=== PATIENT | male | born 1940 | race Caucasian/White ===

== ENCOUNTER 2017-03-24 07:59 | Emergency (ER) | payer OTHER ==
[2017-03-24 08:04] VITALS: BP 139/50; PULSE 98; TEMP 97.8; BMI 24.0
--- NOTE | 2017-03-24 08:16 | PDOC ---
History of Present Illness - General History Source: Patient, Family Exam Limitations: No Limitations - History of Present Illness Initial Comments: 03/24/17 08:31 The patient is a 76 year old male, with a significant past medical history of HTN, HLD and diabetes, who presents to the emergency department with a nose bleed since last night, mostly localized in his left nostril. He notes that this happened to him one before a while back. The patient has been putting pieces of tissues inside the nostril to help with the bleeding and has changed it a total of 3 times. The patient currently takes aspirin and plavix. He notes that he does see and ENT and has a follow up appointment with the ENT in April. The patient denies chest pain, shortness of breath, headache and dizziness. Denies fever, chills, nausea, vomit, diarrhea and constipation. Denies dysuria, frequency, urgency and hematuria. Allergies: None Past surgical history: None reported Social history: No alcohol, tobacco or drug use reported PMD - Dr. Pravin Cox ENT - Dr. Mcclendon <Noe Saeed - Last Filed: 03/24/17 08:42> <Eliseo Ramirez - Last Filed: 03/24/17 11:32> - General Chief Complaint: Nasal Bleeding Stated Complaint: NOSEBLEED Time Seen by Provider: 03/24/17 08:16 Past History <Noe Saeed - Last Filed: 03/24/17 08:42> - Past Medical History Diabetes: Yes HTN: Yes Hypercholesterolemia: Yes - Psycho/Social/Smoking Cessation Hx Anxiety: No Suicidal Ideation: No Smoking Status: No Smoking History: Never smoked Have you smoked in the past 12 months: No Number of Cigarettes Smoked Daily: 0 Cigars Per Day: 0 Hx Alcohol Use: No Drug/Substance Use Hx: No Substance Use Type: None Hx Substance Use Treatment: No <Eliseo Ramirez - Last Filed: 03/24/17 11:32> - Past Medical History Allergies/Adverse Reactions: Allergies Allergy/AdvReac Type Severity Reaction Status Date / Time No Known Drug Allergies Allergy Verified 03/24/17 08:04 Home Medications: Ambulatory Orders Amlodipine Besylate 5 mg PO DAILY 03/24/17 Aspirin [ASA -] 81 mg PO DAILY 03/24/17 Atorvastatin Ca [Lipitor] 80 mg PO HS 03/24/17 Carvedilol 12.5 mg PO BID 03/24/17 Clopidogrel Bisulfate [Plavix -] 75 mg PO DAILY 03/24/17 Docusate Sodium [Colace -] 100 mg PO DAILY 03/24/17 Gabapentin 100 mg PO BID 03/24/17 Insulin Degludec [Tresiba Flextouch U-100] 40 unit SQ AM 03/24/17 Losartan/Hydrochlorothiazide [Losartan-Hctz 100-25 mg Tab] 1 each PO DAILY 03/24 Tamsulosin HCl 0.4 mg PO DAILY 03/24/17 Review of Systems - Review of Systems Able to Perform ROS?: Yes Comments:: 03/24/17 08:31 GENERAL/CONSTITUTIONAL: No fever or chills. No weakness. HEAD, EYES, EARS, NOSE AND THROAT: (+) Nasal bleeding. No change in vision. No ear pain or discharge. No sore throat. CARDIOVASCULAR: No chest pain or shortness of breath RESPIRATORY: No cough, wheezing, or hemoptysis. GASTROINTESTINAL: No nausea, vomiting, diarrhea or constipation. GENITOURINARY: No dysuria, frequency, or change in urination. MUSCULOSKELETAL: No joint or muscle swelling or pain. No neck or back pain. SKIN: No rash NEUROLOGIC: No headache, vertigo, loss of consciousness, or change in strength/ sensation. ENDOCRINE: No increased thirst. No abnormal weight change HEMATOLOGIC/LYMPHATIC: No anemia, easy bleeding, or history of blood clots. ALLERGIC/IMMUNOLOGIC: No hives or skin allergy. <Noe Saeed - Last Filed: 03/24/17 08:42> *Physical Exam - Vital Signs Last Vital Signs Temp Pulse Resp BP Pulse Ox 97.8 F 98 H 20 139/50 96 03/24/17 08:01 03/24/17 08:01 03/24/17 08:01 03/24/17 08:01 03/24/17 08:01 - Physical Exam Comments: 03/24/17 08:31 GENERAL: Awake, alert, and fully oriented, in no acute distress HEAD: No signs of trauma, normocephalic, atraumatic EYES: PERRLA, EOMI, sclera anicteric, conjunctiva clear ENT: (+) Dry blood in left nare with slow oozing from anterior vessel. Posterior oropharynx with no blood. Auricles normal inspection, hearing grossly normal. NECK: Normal ROM, supple, no lymphadenopathy, JVD, or masses LUNGS: No distress, speaks full sentences, clear to auscultation bilaterally HEART: Regular rate and rhythm, normal S1 and S2, no murmurs, rubs or gallops, peripheral pulses normal and equal bilaterally. ABDOMEN: Soft, nontender, normoactive bowel sounds. No guarding, no rebound. No masses EXTREMITIES: Normal inspection, Normal range of motion, no edema. No clubbing or cyanosis. NEUROLOGICAL: Cranial nerves II through XII grossly intact. Normal speech, normal gait, no focal sensorimotor deficits SKIN: Warm, Dry, normal turgor, no rashes or lesions noted. <Noe Saeed - Last Filed: 03/24/17 08:42> - Vital Signs Last Vital Signs Temp Pulse Resp BP Pulse Ox 97.8 F 98 H 20 139/50 96 03/24/17 08:01 03/24/17 08:01 03/24/17 08:01 03/24/17 08:01 03/24/17 08:01 <Eliseo Ramirez - Last Filed: 03/24/17 11:32> Medical Decision Making - Medical Decision Making 03/24/17 08:40 76 M with h/o HTN, HLD, DM, CAD s/p stents on aspirin and plavix, presenting to ER with epistaxis since last night. Pt with slow oozing bleed from left nare. Small anterior vessel visualized as source. No evidence of posterior bleed. - Apply pressure using nasal clip - Afrin spray - Reassess 03/24/17 11:28 Pt reassessed - epistaxis now resolved s/p pressure and afrin. <Eliseo Ramirez - Last Filed: 03/24/17 11:32> *DC/Admit/Observation/Transfer - Attestations Scribe Attestion: 03/24/17 08:31 Documentation prepared by Noe Saeed, acting as medical assistant internal medicine for Eliseo Ramirez MD <Noe Saeed - Last Filed: 03/24/17 08:42> - Discharge Dispostion Admit: No - Attestations Physician Attestion: 03/24/17 11:32 IDr. Eliseo MD, attest that this document has been prepared under my direction and personally reviewed by me in its entirety. I further attest, that it accurately reflects all work, treatment, procedures and medical decision -making performed by me. <Eliseo Ramirez - Last Filed: 03/24/17 11:32> Diagnosis at time of Disposition: Epistaxis - Discharge Dispostion Disposition: HOME Condition at time of disposition: Stable - Referrals Referrals: Pravin Cox MD [Primary Care Provider] - - Patient Instructions Printed Discharge Instructions: Nosebleed Additional Instructions: Avoid blowing or picking your nose. Use a humidifier in your house to avoid drying out your nostrils. If bleeding recurs, hold pressure to both nostrils and tilt your head forward. Use the Afrin spray once in each nostril if needed. If the bleeding persists or worsens, return to the ER. Call your ENT doctor to make an appointment within 1 week for further evaluation of your bleeding.
[2017-03-24] MEDS ORDERED: OXYMETAZOLINE 0.05% NASAL SOLUTION 15 ML BOTTLE NS ONE (08:31)
== END 2017-03-24 11:58 | disposition home or self-care (01) ==
LOC: JER 07:59
DX: R04.0 Epistaxis (principal); I10 Essential (primary) hypertension; I25.10 Atherosclerotic heart disease of native coronary artery without angina pectoris; E78.5 Hyperlipidemia, unspecified; E11.9 Type 2 diabetes mellitus without complications; Z79.82 Long term (current) use of aspirin; Z79.4 Long term (current) use of insulin; Z79.01 Long term (current) use of anticoagulants; Z95.5 Presence of coronary angioplasty implant and graft
CPT/HCPCS: 99281-25

== ENCOUNTER 2017-03-24 18:57 | Emergency (ER) | payer OTHER ==
[2017-03-24 19:01] VITALS: BP 146/5; PULSE 76; TEMP 97.7; BMI 24.0
--- NOTE | 2017-03-24 19:30 | PDOC ---
History of Present Illness - General History Source: Patient Exam Limitations: No Limitations - History of Present Illness Initial Comments: 03/24/17 20:18 The patient is a 76 year old male, with a significant past medical history of HTN, HLD and diabetes, who presents to the emergency department with a nasal bleed onset today. He notes that the nose bleed is mostly localized on the left nare. The patient was seen in the ED earlier today for the same complaint and was discharged after improvement of symptoms. The patient denies chest pain, shortness of breath, headache and dizziness. Denies fever, chills, nausea, vomit, diarrhea and constipation. Denies dysuria, frequency, urgency and hematuria. Allergies: None Past surgical history: None reported Social history: No alcohol, tobacco or drug use reported PMD - Dr. Pravin Cox ENT - Dr. Mcclendon <Noe Saeed - Last Filed: 03/24/17 20:17> <Angelito Littlejohn - Last Filed: 03/24/17 21:23> - General Chief Complaint: Nasal Bleeding Stated Complaint: NASAL BLEED Time Seen by Provider: 03/24/17 19:30 Past History <Noe Saeed - Last Filed: 03/24/17 20:17> - Past Medical History Diabetes: Yes HTN: Yes Hypercholesterolemia: Yes - Psycho/Social/Smoking Cessation Hx Anxiety: No Suicidal Ideation: No Smoking Status: No Smoking History: Never smoked Have you smoked in the past 12 months: No Number of Cigarettes Smoked Daily: 0 Cigars Per Day: 0 Hx Alcohol Use: No Drug/Substance Use Hx: No Substance Use Type: None Hx Substance Use Treatment: No <Angelito Littlejohn - Last Filed: 03/24/17 21:23> - Past Medical History Allergies/Adverse Reactions: Allergies Allergy/AdvReac Type Severity Reaction Status Date / Time No Known Drug Allergies Allergy Verified 03/24/17 19:01 Home Medications: Ambulatory Orders Amlodipine Besylate 5 mg PO DAILY 03/24/17 Aspirin [ASA -] 81 mg PO DAILY 03/24/17 Atorvastatin Ca [Lipitor] 80 mg PO HS 03/24/17 Carvedilol 12.5 mg PO BID 03/24/17 Cephalexin [Keflex] 500 mg PO BID #10 capsule 03/24/17 Clopidogrel Bisulfate [Plavix -] 75 mg PO DAILY 03/24/17 Docusate Sodium [Colace -] 100 mg PO DAILY 03/24/17 Gabapentin 100 mg PO BID 03/24/17 Insulin Degludec [Tresiba Flextouch U-100] 36 unit SQ AM 03/24/17 Insulin Sliding Scale [Novolog Vial Sliding Scale -] 0 units SQ ACHS 03/24/17 Losartan/Hydrochlorothiazide [Losartan-Hctz 100-25 mg Tab] 1 each PO DAILY 03/24 Tamsulosin HCl 0.4 mg PO DAILY 03/24/17 Review of Systems - Review of Systems Able to Perform ROS?: Yes Comments:: 03/24/17 20:18 CONSTITUTIONAL: No fever, no chills, no fatigue EYES: No visual changes ENT: (+) Nose bleed. No ear pain, no sore throat CARDIOVASCULAR: No chest pain, no palpitations RESPIRATORY: No cough, no SOB GI: No abdominal pain, no nausea, no vomiting, no constipation, no diarrhea GENITOURINARY: No dysuria, no frequency, no hematuria MUSKULOSKELETAL: No backpain, no joint pain, no myalgias SKIN: No rash NEURO: No headache <Noe Saeed - Last Filed: 03/24/17 20:17> *Physical Exam - Vital Signs Last Vital Signs Temp Pulse Resp BP Pulse Ox 97.7 F 76 20 146/5 96 03/24/17 18:58 03/24/17 18:58 03/24/17 18:58 03/24/17 18:58 03/24/17 18:58 - Physical Exam Comments: 03/24/17 20:18 CONSTITUTIONAL: Well-appearing; well-nourished; in no apparent distress HEAD: Normocephalic; atraumatic EYES: PERRL; EOM intact ENMT: (+) Minimal amount of active bleeding bilaterally. External appears normal ; normal oropharynx NECK: Supple; non-tender; no cervical lymphadenopathy CARD: Normal S1, S2; no murmurs, rubs, or gallops RESP: Normal chest excursion with respiration; breath sounds clear and equal bilaterally; no wheezes, rhonchi, or rales ABD: Soft, non-distended; non-tender; no palpable organomegaly, no palpable hernias EXT: Normal ROM in all four extremities; non-tender to palpation; distal pulses intact SKIN: Warm, dry, no rash NEURO: No focal neurological deficiencies. <Noe Saeed - Last Filed: 03/24/17 20:17> - Vital Signs Last Vital Signs Temp Pulse Resp BP Pulse Ox 97.7 F 76 20 146/5 96 03/24/17 18:58 03/24/17 18:58 03/24/17 18:58 03/24/17 18:58 03/24/17 18:58 <Angelito Littlejohn - Last Filed: 03/24/17 21:23> Medical Decision Making - Medical Decision Making 03/24/17 21:21 Patient is 76-year-old male on aspirin and Plavix who returns to the ER for a traumatic epistaxis after having been evaluated in this ER earlier in the day. On reevaluation, patient is awake and alert, hemodynamically stable. ENT evaluation reveals active bleeding from the left nostril without an obvious source of bleeding. Some residual blood is also noted in the right nostril. Nasal packing was initiated bilaterally. Patient tolerated procedure well. Case discussed with Dr. Mcclendon of ENT. Patient will be reevaluated in 48 hours. Will discharge with Keflex with ENT follow-up. <Angelito Littlejohn - Last Filed: 03/24/17 21:23> *DC/Admit/Observation/Transfer - Attestations Scribe Attestion: 03/24/17 20:18 Documentation prepared by Noe Saeed, acting as medical record specialist for Angelito Littlejohn MD <Noe Saeed - Last Filed: 03/24/17 20:17> - Attestations Physician Attestion: 03/24/17 21:21 The documentation was prepared by the scribe under my direct supervision. I have reviewed the documentation which correctly represents the findings, medical decision-making and critical action taken by me. <Angelito Littlejohn - Last Filed: 03/24/17 21:23> Diagnosis at time of Disposition: Epistaxis - Discharge Dispostion Disposition: HOME Condition at time of disposition: Stable - Referrals Referrals: Pravin Cox MD [Primary Care Provider] - Louis Mcclendon MD [Staff Physician] - - Patient Instructions Printed Discharge Instructions: DI for Nosebleed
== END 2017-03-24 21:39 | disposition home or self-care (01) ==
LOC: JER 18:57
PROC: 2Y41X5Z Packing of Nasal Region using Packing Material (ICD-10-PCS; principal; 2017-03-24)
DX: R04.0 Epistaxis (principal); I10 Essential (primary) hypertension; E78.5 Hyperlipidemia, unspecified; E11.9 Type 2 diabetes mellitus without complications; Z79.82 Long term (current) use of aspirin; Z79.4 Long term (current) use of insulin; Z79.01 Long term (current) use of anticoagulants
CPT/HCPCS: 30901-25; 99282-25

== ENCOUNTER 2018-10-05 06:33 | Day surgery (SDC) | payer OTHER ==
[2018-10-04 10:09] VITALS: BMI 25.7
[2018-10-05] MEDS ORDERED: MIDAZOLAM HCL 2 MG/2 ML SINGLE DOSE VIAL ONE (09:01)
[2018-10-05] MEDS ORDERED: PROPOFOL 20 ML ONE (09:01)
[2018-10-05] MEDS ORDERED: LIDOCAINE HCL/PF 2% SDV 5ML VIAL ONE (09:01)
[2018-10-05] MEDS ORDERED: ceFAZolin SODIUM 1 GM VIAL ONE (09:01)
[2018-10-05] MEDS ORDERED: oxyCODONE HCL 5 MG TABLET PO PRN (09:16)
[2018-10-05] MEDS ORDERED: ONDANSETRON 4 MG/2 ML VIAL IVPUSH PRN (09:16)
[2018-10-05] MEDS ORDERED: ACETAMINOPHEN 500 MG TABLET (FP) PO PRN (09:16)
[2018-10-05] MEDS ORDERED: ceFAZolin SODIUM 1 GM VIAL IVPB ONE (09:29)
[2018-10-05] MEDS ORDERED: LACTATED RINGERS SOLUTION 1,000 ML IV SCH (09:30)
[2018-10-05] MEDS ORDERED: GLYCOPYRROLATE 0.2 MG/1 ML VIAL ONE (09:53)
--- NOTE | 2018-10-05 10:05 | HP ---
DATE OF ADMISSION: 10/05/2018 HISTORY OF PRESENT ILLNESS: Patient is a 78-year-old male with history of prostatism including lower urinary tract symptoms with frequency, urgency, dysuria, stranguria, and feelings of incomplete bladder emptying. Postvoid residuals range between 200 and 300 mL. Patient has been treated with Flomax and Proscar without any relief. 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 He does have history of high blood pressure as well as diabetes and coronary artery disease. MEDICATIONS: The patient is on multiple medications including gabapentin, Norvasc, Plavix, a statin, losartan, carvedilol, insulin, Colace, aspirin, metformin, and Flomax. PHYSICAL EXAMINATION: Abdomen: Reveals a soft abdomen. Lungs: Clear. Heart: Regular rhythm. Genitalia: Revealed a left empty scrotum, right side was normal in size and consistency. Phallus is circumcised. There is a coronal hypospadias. The prostate is 2+, firm, and nontender. LABORATORY DATA: The patients PSA is 1.3. BUN 24, creatinine 0.6. IMPRESSION: At present is benign prostatic hypertrophy with lower urinary tract symptoms, large postvoid residual. Will go for cystourethroscopy and transurethral vaporization of the prostate. Johanna [id number]
[2018-10-05] MEDS ORDERED: HYDROmorphone HCl 2 MG/ML VIAL IVPUSH ONE (10:40)
--- NOTE | 2018-10-05 10:49 | OP ---
Operative Note - Note: Operative Date: 10/05/18 Pre-Operative Diagnosis: bph with luts Operation: tuvp/turp Findings: trilobar hypertrophy of prostate, gr. 3 bladder trabeculation Post-Operative Diagnosis: Same as Pre-op Composition Worker: Annabella Pereyra Anesthesia: General Specimens Removed: prostate tissue Estimated Blood Loss (mls): 40 Drains & Tubes with Location: [id number] mccoy Drains, Volume Out (mls): 0 Blood Volume Replaced (mls): 0 Fluid Volume Replaced (mls): 0 Operative Report Dictated: Yes
[2018-10-05] MEDS ORDERED: ACETAMINOPHEN INJECTION 100 ML IVPB ONE (11:36)
--- NOTE | 2018-10-05 11:51 | OP ---
DATE OF OPERATION: 10/05/2018 SURGEON: Annabella Pereyra MD PREOPERATIVE DIAGNOSIS: Benign prostatic hypertrophy. POSTOPERATIVE DIAGNOSIS: Benign prostatic hypertrophy with trabeculated bladder. OPERATIVE PROCEDURE: Cystourethroscopy and transurethral vaporization and transurethral resection of prostate. ANESTHESIA: General. DESCRIPTION OF PROCEDURE: Under above stated anesthesia, patient was prepped and draped in the usual sterile manner. He was placed in the dorsal lithotomy position. Cystoscopy revealed a coronal hypospadias. Anterior urethra was within normal limits. Prostatic urethra revealed trilobar hypertrophy of the prostate with lateral lobe kissing. The bladder was entered, and urine was collected for culture and sensitivity. Ureteral orifices were within normal limits with efflux of clear urine. Vaportrode was introduced, and bipolar vaporization was commenced at the 6 o'clock position of the right lateral lobe. This was carried on up to the 12 o'clock position. Also, it was commenced from the bladder neck to the level of the verumontanum. The same thing was done to the left lateral lobe. Lastly, the median lobe was vaporized. Excess tissue was then resected with a resectoscope. Hemostasis was secured with electrocoagulation. Prostate chips were removed with an Ellik evacuator. No active bleeding was noted. The bladder was emptied. The scope was removed. The 24-Sinhala 3-way 30-mL Antunez catheter was placed into the bladder. The patient was commenced on continuous bladder irrigation. He tolerated the procedure well. He returned to the recovery room in good condition. Johanna [id number]
[2018-10-05] MEDS ORDERED: oxyCODONE HCL 5 MG TABLET ONE (14:48)
[2018-10-05 15:24] VITALS: BP 149/60; PULSE 84; TEMP 98
--- NOTE | 2018-10-07 17:11 | PATH ---
Surgical Pathology Report Patient Name: RUPALI DOMINGUEZ Med. Rec. #: [id number] /Age/Gender: 1940 (Age: 78) / M Account: [id number] Location: [facility] SURGICAL Taken: 10/05/2018 Received: 10/05/2018 Reported: 10/07/2018 Physicians: Annabella Pereyra M.D. Specimen(s) Received PROSTATE CHIPS Clinical History Benign prostate hypertrophy Final Diagnosis PROSTATE CHIPS, TRANSURETHRAL RESECTION OF PROSTATE: BENIGN PROSTATIC TISSUE WITH FOCAL ACUTE AND CHRONIC INFLAMMATION, ACINAR ATROPHY, CYSTIC CHANGES, GLANDULAR AND STROMAL HYPERPLASIA. UROTHELIAL MUCOSA WITH CYSTITIS CYSTICA AND GLANDULARIS. Comment: Immunohistochemical stains performed and interpreted at [facility] for P63 highlights basal cells. Electronically Signed Dimple Pedersen M.D. Gross Description Received in formalin labeled "prostate chips," is a 5 g, 6.0 x 5.2 x 0.4 cm aggregate of orona, irregular, firm to rubbery portions of tissue, consistent with prostate chips. The specimen is entirely submitted in 6 cassettes. /10/05/201810/05/2018
== END 2018-10-05 15:20 | disposition home or self-care (01) ==
LOC: JASU-SURG 06:33
PROVIDERS: ATTEND Urology
PROC: 0VT08ZZ Resection of Prostate, Via Natural or Artificial Opening Endoscopic (ICD-10-PCS; principal; 2018-10-05 08:30)
DX: N40.1 Benign prostatic hyperplasia with lower urinary tract symptoms (principal); N32.89 Other specified disorders of bladder; R35.0 Frequency of micturition; R39.15 Urgency of urination; E11.9 Type 2 diabetes mellitus without complications; Z79.82 Long term (current) use of aspirin
CPT/HCPCS: 82962; 87086; 88305-TC; 88342-TC; 94760; J0131

== ENCOUNTER 2019-05-12 07:07 | Day surgery (SDC) | payer OTHER ==
[2019-05-11 13:42] VITALS: BMI 26.3
[2019-05-12 09:41] VITALS: PULSE 70
[2019-05-12 09:56] VITALS: BP 163/66; TEMP 98.2
--- NOTE | 2019-05-15 18:33 | PATH ---
Surgical Pathology Report Patient Name: RUPALI DOMINGUEZ [facility]. Rec. #: [id number] /Age/Gender: 1940 (Age: 78) / M Account: [id number] Location: [facility] Taken: 05/12/2019 Received: 05/12/2019 Reported: 05/15/2019 Physicians: Guera Slaughter M.D. Specimen(s) Received A: BX RECTAL POLYP B: SIGMOID COLON POLYP HOT SNARE C: POLYP FROM TRANSVERSE COLON HOT SNARE D: CECUM POLYP HOT SNARE E: RT. COLON POLYP HOT SNARE Clinical History Personal history of colon polyp Postoperative diagnosis: Colon polyps and diverticulosis Final Diagnosis A. RECTAL POLYPS, POLYPECTOMY: HYPERPLASTIC POLYP. SEPARATE COLONIC MUCOSA WITH FOCAL REACTIVE LYMPHOID AGGREGATE IN THE LAMINA PROPRIA.: B. SIGMOID COLON POLYP, POLYPECTOMY: TUBULAR ADENOMA. C. POLYPS FROM TRANSVERSE COLON, POLYPECTOMY: TUBULAR ADENOMA, MULTIPLE FRAGMENTS. D. POLYPS FROM CECUM, POLYPECTOMY: TUBULAR ADENOMA, MULTIPLE FRAGMENTS: E. RIGHT COLON POLYPS, POLYPECTOMY: TUBULAR ADENOMA, MULTIPLE FRAGMENTS. Electronically Signed Kell Stern M.D. Gross Description A. Received in formalin, labeled "rectal polyps" are 3 orona, irregular portions of soft tissue measuring 0.1 to 0.2 cm. in greatest dimension. The specimens are submitted in toto in one cassette. B. Received in formalin, labeled "polyp from sigmoid colon" is a orona, irregular portion of soft tissue measuring 0.7 cm. in greatest dimension. The specimens are submitted in toto in one cassette after bisected. C. Received in formalin, labeled "polyps from transverse colon" are multiple orona, irregular portions of soft tissue measuring 1.5 x1.5 x 0.2 cm in aggregate. The specimens are submitted in toto in one cassette. D. Received in formalin, labeled "polyps from cecum" are multiple orona, irregular portions of soft tissue measuring 2.0 x 2.0 x 0.2 cm in aggregate. The specimens are submitted in toto in one cassette. E. Received in formalin, labeled "right colon polyps" are multiple orona, irregular portion of soft tissue measuring 0.1 to 0.3 cm. in greatest dimension. The specimens are submitted in toto in one cassette. __ KWS/05/15/2019 roni/05/15/2019
== END 2019-05-12 09:57 | disposition home or self-care (01) ==
LOC: JASU-ENDO 07:07
PROVIDERS: ATTEND Internal Medicine Gastroenterology
PROC: 0DBL8ZX Excision of Transverse Colon, Via Natural or Artificial Opening Endoscopic, Diagnostic (ICD-10-PCS; 2019-05-12)
PROC: 0DBN8ZX Excision of Sigmoid Colon, Via Natural or Artificial Opening Endoscopic, Diagnostic (ICD-10-PCS; 2019-05-12)
PROC: 0DBH8ZX Excision of Cecum, Via Natural or Artificial Opening Endoscopic, Diagnostic (ICD-10-PCS; 2019-05-12)
PROC: 0DBP8ZX Excision of Rectum, Via Natural or Artificial Opening Endoscopic, Diagnostic (ICD-10-PCS; 2019-05-12)
PROC: 0DBK8ZX Excision of Ascending Colon, Via Natural or Artificial Opening Endoscopic, Diagnostic (ICD-10-PCS; principal; 2019-05-12 08:30)
DX: Z12.11 Encounter for screening for malignant neoplasm of colon (principal); Z86.010 Personal history of colon polyps; K62.1 Rectal polyp; K64.8 Other hemorrhoids; K57.30 Diverticulosis of large intestine without perforation or abscess without bleeding; D12.2 Benign neoplasm of ascending colon; D12.0 Benign neoplasm of cecum; D12.5 Benign neoplasm of sigmoid colon; D12.3 Benign neoplasm of transverse colon; I10 Essential (primary) hypertension; E11.9 Type 2 diabetes mellitus without complications; Z79.4 Long term (current) use of insulin
CPT/HCPCS: 88305-TC

== ENCOUNTER 2019-05-25 07:49 | Inpatient (IN) | payer OTHER ==
[2019-05-25 07:56] VITALS: BMI 25.7
--- NOTE | 2019-05-25 08:04 | PDOC ---
Attending Attestation - Resident Resident Name: Luis Angel Pruett - HPI HPI: 05/25/19 10:41 Pt presents to the ED complaining of rectal bleeding that started yesterday evening. also complaining of diaphoresis and chills. Denies nausea and vomiting, fever or abdominal pain. 05/25/19 10:42 05/25/19 10:43 - Physicial Exam PE: 05/25/19 10:45 Agree with resident exam. Patient is alert and in NAD, but appears pale. + 2/ 6 systolic murmur. Lungs are clear. Abdomen soft, non tender, non distended. - Medical Decision Making 05/25/19 10:46 Pt presents to the ED complaining of rectal bleeding. in no acute distress, but complains of lightheadness and appears pale. + BRBPR on rectal. Initial hgb 8/7 down from 12 on 05/22. Will admit to medicine, follow serial hgb.
[2019-05-25] MEDS ORDERED: SODIUM CHLORIDE 0.9% 500 ML INFUS.BAG IV ONE (08:13)
--- NOTE | 2019-05-25 08:28 | PDOC ---
History of Present Illness - General Chief Complaint: Bleeding from Anus Stated Complaint: BLOOD IN STOOL Time Seen by Provider: 05/25/19 08:04 History Source: Patient, Spouse Exam Limitations: Language Barrier (pashto) - History of Present Illness Initial Comments: 05/25/19 08:23 Seth Walker is a 78yM w PMHx DM, HTN, HLD, BPH, cardiac stent (2002) presenting with rectal bleeding. Noticed gross clark red blood w blood clots in stool and underwear starting last night. Associated chills, lightheadedness, and diaphoresis. Had colonoscopy done 2 weeks ago showing polyps. Started baby aspirin and plavix 1 week ago, stopped yesterday after blood seen. Never had gross rectal bleeding before. Also fell down on knees in bathroom yesterday d/t lightheadedness, no LOC/head trauma. Denies fever, headache, nausea/vomiting, SOB, chest/AB pain, urinary changes, diarrhea/constipation. Per hospital records , pt was being worked up for questionable neoplasm of testes/prostate in 2017/ 2018. Past History - Past Medical History Allergies/Adverse Reactions: Allergies Allergy/AdvReac Type Severity Reaction Status Date / Time No Known Drug Allergies Allergy Verified 10/05/18 07:12 Home Medications: Ambulatory Orders Aspirin [ASA -] 81 mg PO DAILY 03/24/17 Atorvastatin Ca [Lipitor] 80 mg PO HS 03/24/17 Carvedilol 12.5 mg PO BID 03/24/17 Clopidogrel Bisulfate [Plavix -] 75 mg PO DAILY 03/24/17 Docusate Sodium [Colace -] 100 mg PO DAILY 03/24/17 Gabapentin 100 mg PO BID 03/24/17 Insulin Degludec [Tresiba Flextouch U-100] 40 unit SQ AM 03/24/17 Insulin Sliding Scale [Novolog Vial Sliding Scale -] 5 units SQ DAILY 03/24/17 Tamsulosin HCl 0.4 mg PO HS 03/24/17 Ascorbic Acid [Vitamin C] 500 mg PO DAILY 10/04/18 Cholecalciferol (Vitamin D3) [Vitamin D -] 1,000 unit PO DAILY 10/04/18 Herbal Drugs [Super Energy] 1 each PO DAILY 10/04/18 Timolol 0.5% [Timoptic 0.5%] 1 drop OD DAILY 10/04/18 Amlodipine Bes/Olmesartan Med [Amlodipine-Olmesartan 5-40 mg] 1 each PO DAILY Cardiac Disorders: Yes (blockage- stent inserted) Diabetes: Yes HTN: Yes Hypercholesterolemia: Yes - Surgical History Abdominal Surgery: Yes (hernia sx) Cardiac Surgery: Yes (stent) - Psycho Social/Smoking Cessation Hx Smoking Status: No Smoking History: Never smoked Have you smoked in the past 12 months: No Number of Cigarettes Smoked Daily: 0 Cigars Per Day: 0 Information on smoking cessation initiated: No Hx Alcohol Use: No Drug/Substance Use Hx: No Substance Use Type: None Hx Substance Use Treatment: No Review of Systems - Review of Systems Constitutional: Yes: Chills, Diaphoresis, Weakness. No: Fever HEENTM: No: Eye Pain, Nose Pain, Throat Pain, Mouth Pain Respiratory: No: Cough, Shortness of Breath Cardiac (ROS): No: Chest Pain, Palpitations, Syncope ABD/GI: Yes: Rectal Bleeding. No: Abdominal Distended, Constipated, Diarrhea, Nausea, Vomiting : No: Burning, Dysuria, Discharge, Frequency, Flank Pain, Hematuria Musculoskeletal: No: Back Pain, Joint Pain, Joint Swelling, Muscle Pain Integumentary: No: Bruising, Dryness, Erythema Neurological: No: Headache, Numbness, Paresthesia, Seizure, Tingling, Tremors Psychiatric: No: Anxiety, Depression, Stressors Endocrine: No: Flushing, Intolerance to Cold, Intolerance to Heat Hematologic/Lymphatic: Yes: Blood Clots. No: Anemia *Physical Exam - Vital Signs Last Vital Signs Temp Pulse Resp BP Pulse Ox 97.8 F 77 20 135/56 L 98 05/25/19 07:52 05/25/19 07:52 05/25/19 07:52 05/25/19 07:52 05/25/19 07:52 - Physical Exam General Appearance: Yes: Nourished, Appropriately Dressed, Mild Distress HEENT: positive: EOMI, SILVIA, Normal Voice, Hearing Grossly Normal. negative: Scleral Icterus (R), Scleral Icterus (L), Nasal Congestion, Rhinorrhea Respiratory/Chest: positive: Lungs Clear, Normal Breath Sounds. negative: Chest Tender, Respiratory Distress, Crackles, Rales, Rhonchi, Stridor, Wheezing Cardiovascular: positive: Regular Rhythm, Regular Rate, S1, S2, Systolic Murmur. negative: Edema Gastrointestinal/Abdominal: positive: Normal Bowel Sounds, Flat, Soft. negative : Tender, Organomegaly, Distended, Guarding, Rebound Male Genitalia: positive: normal genitalia Rectal Exam: positive: normal rectal tone, hemorrhoids (not bleeding), other ( dried blood in underwear, around rectum) Musculoskeletal: negative: CVA Tenderness (R), CVA Tenderness (L) Extremity: positive: Delayed Capillary Refill (5s), Other (3cm superficial abrasions anterior knees bilaterally) Integumentary: positive: Pale. negative: Hives, Petechiae, Rash, Swelling Neurologic: positive: relish blender II-XII NML intact, Fully Oriented, Alert, Normal Mood/ Affect, Normal Response, Motor Strength 5/5, Responsive. negative: Numbness, Sensory Deficit, Confused, Disoriented ED Treatment Course - LABORATORY CBC & Chemistry Diagram: 05/25/19 08:20 05/25/19 08:20 - ADDITIONAL ORDERS Additional order review: Laboratory Results 05/25/19 08:05 POC Glucometer 443 05/25/19 08:05 POC Glucometer 443 - RADIOLOGY Radiology Studies Ordered: Category Date Time Status CHEST X-RAY PORTABLE* [RAD] Stat Radiology 05/25/19 08:13 Ordered Medical Decision Making - Medical Decision Making 05/25/19 08:28 CBC, CMP, trop, coags, T&S, B-hydroxybutyrate, acetone, EKG, CXR, stool occult blood 0.5L NS EKG shows NSR w 1st degree AV block, hyperacute T waves in V2-3 unchanged from 2002, HR 76, QTc 436 Rectal exam showed hemorrhoid, no bleeding blood glucose 443 - given 6 units insulin, K 5.4 Hgb 8.7, + stool occult, UA + blood/glucose, acetone neg CXR clear lung rodriguez Seth Walker is a 78yM w PMHx DM, HTN, HLD, BPH, cardiac stent (2002) presenting with 1d of rectal bleeding likely from polyps (seen on colonoscopy) vs diverticulosis (common lower GI bleed etiology) vs cancer (questionable prostate/testicular CA hx). Gross blood seen on rectal exam, + stool occult. Hemodynamically stable, Hgb 8.7 not at threshold <7 to transfuse. Normal coagulation factors. Does not have evidence of ACS w unchanged EKG, neg trop Has hyperglycemia BG 443, given 6 units regular insulin. No acetone on labs. Given 0.5L NS. Admitted to tele Dr Olson for gross hematochezia, anemia, hyperglycemia Consulted Dr Slaughter GI Discharge - Discharge Information Problems reviewed: Yes Clinical Impression/Diagnosis: Hematochezia, Hyperglycemia Anemia Qualifiers: Anemia type: unspecified type Qualified Code(s): D64.9 - Anemia, unspecified Condition: Stable - Follow up/Referral - Patient Discharge Instructions - Post Discharge Activity
[2019-05-25 08:50] LABS: BASO % 0.3 % (0-2.0); EOS % 0.1 % (0-4.5); HEMATOCRIT 25.4 % (35.4-49); HEMOGLOBIN 8.7 GM/dL (11.7-16.9); LYMPH % 17.3 % (8-40); MCH 31.2 pg (25.7-33.7); MCHC 34.2 g/dl (32.0-35.9); MEAN CELL VOLUME 91.3 fl (80-96); MEAN PLT VOLUME 9.6 fl (7.5-11.1); NEUT % 78.3 % (42.8-82.8); PLATELET COUNT 160 K/MM3 (134-434); RBC 2.78 M/mm3 (4.00-5.60); RDW 13.7 % (11.9-15.9); WHITE BLOOD COUNT 5.8 K/mm3 (4.0-10.0)
[2019-05-25 09:21] LABS: INR 1.14 (0.83-1.09); PROTHROMBIN TIME (PATIENT) 13.5 SEC (9.7-13.0)
[2019-05-25 09:27] LABS: ALBUMIN 2.8 g/dl (3.4-5.0); ALK PHOS 74 U/L (45-117); ANION GAP 5 MMOL/L (8-16); BILIRUBIN,TOTAL 0.6 mg/dL (0.2-1); BLOOD UREA NITROGEN 51.9 mg/dL (7-18); CALCIUM 8.3 mg/dL (8.5-10.1); CHLORIDE 106 mmol/L (98-107); CO2 29 mmol/L (21-32); POTASSIUM 5.4 mmol/L (3.5-5.1); SGOT/AST 10 U/L (15-37); SGPT/ALT 23 U/L (13-61); SODIUM 139 mmol/L (136-145); TOT PROT 5.2 g/dl (6.4-8.2)
[2019-05-25 09:35] LABS: GLUCOSE,RANDOM 441 mg/dL (74-106)
[2019-05-25] MEDS ORDERED: INSULIN REGULAR HUMAN 100 UNITS/ML *VIAL IVPUSH ONE (10:21)
[2019-05-25 10:22] LABS: EPI CELLS 0.9 /HPF (0-5/HPF); HYALINE CASTS 4 /lpf (0-8); URINE APPEARANCE CLEAR; URINE BACTERIA 48.7 /hpf (NEGATIVE); URINE BILIRUBIN NEGATIVE (NEGATIVE); URINE COLOR RED; URINE GLUCOSE (UA) 3+ (NEGATIVE); URINE KETONE NEGATIVE (NEGATIVE); URINE LEUK ESTERASE NEGATIVE (NEGATIVE); URINE NITRITE NEGATIVE (NEGATIVE); URINE PROTEIN 1+ (NEGATIVE); URINE RBC 85 /hpf (0-4); URINE WBC 2 /hpf (0-5)
[2019-05-25 10:29] LABS: ACETONE SERUM NEGATIVE (NEGATIVE)
[2019-05-25] MEDS ORDERED: INSULIN (NOVOLOG) ASPART 100 UNITS/ML 10ML VIAL ONE (11:20)
[2019-05-25] MEDS ORDERED: PANTOPRAZOLE SODIUM 40 MG VIAL ONE (11:24)
[2019-05-25] MEDS: OCTREOTIDE ACETATE 200 MCG, OCTREOTIDE ACETATE 1,000 MCG in DEXTROSE 5%-WATER - 496 ML IVPB SCH (12:36)
--- NOTE | 2019-05-25 13:06 | HP ---
Admitting History and Physical - Admission Chief Complaint: rectal bleeding History of Present Illness: 78yM w PMHx DM, HTN, HLD, BPH, cardiac stent (2002) presenting with rectal bleeding. Noticed gross clark red blood w blood clots in stool and underwear starting last night. Associated chills, lightheadedness, and diaphoresis. Had colonoscopy done 2 weeks ago showing polyps. Started baby aspirin and plavix 1 week ago, stopped yesterday after blood seen. Never had gross rectal bleeding before. Also fell down on knees in bathroom yesterday d/t lightheadedness, no LOC/head trauma. Denies fever, headache, nausea/vomiting, SOB, chest/AB pain, urinary changes, diarrhea/constipation. per has been having bleeding the whole night bright red blood per rectum, no abdominal pain no chest pain History Source: Family Member - Past Medical History Cardiovascular: Yes: HTN, Hyperlipdemia Endocrine: Yes: Diabetes Mellitus - Smoking History Smoking history: Never smoked Have you smoked in the past 12 months: No Aproximately how many cigarettes per day: 0 - Alcohol/Substance Use Hx Alcohol Use: No Home Medications - Allergies Allergies/Adverse Reactions: Allergies Allergy/AdvReac Type Severity Reaction Status Date / Time No Known Drug Allergies Allergy Verified 10/05/18 07:12 - Home Medications Home Medications: Ambulatory Orders Aspirin [ASA -] 81 mg PO DAILY 03/24/17 Atorvastatin Ca [Lipitor] 80 mg PO HS 03/24/17 Carvedilol 12.5 mg PO BID 03/24/17 Clopidogrel Bisulfate [Plavix -] 75 mg PO DAILY 03/24/17 Docusate Sodium [Colace -] 100 mg PO DAILY 03/24/17 Gabapentin 100 mg PO BID 03/24/17 Insulin Degludec [Tresiba Flextouch U-100] 40 unit SQ AM 03/24/17 Insulin Sliding Scale [Novolog Vial Sliding Scale -] 5 units SQ DAILY 03/24/17 Tamsulosin HCl 0.4 mg PO HS 03/24/17 Ascorbic Acid [Vitamin C] 500 mg PO DAILY 10/04/18 Cholecalciferol (Vitamin D3) [Vitamin D -] 1,000 unit PO DAILY 10/04/18 Herbal Drugs [Super Energy] 1 each PO DAILY 10/04/18 Timolol 0.5% [Timoptic 0.5%] 1 drop OD DAILY 10/04/18 Amlodipine Bes/Olmesartan Med [Amlodipine-Olmesartan 5-40 mg] 1 each PO DAILY Review of Systems - Review of Systems Constitutional: reports: Weakness Physical Examination Vital Signs: Vital Signs Temperature 98.6 F 05/25/19 08:00 Pulse Rate 73 05/25/19 09:44 Respiratory Rate 20 05/25/19 09:44 Blood Pressure 120/49 L 05/25/19 09:44 O2 Sat by Pulse Oximetry (%) 98 05/25/19 09:44 Constitutional: Yes: Calm Labs: CBC, BMP 05/25/19 08:20 05/25/19 08:20 Problem List - Problems (1) Hematochezia Assessment/Plan: NPO iv pPi bid octreotide Code(s): K92.1 - MELENA (2) Diabetes Assessment/Plan: npo for now sliding scale [id number] endocrine consult Code(s): E11.9 - TYPE 2 DIABETES MELLITUS WITHOUT COMPLICATIONS Qualifiers: Diabetes mellitus type: type 2 (3) CAD (coronary artery disease) Assessment/Plan: s/p stents hold aspirin and plavix cardiology consult Code(s): I25.10 - ATHSCL HEART DISEASE OF [place] CORONARY ARTERY W/O ANG PCTRS (4) Glaucoma Assessment/Plan: eye drops Code(s): H40.9 - UNSPECIFIED GLAUCOMA
--- NOTE | 2019-05-25 13:26 | CON.CARD ---
Consult Consult Specialty:: Cardiology Referred by:: Dr. Olson - History of Present Illness History of Present Illness: Chief Complaint: 1. Painless hematochezia. 2. Dizziness. 3. Weakness. History was obtained from patient's . 78-year-old [place] gentleman with long-standing history of coronary artery disease, status post PCI/stenting, hypertension, hypertensive cardiovascular disease, insulin-dependent diabetes mellitus, aortic valvular disease with mild- to-moderate aortic valvular stenosis, dyslipidemia type IIb. History of moderate mitral and moderate to severe tricuspid regurgitation and mild pulmonary hypertension. History of peripheral neuropathy, left ventricular diastolic dysfunction, glaucoma. Patient was brought to the hospital became of severe painless bright red rectal bleeding that started last evening and was occompanied by dizziness, weakness and apparently had two to three falls today prior to coming to the hospital. According to his he had undergone a colonoscopy May 12 and apparently had 15 polyps removed. Both Aspirin and Plavix had been stopped prior to the procedure and was told that he should resume these medications on May 22. No history of chest pain or discomfort either at rest or with exertion, no exertional dyspnea, paroxysmal nocturnal dyspnea or orthopnea. No history of palpitations, no presyncope or syncope. No cough or expectoration and no side effects to medicines were reported. There is no history of abdominal pain or discomfort, no history of nausea, vomiting or hematemesis. Past History: 1. As mentioned in the history of present illness. 2. History of herpes zoster. 3. Status post infection involving the left lower extremity. Surgical History: 1. Recent colonoscopy and polypectomy. 2. Status bilateral herniorrhaphy. 3. Status post bilateral cataract extraction and intraocular lens implantation. 4. History of TURP. 5. Status post appendectomy. 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 , has no children. Never smoked has an occasional glass of wine and drinks one cup of coffee. Family History: Father in his 60s apparently related to bleeding peptic ulcer. Mother at age 93 years she was hypertensive, diabetic apparently related to heart disease. Had 1 brother and 5 sisters 2 of the sisters are one at the age of 40 years of colon cancer the other sister at the age of 78 years of a myocardial infarction, was a diabetic and hypertensive. The third sister is 83 and apparently has coronary artery disease, diabetes mellitus, and hypertension. One brother is 67 and apparently is healthy. Active Medications Octreotide Acetate 200 mcg/Octreotide Acetate 1,000 mcg/Dextrose 500 mls @ 20.833 mls/hr IVPB [facility]; Protocol Last Admin: 05/25/19 12:36 Dose: 20.833 mls/hr Insulin Aspart (Novolog Vial Sliding Scale -) 1 vial SQ ACHS [facility]; Protocol Last Admin: 05/25/19 17:02 Dose: 6 units Pantoprazole Sodium (Protonix Iv) 40 mg IVPUSH BID [facility] Timolol Maleate (Timoptic 0.5%) 1 drop OU BID [facility] Outpatient Medications: 1. Carvedilol 12.5 mg by mouth twice a day. 2. Atorvastatin 80 mg by mouth daily. 3. Losartan/HCTZ 100/12.5 mg by mouth daily. 4. Amlodipine 5 mg by mouth daily. 5. Plavix 75 mg by mouth daily. 6. Aspirin 81 mg by mouth daily. 7. Gabapentin 100 mg by mouth twice a day. 8. NovoLog insulin according to sliding scale. 9. Tresiba insulin 40 units subcutaneously before meals breakfast. 10. Timolol ophthalmic solution 0.5% 1 drop in each eye at bedtime. Allergies: None reported. Review of Systems: Constitutional: No history of chills, fever or night sweats, no history of unintentional weight loss. Complains of feeling cold. HEENT: See history of present illness, no history of headaches, diplopia or blurred vision reported, no history of hoarseness or epistaxis, history of bilateral deafnes requiring hearing aids. No history of tinnitus. Respiratory: No history of cough, expectoration, hemoptysis or tuberculosis. Cardiovascular: See history of present illness. Gastrointestinal: See history of present illness. Endocrine: See history of present illness. Genitourinary: No history of hematuria, urgency, frequency, nocturia. Musculoskeletal: No history of myalgias or arthralgias. Neurological: History of dizziness and falls at home. No history of presyncope or syncope. No history of seizures or focal weakness. Hematological/lymphatic: See history of present illness. Physical Exam: O: 78 year old male was in no acute distress. No pallor, cyanosis, clubbing, or jaundice Last Vital Signs Temp Pulse Resp BP Pulse Ox 98.6 F 73 20 120/49 L 98 05/25/19 08:00 05/25/19 09:44 05/25/19 09:44 05/25/19 09:44 05/25/19 09:44 Neck: Supple, no jugular venous distention, hepatojugular reflux was negative, faint left carotid bruit versus radiation of murmur. No thyromegaly was present. Heart: PMI was in the fifth intercostal space, no heaves or thrills, S1 and S2 were normal. Nonejection systolic click was heard along the left sternal border. There was an ejection systolic murmur grade II/ at the second right intercostal space and along the left sternal border ending in early to mid systole. No diastolic murmur or gallops were heard. Lungs: Clear on auscultation, slightly decreased breath sounds at the left base. Abdomen: Soft, distended and nontender. A moderate sized ventral hernia that was reducible. No hepatosplenomegaly or palpable masses were felt. Bowel sounds were absent, no bruits were appreciated. Extremities: No calf tenderness, 1-2+ bilateral ankle extremity dependent edema , 1-2+ bilateral pedal edema, bilateral varicosities involving both lower extremities, stasis changes. Pulses were equal posterior tibial pulses were weak. ECG: Dated: 05/25/19 SINUS RHYTHM WITH 1ST DEGREE A-V BLOCK OTHERWISE NORMAL ECG WHEN COMPARED WITH ECG OF 26-JUL-2008 06:51, NO SIGNIFICANT CHANGE WAS FOUND Confirmed by PATRIZIA MICHELE MD LAB DATA: Laboratory Results - last 24 hr 05/25/19 05/25/19 05/25/19 08:05 08:20 08:20 WBC RBC Hgb Hct MCV MCH MCHC RDW Plt Count MPV Absolute Neuts (auto) Neutrophils % Lymphocytes % Monocytes % Eosinophils % Basophils % Nucleated RBC % PT with INR INR PTT (Actin FS) Cancelled Sodium Potassium Chloride Carbon Dioxide Anion Gap BUN Creatinine Est GFR (CKD-EPI)AfAm Est GFR (CKD-EPI)NonAf POC Glucometer 443 Random Glucose Calcium Total Bilirubin AST ALT Alkaline Phosphatase Creatine Kinase 61 Troponin I 0.02 Total Protein Albumin Urine Color Urine Appearance Urine pH Ur Specific [place] Urine Protein Urine Glucose (UA) Urine Ketones Urine Blood Urine Nitrite Urine Bilirubin Urine Urobilinogen Ur Leukocyte Esterase Urine WBC (Auto) Urine RBC (Auto) Urine Casts (Auto) U Epithel Cells (Auto) Urine Bacteria (Auto) Stool Occult Blood Acetone, Qual Blood Type Antibody Screen Crossmatch 05/25/19 05/25/19 05/25/19 08:20 08:20 08:20 WBC 5.8 RBC 2.78 L Hgb 8.7 L Hct 25.4 L D MCV 91.3 MCH 31.2 MCHC 34.2 RDW 13.7 Plt Count 160 D MPV 9.6 D Absolute Neuts (auto) 4.5 Neutrophils % 78.3 Lymphocytes % 17.3 D Monocytes % 4.0 Eosinophils % 0.1 D Basophils % 0.3 Nucleated RBC % 0 PT with INR 13.50 H INR 1.14 H PTT (Actin FS) 29.0 Sodium 139 Potassium 5.4 H Chloride 106 Carbon Dioxide 29 Anion Gap 5 L BUN 51.9 H Creatinine 1.0 Est GFR (CKD-EPI)AfAm 84.36 Est GFR (CKD-EPI)NonAf 72.78 POC Glucometer Random Glucose 441 H* Calcium 8.3 L Total Bilirubin 0.6 AST 10 L ALT 23 Alkaline Phosphatase 74 Creatine Kinase Troponin I Total Protein 5.2 L Albumin 2.8 L Urine Color Urine Appearance Urine pH Ur Specific [place] Urine Protein Urine Glucose (UA) Urine Ketones Urine Blood Urine Nitrite Urine Bilirubin Urine Urobilinogen Ur Leukocyte Esterase Urine WBC (Auto) Urine RBC (Auto) Urine Casts (Auto) U Epithel Cells (Auto) Urine Bacteria (Auto) Stool Occult Blood Acetone, Qual Negative Blood Type Antibody Screen Crossmatch 05/25/19 05/25/19 05/25/19 08:20 08:20 10:09 WBC RBC Hgb Hct MCV MCH MCHC RDW Plt Count MPV Absolute Neuts (auto) Neutrophils % Lymphocytes % Monocytes % Eosinophils % Basophils % Nucleated RBC % PT with INR INR PTT (Actin FS) Sodium Potassium Chloride Carbon Dioxide Anion Gap BUN Creatinine Est GFR (CKD-EPI)AfAm Est GFR (CKD-EPI)NonAf POC Glucometer Random Glucose Calcium Total Bilirubin AST ALT Alkaline Phosphatase Creatine Kinase Troponin I Total Protein Albumin Urine Color Red Urine Appearance Clear Urine pH 5.0 D Ur Specific [place] 1.023 Urine Protein 1+ H Urine Glucose (UA) 3+ H Urine Ketones Negative Urine Blood 3+ H Urine Nitrite Negative Urine Bilirubin Negative Urine Urobilinogen 1.0 Ur Leukocyte Esterase Negative Urine WBC (Auto) 2 Urine RBC (Auto) 85 Urine Casts (Auto) 4 U Epithel Cells (Auto) 0.9 Urine Bacteria (Auto) 48.7 Stool Occult Blood Positive Acetone, Qual Blood Type O POSITIVE Antibody Screen Negative Crossmatch See Detail 05/25/19 05/25/19 11:26 16:56 WBC RBC Hgb Hct MCV MCH MCHC RDW Plt Count MPV Absolute Neuts (auto) Neutrophils % Lymphocytes % Monocytes % Eosinophils % Basophils % Nucleated RBC % PT with INR INR PTT (Actin FS) Sodium Potassium Chloride Carbon Dioxide Anion Gap BUN Creatinine Est GFR (CKD-EPI)AfAm Est GFR (CKD-EPI)NonAf POC Glucometer 307 Random Glucose Calcium Total Bilirubin AST ALT Alkaline Phosphatase Creatine Kinase Troponin I Total Protein Albumin Urine Color Urine Appearance Urine pH Ur Specific [place] Urine Protein Urine Glucose (UA) Urine Ketones Urine Blood Urine Nitrite Urine Bilirubin Urine Urobilinogen Ur Leukocyte Esterase Urine WBC (Auto) Urine RBC (Auto) Urine Casts (Auto) U Epithel Cells (Auto) Urine Bacteria (Auto) Stool Occult Blood Acetone, Qual Blood Type O POSITIVE Antibody Screen Crossmatch Impression: 1. Painless hematochezia most likely related to recent polypectomy site. 2. Coronary artery disease, status post PCI/stenting, stable angina pectoris. 3. Poorly controlled diabetes mellitus. 4. Aortic valvular disease with [id number] aortic stenosis and mild aortic regurgitation. 5. Hypertension, hypertensive cardiovascular disease. 6. Diabetic peripheral neuropathy. 7. Mitral valvular disease with moderate mitral regurgitation. 8. Moderate to severe tricuspid regurgitation. 9. [id number] pulmonary hypertension. 10. Pleural calcification and left lower lobe bronchiectasis possibility of asbestosis needs to be excluded. 11. History of glaucoma. 12. History of left ventricular diastolic dysfunction. 13. Intermittent pedal edema related to venous insufficiency/Amlodipine. 14. History of dizziness, recurring falls most likely related to anemia. Recommendations: 1. Patient is awaiting GI evaluation. 2. Most likely will need blood transfusion. 3. Serial EKGs and cardiac enzymes. 4. Monitor in CCU. 5. Continue other cardiac medications despite Aspirin and Plavix. 6. Serial BMP and CBC. 7. Further suggestions as necessary. Prognosis: Critical. Thank you for your referral. Sincerely, Dawit Prater M.D., F.A.C.C. - Alcohol/Substance Use Hx Alcohol Use: No - Smoking History Smoking history: Never smoked Have you smoked in the past 12 months: No Aproximately how many cigarettes per day: 0 Home Medications - Allergies Allergies/Adverse Reactions: Allergies Allergy/AdvReac Type Severity Reaction Status Date / Time No Known Drug Allergies Allergy Verified 10/05/18 07:12 - Home Medications Home Medications: Ambulatory Orders Aspirin [ASA -] 81 mg PO DAILY 03/24/17 Atorvastatin Ca [Lipitor] 80 mg PO HS 03/24/17 Carvedilol 12.5 mg PO BID 03/24/17 Clopidogrel Bisulfate [Plavix -] 75 mg PO DAILY 03/24/17 Docusate Sodium [Colace -] 100 mg PO DAILY 03/24/17 Gabapentin 100 mg PO BID 03/24/17 Insulin Degludec [Tresiba Flextouch U-100] 40 unit SQ AM 03/24/17 Insulin Sliding Scale [Novolog Vial Sliding Scale -] 5 units SQ DAILY 03/24/17 Tamsulosin HCl 0.4 mg PO HS 03/24/17 Ascorbic Acid [Vitamin C] 500 mg PO DAILY 10/04/18 Cholecalciferol (Vitamin D3) [Vitamin D -] 1,000 unit PO DAILY 10/04/18 Herbal Drugs [Super Energy] 1 each PO DAILY 10/04/18 Timolol 0.5% [Timoptic 0.5%] 1 drop OD DAILY 10/04/18 Amlodipine Bes/Olmesartan Med [Amlodipine-Olmesartan 5-40 mg] 1 each PO DAILY Vital Signs: Vital Signs Temperature 98.6 F 05/25/19 08:00 Pulse Rate 73 05/25/19 09:44 Respiratory Rate 20 05/25/19 09:44 Blood Pressure 120/49 L 05/25/19 09:44 O2 Sat by Pulse Oximetry (%) 98 05/25/19 09:44 - Other Data Labs, Other Data: CBC, BMP 05/25/19 08:20 05/25/19 08:20 INR, PTT INR 1.14 (0.83-1.09) H 05/25/19 08:20 Troponin, BNP 05/25/19 08:20 Troponin I 0.02 Troponin, BNP 05/25/19 08:20 Troponin I 0.02
--- NOTE | 2019-05-25 14:35 | EKG ---
Test Reason : Blood Pressure : / mmHG Vent. Rate : 076 BPM Atrial Rate : 076 BPM P-R Int : 222 ms QRS Dur : 100 ms QT Int : 388 ms P-R-T Axes : 086 067 057 degrees QTc Int : 436 ms SINUS RHYTHM WITH 1ST DEGREE A-V BLOCK OTHERWISE NORMAL ECG WHEN COMPARED WITH ECG OF 26-JUL-2008 06:51, NO SIGNIFICANT CHANGE WAS FOUND Confirmed by PATRIZIA MICHELE MD ([id number]) on 05/25/2019 2:35:15 PM Referred By: Confirmed By:PATRIZIA MICHELE MD
[2019-05-25] MEDS: INSULIN SLIDING SCALE (NOVOLOG) 1 VIAL SQ SCH ×2 (17:02→22:13)
[2019-05-25] MEDS ORDERED: SODIUM CHLORIDE 500 ML IV STA (19:05)
--- NOTE | 2019-05-25 20:40 | CON.GI ---
Consult Consult Specialty:: Gastroenterology Referred by:: Marilynn Salinas MD Reason for Consultation:: GI Bleeding - History of Present Illness Chief Complaint: Bloody BMs since last night History of Present Illness: 78M developed hematochezia about 7Pm yesterday. He had numerous repeat episodes before coming to the ER today where his Hb was 8.7. He had a colonoscopy with me on 05/12/19 when 15 polyps were removed from virtually all portions of the colon. The largest polyp was a 2.5cm adenoma in the transverse colon. Almost all of the polyps were adenomas. Mild left colon diverticulosis was also found. He was instructed to abstain from resuming Plavix for 10 days with which he complied. He resumed Plavix on 05/22/19. He denies pain. - History Source History Provided By: Family Member () Limitations to Obtaining History: Other (somnolent but responds and tells me that he did not sleep at all last night) - Past Medical History Cardio/Vascular: Yes: CAD (has coronary stent), HTN, Hyperlipdemia Gastrointestinal: Yes: Diverticulosis, Gastritis (H pylori gastritis remotely), Other (multiple colon adenomas) Renal/: Yes: BPH Heme/Onc: Yes: Cancer (left orchiectomy for testicular cancer) Infectious Disease: Yes: Herpes Zoster (remotely) Endocrine: Yes: Diabetes Mellitus - Past Surgical History Past Surgical History: Yes: Colonoscopy, Hernia Repair (RIH and LIH), Stent ( coronary stent), Upper Endoscopy Additional Surgical History: left orchiectomy for testicular cancer - Alcohol/Substance Use Hx Alcohol Use: Yes (wine on occasion) History of Substance Use: reports: None - Smoking History Smoking history: Never smoked Have you smoked in the past 12 months: No Aproximately how many cigarettes per day: 0 - Social History Usual Living Arrangement: With Spouse ADL: Independent 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year[place] age 36 History of Recent Travel: No Home Medications - Allergies Allergies/Adverse Reactions: Allergies Allergy/AdvReac Type Severity Reaction Status Date / Time No Known Drug Allergies Allergy Verified 10/05/18 07:12 - Home Medications Home Medications: Ambulatory Orders Aspirin [ASA -] 81 mg PO DAILY 03/24/17 Atorvastatin Ca [Lipitor] 80 mg PO HS 03/24/17 Carvedilol 12.5 mg PO BID 03/24/17 Clopidogrel Bisulfate [Plavix -] 75 mg PO DAILY 03/24/17 Docusate Sodium [Colace -] 100 mg PO DAILY 03/24/17 Gabapentin 100 mg PO BID 03/24/17 Insulin Degludec [Tresiba Flextouch U-100] 40 unit SQ AM 03/24/17 Insulin Sliding Scale [Novolog Vial Sliding Scale -] 5 units SQ DAILY 03/24/17 Tamsulosin HCl 0.4 mg PO HS 03/24/17 Ascorbic Acid [Vitamin C] 500 mg PO DAILY 10/04/18 Cholecalciferol (Vitamin D3) [Vitamin D -] 1,000 unit PO DAILY 10/04/18 Herbal Drugs [Super Energy] 1 each PO DAILY 10/04/18 Timolol 0.5% [Timoptic 0.5%] 1 drop OD DAILY 10/04/18 Amlodipine Bes/Olmesartan Med [Amlodipine-Olmesartan 5-40 mg] 1 each PO DAILY Family Medical History Family Hx Cardiac Disorders: Sister (colon cancer) Family Hx Coronary Artery Disease: Mother ( of [place]) Family Hx Diabetes: Sister Family Hx Gastrointestinal Disorder: Father ( of bleeding ulcer) Review of Systems Unable to obtain ROS, reason: somnolent Physical Exam-GI Vital Signs: Vital Signs Temperature 97.8 F 05/25/19 18:30 Pulse Rate 76 05/25/19 18:30 Respiratory Rate 20 05/25/19 18:30 Blood Pressure 98/48 L 05/25/19 18:30 O2 Sat by Pulse Oximetry (%) 97 05/25/19 14:00 CBC,CMP WBC 5.8 K/mm3 (4.0-10.0) 05/25/19 08:20 RBC 2.78 M/mm3 (4.00-5.60) L 05/25/19 08:20 Hgb 8.7 GM/dL (11.7-16.9) L 05/25/19 08:20 Hct 25.4 % (35.4-49) L D 05/25/19 08:20 MCV 91.3 fl (80-96) 05/25/19 08:20 MCH 31.2 pg (25.7-33.7) 05/25/19 08:20 MCHC 34.2 g/dl (32.0-35.9) 05/25/19 08:20 RDW 13.7 % (11.9-15.9) 05/25/19 08:20 Plt Count 160 K/MM3 (134-434) D 05/25/19 08:20 MPV 9.6 fl (7.5-11.1) D 05/25/19 08:20 Absolute Neuts (auto) 4.5 K/mm3 (1.5-8.0) 05/25/19 08:20 Neutrophils % 78.3 % (42.8-82.8) 05/25/19 08:20 Lymphocytes % 17.3 % (8-40) D 05/25/19 08:20 Monocytes % 4.0 % (3.8-10.2) 05/25/19 08:20 Eosinophils % 0.1 % (0-4.5) D 05/25/19 08:20 Basophils % 0.3 % (0-2.0) 05/25/19 08:20 Nucleated RBC % 0 % (0-0) 05/25/19 08:20 Sodium 139 mmol/L (136-145) 05/25/19 08:20 Potassium 5.4 mmol/L (3.5-5.1) H 05/25/19 08:20 Chloride 106 mmol/L (98-107) 05/25/19 08:20 Carbon Dioxide 29 mmol/L (21-32) 05/25/19 08:20 Anion Gap 5 MMOL/L (8-16) L 05/25/19 08:20 BUN 51.9 mg/dL (7-18) H 05/25/19 08:20 Creatinine 1.0 mg/dL (0.55-1.3) 05/25/19 08:20 Est GFR (CKD-EPI)AfAm 84.36 05/25/19 08:20 Est GFR (CKD-EPI)NonAf 72.78 05/25/19 08:20 POC Glucometer 214 UNITS (80-120) 05/25/19 20:33 Random Glucose 441 mg/dL (74-106) H* 05/25/19 08:20 Calcium 8.3 mg/dL (8.5-10.1) L 05/25/19 08:20 Total Bilirubin 0.6 mg/dL (0.2-1) 05/25/19 08:20 AST 10 U/L (15-37) L 05/25/19 08:20 ALT 23 U/L (13-61) 05/25/19 08:20 Alkaline Phosphatase 74 U/L (45-117) 05/25/19 08:20 Creatine Kinase 61 U/L (26-308) 05/25/19 08:20 Troponin I 0.02 ng/ml (0.00-0.05) 05/25/19 08:20 Total Protein 5.2 g/dl (6.4-8.2) L 05/25/19 08:20 Albumin 2.8 g/dl (3.4-5.0) L 05/25/19 08:20 Current Medications Generic Name Dose Route Start Last Admin Trade Name Freq PRN Reason Stop Dose Admin Octreotide Acetate 200 mcg/ 500 mls @ 20.833 mls/hr 05/25/19 10:45 05/25/19 12:36 Octreotide Acetate 1,000 mcg/ IVPB 20.833 mls/hr Dextrose ASDIR ROWAN Administration Protocol Insulin Aspart 1 vial 05/25/19 16:30 05/25/19 17:02 Novolog Vial Sliding Scale - SQ 6 units ACHS ROWAN Administration Protocol Pantoprazole Sodium 40 mg 05/25/19 22:00 Protonix Iv IVPUSH BID ROWAN Timolol Maleate 1 drop 05/25/19 14:00 Timoptic 0.5% OU BID ROWAN Constitutional: Yes: Other (somnolent but responds verbally) Eyes: Yes: Conjunctiva Clear HENT: Yes: Atraumatic Neck: Yes: Supple Cardiovascular: Yes: Regular Rate and Rhythm, Tachycardia, Murmur (2/6SEM) Respiratory: Yes: CTA Bilaterally Gastrointestinal Inspection: Yes: Scars (RIH and LIH incisions) ...Auscultate: Yes: Hyperactive Bowel Sounds ...Palpate: Yes: Soft, Other (nontender) ...Rectal Exam: Yes: Guaiac Positive (maroon colored blood and stool) Labs: CBC, BMP 05/25/19 08:20 05/25/19 08:20 INR, PTT INR 1.14 (0.83-1.09) H 05/25/19 08:20 Problem List - Problems (1) Hematochezia Code(s): K92.1 - MELENA (2) Post-polypectomy bleeding Code(s): FHV2758 - (3) Diverticulosis Code(s): K57.90 - DVRTCLOS OF INTEST, PART UNSP, W/O PERF OR ABSCESS W/O BLEED (4) Family history of colon cancer Code(s): Z80.0 - FAMILY HISTORY OF MALIGNANT NEOPLASM OF DIGESTIVE ORGANS (5) Anemia Code(s): D64.9 - ANEMIA, UNSPECIFIED Qualifiers: Anemia type: unspecified type Qualified Code(s): D64.9 - Anemia, unspecified (6) CAD (coronary artery disease) Code(s): I25.10 - ATHSCL HEART DISEASE OF [place] CORONARY ARTERY W/O ANG PCTRS (7) Diabetes Code(s): E11.9 - TYPE 2 DIABETES MELLITUS WITHOUT COMPLICATIONS Qualifiers: Diabetes mellitus type: type 2 (8) Glaucoma Code(s): H40.9 - UNSPECIFIED GLAUCOMA Assessment/Plan Assessment: - Given the recent large number and size of adenomatous polyps removed on and the resumption of Plavix on 05/22/19 I suspect bleeding from one of his larger still healing polypectomy sites. - Diverticulosis - FH colon cancer - past h/o H pylor gastritis Plan: -- Transfuse PRBcs -- Will order monodonor platelet transfusion -- Ideally Seth should undergo a bowel prep to facilitate a colonoscopic attempt to endoclip his bleeding polypectomy site but he is too feel to drink Golyetly or any other prep. He will need resuscitation tonight and perhaps an unprepped colonoscopy tomorrow. I have discussed his situation with his and with him with his interpreting by his bedside telephone. His informed Gerardo of the potential risks of colonoscopy including perforation and hemorrhage. We kashif leave the decision until tomorrow and try monodonar platelet transfusions. Will transfer to ICU. I informed his of this transfer
[2019-05-25 21:07] LABS: BASO % 0.2 % (0-2.0); EOS % 0.1 % (0-4.5); HEMATOCRIT 22.7 % (35.4-49); HEMOGLOBIN 7.4 GM/dL (11.7-16.9); LYMPH % 22.3 % (8-40); MCH 29.2 pg (25.7-33.7); MCHC 32.6 g/dl (32.0-35.9); MEAN CELL VOLUME 89.7 fl (80-96); MEAN PLT VOLUME 10.3 fl (7.5-11.1); MONO % 7.2 % (3.8-10.2); NEUT % 70.2 % (42.8-82.8); PLATELET COUNT 183 K/MM3 (134-434); RBC 2.53 M/mm3 (4.00-5.60); RDW 14.9 % (11.9-15.9); WHITE BLOOD COUNT 13.8 K/mm3 (4.0-10.0)
[2019-05-25 21:33] LABS: ALBUMIN 2.2 g/dl (3.4-5.0); BILIRUBIN,TOTAL 0.4 mg/dL (0.2-1); BLOOD UREA NITROGEN 61.1 mg/dL (7-18); CALCIUM 7.3 mg/dL (8.5-10.1); CREATININE 1.8 mg/dL (0.55-1.3); TOT PROT 3.8 g/dl (6.4-8.2)
--- NOTE | 2019-05-25 21:54 | CONSULT ---
Consultation: REQUESTING PROVIDER: DR Hidalgo CONSULT REQUEST: We have been asked to medically evaluate this patient for ( lower GI bleed ). HISTORY OF PRESENT ILLNESS:history is taking from chart a sppt is not able to provide story 78yM w PMHx DM, HTN, HLD, BPH, cardiac stent (2002) presenting with rectal bleeding. Noticed gross clark red blood w blood clots in stool and underwear starting last night. Associated chills, lightheadedness, and diaphoresis. Had colonoscopy done 2 weeks ago showing polyps. Started baby aspirin and plavix 1 week ago, stopped yesterday after blood seen. Never had gross rectal bleeding before. Also fell down on knees in bathroom yesterday d/t lightheadedness, no LOC/head trauma. Denies fever, headache, nausea/vomiting, SOB, chest/AB pain, urinary changes, diarrhea/constipation. per has been having bleeding the whole night bright red blood per rectum, no abdominal pain no chest pain Past History: As mentioned in the history of present illness. History of herpes zoster. Status post infection involving the left lower extremity. Surgical History: Recent colonoscopy and polypectomy. Status bilateral herniorrhaphy. Status post bilateral cataract extraction and intraocular lens implantation. History of TURP. Status post appendectomy. 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 , has no children. Never smoked has an occasional glass of wine and drinks one cup of coffee. Family History: Father in his 60s apparently related to bleeding peptic ulcer. Mother at age 93 years she was hypertensive, diabetic apparently related to heart disease. Had 1 brother and 5 sisters 2 of the sisters are one at the age of 40 years of colon cancer the other sister at the age of 78 years of a myocardial infarction, was a diabetic and hypertensive. The third sister is 83 and apparently has coronary artery disease, diabetes mellitus, and hypertension. One brother is 67 and apparently is healthy. REVIEW OF SYSTEMS: unable to obtain PHYSICAL EXAMINATION Vital Signs - 24 hr 05/25/19 05/25/19 05/25/19 07:52 08:00 08:44 Temperature 97.8 F 98.6 F Pulse Rate 77 Pulse Rate [ 75 Left side Supine] Pulse Rate [ Right Radial] Respiratory 20 Rate Blood Pressure 135/56 L Blood Pressure 106/44 L [Left side Supine] Blood Pressure [Right Arm] O2 Sat by Pulse 98 Oximetry (%) 05/25/19 05/25/19 05/25/19 08:46 09:16 09:44 Temperature Pulse Rate Pulse Rate [ 76 Left side Supine] Pulse Rate [ 73 73 Right Radial] Respiratory 18 20 Rate Blood Pressure Blood Pressure 130/47 L [Left side Supine] Blood Pressure 114/45 L 120/49 L [Right Arm] O2 Sat by Pulse 98 98 Oximetry (%) 05/25/19 05/25/19 05/25/19 14:00 14:55 15:15 Temperature 98.2 F 98.3 F 98.6 F Pulse Rate 74 73 83 Pulse Rate [ Left side Supine] Pulse Rate [ Right Radial] Respiratory 22 H 20 18 Rate Blood Pressure 97/43 L 97/43 L 98/33 L Blood Pressure [Left side Supine] Blood Pressure [Right Arm] O2 Sat by Pulse 97 Oximetry (%) 05/25/19 05/25/19 05/25/19 17:00 18:30 20:30 Temperature 97.6 F 97.8 F 98.5 F Pulse Rate 76 76 90 Pulse Rate [ Left side Supine] Pulse Rate [ Right Radial] Respiratory 20 20 20 Rate Blood Pressure 121/50 L 98/48 L 95/48 L Blood Pressure [Left side Supine] Blood Pressure [Right Arm] O2 Sat by Pulse Oximetry (%) GENERAL: Awake, lethargic follow commands HEAD: Normal with no signs of trauma. EYES: Pupils equal, round and reactive to light, EARS, NOSE, THROAT:dry mucous membranes. NECK: supple LUNGS: Breath sounds equal, clear to auscultation bilaterally. HEART: sinus tachy ABDOMEN: Soft, nontender, not distended, normoactive bowel sounds, LOWER EXTREMITIES: 2+ pulses, warm, well-perfused. No calf tenderness. No peripheral edema. NEUROLOGICAL: not able to assess but no focal deficit was noted SKIN: Warm, dry, normal turgor, Active Medications Generic Name Dose Route Start Last Admin Trade Name Freq PRN Reason Stop Dose Admin Octreotide Acetate 200 mcg/ 500 mls @ 20.833 mls/hr 05/25/19 10:45 05/25/19 12:36 Octreotide Acetate 1,000 mcg/ IVPB 20.833 mls/hr Dextrose ASDIR ROWAN Administration Protocol Insulin Aspart 1 vial 10/03/19 16:30 05/25/19 17:02 Novolog Vial Sliding Scale - SQ 6 units ACHS ON LICENSE OF [facility] Administration Protocol Pantoprazole Sodium 40 mg 05/25/19 22:00 Protonix Iv IVPUSH BID ON LICENSE OF [facility] Timolol Maleate 1 drop 05/25/19 14:00 Timoptic 0.5% OU BID ROWAN CBC, BMP 05/25/19 20:35 05/25/19 20:35 ASSESSMENT/PLAN: 78yM w PMHx DMT2, HTN, HLD, BPH, cardiac stent (2002) presented with rectal bleeding had recent 13 polyp removed on 05/15. Noticed gross clark red blood w blood clots in stool and underwear starting last night.admitted to ICU for sever lower GI bleed neuro: alert but lethargic Heme # Lowr GI bleed likely 2/2 diverticular bleed s.p recent polypectomies on 05/15 just resume his plavix will hold for now # Acute blood loss anemia * 2 large iV bores * Monitor H/H Q 8hr * 2 units PRBCS . 2 monor donot Plates second unit need to be brought from [facility] as we only have one here * PPI BID IV , octeriotide drip * IV fluids with cautions for over loaded * maintain BP map > 65 * pulse oxy , maintain O2 sat > 90 * hold BP meds Endo # DM * NPO for now * cont ISS * levemir 20units Q AM per endo Nephro # SABRINA likely pre renal from low volume * BUN/Cr 61/1.8 * repeat lab after hydration * avoid nephrotoxic agents * [id number] urine out put * if no improvement will sed lab test and US kidney CArdiology # CAD s.p stent hold aspirin plavix consult cardiology # Leucocytosis 13.8 from 5 likley reactive to bleeding , trend WBC , order lactic acid # HLD cont statin #FEN * NS 500 bolus * Monitor lytes * NPO # DVTS proph : SCDS stop plavix or any blood thinner , no chemoprohylaxis # GI proph : PPI BID IV # Dispo: monitor in ICU # Full code. Dispo: We will continue to follow the patient. Thank you for this consultative opportunity. Visit type - Emergency Visit Emergency Visit: Yes ED Registration Date: 05/25/19 Care time: The patient presented to the Emergency Department on the above date and was hospitalized for further evaluation of their emergent condition. - New Patient This patient is new to me today: Yes Date on this admission: 05/26/19 - Critical Care Critical Care patient: Yes Total Critical Care Time (in minutes): 50 Critical Care Statement: The care of this patient involved high complexity decision making to prevent further life threatening deterioration of the patient 's condition and/or to evaluate & treat vital organ system(s) failure or risk of failure. ATTENDING PHYSICIAN STATEMENT I saw and evaluated the patient. I reviewed the resident's note and discussed the case with the resident. I agree with the resident's findings and plan as documented. SUBJECTIVE: OBJECTIVE: ASSESSMENT AND PLAN:
--- NOTE | 2019-05-25 22:04 | RAPID ---
Physical Examination Vital Signs: Vital Signs Temperature 98.5 F 05/25/19 20:30 Pulse Rate 78 05/25/19 21:00 Respiratory Rate 18 05/25/19 21:00 Blood Pressure 78/25 L 05/25/19 21:00 O2 Sat by Pulse Oximetry (%) 97 05/25/19 14:00 Labs: CBC, BMP 05/25/19 20:35 05/25/19 20:35 Rapid Response - Rapid Response Assessment: Rapid response paged overhead at 9:05pm. bargain table clerk team responded immediately. On arrival patient was lying in bed, verbally responsive but says he felt dizzy and tired. Pt is in hospital for hematochezia-- GI planned for resuscitation tonight and possible colonoscopy for bleeding polypectomy tomorrow. On arrival: VS: 60s/40s afebrile HR 86 92%SaO2 GEN: Lying in bed, pale HEENT: Conjunctival pallor CV: S2S2 heard; no murmurs RESP: CTABL ABD: Soft NTND, +BS #Hypotension -1L NS bolus started w/ improvement of BP: Repeat vitals s/p starting normal saline: BP 94/33 HR 83 RR 18 97%SaO2 -GI (Dr. Slaughter) present during rapid response-- Giving 1 U pRBCs, 1 U platelets, ordered another 1 unit from blood bank on hold -F/u CBC, lactate -GI following
[2019-05-25] MEDS: PANTOPRAZOLE SODIUM 40 MG VIAL IVPUSH SCH (22:16)
[2019-05-25] MEDS: TIMOLOL 0.5% OPHTHALMIC SOL 5 ML BOTTLE OU SCH (22:33)
--- NOTE | 2019-05-25 22:43 | CONSULT ---
Consult Consult Specialty:: endocrine Referred by:: alana navarro md Reason for Consultation:: dm t2 - History of Present Illness Chief Complaint: rectal bleeding History of Present Illness: 78yM w PMHx DMT2, HTN, HLD, BPH, cardiac stent (2002) presented with rectal bleeding. Noticed gross clark red blood w blood clots in stool and underwear starting last night. Associated chills, lightheadedness, and sweating,almost passed out. Had colonoscopy done 2 weeks ago showing polyps. Started baby aspirin and plavix 1 week ago, stopped yesterday after bleeding started. No prior history of rectal bleeding,denies Nsaid use,no fever chills nausea or vomiting.n. - Past Medical History Cardio/Vascular: Yes: CAD (has coronary stent), HTN, Hyperlipdemia Gastrointestinal: Yes: Diverticulosis, Gastritis (H pylori gastritis remotely), Other (multiple colon adenomas) Renal/: Yes: BPH Infectious Disease: Yes: Herpes Zoster (remotely) Endocrine: Yes: Diabetes Mellitus - Past Surgical History Past Surgical History: Yes: Colonoscopy, Hernia Repair (RIH and LIH), Stent ( coronary stent), Upper Endoscopy Additional Surgical History: left orchiectomy for testicular cancer - Alcohol/Substance Use Hx Alcohol Use: Yes (wine on occasion) History of Substance Use: reports: None - Smoking History Smoking history: Never smoked Have you smoked in the past 12 months: No Aproximately how many cigarettes per day: 0 - Social History Usual Living Arrangement: With Spouse ADL: Independent 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 History of Recent Travel: No Home Medications - Allergies Allergies/Adverse Reactions: Allergies Allergy/AdvReac Type Severity Reaction Status Date / Time No Known Drug Allergies Allergy Verified 10/05/18 07:12 - Home Medications Home Medications: Ambulatory Orders Aspirin [ASA -] 81 mg PO DAILY 03/24/17 Atorvastatin Ca [Lipitor] 80 mg PO HS 03/24/17 Carvedilol 12.5 mg PO BID 03/24/17 Clopidogrel Bisulfate [Plavix -] 75 mg PO DAILY 03/24/17 Docusate Sodium [Colace -] 100 mg PO DAILY 03/24/17 Gabapentin 100 mg PO BID 03/24/17 Insulin Degludec [Tresiba Flextouch U-100] 40 unit SQ AM 03/24/17 Insulin Sliding Scale [Novolog Vial Sliding Scale -] 5 units SQ DAILY 03/24/17 Tamsulosin HCl 0.4 mg PO HS 03/24/17 Ascorbic Acid [Vitamin C] 500 mg PO DAILY 10/04/18 Cholecalciferol (Vitamin D3) [Vitamin D -] 1,000 unit PO DAILY 10/04/18 Herbal Drugs [[employer]] 1 each PO DAILY 10/04/18 Timolol 0.5% [Timoptic 0.5%] 1 drop OD DAILY 10/04/18 Amlodipine Bes/Olmesartan Med [Amlodipine-Olmesartan 5-40 mg] 1 each PO DAILY Review of Systems - Review of Systems Constitutional: reports: Lethargy, Weakness HENT: reports: No Symptoms Neck: reports: No Symptoms Cardiovascular: reports: Palpitations, Shortness of Breath Respiratory: reports: Exercise Intolerance, SOB on Exertion Gastrointestinal: reports: Constipation Genitourinary: reports: No Symptoms, Frequency Breasts: reports: No Symptoms Reported Musculoskeletal: reports: Muscle Pain, Muscle Cramps, Muscle Weakness Integumentary: reports: No Symptoms Endocrine: reports: Unexplained Weight Gain Physical Exam Vital Signs: Vital Signs Temperature 98.5 F 05/25/19 20:30 Pulse Rate 78 05/25/19 21:00 Respiratory Rate 18 05/25/19 21:00 Blood Pressure 78/25 L 05/25/19 21:00 O2 Sat by Pulse Oximetry (%) 97 05/25/19 14:00 Constitutional: Yes: Anxious Eyes: Yes: EOM Intact HENT: Yes: Normocephalic Neck: Yes: Trachea Midline Cardiovascular: Yes: Regular Rate and Rhythm Respiratory: Yes: CTA Bilaterally Gastrointestinal: Yes: Normal Bowel Sounds ...Rectal Exam: Yes: Guaiac Positive Renal/: Yes: WNL Breast(s): Yes: WNL Musculoskeletal: Yes: Back Pain, Joint Stiffness, Muscle Weakness Extremities: Yes: WNL Labs: CBC, BMP 05/25/19 20:35 05/25/19 20:35 Problem List - Problems (1) Anemia Code(s): D64.9 - ANEMIA, UNSPECIFIED Qualifiers: Anemia type: iron deficiency Iron deficiency anemia type: other iron deficiency Qualified Code(s): D50.8 - Other iron deficiency anemias (2) CAD (coronary artery disease) Code(s): I25.10 - ATHSCL HEART DISEASE OF [place] CORONARY ARTERY W/O ANG PCTRS (3) Diabetes Code(s): E11.9 - TYPE 2 DIABETES MELLITUS WITHOUT COMPLICATIONS Qualifiers: Diabetes mellitus type: type 2 (4) Hematochezia Code(s): K92.1 - MELENA (5) Hyperglycemia Code(s): R73.9 - HYPERGLYCEMIA, UNSPECIFIED Assessment/Plan Current Active Problems Anemia (Acute) CAD (coronary artery disease) (Acute) Diabetes (Acute) Diverticulosis (Acute) Family history of colon cancer (Acute) Glaucoma (Acute) Hematochezia (Acute) Hyperglycemia (Acute) Post-polypectomy bleeding (Acute) RLS Abnormal Lab Results 05/25/19 05/25/19 05/25/19 08:20 08:20 08:20 WBC RBC 2.78 L Hgb 8.7 L Hct 25.4 L D Absolute Neuts (auto) PT with INR 13.50 H INR 1.14 H Potassium 5.4 H Chloride Anion Gap 5 L BUN 51.9 H Creatinine Random Glucose 441 H* Calcium 8.3 L AST 10 L Total Protein 5.2 L Albumin 2.8 L Urine Protein Urine Glucose (UA) Urine Blood Crossmatch 05/25/19 05/25/19 05/25/19 08:20 10:09 20:35 WBC RBC Hgb Hct Absolute Neuts (auto) PT with INR INR Potassium Chloride 114 H Anion Gap BUN 61.1 H Creatinine 1.8 H Random Glucose 207 H Calcium 7.3 L AST 11 L Total Protein 3.8 L Albumin 2.2 L Urine Protein 1+ H Urine Glucose (UA) 3+ H Urine Blood 3+ H Crossmatch See Detail 05/25/19 20:35 WBC 13.8 H RBC 2.53 L Hgb 7.4 L Hct 22.7 L Absolute Neuts (auto) 9.7 H PT with INR INR Potassium Chloride Anion Gap BUN Creatinine Random Glucose Calcium AST Total Protein Albumin Urine Protein Urine Glucose (UA) Urine Blood Crossmatch plan: blood transfusion hb ^ 10gm gi consulted bgm qachs levemir 20 units am
[2019-05-26] MEDS: INSULIN SLIDING SCALE (NOVOLOG) 1 VIAL SQ SCH ×4 (06:46→21:06)
[2019-05-26 06:50] LABS: BASO % 0.2 % (0-2.0); HEMATOCRIT 22.8 % (35.4-49); HEMOGLOBIN 7.7 GM/dL (11.7-16.9); LYMPH % 12.5 % (8-40); MCH 30.2 pg (25.7-33.7); MCHC 33.6 g/dl (32.0-35.9); MEAN CELL VOLUME 89.8 fl (80-96); MEAN PLT VOLUME 8.3 fl (7.5-11.1); MONO % 8.2 % (3.8-10.2); NEUT % 79.1 % (42.8-82.8); PLATELET COUNT 224 K/MM3 (134-434); RBC 2.54 M/mm3 (4.00-5.60); RDW 14.8 % (11.9-15.9); WHITE BLOOD COUNT 19.6 K/mm3 (4.0-10.0)
[2019-05-26] MEDS ORDERED: DEXTROSE 50%-WATER - 25 GM/50 ML VIAL IVPUSH ONE (06:50)
[2019-05-26] MEDS ORDERED: DEXTROSE 50%-WATER 25 GM/50 ML DISP.SYRIN ONE (06:50)
[2019-05-26 07:31] LABS: ALBUMIN 2.2 g/dl (3.4-5.0); BILIRUBIN,TOTAL 0.9 mg/dL (0.2-1); BLOOD UREA NITROGEN 61.8 mg/dL (7-18); CREATININE 1.8 mg/dL (0.55-1.3); MAGNESIUM 1.6 mg/dL (1.8-2.4); N-TERMINAL BNP 632.7 pg/ml (5-450); PHOSPHOROUS 4.7 mg/dL (2.5-4.9); POTASSIUM 5.4 mmol/L (3.5-5.1); TOT PROT 3.9 g/dl (6.4-8.2)
[2019-05-26 08:50] LABS: CALCIUM 6.8 mg/dL (8.5-10.1)
[2019-05-26] MEDS: TIMOLOL 0.5% OPHTHALMIC SOL 5 ML BOTTLE OU SCH ×3 (10:30→21:04)
[2019-05-26] MEDS: PANTOPRAZOLE SODIUM 40 MG VIAL IVPUSH SCH ×2 (10:30→21:04)
--- NOTE | 2019-05-26 11:27 | PN ---
Progress Note, Physician Chief Complaint: patient seen and examined in icu awake alert had kadi bloody BM in AM currently getting prbc rapid response lastnight for hypotension got 4 units of prbc so far in icu and prior to that one unit of prbc on floor with ivf - Current Medication List Current Medications: Active Medications Octreotide Acetate 200 mcg/Octreotide Acetate 1,000 mcg/Dextrose 500 mls @ 20.833 mls/hr IVPB ASDIR [facility]; Protocol Last Admin: 05/25/19 12:36 Dose: 20.833 mls/hr Insulin Aspart (Novolog Vial Sliding Scale -) 1 vial SQ ACHS [facility]; Protocol Last Admin: 05/26/19 06:46 Dose: Not Given Pantoprazole Sodium (Protonix Iv) 40 mg IVPUSH BID [facility] Last Admin: 05/25/19 22:16 Dose: 40 mg Timolol Maleate (Timoptic 0.5%) 1 drop OU BID ROWAN Last Admin: 05/25/19 22:33 Dose: 1 drop - Objective Vital Signs: Vital Signs Temperature 98.8 F 05/26/19 10:14 Pulse Rate 85 05/26/19 10:14 Respiratory Rate 18 05/26/19 10:14 Blood Pressure 120/52 L 05/26/19 10:14 O2 Sat by Pulse Oximetry (%) 97 05/25/19 14:00 Constitutional: Yes: Calm Cardiovascular: Yes: Regular Rate and Rhythm, S1, S2 Respiratory: Yes: CTA Bilaterally Gastrointestinal: Yes: Normal Bowel Sounds, Soft Edema: No Neurological: Yes: Alert Labs: CBC, BMP 05/26/19 06:00 05/26/19 06:00 INR, PTT INR 1.14 (0.83-1.09) H 05/25/19 08:20 Problem List - Problems (1) Hematochezia Assessment/Plan: NPO iv pPi bid octreotide prbc platelets GI on board- possible colonoscopy icu monitoring- maintaining BP recheck cbc after prbc and platelet Code(s): K92.1 - MELENA (2) Diabetes Assessment/Plan: npo for now sliding scale [id number] 6.5 endocrine consult noted levemir 20 units Code(s): E11.9 - TYPE 2 DIABETES MELLITUS WITHOUT COMPLICATIONS Qualifiers: Diabetes mellitus type: type 2 (3) CAD (coronary artery disease) Assessment/Plan: s/p stents hold aspirin and plavix cardiology consult Code(s): I25.10 - ATHSCL HEART DISEASE OF [place] CORONARY ARTERY W/O ANG PCTRS (4) Glaucoma Assessment/Plan: eye drops Code(s): H40.9 - UNSPECIFIED GLAUCOMA (5) Hypomagnesemia Assessment/Plan: magnesium repleted recheck in AM low calcium = corrected serum calcium 8.2 Code(s): E83.42 - HYPOMAGNESEMIA
--- NOTE | 2019-05-26 12:07 | PN ---
Progress Note (short form) - Note Progress Note: 78-year-old [place]ian gentleman with long-standing history of coronary artery disease, status post PCI/stenting, hypertension, hypertensive cardiovascular disease, insulin-dependent diabetes mellitus, aortic valvular disease with mild- to-moderate aortic valvular stenosis, dyslipidemia type IIb. History of moderate mitral and moderate to severe tricuspid regurgitation and mild pulmonary hypertension. History of peripheral neuropathy, left ventricular diastolic dysfunction, glaucoma. Patient was brought to the hospital became of severe painless bright red rectal bleeding that started last evening and was occompanied by dizziness, weakness and apparently had two to three falls today prior to coming to the hospital. According to his he had undergone a colonoscopy May 12 and apparently had 15 polyps removed. Both Aspirin and Plavix had been stopped prior to the procedure and was told that he should resume these medications on May 22. No history of chest pain or discomfort either at rest or with exertion, no dyspnea, paroxysmal nocturnal dyspnea or orthopnea. Rectal bleeding is less but continues. Active Medications Octreotide Acetate 200 mcg/Octreotide Acetate 1,000 mcg/Dextrose 500 mls @ 20.833 mls/hr IVPB ASDIR [facility]; Protocol Last Admin: 05/25/19 12:36 Dose: 20.833 mls/hr Insulin Aspart (Novolog Vial Sliding Scale -) 1 vial SQ ACHS [facility]; Protocol Last Admin: 05/26/19 06:46 Dose: Not Given Magnesium Sulfate (Magnesium Sulfate) 2 gm IVPB ONCE ONE Stop: 05/26/19 11:22 Pantoprazole Sodium (Protonix Iv) 40 mg IVPUSH BID [facility] Last Admin: 05/26/19 10:30 Dose: 40 mg Timolol Maleate (Timoptic 0.5%) 1 drop OU BID [facility] Last Admin: 05/26/19 10:30 Dose: 1 drop Physical Exam: O: 78 year old male was in no acute distress. No pallor, cyanosis, clubbing, or jaundice Last Vital Signs Temp Pulse Resp BP Pulse Ox 98.4 F 80 18 156/66 99 05/26/19 07:00 05/26/19 08:00 05/26/19 08:57 05/26/19 08:00 05/26/19 08:57 Neck: Supple, no jugular venous distention, hepatojugular reflux was negative, faint left carotid bruit versus radiation of murmur. No thyromegaly was present. Heart: PMI was in the fifth intercostal space, no heaves or thrills, S1 and S2 were normal. Nonejection systolic click was heard along the left sternal border. There was an ejection systolic murmur grade II/ at the second right intercostal space and along the left sternal border ending in early to mid systole. No diastolic murmur or gallops were heard. Lungs: Clear on auscultation, slightly decreased breath sounds at the left base. Abdomen: Soft, distended and nontender. A moderate sized ventral hernia that was reducible. No hepatosplenomegaly or palpable masses were felt. Bowel sounds are present., no bruits were appreciated. Extremities: No calf tenderness, 1-2+ bilateral ankle extremity dependent edema , 1-2+ bilateral pedal edema, bilateral varicosities involving both lower extremities, stasis changes. Pulses were equal posterior tibial pulses were weak. Impression: 1. Painless hematochezia most likely related to recent polypectomy site. 2. Coronary artery disease, status post PCI/stenting,elevated Trops consistent with demand injury 3. Poorly controlled diabetes mellitus. 4. Aortic valvular disease with [id number] aortic stenosis and mild aortic regurgitation. 5. Hypertension, hypertensive cardiovascular disease. 6. Diabetic peripheral neuropathy. 7. Mitral valvular disease with moderate mitral regurgitation. 8. Moderate to severe tricuspid regurgitation. 9. Xdop-dz-daneooll pulmonary hypertension. 10. Pleural calcification and left lower lobe bronchiectasis possibility of asbestosis needs to be excluded. 11. History of glaucoma. 12. History of left ventricular diastolic dysfunction. Recommendations: 1. Increase dose of Betablockers. 2. If bleeding persists will need fresh frozen plasma. 3. Serial EKGs and cardiac enzymes. 4. Continue other cardiac medications. 5. Serial BMP and trops. 6. F/u ECG. 7. Close monitoring of BP. Prognosis: Critical. Dawit Prater M.D., F.A.C.C. Time spent with patient and family 30mins.
--- NOTE | 2019-05-26 12:44 | PN ---
Teaching Attending Note Name of Resident: Gilson Pereyra ATTENDING PHYSICIAN STATEMENT I saw and evaluated the patient. I reviewed the resident's note and discussed the case with the resident. I agree with the resident's findings and plan as documented. SUBJECTIVE: Patient seen and examined in the ICU. Awake but confused. In wrist restraints. Able to answer basic questions and move all 4 extremities. (?) right sided facial droop. Melanotic stools noted in diaper. Intake & Output 05/23/19 05/24/19 05/25/19 05/26/19 23:59 23:59 23:59 23:59 Intake Total 595 Balance 595 Weight 155 lb Last Vital Signs Temp Pulse Resp BP Pulse Ox 98.8 F 97 H 18 159/57 L 97 05/26/19 10:14 05/26/19 12:00 05/26/19 12:00 05/26/19 12:00 05/25/19 14:00 Active Medications Octreotide Acetate 200 mcg/Octreotide Acetate 1,000 mcg/Dextrose 500 mls @ 20.833 mls/hr IVPB ASDIR [facility]; Protocol Last Admin: 05/25/19 12:36 Dose: 20.833 mls/hr Insulin Aspart (Novolog Vial Sliding Scale -) 1 vial SQ ACHS [facility]; Protocol Last Admin: 05/26/19 06:46 Dose: Not Given Magnesium Sulfate (Magnesium Sulfate) 2 gm IVPB ONCE ONE Stop: 05/26/19 11:22 Pantoprazole Sodium (Protonix Iv) 40 mg IVPUSH BID [facility] Last Admin: 05/26/19 10:30 Dose: 40 mg Timolol Maleate (Timoptic 0.5%) 1 drop OU BID [facility] Last Admin: 05/26/19 10:30 Dose: 1 drop GENERAL: Awake, confused, NAD HEAD: Normal with no signs of trauma. EYES: Pupils equal, round and reactive to light, EARS, NOSE, THROAT:dry mucous membranes. NECK: supple LUNGS: Breath sounds equal, clear to auscultation bilaterally. HEART: sinus tachy ABDOMEN: Soft, nontender, not distended, normoactive bowel sounds, LOWER EXTREMITIES: 2+ pulses, warm, well-perfused. No calf tenderness. No peripheral edema. NEUROLOGICAL: Confused, right facial droop SKIN: Warm, dry, normal turgor, Laboratory Results - last 24 hr 10/11/0805/25/19 05/25/19 08:20 16:56 20:33 WBC RBC Hgb Hct MCV MCH MCHC RDW Plt Count MPV Absolute Neuts (auto) Neutrophils % Lymphocytes % Monocytes % Eosinophils % Basophils % Nucleated RBC % Sodium Potassium Chloride Carbon Dioxide Anion Gap BUN Creatinine Est GFR (CKD-EPI)AfAm Est GFR (CKD-EPI)NonAf POC Glucometer 307 214 Random Glucose Hemoglobin A1c % Calcium Phosphorus Magnesium Iron TIBC Iron Saturation Unsaturated IBC Total Bilirubin AST ALT Alkaline Phosphatase Creatine Kinase Creatine Kinase Index CK-MB (CK-2) Troponin I B-Natriuretic Peptide Total Protein Albumin Triglycerides Cholesterol Total LDL Cholesterol HDL Cholesterol Blood Type O POSITIVE Antibody Screen Negative Crossmatch See Detail 05/25/19 05/25/19 05/25/19 20:35 20:35 22:12 WBC 13.8 H RBC 2.53 L Hgb 7.4 L Hct 22.7 L MCV 89.7 MCH 29.2 MCHC 32.6 RDW 14.9 Plt Count 183 MPV 10.3 Absolute Neuts (auto) 9.7 H Neutrophils % 70.2 Lymphocytes % 22.3 D Monocytes % 7.2 Eosinophils % 0.1 Basophils % 0.2 Nucleated RBC % 0 Sodium 144 Potassium 5.0 Chloride 114 H Carbon Dioxide 22 Anion Gap 9 BUN 61.1 H Creatinine 1.8 H Est GFR (CKD-EPI)AfAm 41.45 Est GFR (CKD-EPI)NonAf 35.76 POC Glucometer 155 Random Glucose 207 H Hemoglobin A1c % Calcium 7.3 L Phosphorus Magnesium Iron TIBC Iron Saturation Unsaturated IBC Total Bilirubin 0.4 AST 11 L ALT 17 Alkaline Phosphatase 47 Creatine Kinase Creatine Kinase Index CK-MB (CK-2) Troponin I B-Natriuretic Peptide Total Protein 3.8 L Albumin 2.2 L Triglycerides Cholesterol Total LDL Cholesterol HDL Cholesterol Blood Type Antibody Screen Crossmatch 05/26/19 05/26/19 05/26/19 06:00 06:00 06:00 WBC 19.6 H RBC 2.54 L Hgb 7.7 L Hct 22.8 L MCV 89.8 MCH 30.2 MCHC 33.6 RDW 14.8 Plt Count 224 D MPV 8.3 D Absolute Neuts (auto) 15.5 H Neutrophils % 79.1 Lymphocytes % 12.5 D Monocytes % 8.2 Eosinophils % 0.0 D Basophils % 0.2 Nucleated RBC % 0 Sodium 146 H Potassium 5.4 H Chloride 117 H Carbon Dioxide 23 Anion Gap 6 L BUN 61.8 H Creatinine 1.8 H Est GFR (CKD-EPI)AfAm 41.45 Est GFR (CKD-EPI)NonAf 35.76 POC Glucometer Random Glucose 84 Hemoglobin A1c % 6.5 H Calcium 6.8 L* Phosphorus 4.7 Magnesium 1.6 L Iron 194 H TIBC 191 L Iron Saturation 101 H Unsaturated IBC -3 L Total Bilirubin 0.9 AST 17 ALT 20 Alkaline Phosphatase 46 Creatine Kinase 166 Creatine Kinase Index 2.8 CK-MB (CK-2) 4.8 H Troponin I 1.11 H* B-Natriuretic Peptide 632.7 H Total Protein 3.9 L Albumin 2.2 L Triglycerides 91 Cholesterol 71 Total LDL Cholesterol 33 HDL Cholesterol 27 L Blood Type Antibody Screen Crossmatch 05/26/19 05/26/19 06:45 12:24 WBC RBC Hgb Hct MCV MCH MCHC RDW Plt Count MPV Absolute Neuts (auto) Neutrophils % Lymphocytes % Monocytes % Eosinophils % Basophils % Nucleated RBC % Sodium Potassium Chloride Carbon Dioxide Anion Gap BUN Creatinine Est GFR (CKD-EPI)AfAm Est GFR (CKD-EPI)NonAf POC Glucometer 73 138 Random Glucose Hemoglobin A1c % Calcium Phosphorus Magnesium Iron TIBC Iron Saturation Unsaturated IBC Total Bilirubin AST ALT Alkaline Phosphatase Creatine Kinase Creatine Kinase Index CK-MB (CK-2) Troponin I B-Natriuretic Peptide Total Protein Albumin Triglycerides Cholesterol Total LDL Cholesterol HDL Cholesterol Blood Type Antibody Screen Crossmatch ASSESSMENT/PLAN: Acute GI Bleed R/O new CVA DM HTN HPL BPH Cardiac stent (2002) S/P Polypectomy 05/15 ARF Normal transfusion threshold in CAD: 8 gm O2 as needed Monitor H & H IVF NPO Strict I & O Renal evaluation Follow renal function Mechanical VTE prophylaxis Maintain large bore IV access Octreotide and PPI per GI Hold BP meds as hemodynamics marginal CT Head Neuro evaluation Requires ICU monitoring Dr Burns Critical care time spent in reviewing chart, evaluating patient and formulating plan - 36 minutes.
[2019-05-26] MEDS ORDERED: MAGNESIUM SULF 50% (8.12 MEQ/2 ML-1 GM VIAL) IVPB ONE ×2 (12:45→17:15)
--- NOTE | 2019-05-26 12:51 | CONSULT ---
Consult - text type - Consultation Consultation Note: Neurology - Admission Chief Complaint: rectal bleeding History of Present Illness: 78yM w PMHx DM, HTN, HLD, BPH, cardiac stent (2002) presenting with rectal bleeding. Noticed gross clark red blood w blood clots in stool and underwear starting last night. Associated chills, lightheadedness, and diaphoresis. Had colonoscopy done 2 weeks ago showing polyps. Started baby aspirin and plavix 1 week ago, stopped yesterday after blood seen. Never had gross rectal bleeding before. Also fell down on knees in bathroom yesterday d/t lightheadedness, no LOC/head trauma. Denies fever, headache, nausea/vomiting, SOB, chest/AB pain, urinary changes, diarrhea/constipation. Per has been having bleeding the whole night bright red blood per rectum, no abdominal pain no chest pain. Patient aadmitted for further evaluation and currentlyin the ICU under critical care monitoring. Has been receivingb blood transfusion as needed. Consulted due to L facial droop that was noticed. Spoke with family at bedside and they reported noticing it overnight. No other motor deficits on exam and does not have significant aphasia. Appropriate blink in place and responds to threat. Discussed with ICU resident recommended having MRI of the brain to rule out CVA. - Past Medical History Cardiovascular: Yes: HTN, Hyperlipdemia Endocrine: Yes: Diabetes Mellitus - Smoking History Smoking history: Never smoked Have you smoked in the past 12 months: No Aproximately how many cigarettes per day: 0 - Alcohol/Substance Use Hx Alcohol Use: No Family: HTN Home Medications - Allergies Allergies/Adverse Reactions: Allergies Allergy/AdvReac Type Severity Reaction Status Date / Time No Known Drug Allergies Allergy Verified 10/05/18 07:12 - Home Medications Home Medications: Ambulatory Orders Aspirin [ASA -] 81 mg PO DAILY 03/24/17 Atorvastatin Ca [Lipitor] 80 mg PO HS 03/24/17 Carvedilol 12.5 mg PO BID 03/24/17 Clopidogrel Bisulfate [Plavix -] 75 mg PO DAILY 03/24/17 Docusate Sodium [Colace -] 100 mg PO DAILY 03/24/17 Gabapentin 100 mg PO BID 03/24/17 Insulin Degludec [Tresiba Flextouch U-100] 40 unit SQ AM 03/24/17 Insulin Sliding Scale [Novolog Vial Sliding Scale -] 5 units SQ DAILY 03/24/17 Tamsulosin HCl 0.4 mg PO HS 03/24/17 Ascorbic Acid [Vitamin C] 500 mg PO DAILY 10/04/18 Cholecalciferol (Vitamin D3) [Vitamin D -] 1,000 unit PO DAILY 10/04/18 Herbal Drugs [Super Energy] 1 each PO DAILY 10/04/18 Timolol 0.5% [Timoptic 0.5%] 1 drop OD DAILY 10/04/18 Amlodipine Bes/Olmesartan Med [Amlodipine-Olmesartan 5-40 mg] 1 each PO DAILY Active Medications Octreotide Acetate 200 mcg/Octreotide Acetate 1,000 mcg/Dextrose 500 mls @ 20.833 mls/hr IVPB ASDIR [facility]; Protocol Last Admin: 05/25/19 12:36 Dose: 20.833 mls/hr Insulin Aspart (Novolog Vial Sliding Scale -) 1 vial SQ ACHS [facility]; Protocol Last Admin: 05/26/19 11:00 Dose: Not Given Pantoprazole Sodium (Protonix Iv) 40 mg IVPUSH BID [facility] Last Admin: 05/26/19 10:30 Dose: 40 mg Timolol Maleate (Timoptic 0.5%) 1 drop OU BID [facility] Last Admin: 05/26/19 12:42 Dose: Not Given Review of Systems REVIEW OF SYSTEMS CONSTITUTIONAL: Absent: fever, chills, diaphoresis, + generalized weakness, malaise HEENT: Absent: rhinorrhea, nasal congestion, throat pain, throat swelling, difficulty swallowing, mouth swelling, ear pain, eye pain, visual changes CARDIOVASCULAR: Absent: chest pain, syncope, palpitations, irregular heart rate, lightheadedness , peripheral edema RESPIRATORY: Absent: cough, shortness of breath, dyspnea with exertion, orthopnea, wheezing, stridor, hemoptysis GASTROINTESTINAL: Absent: abdominal pain, abdominal distension, nausea GENITOURINARY: Absent: dysuria, frequency, urgency, MUSCULOSKELETAL: Absent: myalgia, SKIN: Absent: rash, itching, pallor HEMATOLOGIC/IMMUNOLOGIC: Absent: easy bleeding, easy bruising, lymphadenopathy, frequent infections ENDOCRINE: Absent: unexplained weight gain, unexplained weight loss, heat intolerance, cold intolerance NEUROLOGIC: Absent: headache, focal weakness or paresthesias, dizziness, seizure, PSYCHIATRIC: Absent: anxiety, depression, suicidal or homicidal ideation, hallucinations. Physical Examination Vital Signs Period Temp Pulse Resp BP Sys/Leavitt Pulse Ox Last 24 Hr 97.6 F-98.8 F 53-97 16-22 78-159/25-57 97 Gen: Awake, alert, responds to questions appropriately Card: RRR, nml S1,S2 Resp: Normal symmetric effort, lungs clear to auscultation Abdomen: Soft, nontender, bowel sounds active Musculoskeletal: Adequate range of motion without significant deformity Head atraumatic and normocephalic CN: PERRL, EOMI intact, L facial droop noted, no abnormalities in facial sensation, palate elevates, uvula and tongue midline Motor: Strength intact in upper and lower ext, tone normal Sensory: Intact to Temperature, light touch, and pinprick in all extremities Gait: Deferred CBCD WBC 19.6 K/mm3 (4.0-10.0) H 05/26/19 06:00 RBC 2.54 M/mm3 (4.00-5.60) L 05/26/19 06:00 Hgb 7.7 GM/dL (11.7-16.9) L 05/26/19 06:00 Hct 22.8 % (35.4-49) L 05/26/19 06:00 MCV 89.8 fl (80-96) 05/26/19 06:00 MCHC 33.6 g/dl (32.0-35.9) 05/26/19 06:00 RDW 14.8 % (11.9-15.9) 05/26/19 06:00 Plt Count 224 K/MM3 (134-434) D 05/26/19 06:00 MPV 8.3 fl (7.5-11.1) D 05/26/19 06:00 CMP Sodium 146 mmol/L (136-145) H 05/26/19 06:00 Potassium 5.4 mmol/L (3.5-5.1) H 05/26/19 06:00 Chloride 117 mmol/L (98-107) H 05/26/19 06:00 Carbon Dioxide 23 mmol/L (21-32) 05/26/19 06:00 Anion Gap 6 MMOL/L (8-16) L 05/26/19 06:00 BUN 61.8 mg/dL (7-18) H 05/26/19 06:00 Creatinine 1.8 mg/dL (0.55-1.3) H 05/26/19 06:00 Random Glucose 84 mg/dL (74-106) 05/26/19 06:00 Calcium 6.8 mg/dL (8.5-10.1) L* 05/26/19 06:00 Total Bilirubin 0.9 mg/dL (0.2-1) 05/26/19 06:00 AST 17 U/L (15-37) 05/26/19 06:00 ALT 20 U/L (13-61) 05/26/19 06:00 Alkaline Phosphatase 46 U/L (45-117) 05/26/19 06:00 Total Protein 3.9 g/dl (6.4-8.2) L 05/26/19 06:00 Albumin 2.2 g/dl (3.4-5.0) L 05/26/19 06:00 CARDIAC ENZYMES Creatine Kinase 166 U/L (26-308) 05/26/19 06:00 Troponin I 1.11 ng/ml (0.00-0.05) H* 05/26/19 06:00 Problem List 78yM w PMHx DM, HTN, HLD, BPH, cardiac stent (2002) presenting with rectal bleeding. Noticed gross clark red blood w blood clots in stool and underwear starting last night. Associated chills, lightheadedness, and diaphoresis. Had colonoscopy done 2 weeks ago showing polyps. Started baby aspirin and plavix 1 week ago, stopped yesterday after blood seen. Never had gross rectal bleeding before. Also fell down on knees in bathroom yesterday d/t lightheadedness, no LOC/head trauma. Denies fever, headache, nausea/vomiting, SOB, chest/AB pain, urinary changes, diarrhea/constipation. Per has been having bleeding the whole night bright red blood per rectum, no abdominal pain no chest pain. Patient aadmitted for further evaluation and currentlyin the ICU under critical care monitoring. Has been receivingb blood transfusion as needed. Consulted due to L facial droop that was noticed. Spoke with family at bedside and they reported noticing it overnight. No other motor deficits on exam and does not have significant aphasia. Appropriate blink in place and responds to threat. Discussed with ICU resident recommended having MRI of the brain to rule out CVA. Continue GI mgmt and optimization. Monitor bp, allow up to 160/90 for now, < 140/90 starting in AM. Not currently on ASA 81mg or plavix 75 as listed on home regiment, restart when able and okay from GI standpoint. Continue statin. DVT ppx. Monitor DM, maintain euglycemic range.
[2019-05-26] MEDS: OCTREOTIDE ACETATE 200 MCG, OCTREOTIDE ACETATE 1,000 MCG in DEXTROSE 5%-WATER - 496 ML IVPB SCH (13:00)
[2019-05-26] MEDS ORDERED: CALCIUM GLUCONATE 10% - 1,000 MG/10 ML VIAL IVPUSH ONE (14:43)
[2019-05-26] MEDS: ALBUTEROL SO4 0.083% IH SOL 2.5 MG/3 ML VIAL.NEB. NEB SCH ×2 (15:20→15:40)
--- NOTE | 2019-05-26 15:53 | PN ---
Progress Note (short form) - Note Progress Note: Head CT result initially done as pt w/ L sided facial droop. 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 However without hydrocephalus, midline shift, acute ischemic changes herniation or edema. D/w neuro, Dr. Kent at this point will not need decadron. Recommended neurosx consult, will consult Dr. Hakan Osorio. Gerri Herndon MD PGY-3 ICU
--- NOTE | 2019-05-26 15:56 | CONSULT ---
Consult Consult Specialty:: Nephrology Reason for Consultation:: SABRINA - History of Present Illness Chief Complaint: blood in stool History of Present Illness: Pt is a 78 year old male with pmhx of htn,d m, hld, bph, cad who presents with rectal bleeding. He has bright red blood per rectum. He did have a colonoscopy with multiple polyps removed. He was on asa and plavix. I was called to evaluate him for SABRINA. he was found to have a curatorial assistant of 1.8. He denies shortness of breath. He denies lower ext edema. His is at bedside and assisted with history. He does not take nsaids. - History Source History Provided By: Patient - Past Medical History Cardio/Vascular: Yes: CAD (has coronary stent), HTN, Hyperlipdemia Gastrointestinal: Yes: Diverticulosis, Gastritis (H pylori gastritis remotely), Other (multiple colon adenomas) Renal/: Yes: BPH Infectious Disease: Yes: Herpes Zoster (remotely) Endocrine: Yes: Diabetes Mellitus - Past Surgical History Past Surgical History: Yes: Colonoscopy, Hernia Repair ([facility] and [facility]), Stent ( coronary stent), Upper Endoscopy Additional Surgical History: left orchiectomy for testicular cancer - Alcohol/Substance Use Hx Alcohol Use: Yes (wine on occasion) History of Substance Use: reports: None - Smoking History Smoking history: Never smoked Have you smoked in the past 12 months: No Aproximately how many cigarettes per day: 0 - Social History Usual Living Arrangement: With Spouse ADL: Independent 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 History of Recent Travel: No Home Medications - Allergies Allergies/Adverse Reactions: Allergies Allergy/AdvReac Type Severity Reaction Status Date / Time No Known Drug Allergies Allergy Verified 10/05/18 07:12 - Home Medications Home Medications: Ambulatory Orders Aspirin [ASA -] 81 mg PO DAILY 03/24/17 Atorvastatin Ca [Lipitor] 80 mg PO HS 03/24/17 Carvedilol 12.5 mg PO BID 03/24/17 Clopidogrel Bisulfate [Plavix -] 75 mg PO DAILY 03/24/17 Docusate Sodium [Colace -] 100 mg PO DAILY 03/24/17 Gabapentin 100 mg PO BID 03/24/17 Insulin Degludec [Tresiba Flextouch U-100] 40 unit SQ AM 03/24/17 Insulin Sliding Scale [Novolog Vial Sliding Scale -] 5 units SQ DAILY 03/24/17 Tamsulosin HCl 0.4 mg PO HS 03/24/17 Ascorbic Acid [Vitamin C] 500 mg PO DAILY 10/04/18 Cholecalciferol (Vitamin D3) [Vitamin D -] 1,000 unit PO DAILY 10/04/18 Herbal Drugs [[employer]] 1 each PO DAILY 10/04/18 Timolol 0.5% [Timoptic 0.5%] 1 drop OD DAILY 10/04/18 Amlodipine Bes/Olmesartan Med [Amlodipine-Olmesartan 5-40 mg] 1 each PO DAILY Family Medical History Family History: Denies Review of Systems - Review of Systems Constitutional: reports: Malaise Eyes: reports: No Symptoms HENT: reports: No Symptoms Cardiovascular: reports: No Symptoms. denies: Edema Gastrointestinal: reports: Rectal Bleeding Genitourinary: reports: No Symptoms Musculoskeletal: reports: No Symptoms Integumentary: reports: No Symptoms Neurological: reports: No Symptoms Endocrine: reports: No Symptoms Hematology/Lymphatic: reports: No Symptoms Physical Exam Vital Signs: Vital Signs Temperature 98.8 F 05/26/19 10:14 Pulse Rate 97 H 05/26/19 12:00 Respiratory Rate 18 05/26/19 12:00 Blood Pressure 159/57 L 05/26/19 12:00 O2 Sat by Pulse Oximetry (%) 99 05/26/19 09:00 Constitutional: Yes: Calm Eyes: Yes: Conjunctiva Clear HENT: Yes: Atraumatic Neck: Yes: Supple Cardiovascular: Yes: S1, S2 Respiratory: Yes: CTA Bilaterally Gastrointestinal: Yes: Soft Renal/: Yes: WNL Musculoskeletal: Yes: WNL Edema: No Neurological: Yes: Oriented Labs: CBC, BMP 05/26/19 06:00 05/26/19 06:00 Laboratory Tests 05/25/19 05/25/19 05/25/19 08:20 08:20 20:35 Hgb 8.7 L Sodium Potassium Chloride BUN Creatinine 1.0 1.8 H Troponin I 05/25/19 05/26/19 05/26/19 20:35 06:00 06:00 Hgb 7.4 L 7.7 L Sodium 146 H Potassium 5.4 H Chloride 117 H BUN 61.8 H Creatinine 1.8 H Troponin I 1.11 H* 05/26/19 12:10 Hgb Sodium Potassium Chloride BUN Creatinine Troponin I 0.51 H Imaging - Results Chest X-ray: Report Reviewed Assessment/Plan Current Medications Generic Name Dose Route Start Last Admin Trade Name Luz PRN Reason Stop Dose Admin Octreotide Acetate 200 mcg/ 500 mls @ 20.833 mls/hr 05/25/19 10:45 05/26/19 13:00 Octreotide Acetate 1,000 mcg/ IVPB 20.833 mls/hr Dextrose ASDIR [facility] Administration Protocol Insulin Aspart 1 vial 05/25/19 16:30 05/26/19 11:00 Novolog Vial Sliding Scale - SQ Not Given ACHS [facility] Protocol Metoprolol Tartrate 25 mg 05/26/19 22:00 Lopressor - PO BID [facility] Pantoprazole Sodium 40 mg 05/25/19 22:00 05/26/19 10:30 Protonix Iv IVPUSH 40 mg BID [facility] Administration Timolol Maleate 1 drop 05/25/19 14:00 05/26/19 12:42 Timoptic 0.5% OU Not Given BID [facility] Impression 1. SABRINA 2. DM 3. HTN 4. GI bleed 5. r/o cva 6. bph Plan - monitor hg - check renal ultrasound - r/o obstruction - treat potassium medically, discussed with ICU - hypotonic fluid as sodium is rising - check urine lytes and curatorial assistant to calc fena - discussed with family
--- NOTE | 2019-05-26 16:00 | PN ---
Physical Exam: SUBJECTIVE: Patient seen and examined in ICU. Left sided facial droop on exam as well as anemia due to Lower GI bleed. OBJECTIVE: Vital Signs Period Temp Pulse Resp BP Sys/Leavitt Pulse Ox Last 24 Hr 97.6 F-98.8 F 76-97 16-20 78-159/25-57 99 GENERAL: The patient is awake, alert, and fully oriented, in no acute distress. NECK: supple. LUNGS: Breath sounds equal, clear to auscultation bilaterally, no wheezes, no crackles, no accessory muscle use. HEART: Regular rate and rhythm, S1, S2 without murmur, rub or gallop. ABDOMEN: Soft, nontender, nondistended, normoactive bowel sounds, no guarding EXTREMITIES: 2+ pulses, warm, well-perfused, no edema. NEUROLOGICAL: Cranial nerves II through XII grossly intact. Normal speech, left sided facial droop, left eye increased conjunctival injection, finger to nose test fine, H test for ocular mobility negative, sensation equal b/l, ROM upper and lower extremities mobility 5/5 b/l. positive babinski sign and decreased dorsiflexion on left side PSYCH: Normal mood, normal affect. SKIN: Warm, dry, no rashes or lesions noted Laboratory Results - last 24 hr 05/25/19 05/25/19 05/25/19 08:20 16:56 20:33 WBC RBC Hgb Hct MCV MCH MCHC RDW Plt Count MPV Absolute Neuts (auto) Neutrophils % Lymphocytes % Monocytes % Eosinophils % Basophils % Nucleated RBC % Sodium Potassium Chloride Carbon Dioxide Anion Gap BUN Creatinine Est GFR (CKD-EPI)AfAm Est GFR (CKD-EPI)NonAf POC Glucometer 307 214 Random Glucose Hemoglobin A1c % Calcium Phosphorus Magnesium Iron TIBC Iron Saturation Unsaturated IBC Total Bilirubin AST ALT Alkaline Phosphatase Creatine Kinase Creatine Kinase Index CK-MB (CK-2) Troponin I B-Natriuretic Peptide Total Protein Albumin Triglycerides Cholesterol Total LDL Cholesterol HDL Cholesterol Blood Type O POSITIVE Antibody Screen Negative Crossmatch See Detail 05/25/19 05/25/19 05/25/19 20:35 20:35 22:12 WBC 13.8 H RBC 2.53 L Hgb 7.4 L Hct 22.7 L MCV 89.7 MCH 29.2 MCHC 32.6 RDW 14.9 Plt Count 183 MPV 10.3 Absolute Neuts (auto) 9.7 H Neutrophils % 70.2 Lymphocytes % 22.3 D Monocytes % 7.2 Eosinophils % 0.1 Basophils % 0.2 Nucleated RBC % 0 Sodium 144 Potassium 5.0 Chloride 114 H Carbon Dioxide 22 Anion Gap 9 BUN 61.1 H Creatinine 1.8 H Est GFR (CKD-EPI)AfAm 41.45 Est GFR (CKD-EPI)NonAf 35.76 POC Glucometer 155 Random Glucose 207 H Hemoglobin A1c % Calcium 7.3 L Phosphorus Magnesium Iron TIBC Iron Saturation Unsaturated IBC Total Bilirubin 0.4 AST 11 L ALT 17 Alkaline Phosphatase 47 Creatine Kinase Creatine Kinase Index CK-MB (CK-2) Troponin I B-Natriuretic Peptide Total Protein 3.8 L Albumin 2.2 L Triglycerides Cholesterol Total LDL Cholesterol HDL Cholesterol Blood Type Antibody Screen Crossmatch 05/26/19 05/26/19 05/26/19 06:00 06:00 06:00 WBC 19.6 H RBC 2.54 L Hgb 7.7 L Hct 22.8 L MCV 89.8 MCH 30.2 MCHC 33.6 RDW 14.8 Plt Count 224 D MPV 8.3 D Absolute Neuts (auto) 15.5 H Neutrophils % 79.1 Lymphocytes % 12.5 D Monocytes % 8.2 Eosinophils % 0.0 D Basophils % 0.2 Nucleated RBC % 0 Sodium 146 H Potassium 5.4 H Chloride 117 H Carbon Dioxide 23 Anion Gap 6 L BUN 61.8 H Creatinine 1.8 H Est GFR (CKD-EPI)AfAm 41.45 Est GFR (CKD-EPI)NonAf 35.76 POC Glucometer Random Glucose 84 Hemoglobin A1c % 6.5 H Calcium 6.8 L* Phosphorus 4.7 Magnesium 1.6 L Iron 194 H TIBC 191 L Iron Saturation 101 H Unsaturated IBC -3 L Total Bilirubin 0.9 AST 17 ALT 20 Alkaline Phosphatase 46 Creatine Kinase 166 Creatine Kinase Index 2.8 CK-MB (CK-2) 4.8 H Troponin I 1.11 H* B-Natriuretic Peptide 632.7 H Total Protein 3.9 L Albumin 2.2 L Triglycerides 91 Cholesterol 71 Total LDL Cholesterol 33 HDL Cholesterol 27 L Blood Type Antibody Screen Crossmatch 05/26/19 05/26/19 05/26/19 06:45 12:10 12:24 WBC RBC Hgb Hct MCV MCH MCHC RDW Plt Count MPV Absolute Neuts (auto) Neutrophils % Lymphocytes % Monocytes % Eosinophils % Basophils % Nucleated RBC % Sodium Potassium Chloride Carbon Dioxide Anion Gap BUN Creatinine Est GFR (CKD-EPI)AfAm Est GFR (CKD-EPI)NonAf POC Glucometer 73 138 Random Glucose Hemoglobin A1c % Calcium Phosphorus Magnesium Iron TIBC Iron Saturation Unsaturated IBC Total Bilirubin AST ALT Alkaline Phosphatase Creatine Kinase Creatine Kinase Index CK-MB (CK-2) Troponin I 0.51 H B-Natriuretic Peptide Total Protein Albumin Triglycerides Cholesterol Total LDL Cholesterol HDL Cholesterol Blood Type Antibody Screen Crossmatch Active Medications Generic Name Dose Route Start Last Admin Trade Name Luz PRN Reason Stop Dose Admin Octreotide Acetate 200 mcg/ 500 mls @ 20.833 mls/hr 05/25/19 10:45 05/26/19 13:00 Octreotide Acetate 1,000 mcg/ IVPB 20.833 mls/hr Dextrose ASDIR ROWAN Administration Protocol Insulin Aspart 1 vial 05/25/19 16:30 05/26/19 11:00 Novolog Vial Sliding Scale - SQ Not Given ACHS [facility] Protocol Metoprolol Tartrate 25 mg 05/26/19 22:00 Lopressor - PO BID ROWAN Pantoprazole Sodium 40 mg 05/25/19 22:00 05/26/19 10:30 Protonix Iv IVPUSH 40 mg BID ROWAN Administration Timolol Maleate 1 drop 05/25/19 14:00 05/26/19 12:42 Timoptic 0.5% OU Not Given BID [facility] ASSESSMENT/PLAN: 78yM w PMHx DMT2, HTN, HLD, BPH, cardiac stent (2002) presented with rectal bleeding had recent 13 polyp removed on 05/15. Noticed gross clark red blood w blood clots in stool and underwear starting last night.admitted to ICU for sever lower GI bleed Neuro -> r/o CVA - alert but lethargic with facial droop - Head CT result initially done as pt w/ L sided facial droop. 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 However without hydrocephalus, midline shift, acute ischemic changes herniation or edema. - Recs continue GI mgmt and optimization. Monitor bp, allow up to 160/90 for now , < 140/90 starting in AM. pt does not need decadron at this time. - Neuro would like MRI to fully r/o CVA and further assess meningioma which looks like its chronic. Neurosx consulted, Dr. aHkan Osorio- recs MRI with contrast when renal ftn improves with fluid reuscitation, doubts patient can undergo surgery to remove this given its size and it not causing much symptoms due to its chronic slow growth. Shefali clival positioning is after the pontomedullary jtn and thus the tract has already decussated so pt presents with ipsilateral deficits. Heme # Acute blood loss anemia * 2 large iV bores * Monitor H/H Q 8hr * 4 units PRBCS, 1 Platelet bag given * PPI BID IV , octreotide drip * maintain BP map > 65 * pulse oxy, maintain O2 sat > 90 * hold BP meds, continue statin GI-> Lower GI bleed likely 2/2 diverticular bleed s.p recent polypectomies on - holding ASA and plavix - Dr. Slaughter- colonoscopic attempt to endoclip his bleeding polypectomy site was supposed to be today but pt not prepped, will continue transfusing as needed. Recs appreciated. Endo -> DM * NPO for now * cont ISS * levemir 20units Q AM per endo Nephro-> SABRINA likely pre renal from low volume * BUN/Cr 61/1.8 * repeat lab after hydration * avoid nephrotoxic agents * monitor urine output * hypotonic fluid as sodium is rising - check urine lytes and creatinine to calc fena Cardiology # CAD s.p stent hold aspirin plavix consult cardiology # trend WBC 19.6 uptrending, lactic acid # HLD cont statin #FEN * off fluids, starting 1/2 NS due to rising Sodium * Monitor lytes * NPO # DVT proph: SCDS # GI proph : PPI BID IV, octreotide Dispo: monitor in ICU. Full code. Dispo: We will continue to follow the patient. Thank you for this consultative opportunity. Visit type - Emergency Visit Emergency Visit: Yes ED Registration Date: 05/25/19 Care time: The patient presented to the Emergency Department on the above date and was hospitalized for further evaluation of their emergent condition. - New Patient This patient is new to me today: No - Critical Care Critical Care patient: Yes Total Critical Care Time (in minutes): 40 Critical Care Statement: The care of this patient involved high complexity decision making to prevent further life threatening deterioration of the patient 's condition and/or to evaluate & treat vital organ system(s) failure or risk of failure. - Discharge Referral Referred to [facility] No ATTENDING PHYSICIAN STATEMENT I saw and evaluated the patient. I reviewed the resident's note and discussed the case with the resident. I agree with the resident's findings and plan as documented. SUBJECTIVE: OBJECTIVE: ASSESSMENT AND PLAN:
--- NOTE | 2019-05-26 16:20 | PN ---
Progress Note (short form) - Note Progress Note: NEUROSURGERY CONSULT DICTATED Chart reviewed Pt examined CT reviewed at bedside H/o HTN, HLD, BPH, cardiac stent presenting with rectal bleeding. Colonoscopy done 2 weeks ago showed polyps. Started baby aspirin and plavix 1 week ago, Lightheadedness, no LOC/head trauma. Denies fever, headache. L facial droop that was noticed overnight. No other motor deficits on exam and does not have aphasia. 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
[2019-05-26] MEDS ORDERED: SODIUM CHLORIDE 0.45% 1,000 ML IV SCH (16:30)
--- NOTE | 2019-05-26 17:14 | PN.GI ---
GI Progress Note Subjective: GI NOte: At this point I have decided to cancel a colonoscopy. I discussed the situation with Gerardo and his at the bedside. He has positive troponins and had a facial drop last night. The droop has resolved and the CT reveals no acute events. There is a meningioma which I informed them of. At this point it appears that the monodonor platelets have slowed or stopped the bleeding and colonoscopy would not only be done at a significantly elevated risk of CVA or SD but may actually restart or aggravate the bleeding. Furthermore it's yield would be low given his unprepped state. - Objective Vital Signs: Vital Signs Temperature 97.9 F 05/26/19 15:53 Pulse Rate 79 05/26/19 15:53 Respiratory Rate 18 05/26/19 15:53 Blood Pressure 145/53 L 05/26/19 15:53 O2 Sat by Pulse Oximetry (%) 99 05/26/19 09:00 Laboratory Tests 05/25/19 05/25/19 05/26/19 08:20 20:35 06:00 Hgb 8.7 L 7.4 L 7.7 L BUN Creatinine 05/26/19 06:00 Hgb BUN 61.8 H Creatinine 1.8 H Constitutional: Anxious (but more alert and interactive) ...Auscultate: Yes: Hyperactive Bowel Sounds ...Palpate: Yes: Soft, Other (nontender) ...Percussion: Yes: Tympanitic Labs: CBC, BMP 05/26/19 06:00 05/26/19 06:00 INR, PTT INR 1.14 (0.83-1.09) H 05/25/19 08:20 Assessment/Plan Assessment: - Resolving late ( 13 days) postpolypectomy bleed. - Diverticulosis - FH colon cancer - past h/o H pylor gastritis Plan: -- Transfuse PRBCs to keep Hb close to 8 -- Monodonor platelet transfusion prn -- Keep NPO for now Dr Solano will be covering this weekend Problem List - Problems (1) Hematochezia Code(s): K92.1 - MELENA (2) Post-polypectomy bleeding Code(s): VGJ2043 - (3) Diverticulosis Code(s): K57.90 - DVRTCLOS OF INTEST, PART UNSP, W/O PERF OR ABSCESS W/O BLEED (4) Family history of colon cancer Code(s): Z80.0 - FAMILY HISTORY OF MALIGNANT NEOPLASM OF DIGESTIVE ORGANS (5) Anemia Code(s): D64.9 - ANEMIA, UNSPECIFIED Qualifiers: Anemia type: iron deficiency Iron deficiency anemia type: other iron deficiency Qualified Code(s): D50.8 - Other iron deficiency anemias (6) CAD (coronary artery disease) Code(s): I25.10 - ATHSCL HEART DISEASE OF [place] CORONARY ARTERY W/O ANG PCTRS (7) Diabetes Code(s): E11.9 - TYPE 2 DIABETES MELLITUS WITHOUT COMPLICATIONS Qualifiers: Diabetes mellitus type: type 2 (8) Glaucoma Code(s): H40.9 - UNSPECIFIED GLAUCOMA
[2019-05-26 17:27] LABS: BASO % 0.4 % (0-2.0); EOS % 0.1 % (0-4.5); HEMATOCRIT 23.9 % (35.4-49); HEMOGLOBIN 7.9 GM/dL (11.7-16.9); LYMPH % 17.8 % (8-40); MCH 29.5 pg (25.7-33.7); MCHC 33.2 g/dl (32.0-35.9); MEAN PLT VOLUME 8.1 fl (7.5-11.1); MONO % 9.8 % (3.8-10.2); NEUT % 71.9 % (42.8-82.8); PLATELET COUNT 187 K/MM3 (134-434); RBC 2.68 M/mm3 (4.00-5.60); RDW 14.5 % (11.9-15.9)
--- NOTE | 2019-05-26 17:41 | CONSULT ---
Consult - text type - Consultation Consultation Note: Hematology and oncology consultation Subjective: The patient is a 78 yo M w PMHx DM, HTN, HLD, BPH, cardiac stent (2002) presenting with rectal bleeding. The patient underwent colonoscopy 2 weeks ago with polypectomy. He was previously on asa and plavix for his stent, which was held 10 days prior to his procedure. The patient resumed asa and plavix on . Wednesday evening, the patient noticed bright red blood in his underwear and presented for evaluation. He was admitted for further workup. He is s/p 3 u PRBC and 2 u platelets. Hematology was consulted to advise on potential reversal of Plavix. On rounds, the ICU team noticed left-sided facial droop. Per patient's , this was not normal for him. Patient remains at baseline mental status. A CT head was ordered to rule out stroke. CT showed left anterior tentorial meningioma with mass effect on left ventral surface of vianey as well as the fourth ventricle. No hydrocephalus or midline shift was detected. No acute stroke was detected. On evaluation, patient was found lying in bed in no apparent distress. Patient denies any complaints. Per ICU staff, patient continues to pass bright red blood per rectum. Objective: Vital Signs Temperature 97.9 F 05/26/19 15:53 Pulse Rate 79 05/26/19 15:53 Respiratory Rate 18 05/26/19 15:53 Blood Pressure 145/53 L 05/26/19 15:53 O2 Sat by Pulse Oximetry (%) 99 05/26/19 09:00 Physical exam: Gen.: patient found lying in bed awake, alert and in no apparent distress. Lungs: clear to auscultation bilaterally down to the bases heart: regular rate and rhythm, S1, S2 heard. No murmurs gallops or rubs. Abdomen: soft, nontender, nondistended. Bowel sounds heard. Extremities: no peripheral edema noted CBC, BMP 05/26/19 16:00 05/26/19 17:00 Assessment and plan: The patient is a 78 yo M w PMHx DM, HTN, HLD, BPH, cardiac stent (2002) presenting with rectal bleeding. Patient admitted for LGIB in setting of plavix use. #bright red blood per rectum likely secondary to bleeding polypectomy site -Last plavix use 05/24/19 -patient status post two units of platelets three units PRBC - patient continues to lose small amounts of blood per rectum -hemoglobin stable -hemodynamics stable -no indication for further platelet transfusions at this time -intervention and possible cauterization of bleeding as per G.I. #CT of the head with new left meningioma - neurology consulted -neurosurgery consulted -no steroids indicated per neuro -MRI brain per neurology
[2019-05-26 17:58] LABS: BLOOD UREA NITROGEN 56.1 mg/dL (7-18); CALCIUM 7.3 mg/dL (8.5-10.1); CREATININE 1.1 mg/dL (0.55-1.3); POTASSIUM 4.3 mmol/L (3.5-5.1)
[2019-05-26] MEDS ORDERED: PT OWN MED DRAWER 7, Y5N ONE (21:01)
[2019-05-26] MEDS: METOPROLOL TARTRATE 25 MG TABLET (FP) PO SCH (21:04)
[2019-05-26] MEDS ORDERED: [UNRECOGNIZED DRUG - OTHER] IV SCH (21:30)
[2019-05-26] MEDS ORDERED: SODIUM CHLORIDE IV SCH (21:30)
[2019-05-26] MEDS ORDERED: DEXTROSE IV SCH (21:30)
[2019-05-26] MEDS: DEXTROSE 5%-0.45% SALINE 1,000 ML IV SCH (21:38)
[2019-05-27 00:10] LABS: BASO % 0.3 % (0-2.0); EOS % 0.4 % (0-4.5); HEMATOCRIT 24.9 % (35.4-49); HEMOGLOBIN 8.5 GM/dL (11.7-16.9); LYMPH % 14.9 % (8-40); MCH 29.7 pg (25.7-33.7); MCHC 34.2 g/dl (32.0-35.9); MEAN CELL VOLUME 86.8 fl (80-96); MONO % 9.8 % (3.8-10.2); NEUT % 74.6 % (42.8-82.8); PLATELET COUNT 165 K/MM3 (134-434); RBC 2.87 M/mm3 (4.00-5.60); RDW 14.7 % (11.9-15.9); WHITE BLOOD COUNT 9.5 K/mm3 (4.0-10.0)
[2019-05-27 00:20] LABS: EPI CELLS 2.1 /HPF (0-5/HPF); HYALINE CASTS 23 /lpf (0-8); URINE APPEARANCE CLEAR; URINE BACTERIA 3.6 /hpf (NEGATIVE); URINE BILIRUBIN NEGATIVE (NEGATIVE); URINE COLOR YELLOW; URINE GLUCOSE (UA) NEGATIVE (NEGATIVE); URINE KETONE NEGATIVE (NEGATIVE); URINE LEUK ESTERASE 1+ (NEGATIVE); URINE NITRITE NEGATIVE (NEGATIVE); URINE PROTEIN NEGATIVE (NEGATIVE); URINE RBC 2 /hpf (0-4); URINE UROBILINOGEN 0.2 mg/dL (0.2-1.0); URINE WBC 8 /hpf (0-5)
[2019-05-27 06:25] LABS: BASO % 0.5 % (0-2.0); EOS % 0.5 % (0-4.5); HEMATOCRIT 23.3 % (35.4-49); HEMOGLOBIN 8.3 GM/dL (11.7-16.9); LYMPH % 17.6 % (8-40); MCH 30.6 pg (25.7-33.7); MCHC 35.7 g/dl (32.0-35.9); MEAN CELL VOLUME 85.6 fl (80-96); MEAN PLT VOLUME 7.9 fl (7.5-11.1); MONO % 11.5 % (3.8-10.2); NEUT % 69.9 % (42.8-82.8); PLATELET COUNT 161 K/MM3 (134-434); RBC 2.73 M/mm3 (4.00-5.60); WHITE BLOOD COUNT 7.7 K/mm3 (4.0-10.0)
[2019-05-27 06:38] LABS: INR 1.07 (0.83-1.09); PROTHROMBIN TIME (PATIENT) 12.6 SEC (9.7-13.0)
[2019-05-27 06:41] LABS: ACTIVATED PTT 27.4 SECONDS (25.2-36.5)
[2019-05-27] MEDS: INSULIN SLIDING SCALE (NOVOLOG) 1 VIAL SQ SCH ×4 (06:55→22:58)
[2019-05-27 07:01] LABS: ALBUMIN 2.6 g/dl (3.4-5.0); BILIRUBIN,TOTAL 0.8 mg/dL (0.2-1); BLOOD UREA NITROGEN 33.6 mg/dL (7-18); CALCIUM 7.6 mg/dL (8.5-10.1); CREATININE 0.7 mg/dL (0.55-1.3); POTASSIUM 4.4 mmol/L (3.5-5.1); TOT PROT 4.7 g/dl (6.4-8.2)
--- NOTE | 2019-05-27 07:47 | CONS ---
DATE OF CONSULTATION: DATE OF DICTATION: REQUESTING PHYSICIAN: Archie Kent MD, Neurology CHIEF COMPLAINT: Left-sided petroclival tumor, probable meningioma. HISTORY OF PRESENT ILLNESS: Patient is a 78-year-old right-handed male with a history of multiple medical issues including hypertension, BPH, coronary artery disease status post stent placement, aspirin, and Plavix who presented with new onset rectal bleeding. He had a colonoscopy done 2 weeks ago and was just restarted on Plavix about a week ago with aspirin. He was found to have red blood to his rectum as well as lightheadedness. He denies any headache, nausea, vomiting, seizure activity, loss of consciousness, weakness, ataxia, or loss of bowel and bladder control previously. The is at the bedside in intensive care during re-examination. The patient has no other recent infection and has no other history of same malignancy by report. PAST MEDICAL HISTORY: Significant for hypertension, coronary artery disease, cardiac stent, hypercholesterolemia, BPH, colonic polyps, acute anemia. CURRENT MEDICATIONS: Include Lopressor, Timoptic, insulin, Protonix. ALLERGIES: There is no known drug allergy. FAMILY HISTORY: Noncontributory. SOCIAL HISTORY: Does not smoke and only drinks alcohol socially. He is retired. He lives at home with his . REVIEW OF SYSTEMS: Otherwise negative for other constitutional, head, neck, cardiovascular, pulmonary, gastrointestinal, genitourinary, endocrinological, neurological, or psychological problems except for the above. PHYSICAL EXAMINATION: Vital Signs: Temperature is 97.9, blood pressure is 145/53 with a pulse rate of 79, O2 saturation 99% on room air. HEENT: Shows him to be normocephalic, atraumatic, anicteric. Neck: Supple with no carotid bruits. Coronary: Demonstrates regular rhythm. He is occasionally tachycardic. Abdomen: Benign to palpation. He has hypoactive bowel sounds. Extremities: Show no signs of DVT. Neurologic: He is slightly drowsy but easily arousable. He follow commands. His speech is slow but comprehensible. Cranial nerve examination is intact. Motor examination shows 4+/5-5/5 strength of the upper and lower extremities without a drift. Left dorsiflexion is 4/5. Sensory examination shows decreased vibratory sensation at distal bilateral lower extremities. Deep tendon reflexes are hyporeflexive throughout. Left toe is upgoing. Gait is not tested for safety reasons. LABORATORY EXAMINATION: Shows white blood cell count of 5.1 initially, it is now 19.6. Most recent hemoglobin 7.7 and hematocrit 22.8, platelet count 224,000, INR is 1.14, and PTT is 29. Serum sodium is 146, potassium 5.4, BUN 62, creatinine 1.8. Estimated GFR is 35.8. Calcium is 6.5. Troponin is 0.51. Albumin 2.2. CT scan of the head demonstrated a left petroclival convex-shaped hyperdense lesion with internal calcifications. There is no expanse to the dorsum sellae, clivus, and down to the pontomedullary junction. It is approximately 2.7 x 2.5 x 1.2 cm. There is no obvious brain stem edema. There is no obvious hydrocephalus. There is some crowding near the lower brain stem near the pontomedullary junction and the craniocervical junction. There is no hydrocephalus. There is no acute bleed. IMPRESSION: 1. Left petroclival hypodense partially calcified lesion with mass affect on the left cerebral peduncle and vianey with vianey/pontomedullary junction, minimally symptomatic. 2. Acute anemia with lower gastrointestinal bleed. 3. Hypertension, coronary artery disease. RECOMMENDATIONS: Patient presents with acute anemia. He has underlying cardiac disease and as such significant drop of his hemoglobin and hematocrit. Transfusion had been given, and his hemoglobin and hematocrit are being monitored. It is uncertain if there is further acute bleeding at this time. Further GI follow up is recommended. The patient likely has an asymptomatic left petroclival meningioma with mass affect on the vianey, left cerebral peduncle in the pontomedullary junction. There is also a smaller possibility that this is a clival chordoma, but there is no significant expansion of clivus or erosion. MRI of the brain with and without gadolinium is recommended to include diffusion imaging to rule out acute ischemia. This should probably wait until the patient's BUN and creatinine normalizes somewhat after his blood count and hydration status is improved. Given the location of the tumor as well as aggressive skull base approach needed to resect this lesion, as well as potential for significant perioperative risks, surgical intervention is generally not recommended especially with gentleman's age and medical comorbidities. The above was discussed with the patient and his at the bedside. They concurred. Johanna MATHEW/[id number] MTDDary
--- NOTE | 2019-05-27 08:03 | PN ---
Teaching Attending Note Name of Resident: Andrew Kaufman ATTENDING PHYSICIAN STATEMENT I saw and evaluated the patient. I reviewed the resident's note and discussed the case with the resident. I agree with the resident's findings and plan as documented. ASSESSMENT AND PLAN: 78 yo M w PMHx DM, HTN, HLD, BPH, cardiac stent (2002) presenting with rectal bleeding. Patient admitted for LGIB in setting of plavix use. hAD stopped asa/plavix for colonoscopy/polypectomies and resued them 05/22 -05/24 received 3 monodonor platelets Hgb stable. Monitoring Lt. facial droop -- for head CT neurology follow up GI follow up will follow
--- NOTE | 2019-05-27 08:28 | PN ---
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 - Current Medication List Current Medications: Active Medications Octreotide Acetate 200 mcg/Octreotide Acetate 1,000 mcg/Dextrose 500 mls @ 20.833 mls/hr IVPB ASDIR [facility]; Protocol Last Admin: 05/26/19 13:00 Dose: 20.833 mls/hr Dextrose/Sodium Chloride (D5-1/2ns -) 1,000 mls @ 83 mls/hr IV ASDIR [facility] Last Admin: 05/26/19 21:38 Dose: 83 mls/hr Insulin Aspart (Novolog Vial Sliding Scale -) 1 vial SQ [facility]; Protocol Last Admin: 05/27/19 06:55 Dose: Not Given Metoprolol Tartrate (Lopressor -) 25 mg PO BID [facility] Last Admin: 05/26/19 21:04 Dose: 25 mg Pantoprazole Sodium (Protonix Iv) 40 mg IVPUSH BID [facility] Last Admin: 05/26/19 21:04 Dose: 40 mg Timolol Maleate (Timoptic 0.5%) 1 drop OU BID [facility] Last Admin: 05/26/19 21:04 Dose: 1 drop - Objective Vital Signs: Vital Signs Temperature 98.4 F 05/27/19 07:00 Pulse Rate 80 05/27/19 07:00 Respiratory Rate 21 H 05/27/19 07:00 Blood Pressure 151/65 05/27/19 07:00 O2 Sat by Pulse Oximetry (%) 99 05/26/19 20:12 Constitutional: Yes: Well Nourished, No Distress, Calm Cardiovascular: Yes: Regular Rate and Rhythm, Murmur (Grade IV/) Respiratory: Yes: Regular Gastrointestinal: Yes: Normal Bowel Sounds, Soft Musculoskeletal: Yes: Muscle Weakness Extremities: Yes: WNL Edema: No Peripheral Pulses WNL: Yes Neurological: Yes: Alert, Oriented Psychiatric: Yes: Alert, Oriented Labs: CBC, BMP 05/27/19 05:55 05/27/19 05:55 INR, PTT INR 1.07 (0.83-1.09) 05/27/19 05:55 Problem List - Problems (1) Anemia Assessment/Plan: -2/2 to GI bleed -Hold all AC -On Octreotide+ Pantoprazole 40 mg IVP BID -Monitor H/H -Transfuse if below 7.0 to avoid fluid overload Problems reviewed: Yes Code(s): D64.9 - ANEMIA, UNSPECIFIED Qualifiers: Anemia type: iron deficiency Iron deficiency anemia type: other iron deficiency Qualified Code(s): D50.8 - Other iron deficiency anemias (2) Diabetes Assessment/Plan: -A1c at 6.5 -BGM AC HS -ISS -NPO for now due to acute GI bleed Problems reviewed: Yes Code(s): E11.9 - TYPE 2 DIABETES MELLITUS WITHOUT COMPLICATIONS Qualifiers: Diabetes mellitus type: type 2 (3) Family history of colon cancer Problems reviewed: Yes Code(s): Z80.0 - FAMILY HISTORY OF MALIGNANT NEOPLASM OF DIGESTIVE ORGANS (4) Hypomagnesemia Assessment/Plan: -Repeat Mg pending -received magnesium supplement yesterday Problems reviewed: Yes Code(s): E83.42 - HYPOMAGNESEMIA (5) GI bleed Assessment/Plan: -Seen by GI -to avoid any invasive intervention if possible -On IV PPI bid -On IV octreotide -Has been NPO, would try clear liquids Problems reviewed: Yes Code(s): K92.2 - GASTROINTESTINAL HEMORRHAGE, UNSPECIFIED (6) Facial droop Assessment/Plan: -left facial droop that was noticed overnight on 05/25, which was resolved -Seen by Neurology -CT head negative for any acute infarcts -Awaiting MRI brain to r/o CVA Problems reviewed: Yes Code(s): R29.810 - FACIAL WEAKNESS Assessment/Plan see problem list
--- NOTE | 2019-05-27 08:58 | PN ---
Progress Note (short form) - Note Progress Note: RENAL pt is awake and alert appears comfortable Last Vital Signs Temp Pulse Resp BP Pulse Ox 98.4 F 80 21 H 151/65 99 05/27/19 07:00 05/27/19 07:00 05/27/19 07:00 05/27/19 07:00 05/26/19 20:12 lungs clear cvs s1s2 rr. +jacob abd soft ext no edema neuro awake CBC, BMP 05/27/19 05:55 05/27/19 05:55 Current Medications Generic Name Dose Route Start Last Admin Trade Name Luz PRN Reason Stop Dose Admin Octreotide Acetate 200 mcg/ 500 mls @ 20.833 mls/hr 05/25/19 10:45 05/26/19 13:00 Octreotide Acetate 1,000 mcg/ IVPB 20.833 mls/hr Dextrose ASDIR ROWAN Administration Protocol Dextrose/Sodium Chloride 1,000 mls @ 83 mls/hr 05/26/19 21:30 05/26/19 21:38 D5-1/2ns - IV 83 mls/hr ASDIR ROWAN Administration Insulin Aspart 1 vial 05/25/19 16:30 05/27/19 06:55 Novolog Vial Sliding Scale - SQ Not Given ACHS ROWAN Protocol Metoprolol Tartrate 25 mg 05/26/19 22:00 05/26/19 21:04 Lopressor - PO 25 mg BID ROWAN Administration Pantoprazole Sodium 40 mg 05/25/19 22:00 05/26/19 21:04 Protonix Iv IVPUSH 40 mg BID ROWAN Administration Timolol Maleate 1 drop 05/25/19 14:00 05/26/19 21:04 Timoptic 0.5% OU 1 drop BID ROWAN Administration Impression 1. SABRINA resolving 2. DM 3. HTN 4. GI bleed 5. r/o cva 6. bph Plan will make no changes encourage po fluid as tolerated will monitor MV
--- NOTE | 2019-05-27 09:21 | PN ---
Progress Note (short form) - Note Progress Note: NEUROSURGERY H/o HTN, HLD, BPH, cardiac stent presenting with rectal bleeding. Colonoscopy done 2 weeks ago showed polyps. Started baby aspirin and plavix 1 week ago, Lightheadedness, no LOC. Denies fever, headache, N/V, diplopia this am. Somewhat "weak" still. 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
[2019-05-27 09:47] LABS: MAGNESIUM 2.1 mg/dL (1.8-2.4); PHOSPHOROUS 2.6 mg/dL (2.5-4.9)
[2019-05-27] MEDS: PANTOPRAZOLE SODIUM 40 MG VIAL IVPUSH SCH ×2 (10:18→22:57)
[2019-05-27] MEDS: METOPROLOL TARTRATE 25 MG TABLET (FP) PO SCH ×2 (10:18→22:57)
[2019-05-27] MEDS: DEXTROSE 5%-0.45% SALINE 1,000 ML IV SCH ×2 (10:19→21:30)
--- NOTE | 2019-05-27 10:49 | PN ---
Progress Note (short form) - Note Progress Note: Seen and examined in the ICU Hgb stable Neuro consulted 2/ CT findings *Head CT- L petroclival hyperdense lesion with some calcifications; no clear clival erosion or expansion; L cereberal pedicuncle and pontine mild impingement ; No bleed or HCP. 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 Mental status appears at baseline Current Medications Octreotide Acetate 200 mcg/Octreotide Acetate 1,000 mcg/Dextrose 500 mls @ 20.833 mls/hr IVPB ASDIR ROWAN; Protocol Last Admin: 05/26/19 13:00 Dose: 20.833 mls/hr Dextrose/Sodium Chloride (D5-1/2ns -) 1,000 mls @ 83 mls/hr IV ASDIR ROWAN Last Admin: 05/27/19 10:19 Dose: 83 mls/hr Insulin Aspart (Novolog Vial Sliding Scale -) 1 vial SQ ACHS ROWAN; Protocol Last Admin: 05/27/19 06:55 Dose: Not Given Metoprolol Tartrate (Lopressor -) 25 mg PO BID ROWAN Last Admin: 05/27/19 10:18 Dose: 25 mg Pantoprazole Sodium (Protonix Iv) 40 mg IVPUSH BID ROWAN Last Admin: 05/27/19 10:18 Dose: 40 mg Timolol Maleate (Timoptic 0.5%) 1 drop OU BID ROWAN Last Admin: 05/26/19 21:04 Dose: 1 drop Vital Signs Period Temp Pulse Resp BP Sys/Leavitt Pulse Ox Last 24 Hr 97.9 F-98.4 F 79-97 16-21 134-166/51-68 99-99 Intake & Output 05/24/19 05/25/19 05/26/19 05/27/19 23:59 23:59 23:59 23:59 Intake Total 595 1155 1256 Output Total 1500 1700 Balance 016 -947 -263 Weight 70.307 kg Exam: Awake and alert HEENT: PERRL CV: SM Pulm: CTA Abd: SNRND +BS Ext: WWP Neuro: CN grossly intact CBC, BMP 05/27/19 05:55 05/27/19 05:55 ASSESSMENT/PLAN: Acute GI Bleed R/O new CVA DM HTN HPL BPH Cardiac stent (2002) S/P Polypectomy 05/15 ARF LGIB s/p PRBC x5, PLT x3 -Normal transfusion threshold in CAD: 8 gm -trend Hgb q12h then daily if remains stable -Maintain large bore IV access -Octreotide and PPI per GI for 72hrs -Advance diet today per GI Resolved SABRINA -Renal consulted -Follow renal function improved -strick I&O's Mechanical VTE prophylaxis CAD -restated BB given stable BP 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
--- NOTE | 2019-05-27 10:50 | PN ---
Progress Note (short form) - Note Progress Note: No further gross bleeding. Hgb/Hct stable: CBC WBC 7.7 K/mm3 (4.0-10.0) 05/27/19 05:55 RBC 2.73 M/mm3 (4.00-5.60) L 05/27/19 05:55 Hgb 8.3 GM/dL (11.7-16.9) L 05/27/19 05:55 Hct 23.3 % (35.4-49) L 05/27/19 05:55 MCV 85.6 fl (80-96) 05/27/19 05:55 MCH 30.6 pg (25.7-33.7) 05/27/19 05:55 MCHC 35.7 g/dl (32.0-35.9) 05/27/19 05:55 RDW 15.0 % (11.9-15.9) 05/27/19 05:55 Plt Count 161 K/MM3 (134-434) 05/27/19 05:55 MPV 7.9 fl (7.5-11.1) 05/27/19 05:55 Absolute Neuts (auto) 5.4 K/mm3 (1.5-8.0) 05/27/19 05:55 Neutrophils % 69.9 % (42.8-82.8) 05/27/19 05:55 Lymphocytes % 17.6 % (8-40) 05/27/19 05:55 Monocytes % 11.5 % (3.8-10.2) H 05/27/19 05:55 Eosinophils % 0.5 % (0-4.5) 05/27/19 05:55 Basophils % 0.5 % (0-2.0) 05/27/19 05:55 Nucleated RBC % 0 % (0-0) 05/27/19 05:55 Case discussed with Ms Leggett. To begin clear liquid diet; continue to monitor Hgb /Hct.
[2019-05-27] MEDS: TIMOLOL 0.5% OPHTHALMIC SOL 5 ML BOTTLE OU SCH ×2 (11:00→22:57)
[2019-05-27 17:31] LABS: HEMATOCRIT 25.4 % (35.4-49); HEMOGLOBIN 8.5 GM/dL (11.7-16.9); MCH 29.4 pg (25.7-33.7); MCHC 33.6 g/dl (32.0-35.9); MEAN CELL VOLUME 87.4 fl (80-96); MEAN PLT VOLUME 8.1 fl (7.5-11.1); PLATELET COUNT 154 K/MM3 (134-434); RBC 2.91 M/mm3 (4.00-5.60); RDW 15.3 % (11.9-15.9); WHITE BLOOD COUNT 6.5 K/mm3 (4.0-10.0)
[2019-05-27] MEDS ORDERED: METOPROLOL TARTRATE 50 MG TABLET (FP) ONE (18:54)
--- NOTE | 2019-05-27 19:00 | PN ---
Progress Note (short form) - Note Progress Note: I have seen and examined Seth Walker Subjective: Mild abdominal discomfort. Denies gross hematochezia or other bleeding Objective: General: NAD HEENT: MMM CVS: S1, S2 Lungs: CTAB Abd: Soft, NT, ND Skin: No rash Psych: Conversant ASSESSMENT AND PLAN: 78 y/o gentleman w PMHx DM, HTN, HLD, BPH, cardiac stent (2002) presenting with rectal bleeding. Patient admitted for LGIB in setting of plavix use. hAD stopped asa/plavix for colonoscopy/polypectomies and resumed them 05/22 -05/24 received 3 monodonor platelets Hgb stable. Monitoring. No acute bleeding. No other therapy indicated at this time Lt. facial droop -- for head CT which showed L petroclival hyperdense lesion with some calcifications; no clear clival erosion or expansion; L cereberal pedicuncle and pontine mild impingement; No bleed or HCP. 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
--- NOTE | 2019-05-27 19:12 | PN ---
Progress Note (short form) - Note Progress Note: 78-year-old Amharic gentleman with long-standing history of coronary artery disease, status post PCI/stenting, hypertension, hypertensive cardiovascular disease, insulin-dependent diabetes mellitus, aortic valvular disease with mild- to-moderate aortic valvular stenosis, dyslipidemia type IIb. History of moderate mitral and moderate to severe tricuspid regurgitation and mild pulmonary hypertension. History of peripheral neuropathy, left ventricular diastolic dysfunction, glaucoma. Patient was brought to the hospital became of severe painless bright red rectal bleeding that started last evening and was occompanied by dizziness, weakness and apparently had two to three falls today prior to coming to the hospital. According to his he had undergone a colonoscopy May 12 and apparently had 15 polyps removed. Both Aspirin and Plavix had been stopped prior to the procedure and was told that he should resume these medications on May 22. No history of chest pain or discomfort either at rest or with exertion, no dyspnea, paroxysmal nocturnal dyspnea or orthopnea. No further bleeding, received platelet transfusions. Systolic BP is elevated. Active Medications Octreotide Acetate 200 mcg/Octreotide Acetate 1,000 mcg/Dextrose 500 mls @ 20.833 mls/hr IVPB [facility]; Protocol Last Admin: 05/25/19 12:36 Dose: 20.833 mls/hr Insulin Aspart (Novolog Vial Sliding Scale -) 1 vial SQ ACHS [facility]; Protocol Last Admin: 05/26/19 06:46 Dose: Not Given Magnesium Sulfate (Magnesium Sulfate) 2 gm IVPB ONCE ONE Stop: 05/26/19 11:22 Pantoprazole Sodium (Protonix Iv) 40 mg IVPUSH BID [facility] Last Admin: 05/26/19 10:30 Dose: 40 mg Timolol Maleate (Timoptic 0.5%) 1 drop OU BID [facility] Last Admin: 05/26/19 10:30 Dose: 1 drop Physical Exam: O: 78 year old male was in no acute distress. Pallor, no cyanosis, clubbing, or jaundice Last Vital Signs Temp Pulse Resp BP Pulse Ox 98.4 F 80 18 200/66 99 05/27/19 07:00 05/27/19 08:00 05/27/19 08:57 05/27/19 08:00 05/27/19 08:57 Neck: Supple, no jugular venous distention, hepatojugular reflux was negative, faint left carotid bruit versus radiation of murmur. No thyromegaly was present. Heart: PMI was in the fifth intercostal space, no heaves or thrills, S1 and S2 were normal. Nonejection systolic click was heard along the left sternal border. There was an ejection systolic murmur grade II/ at the second right intercostal space and along the left sternal border ending in early to mid systole. No diastolic murmur or gallops were heard. Lungs: Clear on auscultation, slightly decreased breath sounds at the left base. Abdomen: Soft, distended and nontender. A moderate sized ventral hernia that was reducible. No hepatosplenomegaly or palpable masses were felt. Bowel sounds are present., no bruits were appreciated. Extremities: No calf tenderness, 1-2+ bilateral ankle extremity dependent edema , 1-2+ bilateral pedal edema, bilateral varicosities involving both lower extremities, stasis changes. Pulses were equal posterior tibial pulses were weak. CBC, BMP 05/27/19 17:08 05/27/19 05:55 Impression: 1. Painless hematochezia most likely related to recent polypectomy site. 2. Coronary artery disease, status post PCI/stenting,elevated Trops consistent with demand injury 3. Poorly controlled diabetes mellitus. 4. Aortic valvular disease with xefa-sq-omfsccoa aortic stenosis and mild aortic regurgitation. 5. Hypertension, hypertensive cardiovascular disease, poorly controlled. 6. Diabetic peripheral neuropathy. 7. Mitral valvular disease with moderate mitral regurgitation. 8. Moderate to severe tricuspid regurgitation. 9. Pmjd-to-osngthmj pulmonary hypertension. 10. Pleural calcification and left lower lobe bronchiectasis possibility of asbestosis needs to be excluded. 11. History of glaucoma. 12. History of left ventricular diastolic dysfunction. Recommendations: 1. Increase dose of Betablockers 2. Serial EKGs and cardiac enzymes. 3. Continue other cardiac medications. 4. Serial BMP and trops. 5. F/u ECG. Prognosis: Critical. Time spent 35mins. Dawit Prater M.D., F.A.C.C.
[2019-05-27] MEDS: OCTREOTIDE ACETATE 200 MCG, OCTREOTIDE ACETATE 1,000 MCG in DEXTROSE 5%-WATER - 496 ML IVPB SCH (20:54)
[2019-05-28] MEDS: INSULIN SLIDING SCALE (NOVOLOG) 1 VIAL SQ SCH ×3 (06:05→21:02)
[2019-05-28 06:36] LABS: BASO % 0.3 % (0-2.0); EOS % 2.5 % (0-4.5); HEMATOCRIT 23.1 % (35.4-49); HEMOGLOBIN 8.2 GM/dL (11.7-16.9); LYMPH % 24.6 % (8-40); MCH 30.4 pg (25.7-33.7); MCHC 35.4 g/dl (32.0-35.9); MEAN CELL VOLUME 85.9 fl (80-96); MEAN PLT VOLUME 8.1 fl (7.5-11.1); MONO % 11.6 % (3.8-10.2); PLATELET COUNT 151 K/MM3 (134-434); WHITE BLOOD COUNT 6.4 K/mm3 (4.0-10.0)
[2019-05-28 06:53] LABS: BLOOD UREA NITROGEN 17.2 mg/dL (7-18); CALCIUM 7.7 mg/dL (8.5-10.1); CREATININE 0.5 mg/dL (0.55-1.3); POTASSIUM 3.8 mmol/L (3.5-5.1)
--- NOTE | 2019-05-28 08:10 | PN ---
Progress Note (short form) - Note Progress Note: RENAL pt is awake and alert appears comfortable sitting up Last Vital Signs Temp Pulse Resp BP Pulse Ox 98.4 F 68 16 170/98 99 05/28/19 06:00 05/28/19 06:00 05/28/19 06:00 05/28/19 06:00 05/27/19 21:00 lungs crackles at bases cvs s1s2 rr. +jacob abd soft ext no edema neuro awake gu clear urine in mccoy bag CBC, BMP 05/27/19 05:55 05/27/19 05:55 CBC, BMP 05/28/19 05:50 05/28/19 05:00 Current Medications Generic Name Dose Route Start Last Admin Trade Name Freq PRN Reason Stop Dose Admin Dextrose/Sodium Chloride 1,000 mls @ 83 mls/hr 05/26/19 21:30 05/27/19 21:30 D5-1/2ns - IV 83 mls/hr ASDIR ROWAN Administration Insulin Aspart 1 vial 05/25/19 16:30 05/28/19 06:05 Novolog Vial Sliding Scale - SQ Not Given ACHS ROWAN Protocol Metoprolol Tartrate 25 mg 05/26/19 22:00 05/27/19 22:57 Lopressor - PO 25 mg BID ROWAN Administration Pantoprazole Sodium 40 mg 05/25/19 22:00 05/27/19 22:57 Protonix Iv IVPUSH 40 mg BID ROWAN Administration Timolol Maleate 1 drop 05/25/19 14:00 05/27/19 22:57 Timoptic 0.5% OU 1 drop BID ROWAN Administration Impression 1. SABRINA resolving 2. DM 3. HTN 4. GI bleed 5. 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 bph 7 concer for chf given basilar crackles though pt comfortable Plan would dc fluids and encourage po fluids- high bun may be from reabsorption of blood from gi tract MV
[2019-05-28] MEDS ORDERED: ACETAMINOPHEN 325 MG TABLET (FP) PO PRN ×2 (08:15→19:12)
[2019-05-28] MEDS ORDERED: METOPROLOL TARTRATE 25 MG TABLET (FP) PO SCH (08:17)
--- NOTE | 2019-05-28 08:25 | PN ---
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 Awaiting MRI brain without contrast - Current Medication List Current Medications: Active Medications Acetaminophen (Tylenol -) 650 mg PO Q4H PRN PRN Reason: PAIN OR FEVER Atorvastatin Calcium (Lipitor -) 80 mg PO HS ROWAN Docusate Sodium (Colace -) 100 mg PO DAILY ROWAN Metoprolol Tartrate (Lopressor -) 50 mg PO BID ROWAN Pantoprazole Sodium (Protonix -) 40 mg PO BID ROWAN Tamsulosin HCl (Flomax -) 0.4 mg PO DAILY@0830 ROWAN Timolol Maleate (Timoptic 0.5%) 1 drop OU BID ROWAN Last Admin: 05/27/19 22:57 Dose: 1 drop - Objective Vital Signs: Vital Signs Temperature 98.4 F 05/28/19 06:00 Pulse Rate 68 05/28/19 06:00 Respiratory Rate 16 05/28/19 06:00 Blood Pressure 170/98 05/28/19 06:00 O2 Sat by Pulse Oximetry (%) 99 05/27/19 21:00 Constitutional: Yes: Well Nourished, No Distress, Calm Cardiovascular: Yes: Regular Rate and Rhythm, Murmur (grade III/) Respiratory: Yes: Regular Gastrointestinal: Yes: Normal Bowel Sounds, Soft Genitourinary: Yes: Antunez Present Musculoskeletal: Yes: Muscle Weakness Edema: No Peripheral Pulses WNL: Yes Neurological: Yes: Alert, Oriented Psychiatric: Yes: Alert, Oriented Labs: CBC, BMP 05/28/19 05:50 05/28/19 05:00 INR, PTT INR 1.07 (0.83-1.09) 05/27/19 05:55 Problem List - Problems (1) Anemia Assessment/Plan: -2/2 to GI bleed -Hold all AC -D/C Octreotide -Pantoprazole 40 mg IVP BID--->change to PO -Monitor H/H -Transfuse if below 7.0 to avoid fluid overload Problems reviewed: Yes Code(s): D64.9 - ANEMIA, UNSPECIFIED Qualifiers: Anemia type: iron deficiency Iron deficiency anemia type: other iron deficiency Qualified Code(s): D50.8 - Other iron deficiency anemias (2) Diabetes Assessment/Plan: -A1c at 6.5 -D/C BGM AC HS -D/C ISS -Tolerated clear liquids---> advance diet to soft low sodium/diabetic diet Problems reviewed: Yes Code(s): E11.9 - TYPE 2 DIABETES MELLITUS WITHOUT COMPLICATIONS Qualifiers: Diabetes mellitus type: type 2 (3) Family history of colon cancer Problems reviewed: Yes Code(s): Z80.0 - FAMILY HISTORY OF MALIGNANT NEOPLASM OF DIGESTIVE ORGANS (4) Hypomagnesemia Assessment/Plan: -Repeat Mg pending -received magnesium supplement yesterday Code(s): E83.42 - HYPOMAGNESEMIA (5) GI bleed Assessment/Plan: -Seen by GI -to avoid any invasive intervention if possible -On IV PPI bid--->change to PO -Advance diet as tolerated Problems reviewed: Yes Code(s): K92.2 - GASTROINTESTINAL HEMORRHAGE, UNSPECIFIED (6) Facial droop Assessment/Plan: -left facial droop that was noticed overnight on 05/25, which was resolved -Seen by Neurology -CT head negative for any acute infarcts -Awaiting MRI brain to r/o CVA Problems reviewed: Yes Code(s): R29.810 - FACIAL WEAKNESS (7) HTN (hypertension) Assessment/Plan: -D/C IVF -Encourage PO fluids -Increase metoprolol tart to 50 mg PO BID-monitor for bradycardia -May add Amlodipine 5 mg po daily, if still needed -Low sodium/diabetic diet Problems reviewed: Yes Code(s): I10 - ESSENTIAL (PRIMARY) HYPERTENSION (8) CAD (coronary artery disease) Assessment/Plan: -resume Plavix in AM -Resume asa if tolerates plavix Problems reviewed: Yes Code(s): I25.10 - ATHSCL HEART DISEASE OF [place] CORONARY ARTERY W/O ANG PCTRS Assessment/Plan see problem list D/C nadine May transfer to Med Surg
[2019-05-28] MEDS ORDERED: TAMSULOSIN HCL 0.4 MG CAP PO SCH (08:30)
--- NOTE | 2019-05-28 08:40 | PN ---
Progress Note (short form) - Note Progress Note: Seen and examined in ICU Hgb stable octerotide complete Diet advanced placed in for floor bed this AM Current Medications Acetaminophen (Tylenol -) 650 mg PO Q4H PRN PRN Reason: PAIN OR FEVER Atorvastatin Calcium (Lipitor -) 80 mg PO HS ROWAN Clopidogrel Bisulfate (Plavix -) 75 mg PO DAILY ROWAN Docusate Sodium (Colace -) 100 mg PO DAILY ROWAN Metoprolol Tartrate (Lopressor -) 50 mg PO BID ROWAN Pantoprazole Sodium (Protonix -) 40 mg PO BID ROWAN Tamsulosin HCl (Flomax -) 0.4 mg PO DAILY@0830 [facility] Last Admin: 05/28/19 08:26 Dose: 0.4 mg Timolol Maleate (Timoptic 0.5%) 1 drop OU BID [facility] Last Admin: 05/27/19 22:57 Dose: 1 drop Vital Signs Period Temp Pulse Resp BP Sys/Leavitt Pulse Ox Last 24 Hr 98.0 F-98.4 F 62-83 9-20 140-184/48-98 99-99 Intake & Output 05/25/19 05/26/19 05/27/19 05/28/19 23:59 23:59 23:59 23:59 Intake Total 595 1155 3274.1 1096 Output Total 1500 4650 1500 Balance 595 -345 -1375.9 -404 Weight 70.307 kg 70.307 kg Exam: Awake and alert HEENT: PERRL CV: SM Pulm: CTA Abd: SNRND +BS Ext: WWP Neuro: CN grossly intact CBC, BMP 05/28/19 05:50 05/28/19 05:00 ASSESSMENT/PLAN: Acute GI Bleed R/O new CVA DM HTN HPL BPH Cardiac stent (2002) S/P Polypectomy 05/15 ARF LGIB s/p PRBC x5, PLT x3 -Normal transfusion threshold in CAD: 8 gm -trend Hgb q12h then daily if remains stable -Maintain large bore IV access -Octreotide and PPI per GI for 72hrs -Advance diet today Resolved SABRINA -Renal consulted -Follow renal function improved -strick I&O's Mechanical VTE prophylaxis CAD -cont BB -cont plavix 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
[2019-05-28] MEDS ORDERED: DOCUSATE SODIUM 100 MG CAPSULE (FP) PO SCH (10:00)
[2019-05-28] MEDS ORDERED: PANTOPRAZOLE 40 MG TABLET (FP) PO SCH (10:00)
[2019-05-28] MEDS: TIMOLOL 0.5% OPHTHALMIC SOL 5 ML BOTTLE OU SCH ×2 (10:44→21:03)
[2019-05-28] MEDS: RANITIDINE HCL 150 MG TABLET (FP) PO SCH ×2 (10:48→21:02)
--- NOTE | 2019-05-28 10:59 | PN ---
Progress Note (short form) - Note Progress Note: No gross bleeding noted. Diet advanced by Ms Leggett. Hemoglobin stable over past several days: CBC WBC 6.4 K/mm3 (4.0-10.0) 05/28/19 05:50 RBC 2.70 M/mm3 (4.00-5.60) L 05/28/19 05:50 Hgb 8.2 GM/dL (11.7-16.9) L 05/28/19 05:50 Hct 23.1 % (35.4-49) L 05/28/19 05:50 MCV 85.9 fl (80-96) 05/28/19 05:50 MCH 30.4 pg (25.7-33.7) 05/28/19 05:50 MCHC 35.4 g/dl (32.0-35.9) 05/28/19 05:50 RDW 15.0 % (11.9-15.9) 05/28/19 05:50 Plt Count 151 K/MM3 (134-434) 05/28/19 05:50 MPV 8.1 fl (7.5-11.1) 05/28/19 05:50 Absolute Neuts (auto) 3.9 K/mm3 (1.5-8.0) 05/28/19 05:50 Neutrophils % 61.0 % (42.8-82.8) 05/28/19 05:50 Lymphocytes % 24.6 % (8-40) D 05/28/19 05:50 Monocytes % 11.6 % (3.8-10.2) H 05/28/19 05:50 Eosinophils % 2.5 % (0-4.5) D 05/28/19 05:50 Basophils % 0.3 % (0-2.0) 05/28/19 05:50 Nucleated RBC % 0 % (0-0) 05/28/19 05:50 Would keep off clopidogrel until his Hgb has come up to at least 10 gm. If he rebleeds at this level of Hgb he would be at high risk for ischemic complications.
--- NOTE | 2019-05-28 16:57 | PN ---
Progress Note, Physician Chief Complaint: comfortable no complaint - Current Medication List Current Medications: Active Medications Acetaminophen (Tylenol -) 650 mg PO Q4H PRN PRN Reason: PAIN OR FEVER Atorvastatin Calcium (Lipitor -) 80 mg PO HS [facility] Docusate Sodium (Colace -) 100 mg PO DAILY [facility] Last Admin: 05/28/19 10:36 Dose: 100 mg Metoprolol Tartrate (Lopressor -) 50 mg PO BID [facility] Last Admin: 05/28/19 10:36 Dose: 50 mg Ranitidine HCl (Zantac -) 150 mg PO BID [facility] Last Admin: 05/28/19 10:48 Dose: 150 mg Tamsulosin HCl (Flomax -) 0.4 mg PO DAILY@0830 [facility] Last Admin: 05/28/19 08:26 Dose: 0.4 mg Timolol Maleate (Timoptic 0.5%) 1 drop OU BID [facility] Last Admin: 05/28/19 10:44 Dose: 1 drop - Objective Vital Signs: Vital Signs Temperature 98.2 F 05/28/19 10:00 Pulse Rate 69 05/28/19 12:00 Respiratory Rate 18 05/28/19 12:00 Blood Pressure 122/50 L 05/28/19 12:00 O2 Sat by Pulse Oximetry (%) 99 05/28/19 09:00 Constitutional: Yes: Calm Eyes: Yes: EOM Intact HENT: Yes: Normocephalic Neck: Yes: Trachea Midline Cardiovascular: Yes: Regular Rate and Rhythm Respiratory: Yes: Regular Gastrointestinal: Yes: WNL ...Rectal Exam: Yes: Deferred Genitourinary: Yes: WNL Breast(s): Yes: WNL Musculoskeletal: Yes: Muscle Weakness Extremities: Yes: WNL Edema: No Neurological: Yes: Alert, Oriented Labs: CBC, BMP 05/28/19 05:50 05/28/19 05:00 INR, PTT INR 1.07 (0.83-1.09) 05/27/19 05:55 Problem List - Problems (1) Anemia Code(s): D64.9 - ANEMIA, UNSPECIFIED Qualifiers: Anemia type: iron deficiency Iron deficiency anemia type: other iron deficiency Qualified Code(s): D50.8 - Other iron deficiency anemias (2) CAD (coronary artery disease) Code(s): I25.10 - ATHSCL HEART DISEASE OF [place] CORONARY ARTERY W/O ANG PCTRS (3) Diabetes Code(s): E11.9 - TYPE 2 DIABETES MELLITUS WITHOUT COMPLICATIONS Qualifiers: Diabetes mellitus type: type 2 (4) Hematochezia Code(s): K92.1 - [place]LE[place] (5) Hyperglycemia Code(s): R73.9 - HYPERGLYCEMIA, UNSPECIFIED Assessment/Plan Current Active Problems Anemia (Acute) CAD (coronary artery disease) (Acute) Diabetes (Acute) Diverticulosis (Acute) Facial droop (Acute) Family history of colon cancer (Acute) GI bleed (Acute) Glaucoma (Acute) HTN (hypertension) (Acute) Hematochezia (Acute) Hyperglycemia (Acute) Hypomagnesemia (Acute) Post-polypectomy bleeding (Acute) Abnormal Lab Results 05/25/19 05/27/19 05/28/19 08:20 17:08 05:00 RBC 2.91 L Hgb 8.5 L Hct 25.4 L Monocytes % Anion Gap 4 L Creatinine 0.5 L Random Glucose 174 H Calcium 7.7 L Crossmatch See Detail 05/28/19 05:50 RBC 2.70 L Hgb 8.2 L Hct 23.1 L Monocytes % 11.6 H Anion Gap Creatinine Random Glucose Calcium Crossmatch Laboratory Results - last 24 hr 05/25/19 05/25/19 05/27/19 08:20 08:22 17:08 WBC 6.5 RBC 2.91 L Hgb 8.5 L Hct 25.4 L MCV 87.4 MCH 29.4 MCHC 33.6 RDW 15.3 Plt Count 154 MPV 8.1 Absolute Neuts (auto) Neutrophils % Lymphocytes % Monocytes % Eosinophils % Basophils % Nucleated RBC % Sodium Potassium Chloride Carbon Dioxide Anion Gap BUN Creatinine Est GFR (CKD-EPI)AfAm Est GFR (CKD-EPI)NonAf POC Glucometer Random Glucose Calcium B-Hydroxybutyrate 2.40 Blood Type O POSITIVE Antibody Screen Negative Crossmatch See Detail 05/27/19 05/27/19 05/28/19 18:09 22:42 05:00 WBC RBC Hgb Hct MCV MCH MCHC RDW Plt Count MPV Absolute Neuts (auto) Neutrophils % Lymphocytes % Monocytes % Eosinophils % Basophils % Nucleated RBC % Sodium 142 Potassium 3.8 Chloride 106 Carbon Dioxide 32 Anion Gap 4 L BUN 17.2 Creatinine 0.5 L Est GFR (CKD-EPI)AfAm 122.00 Est GFR (CKD-EPI)NonAf 105.26 POC Glucometer 182 177 Random Glucose 174 H Calcium 7.7 L B-Hydroxybutyrate Blood Type Antibody Screen Crossmatch 05/28/19 05/28/19 05:50 12:18 WBC 6.4 RBC 2.70 L Hgb 8.2 L Hct 23.1 L MCV 85.9 MCH 30.4 MCHC 35.4 RDW 15.0 Plt Count 151 MPV 8.1 Absolute Neuts (auto) 3.9 Neutrophils % 61.0 Lymphocytes % 24.6 D Monocytes % 11.6 H Eosinophils % 2.5 D Basophils % 0.3 Nucleated RBC % 0 Sodium Potassium Chloride Carbon Dioxide Anion Gap BUN Creatinine Est GFR (CKD-EPI)AfAm Est GFR (CKD-EPI)NonAf POC Glucometer 257 Random Glucose Calcium B-Hydroxybutyrate Blood Type Antibody Screen Crossmatch plan bgm qid novolog Laboratory Tests 05/27/19 05/27/19 05/27/19 13:26 18:09 22:42 POC Glucometer 159 182 177 05/28/19 12:18 POC Glucometer 257 levemir 20 iu am
--- NOTE | 2019-05-28 17:58 | PN ---
Progress Note (short form) - Note Progress Note: I have seen and examined Seth Walker Subjective: No new complaints. Denies gross hematochezia or other bleeding Objective: Last Vital Signs Temp Pulse Resp BP Pulse Ox 98.2 F 69 18 122/50 L 99 05/28/19 10:00 05/28/19 12:00 05/28/19 12:00 05/28/19 12:00 05/28/19 09:00 General: NAD HEENT: MMM CVS: S1, S2 Lungs: CTAB Abd: Soft, NT, ND Skin: No rash Psych: Conversant ASSESSMENT AND PLAN: 78 y/o gentleman w PMHx DM, HTN, HLD, BPH, cardiac stent (2002) presenting with rectal bleeding. Patient admitted for LGIB in setting of plavix use. had stopped asa/plavix for colonoscopy/polypectomies and resumed them 05/22 -05/24 received 3 monodonor platelets Hgb stable. Monitoring. No acute bleeding. No other therapy indicated at this time Lt. facial droop -- for head CT which showed L petroclival hyperdense lesion with some calcifications; no clear clival erosion or expansion; L cereberal pedicuncle and pontine mild impingement; No bleed or HCP. 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
[2019-05-28] MEDS: ATORVASTATIN CA 80 MG TABLET (FP) PO SCH (21:02)
[2019-05-28] MEDS: METOPROLOL TARTRATE 25 MG TABLET (FP) PO SCH (21:02)
[2019-05-28] MEDS ORDERED: ATORVASTATIN CA 80 MG TABLET (FP) PO SCH (22:00)
[2019-05-29] MEDS: INSULIN SLIDING SCALE (NOVOLOG) 1 VIAL SQ SCH ×4 (06:08→22:30)
[2019-05-29] MEDS ORDERED: INSULIN (LEVEMIR) 100 UNITS/ML UNITS SQ SCH (07:00)
[2019-05-29 07:42] LABS: BASO % 0.6 % (0-2.0); HEMATOCRIT 23.9 % (35.4-49); HEMOGLOBIN 8.4 GM/dL (11.7-16.9); LYMPH % 32.7 % (8-40); MCH 30.6 pg (25.7-33.7); MCHC 35.1 g/dl (32.0-35.9); MEAN PLT VOLUME 8.6 fl (7.5-11.1); MONO % 11.6 % (3.8-10.2); NEUT % 50.1 % (42.8-82.8); PLATELET COUNT 157 K/MM3 (134-434); RBC 2.75 M/mm3 (4.00-5.60); RDW 14.8 % (11.9-15.9); WHITE BLOOD COUNT 5.5 K/mm3 (4.0-10.0)
[2019-05-29 07:51] LABS: CALCIUM 8.1 mg/dL (8.5-10.1); CREATININE 0.6 mg/dL (0.55-1.3); POTASSIUM 3.7 mmol/L (3.5-5.1)
--- NOTE | 2019-05-29 08:55 | PN ---
Progress Note (short form) - Note Progress Note: Neurology - Admission Chief Complaint: rectal bleeding History of Present Illness: 78yM w PMHx DM, HTN, HLD, BPH, cardiac stent (2002) presenting with rectal bleeding. Noticed gross clark red blood w blood clots in stool and underwear starting last night. Associated chills, lightheadedness, and diaphoresis. Had colonoscopy done 2 weeks ago showing polyps. Started baby aspirin and plavix 1 week ago, stopped yesterday after blood seen. Never had gross rectal bleeding before. Also fell down on knees in bathroom yesterday d/t lightheadedness, no LOC/head trauma. Denies fever, headache, nausea/vomiting, SOB, chest/AB pain, urinary changes, diarrhea/constipation. Per has been having bleeding the whole night bright red blood per rectum, no abdominal pain no chest pain. Patient aadmitted for further evaluation and previously in ICU under critical care monitoring for GI bleed. Downgraded to floor. Consulted due to L facial droop that was noticed. CT head completed and suspicious for space occupying mass. Discussed with resident and advised NSGY eval, appreciate valuation from Dr. Hakan Osorio notes from weekend reviewed. Agree with having MRI brain to further characterize NSGY did not advise operative management. Awaiting completion of MRI brain. - Allergies Allergies/Adverse Reactions: Allergies Allergy/AdvReac Type Severity Reaction Status Date / Time No Known Drug Allergies Allergy Verified 10/05/18 07:12 Active Medications Acetaminophen (Tylenol -) 650 mg PO Q4H PRN PRN Reason: PAIN OR FEVER Atorvastatin Calcium (Lipitor -) 80 mg PO HS [facility] Last Admin: 05/28/19 21:02 Dose: 80 mg Docusate Sodium (Colace -) 100 mg PO DAILY [facility] Insulin Aspart (Novolog Vial Sliding Scale -) 1 vial SQ ACHS [facility]; Protocol Last Admin: 05/29/19 06:08 Dose: Not Given Insulin Detemir (Levemir Vial) 20 units SQ AM [facility] Last Admin: 05/29/19 06:08 Dose: 20 units Metoprolol Tartrate (Lopressor -) 50 mg PO BID [facility] Last Admin: 05/28/19 21:02 Dose: 50 mg Ranitidine HCl (Zantac -) 150 mg PO BID [facility] Last Admin: 05/28/19 21:02 Dose: 150 mg Tamsulosin HCl (Flomax -) 0.4 mg PO DAILY@0830 [facility] Timolol Maleate (Timoptic 0.5%) 1 drop OU BID [facility] Last Admin: 05/28/19 21:03 Dose: 1 drp Physical Examination Vital Signs Period Temp Pulse Resp BP Sys/Leavitt Pulse Ox Last 24 Hr 97.4 F-99.1 F 66-78 16-22 115-163/50-78 99-99 Gen: Awake, alert, responds to questions appropriately Card: RRR, nml S1,S2 Resp: Normal symmetric effort, lungs clear to auscultation Abdomen: Soft, nontender, bowel sounds active Musculoskeletal: Adequate range of motion without significant deformity Head atraumatic and normocephalic CN: PERRL, EOMI intact, L facial droop noted, no abnormalities in facial sensation, palate elevates, uvula and tongue midline Motor: Strength intact in upper and lower ext, tone normal Sensory: Intact to Temperature, light touch, and pinprick in all extremities Gait: Deferred CBCD WBC 5.5 K/mm3 (4.0-10.0) 05/29/19 06:35 RBC 2.75 M/mm3 (4.00-5.60) L 05/29/19 06:35 Hgb 8.4 GM/dL (11.7-16.9) L 05/29/19 06:35 Hct 23.9 % (35.4-49) L 05/29/19 06:35 MCV 87.0 fl (80-96) 05/29/19 06:35 MCHC 35.1 g/dl (32.0-35.9) 05/29/19 06:35 RDW 14.8 % (11.9-15.9) 05/29/19 06:35 Plt Count 157 K/MM3 (134-434) 05/29/19 06:35 MPV 8.6 fl (7.5-11.1) 05/29/19 06:35 CMP Sodium 141 mmol/L (136-145) 05/29/19 06:35 Potassium 3.7 mmol/L (3.5-5.1) 05/29/19 06:35 Chloride 106 mmol/L (98-107) 05/29/19 06:35 Carbon Dioxide 29 mmol/L (21-32) 05/29/19 06:35 Anion Gap 6 MMOL/L (8-16) L 05/29/19 06:35 BUN 21.0 mg/dL (7-18) H 05/29/19 06:35 Creatinine 0.6 mg/dL (0.55-1.3) 05/29/19 06:35 Random Glucose 147 mg/dL (74-106) H 05/29/19 06:35 Calcium 8.1 mg/dL (8.5-10.1) L 05/29/19 06:35 Total Bilirubin 0.8 mg/dL (0.2-1) 05/27/19 05:55 AST 18 U/L (15-37) 05/27/19 05:55 ALT 22 U/L (13-61) 05/27/19 05:55 Alkaline Phosphatase 53 U/L (45-117) 05/27/19 05:55 Total Protein 4.7 g/dl (6.4-8.2) L 05/27/19 05:55 Albumin 2.6 g/dl (3.4-5.0) L 05/27/19 05:55 CARDIAC ENZYMES Creatine Kinase 166 U/L (26-308) 05/26/19 06:00 Troponin I 0.51 ng/ml (0.00-0.05) H 05/26/19 12:10 Problem List 78yM w PMHx DM, HTN, HLD, BPH, cardiac stent (2002) presenting with rectal bleeding. Noticed gross clark red blood w blood clots in stool and underwear starting last night. Associated chills, lightheadedness, and diaphoresis. Had colonoscopy done 2 weeks ago showing polyps. Started baby aspirin and plavix 1 week ago, stopped yesterday after blood seen. Never had gross rectal bleeding before. Also fell down on knees in bathroom yesterday d/t lightheadedness, no LOC/head trauma. Denies fever, headache, nausea/vomiting, SOB, chest/AB pain, urinary changes, diarrhea/constipation. Per has been having bleeding the whole night bright red blood per rectum, no abdominal pain no chest pain. Patient aadmitted for further evaluation and currentlyin the ICU under critical care monitoring. Has been receivingb blood transfusion as needed. Consulted due to L facial droop that was noticed. CT head completed and suspicious for space occupying mass. Discussed with resident and advised NSGY eval, appreciate valuation from Dr. Hakan Osorio notes from weekend reviewed. Agree with having MRI brain to further characterize NSGY did not advise operative management. Awaiting completion of MRI brain. Continue GI mgmt and optimization. Monitor bp, goal < 140/90. Not currently on ASA 81mg or plavix 75 as listed on home regiment, restart when able and okay from GI standpoint. No infarct of CT and thus less likely CVA. Continue statin. DVT ppx. Monitor DM, maintain euglycemic range. NSGY follow up once MRI completed, ordered with contrast as prior order w/o contrast to rule out CVA.
[2019-05-29] MEDS ORDERED: CLOPIDOGREL BISULFATE 75 MG TABLET (FP) PO SCH (09:00)
[2019-05-29] MEDS: DOCUSATE SODIUM 100 MG CAPSULE (FP) PO SCH (10:19)
[2019-05-29] MEDS: TAMSULOSIN HCL 0.4 MG CAP PO SCH (10:20)
[2019-05-29] MEDS: METOPROLOL TARTRATE 25 MG TABLET (FP) PO SCH ×2 (10:20→22:21)
[2019-05-29] MEDS: TIMOLOL 0.5% OPHTHALMIC SOL 5 ML BOTTLE OU SCH ×2 (10:25→22:29)
[2019-05-29 10:34] LABS: BASO % 0.4 % (0-2.0); EOS % 3.2 % (0-4.5); HEMATOCRIT 25.8 % (35.4-49); HEMOGLOBIN 8.8 GM/dL (11.7-16.9); LYMPH % 19.4 % (8-40); MCH 30.1 pg (25.7-33.7); MCHC 34.1 g/dl (32.0-35.9); MEAN CELL VOLUME 88.4 fl (80-96); MEAN PLT VOLUME 8.6 fl (7.5-11.1); MONO % 11.5 % (3.8-10.2); NEUT % 65.5 % (42.8-82.8); PLATELET COUNT 155 K/MM3 (134-434); RBC 2.92 M/mm3 (4.00-5.60); RDW 14.4 % (11.9-15.9); WHITE BLOOD COUNT 6.2 K/mm3 (4.0-10.0)
[2019-05-29] MEDS: PANTOPRAZOLE SODIUM 40 MG VIAL IVPUSH SCH ×2 (10:45→22:23)
--- NOTE | 2019-05-29 12:21 | PN ---
Progress Note, Physician Chief Complaint: GI Bleed Hematochezia History of Present Illness: Previous notes and events reviewed awake and alert NAD 2 episodes of rectal bleeding noted this morning by RN Hg stable at 8.8 MRI of Brain done, results pending - Current Medication List Current Medications: Active Medications Acetaminophen (Tylenol -) 650 mg PO Q4H PRN PRN Reason: PAIN OR FEVER Atorvastatin Calcium (Lipitor -) 80 mg PO HS [facility] Last Admin: 05/28/19 21:02 Dose: 80 mg Docusate Sodium (Colace -) 100 mg PO DAILY [facility] Last Admin: 05/29/19 10:19 Dose: Not Given Insulin Aspart (Novolog Vial Sliding Scale -) 1 vial SQ ACHS [facility]; Protocol Last Admin: 05/29/19 06:08 Dose: Not Given Insulin Detemir (Levemir Vial) 20 units SQ AM [facility] Last Admin: 05/29/19 06:08 Dose: 20 units Metoprolol Tartrate (Lopressor -) 50 mg PO BID [facility] Last Admin: 05/29/19 10:20 Dose: 50 mg Pantoprazole Sodium (Protonix Iv) 40 mg IVPUSH BID [facility] Last Admin: 05/29/19 10:45 Dose: 40 mg Tamsulosin HCl (Flomax -) 0.4 mg PO DAILY@0830 [facility] Last Admin: 05/29/19 10:20 Dose: 0.4 mg Timolol Maleate (Timoptic 0.5%) 1 drop OU BID [facility] Last Admin: 05/29/19 10:25 Dose: 1 drp - Objective Vital Signs: Vital Signs Temperature 97.8 F 05/29/19 09:52 Pulse Rate 71 05/29/19 09:52 Respiratory Rate 18 05/29/19 09:52 Blood Pressure 122/47 L 05/29/19 09:52 O2 Sat by Pulse Oximetry (%) 96 05/29/19 09:00 Constitutional: Yes: No Distress, Calm Eyes: Yes: Conjunctiva Clear HENT: Yes: Atraumatic Cardiovascular: Yes: Regular Rate and Rhythm Respiratory: Yes: Regular, CTA Bilaterally Gastrointestinal: Yes: Normal Bowel Sounds, Soft Musculoskeletal: Yes: Muscle Weakness Extremities: Yes: WNL Edema: No Neurological: Yes: Alert, Oriented, Other (no facial droop, no slurred speech, no asymmetrical smile) Psychiatric: Yes: Alert Labs: CBC, BMP 05/29/19 09:50 05/29/19 06:35 INR, PTT INR 1.07 (0.83-1.09) 05/27/19 05:55 Problem List - Problems (1) Anemia Assessment/Plan: -Hg 8.8 -monitor Hg daily -transfuse for Hg <7.0 to avoid fluid overload -due to GI bleed Code(s): D64.9 - ANEMIA, UNSPECIFIED Qualifiers: Anemia type: iron deficiency Iron deficiency anemia type: other iron deficiency Qualified Code(s): D50.8 - Other iron deficiency anemias (2) CAD (coronary artery disease) Assessment/Plan: -Aspirin and Plavix on hold due to GI bleed Code(s): I25.10 - ATHSCL HEART DISEASE OF [place] CORONARY ARTERY W/O ANG PCTRS (3) Diabetes Assessment/Plan: -BGM ACHS -Levemir -ISS Code(s): E11.9 - TYPE 2 DIABETES MELLITUS WITHOUT COMPLICATIONS Qualifiers: Diabetes mellitus type: type 2 (4) Facial droop Assessment/Plan: -Neurology consult -resolved -neuro checks -Head CT scan shows no CT evidence of acute territorial, acute transcortical infarct -Brain MRI done and results reviewed Code(s): R29.810 - FACIAL WEAKNESS (5) GI bleed Assessment/Plan: -GI on board -patient is high risk for repeat procedure -continue to hold Aspirin and Plavix -Hg 8.8 -monitor Hg daily -transfuse for Hg <7.0 to avoid fluid overload -clear liquid diet -Pantoprazole Code(s): K92.2 - GASTROINTESTINAL HEMORRHAGE, UNSPECIFIED (6) HTN (hypertension) Assessment/Plan: -Metoprolol Code(s): I10 - ESSENTIAL (PRIMARY) HYPERTENSION (7) Hematochezia Assessment/Plan: -GI on board -patient is high risk for repeat procedure -continue to hold Aspirin and Plavix -Hg 8.8 -monitor Hg daily -transfuse for Hg <7.0 to avoid fluid overload -clear liquid diet -Pantoprazole Code(s): K92.1 - MELENA Assessment/Plan see problem list
--- NOTE | 2019-05-29 14:16 | PN ---
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
--- NOTE | 2019-05-29 15:18 | PN ---
Progress Note (short form) - Note Progress Note: 78-year-old English gentleman with long-standing history of coronary artery disease, status post PCI/stenting, hypertension, hypertensive cardiovascular disease, insulin-dependent diabetes mellitus, aortic valvular disease with mild- to-moderate aortic valvular stenosis, dyslipidemia type IIb. History of moderate mitral and moderate to severe tricuspid regurgitation and mild pulmonary hypertension. History of peripheral neuropathy, left ventricular diastolic dysfunction, glaucoma, admitted with painless hematochezia. Patient and nurse reports recurrence of rectal bleeding. No chest pain or discomfort. No SOB. Active Medications Acetaminophen (Tylenol -) 650 mg PO Q4H PRN PRN Reason: PAIN OR FEVER Atorvastatin Calcium (Lipitor -) 80 mg PO HS [facility] Last Admin: 05/28/19 21:02 Dose: 80 mg Docusate Sodium (Colace -) 100 mg PO DAILY [facility] Last Admin: 05/29/19 10:19 Dose: Not Given Insulin Aspart (Novolog Vial Sliding Scale -) 1 vial SQ [facility]; Protocol Last Admin: 05/29/19 12:49 Dose: 4 units Insulin Detemir (Levemir Vial) 20 units SQ AM [facility] Last Admin: 05/29/19 06:08 Dose: 20 units Metoprolol Tartrate (Lopressor -) 50 mg PO BID [facility] Last Admin: 05/29/19 10:20 Dose: 50 mg Pantoprazole Sodium (Protonix Iv) 40 mg IVPUSH BID [facility] Last Admin: 05/29/19 10:45 Dose: 40 mg Tamsulosin HCl (Flomax -) 0.4 mg PO DAILY@0830 [facility] Last Admin: 05/29/19 10:20 Dose: 0.4 mg Timolol Maleate (Timoptic 0.5%) 1 drop OU BID [facility] Last Admin: 05/29/19 10:25 Dose: 1 drp Physical Exam: O: 78 year old male was in no acute distress. Pallor, no cyanosis, clubbing, or jaundice Last Vital Signs Temp Pulse Resp BP Pulse Ox 98.2 F 80 18 131/54 L 96 05/29/19 14:39 05/29/19 14:39 05/29/19 14:39 05/29/19 14:39 05/29/19 09:00 Neck: Supple, no jugular venous distention, hepatojugular reflux was negative, faint left carotid bruit versus radiation of murmur. No thyromegaly was present. Heart: PMI was in the fifth intercostal space, no heaves or thrills, S1 and S2 were normal. Nonejection systolic click was heard along the left sternal border. There was an ejection systolic murmur grade II/ at the second right intercostal space and along the left sternal border ending in early to mid systole. No diastolic murmur or gallops were heard. Lungs: Clear on auscultation, slightly decreased breath sounds at the left base. Abdomen: Soft, distended and nontender. A moderate sized reducible ventral hernia. No hepatosplenomegaly or palpable masses were felt. Bowel sounds are present., no bruits were appreciated. Extremities: No calf tenderness, 1-2+ bilateral ankle extremity dependent edema , 1-2+ bilateral pedal edema, bilateral varicosities involving both lower extremities, stasis changes. Pulses were equal posterior tibial pulses were weak. CBC, BMP 05/29/19 09:50 05/29/19 06:35 Impression: 1. Recurrence of rectal bleeding. 2. Coronary artery disease, status post PCI/stenting,elevated Trops consistent with demand injury. 3. Poorly controlled diabetes mellitus. 4. Aortic valvular disease with [id number] aortic stenosis and mild aortic regurgitation. 5. Hypertension, hypertensive cardiovascular disease, poorly controlled. 6. Diabetic peripheral neuropathy. 7. Mitral valvular disease with moderate mitral regurgitation. 8. Moderate to severe tricuspid regurgitation. 9. Mcyx-mw-qwhxkfgn pulmonary hypertension. 10. 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 11. History of glaucoma. 12. History of left ventricular diastolic dysfunction. Recommendations: 1. Continue beta blockers. 2. awaiting further GI workup Dawit Prater M.D., F.A.C.C.
--- NOTE | 2019-05-29 15:30 | PN ---
Progress Note, Physician History of Present Illness: Pt seen and examined at bedside. He is awake and alert. He denies shortness of breath. He denies lower ext edema. He had some blood with stool. - Current Medication List Current Medications: Active Medications Acetaminophen (Tylenol -) 650 mg PO Q4H PRN PRN Reason: PAIN OR FEVER Atorvastatin Calcium (Lipitor -) 80 mg PO HS [facility] Last Admin: 05/28/19 21:02 Dose: 80 mg Docusate Sodium (Colace -) 100 mg PO DAILY [facility] Last Admin: 05/29/19 10:19 Dose: Not Given Insulin Aspart (Novolog Vial Sliding Scale -) 1 vial SQ ACHS [facility]; Protocol Last Admin: 05/29/19 12:49 Dose: 4 units Insulin Detemir (Levemir Vial) 20 units SQ AM [facility] Last Admin: 05/29/19 06:08 Dose: 20 units Metoprolol Tartrate (Lopressor -) 50 mg PO BID [facility] Last Admin: 05/29/19 10:20 Dose: 50 mg Pantoprazole Sodium (Protonix Iv) 40 mg IVPUSH BID [facility] Last Admin: 05/29/19 10:45 Dose: 40 mg Tamsulosin HCl (Flomax -) 0.4 mg PO DAILY@0830 [facility] Last Admin: 05/29/19 10:20 Dose: 0.4 mg Timolol Maleate (Timoptic 0.5%) 1 drop OU BID [facility] Last Admin: 05/29/19 10:25 Dose: 1 drp - Objective Vital Signs: Vital Signs Temperature 98.2 F 05/29/19 14:39 Pulse Rate 80 05/29/19 14:39 Respiratory Rate 18 05/29/19 14:39 Blood Pressure 131/54 L 05/29/19 14:39 O2 Sat by Pulse Oximetry (%) 96 05/29/19 09:00 Constitutional: Yes: Calm Eyes: Yes: Conjunctiva Clear HENT: Yes: Atraumatic Neck: Yes: Supple Cardiovascular: Yes: S1, S2 Respiratory: Yes: CTA Bilaterally Gastrointestinal: Yes: Normal Bowel Sounds, Soft Genitourinary: Yes: WNL Musculoskeletal: Yes: WNL Edema: No Integumentary: Yes: WNL Neurological: Yes: Oriented Psychiatric: Yes: Oriented Labs: CBC, BMP 05/29/19 09:50 05/29/19 06:35 INR, PTT INR 1.07 (0.83-1.09) 05/27/19 05:55 Assessment/Plan Current Medications Generic Name Dose Route Start Last Admin Trade Name Luz PRN Reason Stop Dose Admin Acetaminophen 650 mg 05/28/19 19:12 Tylenol - PO Q4H PRN PAIN OR FEVER Atorvastatin Calcium 80 mg 05/28/19 22:00 05/28/19 21:02 Lipitor - PO 80 mg HS [facility] Administration Docusate Sodium 100 mg 05/29/19 10:00 05/29/19 10:19 Colace - PO Not Given DAILY [facility] Insulin Aspart 1 vial 05/28/19 22:00 05/29/19 12:49 Novolog Vial Sliding Scale - SQ 4 units ACHS [facility] Administration Protocol Insulin Detemir 20 units 05/29/19 07:00 05/29/19 06:08 Levemir Vial SQ 20 units AM [facility] Administration Metoprolol Tartrate 50 mg 05/28/19 22:00 05/29/19 10:20 Lopressor - PO 50 mg BID [facility] Administration Pantoprazole Sodium 40 mg 05/29/19 10:00 05/29/19 10:45 Protonix Iv IVPUSH 40 mg BID [facility] Administration Tamsulosin HCl 0.4 mg 05/29/19 08:30 05/29/19 10:20 Flomax - PO 0.4 mg DAILY@0830 [facility] Administration Timolol Maleate 1 drop 05/28/19 22:00 05/29/19 10:25 Timoptic 0.5% OU 1 drp BID [facility] Administration Impression 1. SABRINA 2. DM 3. HTN 4. GI bleed 5. r/o cva 6. bph Plan - renal function is improved - pt is stable off of fluids - repeat labs in am - GI aware of bleeding, though to be remnant - stable off of fluids - discussed with family - renal ultrasound report reviewed
[2019-05-29] MEDS: ATORVASTATIN CA 80 MG TABLET (FP) PO SCH (22:21)
--- NOTE | 2019-05-29 22:36 | PN ---
Progress Note, Physician Chief Complaint: has recurrent bleeding noted - Current Medication List Current Medications: Active Medications Acetaminophen (Tylenol -) 650 mg PO Q4H PRN PRN Reason: PAIN OR FEVER Atorvastatin Calcium (Lipitor -) 80 mg PO HS [facility] Last Admin: 05/29/19 22:21 Dose: 80 mg Docusate Sodium (Colace -) 100 mg PO DAILY [facility] Last Admin: 05/29/19 10:19 Dose: Not Given Insulin Aspart (Novolog Vial Sliding Scale -) 1 vial SQ ACHS [facility]; Protocol Last Admin: 05/29/19 22:30 Dose: Not Given Insulin Detemir (Levemir Vial) 20 units SQ AM [facility] Last Admin: 05/29/19 06:08 Dose: 20 units Metoprolol Tartrate (Lopressor -) 50 mg PO BID [facility] Last Admin: 05/29/19 22:21 Dose: 50 mg Pantoprazole Sodium (Protonix Iv) 40 mg IVPUSH BID [facility] Last Admin: 05/29/19 22:23 Dose: 40 mg Tamsulosin HCl (Flomax -) 0.4 mg PO DAILY@0830 [facility] Last Admin: 05/29/19 10:20 Dose: 0.4 mg Timolol Maleate (Timoptic 0.5%) 1 drop OU BID [facility] Last Admin: 05/29/19 22:29 Dose: 1 drp - Objective Vital Signs: Vital Signs Temperature 98.1 F 05/29/19 17:16 Pulse Rate 67 05/29/19 17:16 Respiratory Rate 20 05/29/19 17:16 Blood Pressure 149/61 05/29/19 17:16 O2 Sat by Pulse Oximetry (%) 96 05/29/19 09:00 Constitutional: Yes: Calm Eyes: Yes: EOM Intact HENT: Yes: Normocephalic Neck: Yes: Trachea Midline Cardiovascular: Yes: Regular Rate and Rhythm Respiratory: Yes: CTA Bilaterally Gastrointestinal: Yes: Normal Bowel Sounds ...Rectal Exam: Yes: Deferred Genitourinary: Yes: WNL Breast(s): Yes: WNL Musculoskeletal: Yes: WNL Extremities: Yes: WNL Edema: No Neurological: Yes: Alert, Oriented Labs: CBC, BMP 05/29/19 09:50 05/29/19 06:35 INR, PTT INR 1.07 (0.83-1.09) 05/27/19 05:55 Problem List - Problems (1) Anemia Code(s): D64.9 - ANEMIA, UNSPECIFIED Qualifiers: Anemia type: iron deficiency Iron deficiency anemia type: other iron deficiency Qualified Code(s): D50.8 - Other iron deficiency anemias (2) CAD (coronary artery disease) Code(s): I25.10 - ATHSCL HEART DISEASE OF [place] CORONARY ARTERY W/O ANG PCTRS (3) Diabetes Code(s): E11.9 - TYPE 2 DIABETES MELLITUS WITHOUT COMPLICATIONS Qualifiers: Diabetes mellitus type: type 2 (4) Hematochezia Code(s): K92.1 - MELENA (5) Hyperglycemia Code(s): R73.9 - HYPERGLYCEMIA, UNSPECIFIED Assessment/Plan Current Active Problems Anemia (Acute) CAD (coronary artery disease) (Acute) Diabetes (Acute) Diverticulosis (Acute) Facial droop (Acute) Family history of colon cancer (Acute) GI bleed (Acute) Glaucoma (Acute) HTN (hypertension) (Acute) Hematochezia (Acute) Hyperglycemia (Acute) Hypomagnesemia (Acute) Post-polypectomy bleeding (Acute) Abnormal Lab Results 05/25/19 05/29/19 05/29/19 08:20 06:35 06:35 RBC 2.75 L Hgb 8.4 L Hct 23.9 L Monocytes % 11.6 H Eosinophils % 5.0 H D Anion Gap 6 L BUN 21.0 H Random Glucose 147 H Calcium 8.1 L Crossmatch See Detail 05/29/19 09:50 RBC 2.92 L Hgb 8.8 L Hct 25.8 L Monocytes % 11.5 H Eosinophils % Anion Gap BUN Random Glucose Calcium Crossmatch Laboratory Tests 05/29/19 05/29/19 05/29/19 06:35 12:14 16:41 Sodium 141 Potassium 3.7 Chloride 106 Carbon Dioxide 29 Anion Gap 6 L BUN 21.0 H Creatinine 0.6 Est GFR (CKD-EPI)AfAm 113.19 POC Glucometer 294 221 05/29/19 22:25 Sodium Potassium Chloride Carbon Dioxide Anion Gap BUN Creatinine Est GFR (CKD-EPI)AfAm POC Glucometer 142 plan: bgm qid novolog scale levemir 25 units am titrate dose as needed ck cbc follow up gi evaluation
[2019-05-30] MEDS: INSULIN (LEVEMIR) 100 UNITS/ML UNITS SQ SCH (06:21)
[2019-05-30] MEDS: INSULIN SLIDING SCALE (NOVOLOG) 1 VIAL SQ SCH ×4 (06:22→22:06)
[2019-05-30 07:58] LABS: HEMATOCRIT 22.8 % (35.4-49); HEMOGLOBIN 7.8 GM/dL (11.7-16.9); MCHC 34.3 g/dl (32.0-35.9); MEAN CELL VOLUME 87.5 fl (80-96); MEAN PLT VOLUME 8.7 fl (7.5-11.1); PLATELET COUNT 144 K/MM3 (134-434); RDW 14.8 % (11.9-15.9)
[2019-05-30 07:59] LABS: ALBUMIN 2.5 g/dl (3.4-5.0); BLOOD UREA NITROGEN 18.6 mg/dL (7-18); CALCIUM 8.1 mg/dL (8.5-10.1); CREATININE 0.5 mg/dL (0.55-1.3); POTASSIUM 3.4 mmol/L (3.5-5.1); TOT PROT 4.7 g/dl (6.4-8.2)
--- NOTE | 2019-05-30 09:00 | PN ---
Progress Note (short form) - Note Progress Note: Neurology - Admission Chief Complaint: rectal bleeding History of Present Illness: 78yM w PMHx DM, HTN, HLD, BPH, cardiac stent (2002) presenting with rectal bleeding. Noticed gross clark red blood w blood clots in stool and underwear starting last night. Associated chills, lightheadedness, and diaphoresis. Had colonoscopy done 2 weeks ago showing polyps. Started baby aspirin and plavix 1 week ago, stopped yesterday after blood seen. Never had gross rectal bleeding before. Also fell down on knees in bathroom yesterday d/t lightheadedness, no LOC/head trauma. Denies fever, headache, nausea/vomiting, SOB, chest/AB pain, urinary changes, diarrhea/constipation. Per has been having bleeding the whole night bright red blood per rectum, no abdominal pain no chest pain. Patient aadmitted for further evaluation and previously in ICU under critical care monitoring for GI bleed. Downgraded to floor. Consulted due to L facial droop that was noticed. CT head completed and suspicious for space occupying mass. 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 NSGY note reviewed and does not recommend surgical intervention ue to location with encasement of multiple sensitive structures including cranial nerves and vascular structures. RT may be considered though may also be suboptimal as per neurosurgery Active Medications Acetaminophen (Tylenol -) 650 mg PO Q4H PRN PRN Reason: PAIN OR FEVER Atorvastatin Calcium (Lipitor -) 80 mg PO HS [facility] Last Admin: 05/29/19 22:21 Dose: 80 mg Docusate Sodium (Colace -) 100 mg PO DAILY [facility] Last Admin: 05/29/19 10:19 Dose: Not Given Insulin Aspart (Novolog Vial Sliding Scale -) 1 vial SQ ACHS [facility]; Protocol Last Admin: 05/30/19 06:22 Dose: Not Given Insulin Detemir (Levemir Vial) 25 units SQ AM [facility] Last Admin: 05/30/19 06:21 Dose: 25 units Metoprolol Tartrate (Lopressor -) 50 mg PO BID [facility] Last Admin: 05/29/19 22:21 Dose: 50 mg Pantoprazole Sodium (Protonix Iv) 40 mg IVPUSH BID [facility] Last Admin: 05/29/19 22:23 Dose: 40 mg Tamsulosin HCl (Flomax -) 0.4 mg PO DAILY@0830 [facility] Last Admin: 05/29/19 10:20 Dose: 0.4 mg Timolol Maleate (Timoptic 0.5%) 1 drop OU BID [facility] Last Admin: 05/29/19 22:29 Dose: 1 drp Physical Examination Vital Signs Period Temp Pulse Resp BP Sys/Leavitt Pulse Ox Last 24 Hr 97.8 F-98.8 F 67-80 18-20 122-166/47-69 96 Gen: Awake, alert, responds to questions appropriately Card: RRR, nml S1,S2 Resp: Normal symmetric effort, lungs clear to auscultation Abdomen: Soft, nontender, bowel sounds active Musculoskeletal: Adequate range of motion without significant deformity Head atraumatic and normocephalic CN: PERRL, EOMI intact, L facial droop noted, no abnormalities in facial sensation, palate elevates, uvula and tongue midline Motor: Strength intact in upper and lower ext, tone normal Sensory: Intact to Temperature, light touch, and pinprick in all extremities Gait: Deferred CBCD WBC 5.0 K/mm3 (4.0-10.0) 05/30/19 06:35 RBC 2.60 M/mm3 (4.00-5.60) L 05/30/19 06:35 Hgb 7.8 GM/dL (11.7-16.9) L 05/30/19 06:35 Hct 22.8 % (35.4-49) L 05/30/19 06:35 MCV 87.5 fl (80-96) 05/30/19 06:35 MCHC 34.3 g/dl (32.0-35.9) 05/30/19 06:35 RDW 14.8 % (11.9-15.9) 05/30/19 06:35 Plt Count 144 K/MM3 (134-434) 05/30/19 06:35 MPV 8.7 fl (7.5-11.1) 05/30/19 06:35 CMP Sodium 140 mmol/L (136-145) 05/30/19 06:35 Potassium 3.4 mmol/L (3.5-5.1) L 05/30/19 06:35 Chloride 107 mmol/L (98-107) 05/30/19 06:35 Carbon Dioxide 30 mmol/L (21-32) 05/30/19 06:35 Anion Gap 4 MMOL/L (8-16) L 05/30/19 06:35 BUN 18.6 mg/dL (7-18) H 05/30/19 06:35 Creatinine 0.5 mg/dL (0.55-1.3) L 05/30/19 06:35 Random Glucose 136 mg/dL (74-106) H 05/30/19 06:35 Calcium 8.1 mg/dL (8.5-10.1) L 05/30/19 06:35 Total Bilirubin 1.0 mg/dL (0.2-1) 05/30/19 06:35 AST 9 U/L (15-37) L 05/30/19 06:35 ALT 15 U/L (13-61) 05/30/19 06:35 Alkaline Phosphatase 65 U/L (45-117) 05/30/19 06:35 Total Protein 4.7 g/dl (6.4-8.2) L 05/30/19 06:35 Albumin 2.5 g/dl (3.4-5.0) L 05/30/19 06:35 CARDIAC ENZYMES Creatine Kinase 166 U/L (26-308) 05/26/19 06:00 Troponin I 0.51 ng/ml (0.00-0.05) H 05/26/19 12:10 Problem List 78yM w PMHx DM, HTN, HLD, BPH, cardiac stent (2002) presenting with rectal bleeding. Noticed gross clark red blood w blood clots in stool and underwear starting last night. Associated chills, lightheadedness, and diaphoresis. Had colonoscopy done 2 weeks ago showing polyps. Started baby aspirin and plavix 1 week ago, stopped yesterday after blood seen. Never had gross rectal bleeding before. Also fell down on knees in bathroom yesterday d/t lightheadedness, no LOC/head trauma. Denies fever, headache, nausea/vomiting, SOB, chest/AB pain, urinary changes, diarrhea/constipation. Per has been having bleeding the whole night bright red blood per rectum, no abdominal pain no chest pain. Patient aadmitted for further evaluation and currentlyin the ICU under critical care monitoring. Has been receivingb blood transfusion as needed. Consulted due to L facial droop that was noticed. 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 NSGY note reviewed and does not recommend surgical intervention ue to location with encasement of multiple sensitive structures including cranial nerves and vascular structures. RT may be considered though may also be suboptimal as per neurosurgery. Consider consult to eval for radiation. Patient relatively asymptomatic and thereforerisks of procedures may outweigh benefits since he is nonfocal. Discussed with hospitalist in detail as well today. Defer to neurosurgery and radiation oncologist. Continue GI mgmt and optimization. Monitor bp, goal < 140/90. Not currently on ASA 81mg or plavix 75 as listed on home regiment, restart when able and okay from GI standpoint. No infarct of CT or MRI and thus no new CVA. Continue statin. DVT ppx. Monitor DM, maintain euglycemic range.
[2019-05-30] MEDS: METOPROLOL TARTRATE 25 MG TABLET (FP) PO SCH ×2 (09:28→21:54)
[2019-05-30] MEDS: DOCUSATE SODIUM 100 MG CAPSULE (FP) PO SCH (09:28)
[2019-05-30] MEDS: TAMSULOSIN HCL 0.4 MG CAP PO SCH (09:28)
[2019-05-30] MEDS: TIMOLOL 0.5% OPHTHALMIC SOL 5 ML BOTTLE OU SCH ×2 (09:29→22:10)
[2019-05-30] MEDS: PANTOPRAZOLE SODIUM 40 MG VIAL IVPUSH SCH ×2 (10:49→21:53)
--- NOTE | 2019-05-30 13:38 | PN ---
Progress Note, Physician Chief Complaint: GI Bleed Hematochezia History of Present Illness: Previous notes and events reviewed awake and alert NAD Hg 7.8 continue with rectal bleeding, blood noted with BM today by RN Brain MRI reviewed - Current Medication List Current Medications: Active Medications Acetaminophen (Tylenol -) 650 mg PO Q4H PRN PRN Reason: PAIN OR FEVER Atorvastatin Calcium (Lipitor -) 80 mg PO HS [facility] Last Admin: 05/29/19 22:21 Dose: 80 mg Docusate Sodium (Colace -) 100 mg PO DAILY [facility] Last Admin: 05/30/19 09:28 Dose: 100 mg Insulin Aspart (Novolog Vial Sliding Scale -) 1 vial SQ ACHS [facility]; Protocol Last Admin: 05/30/19 11:52 Dose: 2 units Insulin Detemir (Levemir Vial) 25 units SQ AM [facility] Last Admin: 05/30/19 06:21 Dose: 25 units Metoprolol Tartrate (Lopressor -) 50 mg PO BID [facility] Last Admin: 05/30/19 09:28 Dose: 50 mg Pantoprazole Sodium (Protonix Iv) 40 mg IVPUSH BID [facility] Last Admin: 05/30/19 10:49 Dose: 40 mg Tamsulosin HCl (Flomax -) 0.4 mg PO DAILY@0830 [facility] Last Admin: 05/30/19 09:28 Dose: 0.4 mg Timolol Maleate (Timoptic 0.5%) 1 drop OU BID [facility] Last Admin: 05/30/19 09:29 Dose: 1 drp - Objective Vital Signs: Vital Signs Temperature 98.2 F 05/30/19 10:00 Pulse Rate 83 05/30/19 10:00 Respiratory Rate 18 05/30/19 10:00 Blood Pressure 130/57 L 05/30/19 10:00 O2 Sat by Pulse Oximetry (%) 96 05/30/19 10:45 Constitutional: Yes: No Distress, Calm Eyes: Yes: Conjunctiva Clear HENT: Yes: Atraumatic Cardiovascular: Yes: Regular Rate and Rhythm Respiratory: Yes: Regular, CTA Bilaterally Gastrointestinal: Yes: Normal Bowel Sounds, Soft Musculoskeletal: Yes: Muscle Weakness Extremities: Yes: WNL Edema: No Neurological: Yes: Alert Psychiatric: Yes: Alert Labs: CBC, BMP 05/30/19 06:35 05/30/19 06:35 INR, PTT INR 1.07 (0.83-1.09) 05/27/19 05:55 Problem List - Problems (1) Anemia Assessment/Plan: -Hg 7.8 -monitor Hg daily -patient to receive 1U PRBC and 1U platelet transfusion -transfuse for Hg <7.0 to avoid fluid overload -due to GI bleed Code(s): D64.9 - ANEMIA, UNSPECIFIED Qualifiers: Anemia type: iron deficiency Iron deficiency anemia type: other iron deficiency Qualified Code(s): D50.8 - Other iron deficiency anemias (2) CAD (coronary artery disease) Assessment/Plan: -Aspirin and Plavix on hold due to GI bleed Code(s): I25.10 - ATHSCL HEART DISEASE OF [place] CORONARY ARTERY W/O ANG PCTRS (3) Diabetes Assessment/Plan: -BGM ACHS -Levemir -ISS Code(s): E11.9 - TYPE 2 DIABETES MELLITUS WITHOUT COMPLICATIONS Qualifiers: Diabetes mellitus type: type 2 (4) Facial droop Assessment/Plan: -Neurology consult -Neurosurgery on board -resolved -neuro checks -Head CT scan shows no CT evidence of acute territorial, acute transcortical infarct -Brain MRI done and shows left anterior tentorial homogeneously enhancing meningioma with dural tail sign, cephalad extension in relation to the tentorium cerebelli compressing the left cerebral peduncle, extending to the left parasellar cistern, compressing the left occulomotor nerve, left optic tract with extension into the left cavernous sinus, meningioma extendsalong the dorsum sella with suprasellar component contacting the pituitary infundibulum, the left posterior communicating artery, left P1 P2 segments of the posterior cerebral artery are encased in the meningioma, mass effect on the medial aspect of the left temporal lobe, caudal extension of the meningioma along the left tentorium cerebelli dorsal service of the clivus enroaching on the left CP angle cistern , prepontine cistern, mass effect on left vianey , left basilar artery compressed , mass effect on left trigeminal nerve -Oncology consult -Radiation Oncology consult Code(s): R29.810 - FACIAL WEAKNESS (5) GI bleed Assessment/Plan: -GI on board -patient is high risk for repeat procedure -continue to hold Aspirin and Plavix -Hg 7.8 -patient to recive 1U PRBC and 1U platelet transfusion -monitor Hg daily -transfuse for Hg <7.0 to avoid fluid overload -clear liquid diet -Pantoprazole Code(s): K92.2 - GASTROINTESTINAL HEMORRHAGE, UNSPECIFIED (6) HTN (hypertension) Assessment/Plan: -Metoprolol Code(s): I10 - ESSENTIAL (PRIMARY) HYPERTENSION (7) Hematochezia Assessment/Plan: -GI on board -patient is high risk for repeat procedure -continue to hold Aspirin and Plavix -Hg 7.8 -to receive 1U PRBC and 1U platelet transfusion -monitor Hg daily -transfuse for Hg <7.0 to avoid fluid overload -clear liquid diet -Pantoprazole Code(s): K92.1 - MELENA Assessment/Plan see problem list
--- NOTE | 2019-05-30 15:23 | PN ---
Progress Note (short form) - Note Progress Note: 78-year-old Indonesian gentleman with long-standing history of coronary artery disease, status post PCI/stenting, hypertension, hypertensive cardiovascular disease, insulin-dependent diabetes mellitus, aortic valvular disease with mild- to-moderate aortic valvular stenosis, dyslipidemia type IIb. History of moderate mitral and moderate to severe tricuspid regurgitation and mild pulmonary hypertension. History of peripheral neuropathy, left ventricular diastolic dysfunction, glaucoma, admitted with painless hematochezia. No recurrence of rectal bleeding. No chest pain or discomfort. No SOB. Active Medications Acetaminophen (Tylenol -) 650 mg PO Q4H PRN PRN Reason: PAIN OR FEVER Atorvastatin Calcium (Lipitor -) 80 mg PO HS [facility] Last Admin: 05/29/19 22:21 Dose: 80 mg Docusate Sodium (Colace -) 100 mg PO DAILY [facility] Last Admin: 05/30/19 09:28 Dose: 100 mg Insulin Aspart (Novolog Vial Sliding Scale -) 1 vial SQ [facility]; Protocol Last Admin: 05/30/19 11:52 Dose: 2 units Insulin Detemir (Levemir Vial) 25 units SQ AM [facility] Last Admin: 05/30/19 06:21 Dose: 25 units Metoprolol Tartrate (Lopressor -) 50 mg PO BID [facility] Last Admin: 05/30/19 09:28 Dose: 50 mg Pantoprazole Sodium (Protonix Iv) 40 mg IVPUSH BID [facility] Last Admin: 05/30/19 10:49 Dose: 40 mg Tamsulosin HCl (Flomax -) 0.4 mg PO DAILY@0830 [facility] Last Admin: 05/30/19 09:28 Dose: 0.4 mg Timolol Maleate (Timoptic 0.5%) 1 drop OU BID [facility] Last Admin: 05/30/19 09:29 Dose: 1 drp Physical Exam: O: 78 year old male was in no acute distress. Pallor+ Last Vital Signs Temp Pulse Resp BP Pulse Ox 97.6 F 67 18 145/56 L 96 05/30/19 15:08 05/30/19 15:08 05/30/19 15:08 05/30/19 15:08 05/30/19 10:45 Neck: Supple, no jugular venous distention, hepatojugular reflux was negative, faint left carotid bruit versus radiation of murmur. No thyromegaly was present. Heart: PMI was in the fifth intercostal space, no heaves or thrills, S1 and S2 were normal. Nonejection systolic click was heard along the left sternal border. There was an ejection systolic murmur grade II/ at the second right intercostal space and along the left sternal border ending in early to mid systole. No diastolic murmur or gallops were heard. Lungs: Clear on auscultation, slightly decreased breath sounds at the left base. Abdomen: Soft, distended and nontender. A moderate sized reducible ventral hernia. No hepatosplenomegaly or palpable masses were felt. Bowel sounds are present., no bruits were appreciated. Extremities: No calf tenderness, 1-2+ bilateral ankle extremity dependent edema , 1-2+ bilateral pedal edema, bilateral varicosities involving both lower extremities, stasis changes. Pulses were equal posterior tibial pulses were weak. CBC, BMP 05/30/19 06:35 05/30/19 06:35 Impression: 1. Coronary artery disease, status post PCI/stenting, recent demand injury. 2. Recurring rectal bleed. 3. Poorly controlled diabetes mellitus. 4. Aortic valvular disease with [id number] aortic stenosis and mild aortic regurgitation. 5. Hypertension, hypertensive cardiovascular disease, poorly controlled. 6. Diabetic peripheral neuropathy. 7. Mitral valvular disease with moderate mitral regurgitation. 8. Moderate to severe tricuspid regurgitation. 9. Dvqu-fd-zsporciy pulmonary hypertension. 10. 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 11. History of glaucoma. 12. History of left ventricular diastolic dysfunction. 13. Persistent Anemia Recommendations: 1. Awaiting further GI workup. 2. Continue current therapy. 3. Correction of K+. 4. Consider blood tranfusion. Dawit Prater M.D., F.A.C.C.
[2019-05-30] MEDS ORDERED: POTASSIUM CHLORIDE TABS 20 MEQ TABLET.ER (FP) PO ONE (15:41)
--- NOTE | 2019-05-30 15:41 | PN ---
Progress Note, Physician History of Present Illness: Pt seen and examined at bedside. He is awake and alert. He denies shortness of breath. - Current Medication List Current Medications: Active Medications Acetaminophen (Tylenol -) 650 mg PO Q4H PRN PRN Reason: PAIN OR FEVER Atorvastatin Calcium (Lipitor -) 80 mg PO HS [facility] Last Admin: 05/29/19 22:21 Dose: 80 mg Docusate Sodium (Colace -) 100 mg PO DAILY [facility] Last Admin: 05/30/19 09:28 Dose: 100 mg Insulin Aspart (Novolog Vial Sliding Scale -) 1 vial SQ ACHS [facility]; Protocol Last Admin: 05/30/19 11:52 Dose: 2 units Insulin Detemir (Levemir Vial) 25 units SQ AM [facility] Last Admin: 05/30/19 06:21 Dose: 25 units Metoprolol Tartrate (Lopressor -) 50 mg PO BID [facility] Last Admin: 05/30/19 09:28 Dose: 50 mg Pantoprazole Sodium (Protonix Iv) 40 mg IVPUSH BID [facility] Last Admin: 05/30/19 10:49 Dose: 40 mg Tamsulosin HCl (Flomax -) 0.4 mg PO DAILY@0830 [facility] Last Admin: 05/30/19 09:28 Dose: 0.4 mg Timolol Maleate (Timoptic 0.5%) 1 drop OU BID [facility] Last Admin: 05/30/19 09:29 Dose: 1 drp - Objective Vital Signs: Vital Signs Temperature 97.6 F 05/30/19 15:08 Pulse Rate 67 05/30/19 15:08 Respiratory Rate 18 05/30/19 15:08 Blood Pressure 145/56 L 05/30/19 15:08 O2 Sat by Pulse Oximetry (%) 96 05/30/19 10:45 Constitutional: Yes: Calm Eyes: Yes: Conjunctiva Clear HENT: Yes: Atraumatic Neck: Yes: Supple Cardiovascular: Yes: S1, S2 Respiratory: Yes: CTA Bilaterally Gastrointestinal: Yes: Soft Genitourinary: Yes: WNL Musculoskeletal: Yes: WNL Edema: No Integumentary: Yes: WNL Neurological: Yes: Oriented Psychiatric: Yes: Oriented Labs: CBC, BMP 05/30/19 06:35 05/30/19 06:35 INR, PTT INR 1.07 (0.83-1.09) 05/27/19 05:55 Assessment/Plan Current Medications Generic Name Dose Route Start Last Admin Trade Name Luz PRN Reason Stop Dose Admin Acetaminophen 650 mg 05/28/19 19:12 Tylenol - PO Q4H PRN PAIN OR FEVER Atorvastatin Calcium 80 mg 05/28/19 22:00 05/29/19 22:21 Lipitor - PO 80 mg HS [facility] Administration Docusate Sodium 100 mg 05/29/19 10:00 05/30/19 09:28 Colace - PO 100 mg DAILY [facility] Administration Insulin Aspart 1 vial 05/28/19 22:00 05/30/19 11:52 Novolog Vial Sliding Scale - SQ 2 units ACHS [facility] Administration Protocol Insulin Detemir 25 units 05/30/19 07:00 05/30/19 06:21 Levemir Vial SQ 25 units AM [facility] Administration Metoprolol Tartrate 50 mg 05/28/19 22:00 05/30/19 09:28 Lopressor - PO 50 mg BID [facility] Administration Pantoprazole Sodium 40 mg 05/29/19 10:00 05/30/19 10:49 Protonix Iv IVPUSH 40 mg BID [facility] Administration Tamsulosin HCl 0.4 mg 05/29/19 08:30 05/30/19 09:28 Flomax - PO 0.4 mg DAILY@0830 [facility] Administration Timolol Maleate 1 drop 05/28/19 22:00 05/30/19 09:29 Timoptic 0.5% OU 1 drp BID [facility] Administration Impression 1. SABRINA 2. DM 3. HTN 4. GI bleed 5. r/o cva 6. bph Plan - renal function stable - replace potassium - check mag - monitor hg - discussed with family - renal ultrasound report reviewed
--- NOTE | 2019-05-30 16:35 | PN.GI ---
GI Progress Note Subjective: GI Note: Seth had a bloody BM yesterday and another today with Hb down to 7.8. I have therefore ordered another unit of PRBCs and 2 more units of monodonor platelets. I discussed the situation with Manual with his at the bedside. The Plavix effect will finally wear out this - Objective Vital Signs: Vital Signs Temperature 97.6 F 05/30/19 15:08 Pulse Rate 67 05/30/19 15:08 Respiratory Rate 18 05/30/19 15:08 Blood Pressure 145/56 L 05/30/19 15:08 O2 Sat by Pulse Oximetry (%) 96 05/30/19 10:45 Laboratory Tests 05/26/19 05/27/19 05/27/19 06:00 05:55 17:08 Hgb 8.3 L 8.5 L BUN 61.8 H Creatinine 05/28/19 05/29/19 05/29/19 05:50 06:35 09:50 Hgb 8.2 L 8.4 L 8.8 L BUN Creatinine 05/30/19 05/30/19 06:35 06:35 Hgb 7.8 L BUN 18.6 H Creatinine 0.5 L Constitutional: Calm ...Auscultate: Yes: Normoactive Bowel Sounds ...Palpate: Yes: Soft, Other (nontender) Labs: CBC, BMP 05/30/19 06:35 05/30/19 06:35 INR, PTT INR 1.07 (0.83-1.09) 05/27/19 05:55 Assessment/Plan Assessment: - Resolving late ( 13 days) postpolypectomy bleed. - Diverticulosis - FH colon cancer - past h/o H pylor gastritis Plan: -- Transfuse 1 more unit PRBC -- Monodonor platelet transfusion x 2 -- Keep on liquids for now. Would avoid Plavix and aspirin and all anticoagulants and antiplatelet agents for 30 days Problem List - Problems (1) Hematochezia Code(s): K92.1 - MELENA (2) Post-polypectomy bleeding Code(s): [id number] - (3) Diverticulosis Code(s): K57.90 - DVRTCLOS OF INTEST, PART UNSP, W/O PERF OR ABSCESS W/O BLEED (4) Family history of colon cancer Code(s): Z80.0 - FAMILY HISTORY OF MALIGNANT NEOPLASM OF DIGESTIVE ORGANS (5) Anemia Code(s): D64.9 - ANEMIA, UNSPECIFIED Qualifiers: Anemia type: iron deficiency Iron deficiency anemia type: other iron deficiency Qualified Code(s): D50.8 - Other iron deficiency anemias (6) CAD (coronary artery disease) Code(s): I25.10 - ATHSCL HEART DISEASE OF [place] CORONARY ARTERY W/O ANG PCTRS (7) Diabetes Code(s): E11.9 - TYPE 2 DIABETES MELLITUS WITHOUT COMPLICATIONS Qualifiers: Diabetes mellitus type: type 2 (8) Glaucoma Code(s): H40.9 - UNSPECIFIED GLAUCOMA
[2019-05-30] MEDS ORDERED: INSULIN (NOVOLOG) ASPART 100 UNITS/ML 10ML VIAL ONE (21:33)
[2019-05-30] MEDS: ATORVASTATIN CA 80 MG TABLET (FP) PO SCH (21:54)
[2019-05-31] MEDS: INSULIN SLIDING SCALE (NOVOLOG) 1 VIAL SQ SCH ×4 (06:27→21:52)
[2019-05-31] MEDS: INSULIN (LEVEMIR) 100 UNITS/ML UNITS SQ SCH (06:28)
[2019-05-31 08:11] LABS: HEMATOCRIT 26.2 % (35.4-49); HEMOGLOBIN 9.1 GM/dL (11.7-16.9); MCH 30.3 pg (25.7-33.7); MCHC 34.6 g/dl (32.0-35.9); MEAN CELL VOLUME 87.6 fl (80-96); MEAN PLT VOLUME 8.4 fl (7.5-11.1); PLATELET COUNT 200 K/MM3 (134-434); RBC 2.99 M/mm3 (4.00-5.60); RDW 14.6 % (11.9-15.9); RETICULOCYTES 5.81 % (0.5-1.5); WHITE BLOOD COUNT 5.8 K/mm3 (4.0-10.0)
[2019-05-31 08:31] LABS: ALBUMIN 2.9 g/dl (3.4-5.0); BILIRUBIN,TOTAL 1.6 mg/dL (0.2-1); BLOOD UREA NITROGEN 13.1 mg/dL (7-18); CALCIUM 8.6 mg/dL (8.5-10.1); CREATININE 0.6 mg/dL (0.55-1.3); TOT PROT 5.4 g/dl (6.4-8.2)
--- NOTE | 2019-05-31 09:11 | PN ---
Progress Note (short form) - Note Progress Note: Neurology - Admission Chief Complaint: rectal bleeding History of Present Illness: 78yM w PMHx DM, HTN, HLD, BPH, cardiac stent (2002) presenting with rectal bleeding. Noticed gross clark red blood w blood clots in stool and underwear starting last night. Associated chills, lightheadedness, and diaphoresis. Had colonoscopy done 2 weeks ago showing polyps. Started baby aspirin and plavix 1 week ago, stopped yesterday after blood seen. Never had gross rectal bleeding before. Also fell down on knees in bathroom yesterday d/t lightheadedness, no LOC/head trauma. Denies fever, headache, nausea/vomiting, SOB, chest/AB pain, urinary changes, diarrhea/constipation. Per has been having bleeding the whole night bright red blood per rectum, no abdominal pain no chest pain. Patient aadmitted for further evaluation and previously in ICU under critical care monitoring for GI bleed. Downgraded to floor. Consulted due to L facial droop that was noticed. CT head completed and suspicious for space occupying mass. 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 NSGY note reviewed and does not recommend surgical intervention ue to location with encasement of multiple sensitive structures including cranial nerves and vascular structures. RT may be considered though may also be suboptimal as per neurosurgery. GI note reviewed and patient withcontinued lower GI bleeding, hemoglobin reduce , requiring blood transfusions, nnot yet medically stable for discharge at this point. Active Medications Acetaminophen (Tylenol -) 650 mg PO Q4H PRN PRN Reason: PAIN OR FEVER Atorvastatin Calcium (Lipitor -) 80 mg PO HS [facility] Last Admin: 05/30/19 21:54 Dose: 80 mg Docusate Sodium (Colace -) 100 mg PO DAILY [facility] Last Admin: 05/30/19 09:28 Dose: 100 mg Insulin Aspart (Novolog Vial Sliding Scale -) 1 vial SQ ACHS [facility]; Protocol Last Admin: 05/31/19 06:27 Dose: Not Given Insulin Detemir (Levemir Vial) 25 units SQ AM [facility] Last Admin: 05/31/19 06:28 Dose: Not Given Metoprolol Tartrate (Lopressor -) 50 mg PO BID [facility] Last Admin: 05/30/19 21:54 Dose: 50 mg Pantoprazole Sodium (Protonix Iv) 40 mg IVPUSH BID [facility] Last Admin: 05/30/19 21:53 Dose: 40 mg Tamsulosin HCl (Flomax -) 0.4 mg PO DAILY@0830 [facility] Last Admin: 05/30/19 09:28 Dose: 0.4 mg Timolol Maleate (Timoptic 0.5%) 1 drop OU BID [facility] Last Admin: 05/30/19 22:10 Dose: 1 drp Physical Examination Vital Signs Period Temp Pulse Resp BP Sys/Leavitt Pulse Ox Last 24 Hr 97.6 F-98.5 F 67-86 17-18 130-187/56-81 96-97 Gen: Awake, alert, responds to questions appropriately Card: RRR, nml S1,S2 Resp: Normal symmetric effort, lungs clear to auscultation Abdomen: Soft, nontender, bowel sounds active Musculoskeletal: Adequate range of motion without significant deformity Head atraumatic and normocephalic CN: PERRL, EOMI intact, L facial droop noted, no abnormalities in facial sensation, palate elevates, uvula and tongue midline Motor: Strength intact in upper and lower ext, tone normal Sensory: Intact to Temperature, light touch, and pinprick in all extremities Gait: Deferred CBCD WBC 5.8 K/mm3 (4.0-10.0) 05/31/19 06:55 RBC 2.99 M/mm3 (4.00-5.60) L 05/31/19 06:55 Hgb 9.1 GM/dL (11.7-16.9) L 05/31/19 06:55 Hct 26.2 % (35.4-49) L 05/31/19 06:55 MCV 87.6 fl (80-96) 05/31/19 06:55 MCHC 34.6 g/dl (32.0-35.9) 05/31/19 06:55 RDW 14.6 % (11.9-15.9) 05/31/19 06:55 Plt Count 200 K/MM3 (134-434) D 05/31/19 06:55 MPV 8.4 fl (7.5-11.1) 05/31/19 06:55 CMP Sodium 142 mmol/L (136-145) 05/31/19 06:55 Potassium 4.0 mmol/L (3.5-5.1) 05/31/19 06:55 Chloride 106 mmol/L (98-107) 05/31/19 06:55 Carbon Dioxide 30 mmol/L (21-32) 05/31/19 06:55 Anion Gap 5 MMOL/L (8-16) L 05/31/19 06:55 BUN 13.1 mg/dL (7-18) 05/31/19 06:55 Creatinine 0.6 mg/dL (0.55-1.3) 05/31/19 06:55 Random Glucose 89 mg/dL (74-106) 05/31/19 06:55 Calcium 8.6 mg/dL (8.5-10.1) 05/31/19 06:55 Total Bilirubin 1.6 mg/dL (0.2-1) H 05/31/19 06:55 AST 14 U/L (15-37) L 05/31/19 06:55 ALT 18 U/L (13-61) 05/31/19 06:55 Alkaline Phosphatase 75 U/L (45-117) 05/31/19 06:55 Total Protein 5.4 g/dl (6.4-8.2) L 05/31/19 06:55 Albumin 2.9 g/dl (3.4-5.0) L 05/31/19 06:55 CARDIAC ENZYMES Creatine Kinase 166 U/L (26-308) 05/26/19 06:00 Troponin I 0.51 ng/ml (0.00-0.05) H 05/26/19 12:10 Problem List 78yM w PMHx DM, HTN, HLD, BPH, cardiac stent (2002) presenting with rectal bleeding. Noticed gross clark red blood w blood clots in stool and underwear starting last night. Associated chills, lightheadedness, and diaphoresis. Had colonoscopy done 2 weeks ago showing polyps. Started baby aspirin and plavix 1 week ago, stopped yesterday after blood seen. Never had gross rectal bleeding before. Also fell down on knees in bathroom yesterday d/t lightheadedness, no LOC/head trauma. Denies fever, headache, nausea/vomiting, SOB, chest/AB pain, urinary changes, diarrhea/constipation. Per has been having bleeding the whole night bright red blood per rectum, no abdominal pain no chest pain. Patient aadmitted for further evaluation and currentlyin the ICU under critical care monitoring. Has been receivingb blood transfusion as needed. Consulted due to L facial droop that was noticed. 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 NSGY note reviewed and does not recommend surgical intervention ue to location with encasement of multiple sensitive structures including cranial nerves and vascular structures. RT may be considered though may also be suboptimal as per neurosurgery. Consider consult to eval for radiation. Patient relatively asymptomatic and thereforerisks of procedures may outweigh benefits since he is nonfocal. Discussed with hospitalist in detail as well today. Defer to neurosurgery and radiation oncologist. GI note reviewed and patient withcontinued lower GI bleeding, hemoglobin reduce, requiring blood transfusions, nnot yet medically stable for discharge at this point. Continue GI mgmt and optimization. Monitor bp, goal < 140/90. Not currently on ASA 81mg or plavix 75 as listed on home regiment, restart when able and okay from GI standpoint agree that cannot be started while patient having GI bleeding. No infarct of CT or MRI and thus no new CVA. Continue statin. DVT ppx. Monitor DM, maintain euglycemic range.
[2019-05-31] MEDS ORDERED: PT OWN MED DRAWER 7, Y5N ONE (09:15)
[2019-05-31] MEDS: TAMSULOSIN HCL 0.4 MG CAP PO SCH (09:30)
[2019-05-31] MEDS: PANTOPRAZOLE SODIUM 40 MG VIAL IVPUSH SCH ×2 (09:33→21:46)
[2019-05-31] MEDS: METOPROLOL TARTRATE 25 MG TABLET (FP) PO SCH ×2 (09:33→21:46)
[2019-05-31] MEDS: DOCUSATE SODIUM 100 MG CAPSULE (FP) PO SCH (09:33)
[2019-05-31] MEDS: TIMOLOL 0.5% OPHTHALMIC SOL 5 ML BOTTLE OU SCH ×2 (09:39→23:00)
--- NOTE | 2019-05-31 10:20 | PN ---
Progress Note, Physician Chief Complaint: AWAKE ALERT NAD - Current Medication List Current Medications: Active Medications Acetaminophen (Tylenol -) 650 mg PO Q4H PRN PRN Reason: PAIN OR FEVER Atorvastatin Calcium (Lipitor -) 80 mg PO HS [facility] Last Admin: 05/30/19 21:54 Dose: 80 mg Docusate Sodium (Colace -) 100 mg PO DAILY [facility] Last Admin: 05/31/19 09:33 Dose: 100 mg Insulin Aspart (Novolog Vial Sliding Scale -) 1 vial SQ ACHS [facility]; Protocol Last Admin: 05/31/19 06:27 Dose: Not Given Insulin Detemir (Levemir Vial) 25 units SQ AM [facility] Last Admin: 05/31/19 06:28 Dose: Not Given Metoprolol Tartrate (Lopressor -) 50 mg PO BID [facility] Last Admin: 05/31/19 09:33 Dose: 50 mg Pantoprazole Sodium (Protonix Iv) 40 mg IVPUSH BID [facility] Last Admin: 05/31/19 09:33 Dose: 40 mg Tamsulosin HCl (Flomax -) 0.4 mg PO DAILY@0830 [facility] Last Admin: 05/31/19 09:30 Dose: 0.4 mg Timolol Maleate (Timoptic 0.5%) 1 drop OU BID [facility] Last Admin: 05/31/19 09:39 Dose: 1 drp - Objective Vital Signs: Vital Signs Temperature 98.4 F 05/31/19 09:43 Pulse Rate 66 05/31/19 09:43 Respiratory Rate 18 05/31/19 09:43 Blood Pressure 174/71 H 05/31/19 09:43 O2 Sat by Pulse Oximetry (%) 97 05/30/19 21:00 Constitutional: Yes: No Distress Cardiovascular: Yes: Regular Rate and Rhythm Respiratory: Yes: WNL Gastrointestinal: Yes: WNL Genitourinary: Yes: WNL Edema: No Integumentary: Yes: WNL Wound/Incision: Yes: Clean/Dry Neurological: Yes: Other Labs: CBC, BMP 05/31/19 06:55 05/31/19 06:55 INR, PTT INR 1.07 (0.83-1.09) 05/27/19 05:55 Problem List - Problems (1) Anemia Code(s): D64.9 - ANEMIA, UNSPECIFIED Qualifiers: Anemia type: iron deficiency Iron deficiency anemia type: other iron deficiency Qualified Code(s): D50.8 - Other iron deficiency anemias (2) CAD (coronary artery disease) Code(s): I25.10 - ATHSCL HEART DISEASE OF [place] CORONARY ARTERY W/O ANG PCTRS (3) Diabetes Code(s): E11.9 - TYPE 2 DIABETES MELLITUS WITHOUT COMPLICATIONS Qualifiers: Diabetes mellitus type: type 2 (4) GI bleed Code(s): K92.2 - GASTROINTESTINAL HEMORRHAGE, UNSPECIFIED (5) Meningioma Code(s): D32.9 - BENIGN NEOPLASM OF MENINGES, UNSPECIFIED Assessment/Plan ANEMIA AND RENAL FUNCTION IMPROVING PT EVAL OOB TO CHAIR CAN CONTINUE WITH NEUROLOGY/NEPHROLOGY/ONCOLOGY OUTPATIENT REPEAT CBC IN AM IF H/H STABLE DC HOME WITH BINDER STRIPPER MACHINE
--- NOTE | 2019-05-31 12:28 | PN ---
Progress Note (short form) - Note Progress Note: 78-year-old [place] gentleman with long-standing history of coronary artery disease, status post PCI/stenting, hypertension, hypertensive cardiovascular disease, insulin-dependent diabetes mellitus, aortic valvular disease with mild- to-moderate aortic valvular stenosis, dyslipidemia type IIb. History of moderate mitral and moderate to severe tricuspid regurgitation and mild pulmonary hypertension. History of peripheral neuropathy, left ventricular diastolic dysfunction, glaucoma, admitted with painless hematochezia. No recurrence of rectal bleeding. No chest pain or discomfort. No SOB. Active Medications Acetaminophen (Tylenol -) 650 mg PO Q4H PRN PRN Reason: PAIN OR FEVER Atorvastatin Calcium (Lipitor -) 80 mg PO HS [facility] Last Admin: 05/30/19 21:54 Dose: 80 mg Docusate Sodium (Colace -) 100 mg PO DAILY [facility] Last Admin: 05/31/19 09:33 Dose: 100 mg Insulin Aspart (Novolog Vial Sliding Scale -) 1 vial SQ [facility]; Protocol Last Admin: 05/31/19 11:40 Dose: 3 units Insulin Detemir (Levemir Vial) 25 units SQ AM [facility] Last Admin: 05/31/19 06:28 Dose: Not Given Metoprolol Tartrate (Lopressor -) 50 mg PO BID [facility] Last Admin: 05/31/19 09:33 Dose: 50 mg Pantoprazole Sodium (Protonix Iv) 40 mg IVPUSH BID [facility] Last Admin: 05/31/19 09:33 Dose: 40 mg Tamsulosin HCl (Flomax -) 0.4 mg PO DAILY@0830 [facility] Last Admin: 05/31/19 09:30 Dose: 0.4 mg Timolol Maleate (Timoptic 0.5%) 1 drop OU BID [facility] Last Admin: 05/31/19 09:39 Dose: 1 drp Physical Exam: O: 78 year old male was in no acute distress. Pallor+ Last Vital Signs Temp Pulse Resp BP Pulse Ox 98.4 F 66 18 174/71 H 97 05/31/19 09:43 05/31/19 09:43 05/31/19 09:43 05/31/19 09:43 05/30/19 21:00 Neck: Supple, no jugular venous distention, hepatojugular reflux was negative, faint left carotid bruit versus radiation of murmur. No thyromegaly was present. Heart: PMI was in the fifth intercostal space, no heaves or thrills, S1 and S2 were normal. Nonejection systolic click was heard along the left sternal border. There was an ejection systolic murmur grade II/ at the second right intercostal space and along the left sternal border ending in early to mid systole. No diastolic murmur or gallops were heard. Lungs: Clear on auscultation, slightly decreased breath sounds at the left base. Abdomen: Soft, distended and nontender. A moderate sized reducible ventral hernia. No hepatosplenomegaly or palpable masses were felt. Bowel sounds are present., no bruits were appreciated. Extremities: No calf tenderness, 1-2+ bilateral ankle extremity dependent edema , 1-2+ bilateral pedal edema, bilateral varicosities involving both lower extremities, stasis changes. Pulses were equal posterior tibial pulses were weak. CBC, BMP 05/31/19 06:55 05/31/19 06:55 Impression: 1. Coronary artery disease, status post PCI/stenting, recent demand injury. 2. Recurring rectal bleed. 3. Poorly controlled diabetes mellitus. 4. Aortic valvular disease with [id number] aortic stenosis and mild aortic regurgitation. 5. Hypertension, hypertensive cardiovascular disease, poorly controlled. 6. Diabetic peripheral neuropathy. 7. Mitral valvular disease with moderate mitral regurgitation. 8. Moderate to severe tricuspid regurgitation. 9. Nqbk-[id number]-[id number] pulmonary hypertension. 10. 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 11. History of glaucoma. 12. History of left ventricular diastolic dysfunction. 13. Persistent Anemia Recommendations: 1. Awaiting further GI workup. 2. Continue current therapy. 3. Correction of K+. 4. Consider blood tranfusion. Dawit Prater M.D., F.A.C.C.
--- NOTE | 2019-05-31 18:30 | PN ---
Progress Note, Physician History of Present Illness: Pt seen and examined at bedside. He is awake and alert. He denies dysuria or hematuria. - Current Medication List Current Medications: Active Medications Acetaminophen (Tylenol -) 650 mg PO Q4H PRN PRN Reason: PAIN OR FEVER Atorvastatin Calcium (Lipitor -) 80 mg PO HS [facility] Last Admin: 05/30/19 21:54 Dose: 80 mg Docusate Sodium (Colace -) 100 mg PO DAILY [facility] Last Admin: 05/31/19 09:33 Dose: 100 mg Insulin Aspart (Novolog Vial Sliding Scale -) 1 vial SQ ACHS [facility]; Protocol Last Admin: 05/31/19 17:33 Dose: 2 units Insulin Detemir (Levemir Vial) 25 units SQ AM [facility] Last Admin: 05/31/19 06:28 Dose: Not Given Metoprolol Tartrate (Lopressor -) 50 mg PO BID [facility] Last Admin: 05/31/19 09:33 Dose: 50 mg Pantoprazole Sodium (Protonix Iv) 40 mg IVPUSH BID [facility] Last Admin: 05/31/19 09:33 Dose: 40 mg Tamsulosin HCl (Flomax -) 0.4 mg PO DAILY@0830 [facility] Last Admin: 05/31/19 09:30 Dose: 0.4 mg Timolol Maleate (Timoptic 0.5%) 1 drop OU BID [facility] Last Admin: 05/31/19 09:39 Dose: 1 drp - Objective Vital Signs: Vital Signs Temperature 98.2 F 05/31/19 15:14 Pulse Rate 60 05/31/19 15:14 Respiratory Rate 20 05/31/19 15:14 Blood Pressure 132/51 L 05/31/19 15:14 O2 Sat by Pulse Oximetry (%) 97 05/31/19 09:00 Constitutional: Yes: Calm Eyes: Yes: Conjunctiva Clear HENT: Yes: Atraumatic Neck: Yes: Supple Cardiovascular: Yes: S1, S2 Gastrointestinal: Yes: WNL Genitourinary: Yes: WNL Musculoskeletal: Yes: WNL Edema: No Neurological: Yes: Oriented Psychiatric: Yes: Oriented Labs: CBC, BMP 05/31/19 06:55 05/31/19 06:55 INR, PTT INR 1.07 (0.83-1.09) 05/27/19 05:55 Assessment/Plan Current Medications Generic Name Dose Route Start Last Admin Trade Name Freq PRN Reason Stop Dose Admin Acetaminophen 650 mg 05/28/19 19:12 Tylenol - PO Q4H PRN PAIN OR FEVER Atorvastatin Calcium 80 mg 05/28/19 22:00 05/30/19 21:54 Lipitor - PO 80 mg HS [facility] Administration Docusate Sodium 100 mg 05/29/19 10:00 05/31/19 09:33 Colace - PO 100 mg DAILY [facility] Administration Insulin Aspart 1 vial 05/28/19 22:00 05/31/19 17:33 Novolog Vial Sliding Scale - SQ 2 units ACHS [facility] Administration Protocol Insulin Detemir 25 units 05/30/19 07:00 05/31/19 06:28 Levemir Vial SQ Not Given AM [facility] Metoprolol Tartrate 50 mg 05/28/19 22:00 05/31/19 09:33 Lopressor - PO 50 mg BID [facility] Administration Pantoprazole Sodium 40 mg 05/29/19 10:00 05/31/19 09:33 Protonix Iv IVPUSH 40 mg BID [facility] Administration Tamsulosin HCl 0.4 mg 05/29/19 08:30 05/31/19 09:30 Flomax - PO 0.4 mg DAILY@0830 [facility] Administration Timolol Maleate 1 drop 05/28/19 22:00 05/31/19 09:39 Timoptic 0.5% OU 1 drp BID [facility] Administration Impression 1. SABRINA 2. DM 3. HTN 4. GI bleed 5. r/o cva 6. bph Plan - potassium improved - renal function is stable - monitor lytes - monitor hg - will follow PRN - discussed with family
[2019-05-31] MEDS ORDERED: INSULIN (NOVOLOG) ASPART 100 UNITS/ML 10ML VIAL ONE (21:42)
[2019-05-31] MEDS: ATORVASTATIN CA 80 MG TABLET (FP) PO SCH (21:46)
[2019-06-01] MEDS: INSULIN SLIDING SCALE (NOVOLOG) 1 VIAL SQ SCH ×2 (06:06→12:32)
[2019-06-01] MEDS: INSULIN (LEVEMIR) 100 UNITS/ML UNITS SQ SCH (06:07)
--- NOTE | 2019-06-01 06:18 | DS ---
Physical Examination Vital Signs: Vital Signs Temperature 97.9 F 05/31/19 22:00 Pulse Rate 88 05/31/19 22:00 Respiratory Rate 18 05/31/19 22:00 Blood Pressure 150/75 05/31/19 22:00 O2 Sat by Pulse Oximetry (%) 96 05/31/19 21:00 Labs: CBC, BMP 05/31/19 06:55 05/31/19 06:55 Discharge Summary Problems reviewed: Yes Reason For Visit: ANEMIA,HEMATOCHEZIA Current Active Problems Anemia (Acute) CAD (coronary artery disease) (Acute) Diabetes (Acute) Diverticulosis (Acute) Facial droop (Acute) Family history of colon cancer (Acute) GI bleed (Acute) Glaucoma (Acute) HTN (hypertension) (Acute) Hematochezia (Acute) Hyperglycemia (Acute) Hypomagnesemia (Acute) Meningioma (Acute) Post-polypectomy bleeding (Acute) Procedures: Principal: MRI BRAIN Other Procedures: LABS.[facility] Course: TRANSFUSED PRBC FOR GI BLEED Health Concerns: MENINGIOMA/BRAIN MASS Plan of Treatment: ADMITTED FOR GI BLEED, TREATED WITH GI EVALUATION S/P PRBC TRANSFUSIONS, NEUROLOGY WORKUP WITH BRAIN MRI FOUND WITH NEW BRAIN MASS MENINGIOMA. WILL NEED FOLLOW UP OUTPATIENT FOR NEUROLOGY AND GI. WEEKLY CBC FOR 2 WEEKS. Goals: NEUROLOGY AND GI FOLLOW UP FOR MENINGIOMA AND GI BLEED. HOLD PLAVIX AND ASPIRIN FOR 30 DAYS Condition: Stable - Instructions Diet, Activity, Other Instructions: STOP PLAVIX AND ASPIRIN FOR 30 DAYS SEE YOUR PRIMARY DOCTOR DR SAVAGE IN 2-3 DAYS FOR LAB CHECK NEUROLOGY AND GI FOLLOW UP WITH DR MORALES AND DR VAUGHN OUTPATIENT. IF THERE IS BLOOD IN YOUR URINE OR STOOL RETURN BACK TO HOSPITAL. PLEASE DO NOT HESITATE TO CALL Referrals: Pravin Cox MD [Primary Care Provider] - Disposition: VNS/HOME HEALTH CARE - Home Medications Comprehensive Discharge Medication List: Ambulatory Orders Atorvastatin Ca [Lipitor] 80 mg PO HS 03/24/17 Docusate Sodium [Colace -] 100 mg PO DAILY 03/24/17 Gabapentin 100 mg PO BID 03/24/17 Insulin Degludec [Tresiba Flextouch U-100] 40 unit SQ AM 03/24/17 Insulin Sliding Scale [Novolog Vial Sliding Scale -] 5 units SQ DAILY 03/24/17 Tamsulosin HCl 0.4 mg PO HS 03/24/17 Ascorbic Acid [Vitamin C] 500 mg PO DAILY 10/04/18 Cholecalciferol (Vitamin D3) [Vitamin D -] 1,000 unit PO DAILY 10/04/18 Herbal Drugs [Super Energy] 1 each PO DAILY 10/04/18 Timolol 0.5% [Timoptic 0.5%] 1 drop OD DAILY 10/04/18 Acetaminophen [Tylenol .Regular Strength -] 650 mg PO Q4H PRN tablet 06/01/19 Atorvastatin Ca [Lipitor] 80 mg PO HS tablet 06/01/19 Docusate Sodium [Colace -] 100 mg PO DAILY capsule 06/01/19 Metoprolol Tartrate [Lopressor -] 50 mg PO BID #60 tablet 06/01/19 Pantoprazole Sodium [Protonix] 40 mg PO DAILY #30 tablet.dr 06/01/19 Silver Sulfadiazine 1% Top Cr [Silvadene -] 1 applic TP BID #1 jar 06/01/19 Tamsulosin HCl [Flomax -] 0.4 mg PO DAILY@0830 cap.er.24h 06/01/19 Prescription Drug Monitoring Program (I-STOP) results: I-STOP not reviewed
[2019-06-01 07:03] LABS: BASO % 0.5 % (0-2.0); EOS % 3.3 % (0-4.5); HEMATOCRIT 31.2 % (35.4-49); HEMOGLOBIN 10.5 GM/dL (11.7-16.9); LYMPH % 20.4 % (8-40); MCH 29.8 pg (25.7-33.7); MCHC 33.6 g/dl (32.0-35.9); MEAN CELL VOLUME 88.7 fl (80-96); MEAN PLT VOLUME 8.5 fl (7.5-11.1); MONO % 9.8 % (3.8-10.2); PLATELET COUNT 226 K/MM3 (134-434); RBC 3.52 M/mm3 (4.00-5.60); RDW 14.6 % (11.9-15.9); WHITE BLOOD COUNT 7.8 K/mm3 (4.0-10.0)
[2019-06-01 09:04] VITALS: BP 161/73; PULSE 74; TEMP 98.4
--- NOTE | 2019-06-01 09:25 | PN ---
Progress Note (short form) - Note Progress Note: Neurology - Admission Chief Complaint: rectal bleeding History of Present Illness: 78yM w PMHx DM, HTN, HLD, BPH, cardiac stent (2002) presenting with rectal bleeding. Noticed gross clark red blood w blood clots in stool and underwear starting last night. Associated chills, lightheadedness, and diaphoresis. Had colonoscopy done 2 weeks ago showing polyps. Started baby aspirin and plavix 1 week ago, stopped yesterday after blood seen. Never had gross rectal bleeding before. Also fell down on knees in bathroom yesterday d/t lightheadedness, no LOC/head trauma. Denies fever, headache, nausea/vomiting, SOB, chest/AB pain, urinary changes, diarrhea/constipation. Per has been having bleeding the whole night bright red blood per rectum, no abdominal pain no chest pain. Patient aadmitted for further evaluation and previously in ICU under critical care monitoring for GI bleed. Downgraded to floor. Consulted due to L facial droop that was noticed. CT head completed and suspicious for space occupying mass. 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 NSGY note reviewed and does not recommend surgical intervention ue to location with encasement of multiple sensitive structures including cranial nerves and vascular structures. RT may be considered though may also be suboptimal as per neurosurgery. No new neurologic events and patient remains neurologically stable at this time, possibly for discharge. Active Medications Acetaminophen (Tylenol -) 650 mg PO Q4H PRN PRN Reason: PAIN OR FEVER Atorvastatin Calcium (Lipitor -) 80 mg PO HS [facility] Last Admin: 05/31/19 21:46 Dose: 80 mg Docusate Sodium (Colace -) 100 mg PO DAILY [facility] Last Admin: 05/31/19 09:33 Dose: 100 mg Insulin Aspart (Novolog Vial Sliding Scale -) 1 vial SQ ACHS [facility]; Protocol Last Admin: 06/01/19 06:06 Dose: 2 units Insulin Detemir (Levemir Vial) 25 units SQ AM [facility] Last Admin: 06/01/19 06:07 Dose: 25 units Metoprolol Tartrate (Lopressor -) 50 mg PO BID [facility] Last Admin: 10/09/19 21:46 Dose: 50 mg Pantoprazole Sodium (Protonix Iv) 40 mg IVPUSH BID [facility] Last Admin: 05/31/19 21:46 Dose: 40 mg Silver Sulfadiazine (Silvadene -) 1 applic TP BID [facility] Tamsulosin HCl (Flomax -) 0.4 mg PO DAILY@0830 [facility] Last Admin: 05/31/19 09:30 Dose: 0.4 mg Timolol Maleate (Timoptic 0.5%) 1 drop OU BID [facility] Last Admin: 05/31/19 23:00 Dose: 1 drp Physical Examination Vital Signs Period Temp Pulse Resp BP Sys/Leavitt Pulse Ox Last 24 Hr 97.9 F-98.6 F 60-88 18-20 132-174/51-75 96-96 Gen: Awake, alert, responds to questions appropriately Card: RRR, nml S1,S2 Resp: Normal symmetric effort, lungs clear to auscultation Abdomen: Soft, nontender, bowel sounds active Musculoskeletal: Adequate range of motion without significant deformity Head atraumatic and normocephalic CN: PERRL, EOMI intact, L facial droop noted, no abnormalities in facial sensation, palate elevates, uvula and tongue midline Motor: Strength intact in upper and lower ext, tone normal Sensory: Intact to Temperature, light touch, and pinprick in all extremities Gait: Deferred CBCD WBC 7.8 K/mm3 (4.0-10.0) 06/01/19 06:25 RBC 3.52 M/mm3 (4.00-5.60) L 06/01/19 06:25 Hgb 10.5 GM/dL (11.7-16.9) L 06/01/19 06:25 Hct 31.2 % (35.4-49) L D 06/01/19 06:25 MCV 88.7 fl (80-96) 06/01/19 06:25 MCHC 33.6 g/dl (32.0-35.9) 06/01/19 06:25 RDW 14.6 % (11.9-15.9) 06/01/19 06:25 Plt Count 226 K/MM3 (134-434) 06/01/19 06:25 MPV 8.5 fl (7.5-11.1) 06/01/19 06:25 CMP Sodium 142 mmol/L (136-145) 05/31/19 06:55 Potassium 4.0 mmol/L (3.5-5.1) 05/31/19 06:55 Chloride 106 mmol/L (98-107) 05/31/19 06:55 Carbon Dioxide 30 mmol/L (21-32) 05/31/19 06:55 Anion Gap 5 MMOL/L (8-16) L 05/31/19 06:55 BUN 13.1 mg/dL (7-18) 05/31/19 06:55 Creatinine 0.6 mg/dL (0.55-1.3) 05/31/19 06:55 Random Glucose 89 mg/dL (74-106) 05/31/19 06:55 Calcium 8.6 mg/dL (8.5-10.1) 05/31/19 06:55 Total Bilirubin 1.6 mg/dL (0.2-1) H 05/31/19 06:55 AST 14 U/L (15-37) L 05/31/19 06:55 ALT 18 U/L (13-61) 05/31/19 06:55 Alkaline Phosphatase 75 U/L (45-117) 05/31/19 06:55 Total Protein 5.4 g/dl (6.4-8.2) L 05/31/19 06:55 Albumin 2.9 g/dl (3.4-5.0) L 05/31/19 06:55 CARDIAC ENZYMES Creatine Kinase 166 U/L (26-308) 05/26/19 06:00 Troponin I 0.51 ng/ml (0.00-0.05) H 05/26/19 12:10 Problem List 78yM w PMHx DM, HTN, HLD, BPH, cardiac stent (2002) presenting with rectal bleeding. Noticed gross clark red blood w blood clots in stool and underwear starting last night. Associated chills, lightheadedness, and diaphoresis. Had colonoscopy done 2 weeks ago showing polyps. Started baby aspirin and plavix 1 week ago, stopped yesterday after blood seen. Never had gross rectal bleeding before. Also fell down on knees in bathroom yesterday d/t lightheadedness, no LOC/head trauma. Denies fever, headache, nausea/vomiting, SOB, chest/AB pain, urinary changes, diarrhea/constipation. Per has been having bleeding the whole night bright red blood per rectum, no abdominal pain no chest pain. Patient aadmitted for further evaluation and currentlyin the ICU under critical care monitoring. Has been receivingb blood transfusion as needed. Consulted due to L facial droop that was noticed. 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 NSGY note reviewed and does not recommend surgical intervention ue to location with encasement of multiple sensitive structures including cranial nerves and vascular structures. RT may be considered though may also be suboptimal as per neurosurgery. Consider consult to eval for radiation. Patient relatively asymptomatic and thereforerisks of procedures may outweigh benefits since he is nonfocal. Discussed with hospitalist in detail as well today. Defer to neurosurgery and radiation oncologist. GI following regarding mgmt of bleed. Continue GI mgmt and optimization. Monitor bp, goal < 140/90. Not currently on ASA 81mg or plavix 75 as listed on home regiment, restart when able and okay from GI standpoint. Primary care physician monitoring closely. No infarct of CT or MRI and thus no new CVA. Continue statin. DVT ppx. Monitor DM, maintain euglycemic range.
[2019-06-01] MEDS ORDERED: PT OWN MED DRAWER 7, Y5N ONE (09:50)
[2019-06-01] MEDS: METOPROLOL TARTRATE 25 MG TABLET (FP) PO SCH (09:52)
[2019-06-01] MEDS: TAMSULOSIN HCL 0.4 MG CAP PO SCH (09:53)
[2019-06-01] MEDS: DOCUSATE SODIUM 100 MG CAPSULE (FP) PO SCH (09:53)
[2019-06-01] MEDS: PANTOPRAZOLE SODIUM 40 MG VIAL IVPUSH SCH (09:53)
[2019-06-01] MEDS ORDERED: SILVER SULFADIAZINE 1% TOP CREAM 50 GM JAR TP SCH (10:00)
[2019-06-01] MEDS: TIMOLOL 0.5% OPHTHALMIC SOL 5 ML BOTTLE OU SCH (10:02)
--- NOTE | 2019-06-01 10:19 | CONS ---
DATE OF CONSULTATION: 05/31/2019 REFERRING PHYSICIAN: rBian Osorio MD REASON FOR CONSULTATION: Probable meningioma. HISTORY OF PRESENT ILLNESS: Patient is a 78-year-old gentleman who was admitted for post-colonoscopy rectal bleeding with bright red blood per rectum, status post polypectomy and on anticoagulation. He was admitted with anemia and received a blood transfusion. 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 The brain MRI showed the enhancing meningioma with dural tail sign in the left tentorium extending to the left parasellar cistern, compressing the left ocular motor nerve, left optic tract with extension into the left cavernous sinus and involvement of the [place] with mass effect on the left temporal lobe. There is mass effect on the left trigeminal nerve. He was seen by Dr. Osorio of Neurosurgery who does not feel he is an good surgical candidate. We were asked to evaluate for possible role of radiation therapy for presumed meningioma. Currently, he is asymptomatic, denying headache, nausea, diplopia, or dizziness. Anticoagulation is on hold, and his GI bleeding is being followed closely. He has no abdominal pain or diarrhea. Denies history of radiation therapy. PAST MEDICAL HISTORY: Hypertension, hyperlipidemia, diabetes mellitus. ALLERGIES: No known drug allergies. CURRENT MEDICATIONS: Flomax, metoprolol, Timolol, Colace, Lipitor, insulin, Silvadene, Protonix. SOCIAL HISTORY: He lives with his , does not smoke or consume excessive alcohol. REVIEW OF SYSTEMS: As noted. PHYSICAL EXAMINATION: General: Well appearing, in no acute distress. is at the bedside. Vital Signs: Temperature 98.2, blood pressure 132/51, pulse 60, respiratory rate 20. HEENT: Normocephalic, atraumatic. Moist mucous membranes. Anicteric sclera. Clear oral cavity. Neck: Supple without mass. Chest: Clear. Abdomen: Soft, nontender, nondistended. Extremities: Full range of motion, without edema. Neurologic: Alert and oriented x3. Cranial nerves 2-12 are intact. Sensation to light touch is intact. No pronator drift. Motor 4+/5 x4. Gait normal. RADIOLOGIC DATA: Head CT and brain MRI as noted in the HPI. LABORATORY DATA: WBC 5.8, hemoglobin 9.1, platelet count 200,000. Electrolytes within normal limits. BUN 13.1, creatinine 0.6. Liver function tests within normal limits. Albumin 2.9. Total 1.6. 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 He is not a candidate for surgical resection. Biopsy for pathologic diagnosis would certainly not be without risk given the involvement of the vascular and neurologic structures involved by the mass. Fortunately, he is relatively asymptomatic, but given the size and especially the location of the meningioma, we could consider radiation therapy to slow progression and minimize neurologic and vascular compromise in the future. Because of the location and size, we will consider more likely a conventional fractionation approach over 6 weeks with daily radiation therapy versus a stereotactic radiosurgery. The alternative option would be close clinical and radiologic followup with expectant management to treat the meningioma with radiation therapy at the time of progression. The patient and his will further consider how they wish to proceed and may follow up with me outpatient. They will also continue to follow with their neurologic team. PLAN: Continue management as per GI and they may arrange a follow up with me after discharge. Thank you for the courtesy of this consultation. TONY ROBLES M.D. SUKUMAR/[id number] MTDD
--- NOTE | 2019-06-01 13:17 | PN ---
Progress Note (short form) - Note Progress Note: 78-year-old [place] gentleman with long-standing history of coronary artery disease, status post PCI/stenting, hypertension, hypertensive cardiovascular disease, insulin-dependent diabetes mellitus, aortic valvular disease with mild- to-moderate aortic valvular stenosis, dyslipidemia type IIb. History of moderate mitral and moderate to severe tricuspid regurgitation and mild pulmonary hypertension. History of peripheral neuropathy, left ventricular diastolic dysfunction, glaucoma, admitted with painless hematochezia. No recurrence of rectal bleeding. No chest pain or discomfort. No SOB. Active Medications Acetaminophen (Tylenol -) 650 mg PO Q4H PRN PRN Reason: PAIN OR FEVER Atorvastatin Calcium (Lipitor -) 80 mg PO HS [facility] Last Admin: 05/31/19 21:46 Dose: 80 mg Docusate Sodium (Colace -) 100 mg PO DAILY [facility] Last Admin: 05/31/19 09:33 Dose: 100 mg Insulin Aspart (Novolog Vial Sliding Scale -) 1 vial SQ [facility]; Protocol Last Admin: 06/01/19 06:06 Dose: 2 units Insulin Detemir (Levemir Vial) 25 units SQ AM [facility] Last Admin: 06/01/19 06:07 Dose: 25 units Metoprolol Tartrate (Lopressor -) 50 mg PO BID [facility] Last Admin: 05/31/19 21:46 Dose: 50 mg Pantoprazole Sodium (Protonix Iv) 40 mg IVPUSH BID [facility] Last Admin: 05/31/19 21:46 Dose: 40 mg Silver Sulfadiazine (Silvadene -) 1 applic TP BID [facility] Tamsulosin HCl (Flomax -) 0.4 mg PO DAILY@0830 [facility] Last Admin: 05/31/19 09:30 Dose: 0.4 mg Timolol Maleate (Timoptic 0.5%) 1 drop OU BID [facility] Last Admin: 05/31/19 23:00 Dose: 1 drp Physical Exam: O: 78 year old male was in no acute distress. Pallor+ Last Vital Signs Temp Pulse Resp BP Pulse Ox 98.4 F 74 18 161/73 96 06/01/19 09:03 06/01/19 09:03 06/01/19 09:03 06/01/19 09:03 06/01/19 09:00 Neck: Supple, no jugular venous distention, hepatojugular reflux was negative, faint left carotid bruit versus radiation of murmur. No thyromegaly was present. Heart: PMI was in the fifth intercostal space, no heaves or thrills, S1 and S2 were normal. Nonejection systolic click was heard along the left sternal border. There was an ejection systolic murmur grade II/ at the second right intercostal space and along the left sternal border ending in early to mid systole. No diastolic murmur or gallops were heard. Lungs: Clear on auscultation, slightly decreased breath sounds at the left base. Abdomen: Soft, distended and nontender. A moderate sized reducible ventral hernia. No hepatosplenomegaly or palpable masses were felt. Bowel sounds are present., no bruits were appreciated. Extremities: No calf tenderness, 1-2+ bilateral ankle extremity dependent edema , 1-2+ bilateral pedal edema, bilateral varicosities involving both lower extremities, stasis changes. Pulses were equal posterior tibial pulses were weak. CBC, BMP 06/01/19 06:25 05/31/19 06:55 Impression: 1. Coronary artery disease, status post PCI/stenting, recent demand injury. 2. Recurring rectal bleed. 3. Poorly controlled diabetes mellitus. 4. Aortic valvular disease with [id number] aortic stenosis and mild aortic regurgitation. 5. Hypertension, hypertensive cardiovascular disease, poorly controlled. 6. Diabetic peripheral neuropathy. 7. Mitral valvular disease with moderate mitral regurgitation. 8. Moderate to severe tricuspid regurgitation. 9. [id number] pulmonary hypertension. 10. 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 11. History of glaucoma. 12. History of left ventricular diastolic dysfunction. 13. Persistent Anemia Recommendations: 1. Awaiting further GI workup. 2. Continue current therapy. 3. Correction of K+. 4. Consider blood tranfusion. Dawit Prater M.D., F.A.C.C.
== END 2019-06-01 12:58 | disposition home health service (06) | DRG 920 ==
LOC: JER 07:49 → JERBED 09:59 → J4W 12:08 → JICU 21:22 → J7W 05-28 19:17
PROVIDERS: ADMIT Family Medicine; ATTEND Family Medicine
PROC: 30233R1 Transfusion of Nonautologous Platelets into Peripheral Vein, Percutaneous Approach (ICD-10-PCS; principal; 2019-05-26)
PROC: 30233N1 Transfusion of Nonautologous Red Blood Cells into Peripheral Vein, Percutaneous Approach (ICD-10-PCS; 2019-05-26)
DX: K91.840 Postprocedural hemorrhage of a digestive system organ or structure following a digestive system procedure (principal); N17.9 Acute kidney failure, unspecified; D62 Acute posthemorrhagic anemia; K92.2 Gastrointestinal hemorrhage, unspecified; I10 Essential (primary) hypertension; E78.5 Hyperlipidemia, unspecified; N40.0 Benign prostatic hyperplasia without lower urinary tract symptoms; I25.10 Atherosclerotic heart disease of native coronary artery without angina pectoris; H40.9 Unspecified glaucoma; E83.42 Hypomagnesemia; R29.810 Facial weakness; D32.0 Benign neoplasm of cerebral meninges; I35.1 Nonrheumatic aortic (valve) insufficiency; I27.20 Pulmonary hypertension, unspecified; I08.2 Rheumatic disorders of both aortic and tricuspid valves; E11.51 Type 2 diabetes mellitus with diabetic peripheral angiopathy without gangrene; K57.90 Diverticulosis of intestine, part unspecified, without perforation or abscess without bleeding; K29.70 Gastritis, unspecified, without bleeding; I95.9 Hypotension, unspecified; D32.9 Benign neoplasm of meninges, unspecified; N28.9 Disorder of kidney and ureter, unspecified; Z80.0 Family history of malignant neoplasm of digestive organs; Y83.8 Other surgical procedures as the cause of abnormal reaction of the patient, or of later complication, without mention of misadventure at the time of the procedure; Z95.5 Presence of coronary angioplasty implant and graft
CPT/HCPCS: 36415; 36430; 36511; 70450-TC; 70553-TC; 71045-TC-FY; 76775-TC; 76856-TC; 80048; 80053; 80061; 81003; 82009; 82010; 82272; 82436; 82550; 82553; 82565; 82962; 83036; 83540; 83550; 83605; 83721; 83735; 83880; 84100; 84133; 84300; 84484; 85025; 85027; 85044; 85610; 85730; 86850; 86900; 86901; 86922; 93005; 93010; 94640; 97116-GP; 97161-GP; 99284-25; A9579; P9034; P9038; P9058

== ENCOUNTER 2020-10-17 13:07 | Inpatient (IN) | payer OTHER ==
[2020-10-17 13:26] VITALS: BMI 29.1
[2020-10-17 15:15] LABS: HEMATOCRIT 40.4 % (35.4-49); HEMOGLOBIN 13.4 GM/dL (11.7-16.9); MCH 30.2 pg (25.7-33.7); MCHC 33.1 g/dl (32.0-35.9); MEAN CELL VOLUME 91.2 fl (80-96); MEAN PLT VOLUME 9.1 fl (7.5-11.1); PLATELET COUNT 98 K/MM3 (134-434); RBC 4.43 M/mm3 (4.00-5.60); RDW 14.2 % (11.9-15.9); WHITE BLOOD COUNT 5.1 K/mm3 (4.0-10.0)
[2020-10-17 15:33] LABS: INR 0.99 (0.83-1.09)
[2020-10-17 15:44] LABS: POTASSIUM 4.3 mmol/L (3.5-5.1)
[2020-10-17 15:46] LABS: CALCIUM 8.7 mg/dL (8.5-10.1)
[2020-10-17 15:47] LABS: ALBUMIN 3.7 g/dl (3.4-5.0); BLOOD UREA NITROGEN 14.1 mg/dL (7-18)
[2020-10-17 15:50] LABS: CREATININE 0.7 mg/dL (0.55-1.3)
[2020-10-17 15:51] LABS: BILIRUBIN,TOTAL 0.9 mg/dL (0.2-1); TOT PROT 6.9 g/dl (6.4-8.2)
[2020-10-17] MEDS ORDERED: DEXAMETHASONE SOD PHOSPHATE 4 MG/1 ML VIAL IVPUSH ONE (16:49)
[2020-10-17] MEDS ORDERED: NITROGLYCERIN SUBLINGUAL 1/150 0.4 MG TAB SL ONE (16:51)
[2020-10-17] MEDS ORDERED: ASPIRIN 81 MG CHEWABLE TABLETS PO ONE (16:52)
[2020-10-17] MEDS ORDERED: DEXAMETHASONE SOD PHOSPHATE 4 MG/1 ML VIAL ONE (17:08)
[2020-10-17] MEDS ORDERED: ASPIRIN 81 MG CHEWABLE TABLETS ONE (17:08)
[2020-10-17] MEDS ORDERED: ACETAMINOPHEN 325 MG TABLET (FP) PO PRN (21:03)
[2020-10-17] MEDS ORDERED: ATORVASTATIN CA 80 MG TABLET (FP) ONE (22:00)
[2020-10-17] MEDS ORDERED: METOPROLOL TARTRATE 50 MG TABLET (FP) ONE (22:00)
[2020-10-17] MEDS ORDERED: TAMSULOSIN HCL 0.4 MG CAP ONE (22:01)
[2020-10-17] MEDS ORDERED: GABAPENTIN 100 MG CAPSULE ONE (22:01)
[2020-10-17] MEDS: TAMSULOSIN HCL 0.4 MG CAP PO SCH (22:09)
[2020-10-17] MEDS: ATORVASTATIN CA 80 MG TABLET (FP) PO SCH (22:10)
[2020-10-17] MEDS: GABAPENTIN 100 MG CAPSULE PO SCH (22:10)
[2020-10-17] MEDS: METOPROLOL TARTRATE 50 MG TABLET (FP) PO SCH (22:10)
[2020-10-17] MEDS: INSULIN SLIDING SCALE (NOVOLOG) 1 VIAL SQ SCH (22:11)
[2020-10-18 06:46] LABS: HEMATOCRIT 37.5 % (35.4-49); HEMOGLOBIN 12.9 GM/dL (11.7-16.9); MCH 30.8 pg (25.7-33.7); MCHC 34.4 g/dl (32.0-35.9); MEAN CELL VOLUME 89.6 fl (80-96); MEAN PLT VOLUME 9.4 fl (7.5-11.1); PLATELET COUNT 107 K/MM3 (134-434); RBC 4.18 M/mm3 (4.00-5.60); RDW 13.9 % (11.9-15.9); WHITE BLOOD COUNT 4.8 K/mm3 (4.0-10.0)
[2020-10-18 06:57] LABS: POTASSIUM 4.5 mmol/L (3.5-5.1)
[2020-10-18 07:00] LABS: CALCIUM 8.9 mg/dL (8.5-10.1)
[2020-10-18 07:01] LABS: ALBUMIN 3.2 g/dl (3.4-5.0); BLOOD UREA NITROGEN 19.5 mg/dL (7-18); MAGNESIUM 1.9 mg/dL (1.8-2.4)
[2020-10-18 07:04] LABS: CREATININE 0.7 mg/dL (0.55-1.3)
[2020-10-18 07:06] LABS: BILIRUBIN,TOTAL 0.8 mg/dL (0.2-1); TOT PROT 6.2 g/dl (6.4-8.2)
[2020-10-18] MEDS: INSULIN SLIDING SCALE (NOVOLOG) 1 VIAL SQ SCH ×4 (07:58→21:44)
[2020-10-18] MEDS: INSULIN (LEVEMIR) 100 UNITS/ML UNITS SQ SCH (07:59)
[2020-10-18] MEDS ORDERED: MAG HYDROX/AL HYDROX/SIMETH 30 ML UNIT-DOSE CUP PO ONE (09:03)
[2020-10-18] MEDS ORDERED: ASCORBIC ACID 500 MG TABLET (FP) ONE (09:15)
[2020-10-18] MEDS ORDERED: DOCUSATE SODIUM 100 MG CAPSULE (FP) PO ONE (09:16)
[2020-10-18] MEDS ORDERED: METOPROLOL TARTRATE 50 MG TABLET (FP) ONE (09:16)
[2020-10-18] MEDS ORDERED: ZINC SULFATE 220 MG CAPSULE (FP) ONE (09:16)
[2020-10-18] MEDS ORDERED: MAG HYDROX/AL HYDROX/SIMETH 30 ML UNIT-DOSE CUP ONE (09:16)
[2020-10-18] MEDS ORDERED: DEXAMETHASONE SOD PHOSPHATE 4 MG/1 ML VIAL ONE (09:16)
[2020-10-18] MEDS ORDERED: GABAPENTIN 100 MG CAPSULE ONE (09:16)
[2020-10-18] MEDS ORDERED: PANTOPRAZOLE 40 MG TABLET ONE (09:16)
[2020-10-18] MEDS ORDERED: ENOXAPARIN NA (PORCINE) 40 MG/0.4 ML DISP.SYRIN SQ ONE (09:17)
[2020-10-18] MEDS: DOCUSATE SODIUM 100 MG CAPSULE (FP) PO SCH (09:27)
[2020-10-18] MEDS: ENOXAPARIN NA (PORCINE) 40 MG/0.4 ML DISP.SYRIN SQ SCH (09:27)
[2020-10-18] MEDS: DEXAMETHASONE SOD PHOSPHATE 4 MG/1 ML VIAL IVPUSH SCH (09:27)
[2020-10-18] MEDS: METOPROLOL TARTRATE 50 MG TABLET (FP) PO SCH ×2 (09:27→21:38)
[2020-10-18] MEDS: ZINC SULFATE 220 MG CAPSULE (FP) PO SCH (09:28)
[2020-10-18] MEDS: PANTOPRAZOLE 40 MG TABLET PO SCH (09:28)
[2020-10-18] MEDS: ASCORBIC ACID 500 MG TABLET (FP) PO SCH ×2 (09:28→21:38)
[2020-10-18] MEDS: GABAPENTIN 100 MG CAPSULE PO SCH ×2 (09:28→21:38)
[2020-10-18] MEDS ORDERED: MAGNESIUM SULF 50% (8.12 MEQ/2 ML-1 GM VIAL) IVPB ONE (12:43)
[2020-10-18] MEDS ORDERED: MAGNESIUM 1GM/D5W - 1 GM/100 ML IVPB IVPB ONE (14:59)
[2020-10-18] MEDS: ATORVASTATIN CA 80 MG TABLET (FP) PO SCH (21:38)
[2020-10-18] MEDS: TAMSULOSIN HCL 0.4 MG CAP PO SCH (21:38)
[2020-10-18] MEDS: TIMOLOL 0.5% OPHTHALMIC SOL 5 ML BOTTLE OD SCH (22:32)
[2020-10-19] MEDS: INSULIN (LEVEMIR) 100 UNITS/ML UNITS SQ SCH (06:26)
[2020-10-19] MEDS: INSULIN SLIDING SCALE (NOVOLOG) 1 VIAL SQ SCH ×4 (06:26→21:28)
[2020-10-19 08:53] LABS: HEMOGLOBIN 13.6 GM/dL (11.7-16.9); MCH 30.4 pg (25.7-33.7); MCHC 33.9 g/dl (32.0-35.9); MEAN CELL VOLUME 89.8 fl (80-96); MEAN PLT VOLUME 9.5 fl (7.5-11.1); PLATELET COUNT 114 K/MM3 (134-434); RBC 4.46 M/mm3 (4.00-5.60); RDW 14.1 % (11.9-15.9); WHITE BLOOD COUNT 8.4 K/mm3 (4.0-10.0)
[2020-10-19] MEDS ORDERED: INSULIN (LEVEMIR) 100 UNITS/ML UNITS SQ SCH (09:11)
[2020-10-19 09:27] LABS: POTASSIUM 3.9 mmol/L (3.5-5.1)
[2020-10-19 09:35] LABS: ALBUMIN 3.3 g/dl (3.4-5.0)
[2020-10-19 09:36] LABS: BLOOD UREA NITROGEN 24.8 mg/dL (7-18)
[2020-10-19 09:37] LABS: BILIRUBIN,TOTAL 0.7 mg/dL (0.2-1); TOT PROT 6.1 g/dl (6.4-8.2)
[2020-10-19 09:39] LABS: CREATININE 0.6 mg/dL (0.55-1.3)
[2020-10-19 09:40] LABS: CALCIUM 8.6 mg/dL (8.5-10.1); MAGNESIUM 2.4 mg/dL (1.8-2.4)
[2020-10-19] MEDS: ENOXAPARIN NA (PORCINE) 40 MG/0.4 ML DISP.SYRIN SQ SCH (10:09)
[2020-10-19] MEDS: PANTOPRAZOLE 40 MG TABLET PO SCH (10:09)
[2020-10-19] MEDS: ASCORBIC ACID 500 MG TABLET (FP) PO SCH ×2 (10:09→21:27)
[2020-10-19] MEDS: METOPROLOL TARTRATE 50 MG TABLET (FP) PO SCH ×2 (10:09→21:27)
[2020-10-19] MEDS: GABAPENTIN 100 MG CAPSULE PO SCH ×2 (10:09→21:27)
[2020-10-19] MEDS: DEXAMETHASONE SOD PHOSPHATE 4 MG/1 ML VIAL IVPUSH SCH (10:09)
[2020-10-19] MEDS: ZINC SULFATE 220 MG CAPSULE (FP) PO SCH (10:09)
[2020-10-19] MEDS: DOCUSATE SODIUM 100 MG CAPSULE (FP) PO SCH (10:09)
[2020-10-19] MEDS: TIMOLOL 0.5% OPHTHALMIC SOL 5 ML BOTTLE OD SCH (10:10)
[2020-10-19] MEDS: ATORVASTATIN CA 80 MG TABLET (FP) PO SCH (21:27)
[2020-10-19] MEDS: TAMSULOSIN HCL 0.4 MG CAP PO SCH (21:27)
[2020-10-20] MEDS: INSULIN SLIDING SCALE (NOVOLOG) 1 VIAL SQ SCH ×4 (06:28→21:22)
[2020-10-20 07:45] LABS: HEMATOCRIT 39.1 % (35.4-49); HEMOGLOBIN 13.4 GM/dL (11.7-16.9); MCH 30.5 pg (25.7-33.7); MCHC 34.2 g/dl (32.0-35.9); MEAN CELL VOLUME 89.2 fl (80-96); MEAN PLT VOLUME 9.4 fl (7.5-11.1); PLATELET COUNT 113 K/MM3 (134-434); RBC 4.39 M/mm3 (4.00-5.60); WHITE BLOOD COUNT 7.5 K/mm3 (4.0-10.0)
[2020-10-20 07:57] LABS: POTASSIUM 4.1 mmol/L (3.5-5.1)
[2020-10-20 08:14] LABS: CALCIUM 8.7 mg/dL (8.5-10.1)
[2020-10-20 08:15] LABS: MAGNESIUM 2.3 mg/dL (1.8-2.4)
[2020-10-20 08:18] LABS: CREATININE 0.6 mg/dL (0.55-1.3); PHOSPHOROUS 3.1 mg/dL (2.5-4.9)
[2020-10-20] MEDS ORDERED: PT OWN MED DRAWER 7, Y5N ONE (09:10)
[2020-10-20] MEDS: ZINC SULFATE 220 MG CAPSULE (FP) PO SCH (09:35)
[2020-10-20] MEDS: ASPIRIN COATED 81 MG TABLET.EC PO SCH (09:35)
[2020-10-20] MEDS: PANTOPRAZOLE 40 MG TABLET PO SCH (09:35)
[2020-10-20] MEDS: GABAPENTIN 100 MG CAPSULE PO SCH ×2 (09:35→21:22)
[2020-10-20] MEDS: DOCUSATE SODIUM 100 MG CAPSULE (FP) PO SCH (09:35)
[2020-10-20] MEDS: ENOXAPARIN NA (PORCINE) 40 MG/0.4 ML DISP.SYRIN SQ SCH (09:35)
[2020-10-20] MEDS: ASCORBIC ACID 500 MG TABLET (FP) PO SCH ×2 (09:35→21:22)
[2020-10-20] MEDS: METOPROLOL TARTRATE 50 MG TABLET (FP) PO SCH ×2 (09:35→21:22)
[2020-10-20] MEDS: DEXAMETHASONE SOD PHOSPHATE 4 MG/1 ML VIAL IVPUSH SCH (09:36)
[2020-10-20] MEDS: TIMOLOL 0.5% OPHTHALMIC SOL 5 ML BOTTLE OD SCH (09:37)
[2020-10-20] MEDS: LISINOPRIL 5 MG TABLET PO SCH (13:39)
[2020-10-20] MEDS: TAMSULOSIN HCL 0.4 MG CAP PO SCH (21:22)
[2020-10-20] MEDS: ATORVASTATIN CA 80 MG TABLET (FP) PO SCH (21:22)
[2020-10-21] MEDS: INSULIN (LEVEMIR) 100 UNITS/ML UNITS SQ SCH (06:24)
[2020-10-21] MEDS: INSULIN SLIDING SCALE (NOVOLOG) 1 VIAL SQ SCH ×4 (06:25→22:23)
[2020-10-21 07:16] LABS: BASO % 0.2 % (0-2.0); EOS % 0.1 % (0-4.5); HEMATOCRIT 38.8 % (35.4-49); HEMOGLOBIN 13.2 GM/dL (11.7-16.9); MCH 30.4 pg (25.7-33.7); MEAN CELL VOLUME 89.3 fl (80-96); MEAN PLT VOLUME 9.8 fl (7.5-11.1); MONO % 13.1 % (3.8-10.2); NEUT % 72.6 % (42.8-82.8); PLATELET COUNT 108 K/MM3 (134-434); RBC 4.34 M/mm3 (4.00-5.60); RDW 13.9 % (11.9-15.9)
[2020-10-21 07:34] LABS: ALBUMIN 2.9 g/dl (3.4-5.0); BLOOD UREA NITROGEN 29.2 mg/dL (7-18); CALCIUM 8.2 mg/dL (8.5-10.1); MAGNESIUM 2.3 mg/dL (1.8-2.4)
[2020-10-21 07:37] LABS: CREATININE 0.7 mg/dL (0.55-1.3); PHOSPHOROUS 2.9 mg/dL (2.5-4.9)
[2020-10-21 07:38] LABS: BILIRUBIN,TOTAL 0.8 mg/dL (0.2-1); TOT PROT 5.6 g/dl (6.4-8.2)
[2020-10-21] MEDS ORDERED: PT OWN MED DRAWER 7, Y5N ONE (09:52)
[2020-10-21] MEDS: LISINOPRIL 5 MG TABLET PO SCH (09:59)
[2020-10-21] MEDS: PANTOPRAZOLE 40 MG TABLET PO SCH (10:00)
[2020-10-21] MEDS: ZINC SULFATE 220 MG CAPSULE (FP) PO SCH (10:00)
[2020-10-21] MEDS: DOCUSATE SODIUM 100 MG CAPSULE (FP) PO SCH (10:00)
[2020-10-21] MEDS: ENOXAPARIN NA (PORCINE) 40 MG/0.4 ML DISP.SYRIN SQ SCH (10:00)
[2020-10-21] MEDS: GABAPENTIN 100 MG CAPSULE PO SCH ×2 (10:00→22:23)
[2020-10-21] MEDS: DEXAMETHASONE SOD PHOSPHATE 4 MG/1 ML VIAL IVPUSH SCH (10:00)
[2020-10-21] MEDS: ASCORBIC ACID 500 MG TABLET (FP) PO SCH ×2 (10:00→22:23)
[2020-10-21] MEDS: ASPIRIN COATED 81 MG TABLET.EC PO SCH (10:00)
[2020-10-21] MEDS: METOPROLOL TARTRATE 50 MG TABLET (FP) PO SCH ×2 (10:03→22:22)
[2020-10-21] MEDS: TIMOLOL 0.5% OPHTHALMIC SOL 5 ML BOTTLE OD SCH (10:03)
[2020-10-21] MEDS: ATORVASTATIN CA 80 MG TABLET (FP) PO SCH (22:23)
[2020-10-21] MEDS: TAMSULOSIN HCL 0.4 MG CAP PO SCH (22:23)
[2020-10-22] MEDS: INSULIN SLIDING SCALE (NOVOLOG) 1 VIAL SQ SCH ×4 (06:12→21:34)
[2020-10-22] MEDS: INSULIN (LEVEMIR) 100 UNITS/ML UNITS SQ SCH (07:30)
[2020-10-22] MEDS: LISINOPRIL 5 MG TABLET PO SCH (10:21)
[2020-10-22] MEDS: ASPIRIN COATED 81 MG TABLET.EC PO SCH (10:21)
[2020-10-22] MEDS: ENOXAPARIN NA (PORCINE) 40 MG/0.4 ML DISP.SYRIN SQ SCH (10:21)
[2020-10-22] MEDS: PANTOPRAZOLE 40 MG TABLET PO SCH (10:21)
[2020-10-22] MEDS: DOCUSATE SODIUM 100 MG CAPSULE (FP) PO SCH (10:21)
[2020-10-22] MEDS: ZINC SULFATE 220 MG CAPSULE (FP) PO SCH (10:22)
[2020-10-22] MEDS: METOPROLOL TARTRATE 50 MG TABLET (FP) PO SCH ×2 (10:22→21:35)
[2020-10-22] MEDS: ASCORBIC ACID 500 MG TABLET (FP) PO SCH ×2 (10:22→21:35)
[2020-10-22] MEDS: GABAPENTIN 100 MG CAPSULE PO SCH ×2 (10:22→21:35)
[2020-10-22] MEDS: DEXAMETHASONE SOD PHOSPHATE 4 MG/1 ML VIAL IVPUSH SCH (10:22)
[2020-10-22] MEDS: TIMOLOL 0.5% OPHTHALMIC SOL 5 ML BOTTLE OD SCH (10:22)
[2020-10-22] MEDS ORDERED: ACETAMINOPHEN 325 MG TABLET (FP) PO PRN (21:12)
[2020-10-22] MEDS ORDERED: INSULIN (NOVOLOG) ASPART 100 UNITS/ML 10ML VIAL ONE (21:29)
[2020-10-22] MEDS: ATORVASTATIN CA 80 MG TABLET (FP) PO SCH (21:35)
[2020-10-23] MEDS: INSULIN (LEVEMIR) 100 UNITS/ML UNITS SQ SCH (06:51)
[2020-10-23] MEDS: INSULIN SLIDING SCALE (NOVOLOG) 1 VIAL SQ SCH ×4 (06:52→22:29)
[2020-10-23 09:22] LABS: HEMATOCRIT 40.9 % (35.4-49); HEMOGLOBIN 13.7 GM/dL (11.7-16.9); RBC 4.58 M/mm3 (4.00-5.60); WHITE BLOOD COUNT 6.6 K/mm3 (4.0-10.0)
[2020-10-23 09:23] LABS: BASO % 0.1 % (0-2.0); EOS % 0.1 % (0-4.5); LYMPH % 15.5 % (8-40); MCH 29.9 pg (25.7-33.7); MCHC 33.5 g/dl (32.0-35.9); MEAN CELL VOLUME 89.4 fl (80-96); MEAN PLT VOLUME 10.1 fl (7.5-11.1); MONO % 10.3 % (3.8-10.2); PLATELET COUNT 121 K/MM3 (134-434)
[2020-10-23 10:08] LABS: CALCIUM 8.3 mg/dL (8.5-10.1)
[2020-10-23 10:09] LABS: BLOOD UREA NITROGEN 22.3 mg/dL (7-18)
[2020-10-23 10:12] LABS: CREATININE 0.7 mg/dL (0.55-1.3); PHOSPHOROUS 2.4 mg/dL (2.5-4.9)
[2020-10-23 10:13] LABS: BILIRUBIN,TOTAL 0.8 mg/dL (0.2-1)
[2020-10-23 10:14] LABS: TOT PROT 6.1 g/dl (6.4-8.2)
[2020-10-23 10:15] LABS: POTASSIUM 3.7 mmol/L (3.5-5.1)
[2020-10-23] MEDS ORDERED: PT OWN MED DRAWER 7, Y5N ONE (10:43)
[2020-10-23] MEDS: DEXAMETHASONE 4 MG TABLET (FP) PO SCH (10:54)
[2020-10-23] MEDS: ASCORBIC ACID 500 MG TABLET (FP) PO SCH ×2 (10:55→22:20)
[2020-10-23] MEDS: ZINC SULFATE 220 MG CAPSULE (FP) PO SCH (10:55)
[2020-10-23] MEDS: METOPROLOL TARTRATE 50 MG TABLET (FP) PO SCH ×2 (10:55→22:20)
[2020-10-23] MEDS: DOCUSATE SODIUM 100 MG CAPSULE (FP) PO SCH (10:56)
[2020-10-23] MEDS: TAMSULOSIN HCL 0.4 MG CAP PO SCH (10:56)
[2020-10-23] MEDS: ASPIRIN COATED 81 MG TABLET.EC PO SCH (10:56)
[2020-10-23] MEDS: GABAPENTIN 100 MG CAPSULE PO SCH ×2 (10:57→22:20)
[2020-10-23] MEDS: PANTOPRAZOLE 40 MG TABLET PO SCH (10:57)
[2020-10-23] MEDS: ENOXAPARIN NA (PORCINE) 40 MG/0.4 ML DISP.SYRIN SQ SCH (10:57)
[2020-10-23] MEDS: LISINOPRIL 5 MG TABLET PO SCH (10:57)
[2020-10-23] MEDS: TIMOLOL 0.5% OPHTHALMIC SOL 5 ML BOTTLE OD SCH (11:06)
[2020-10-23] MEDS ORDERED: NAPH,MB-DB/K PH,MBDB POWDER PACKET PO ONE (15:58)
[2020-10-23] MEDS: ATORVASTATIN CA 80 MG TABLET (FP) PO SCH (22:20)
[2020-10-24] MEDS: INSULIN SLIDING SCALE (NOVOLOG) 1 VIAL SQ SCH ×4 (06:48→21:39)
[2020-10-24] MEDS: INSULIN (LEVEMIR) 100 UNITS/ML UNITS SQ SCH (06:48)
[2020-10-24 09:22] LABS: BASO % 0.1 % (0-2.0); EOS % 0.1 % (0-4.5); HEMATOCRIT 39.1 % (35.4-49); HEMOGLOBIN 13.3 GM/dL (11.7-16.9); LYMPH % 17.5 % (8-40); MCH 30.2 pg (25.7-33.7); MEAN CELL VOLUME 88.8 fl (80-96); MEAN PLT VOLUME 9.7 fl (7.5-11.1); MONO % 11.7 % (3.8-10.2); NEUT % 70.6 % (42.8-82.8); PLATELET COUNT 119 K/MM3 (134-434); RDW 13.8 % (11.9-15.9); WHITE BLOOD COUNT 5.2 K/mm3 (4.0-10.0)
[2020-10-24] MEDS: GABAPENTIN 100 MG CAPSULE PO SCH ×2 (09:43→21:33)
[2020-10-24] MEDS: ASPIRIN COATED 81 MG TABLET.EC PO SCH (09:43)
[2020-10-24] MEDS: ZINC SULFATE 220 MG CAPSULE (FP) PO SCH (09:43)
[2020-10-24] MEDS: LISINOPRIL 5 MG TABLET PO SCH (09:44)
[2020-10-24] MEDS: TAMSULOSIN HCL 0.4 MG CAP PO SCH (09:44)
[2020-10-24] MEDS: PANTOPRAZOLE 40 MG TABLET PO SCH (09:45)
[2020-10-24] MEDS: ASCORBIC ACID 500 MG TABLET (FP) PO SCH ×2 (09:45→21:33)
[2020-10-24] MEDS: ENOXAPARIN NA (PORCINE) 40 MG/0.4 ML DISP.SYRIN SQ SCH (09:45)
[2020-10-24] MEDS: METOPROLOL TARTRATE 50 MG TABLET (FP) PO SCH ×2 (09:46→21:33)
[2020-10-24] MEDS: DOCUSATE SODIUM 100 MG CAPSULE (FP) PO SCH (09:46)
[2020-10-24] MEDS: TIMOLOL 0.5% OPHTHALMIC SOL 5 ML BOTTLE OD SCH (09:47)
[2020-10-24] MEDS: DEXAMETHASONE 4 MG TABLET (FP) PO SCH (09:49)
[2020-10-24] MEDS ORDERED: PT OWN MED DRAWER 7, Y5N ONE ×2 (09:49→15:11)
[2020-10-24 09:50] LABS: POTASSIUM 3.8 mmol/L (3.5-5.1)
[2020-10-24 10:04] LABS: ALBUMIN 2.8 g/dl (3.4-5.0); BLOOD UREA NITROGEN 21.6 mg/dL (7-18); CALCIUM 8.3 mg/dL (8.5-10.1); MAGNESIUM 2.1 mg/dL (1.8-2.4)
[2020-10-24 10:07] LABS: CREATININE 0.4 mg/dL (0.55-1.3)
[2020-10-24 10:08] LABS: BILIRUBIN,TOTAL 0.8 mg/dL (0.2-1); TOT PROT 5.9 g/dl (6.4-8.2)
[2020-10-24] MEDS ORDERED: guaiFENesin/D-M SUGAR-FREE/ACLHOL-FREE 118 ML BOTTLE PO PRN (10:52)
[2020-10-24] MEDS ORDERED: ALBUTEROL SO4 HFA INHALER IH PRN (10:58)
[2020-10-24] MEDS: ATORVASTATIN CA 80 MG TABLET (FP) PO SCH (21:33)
[2020-10-25] MEDS: INSULIN SLIDING SCALE (NOVOLOG) 1 VIAL SQ SCH ×4 (06:01→21:21)
[2020-10-25] MEDS ORDERED: INSULIN (LEVEMIR) 100 UNITS/ML UNITS SQ SCH (07:00)
[2020-10-25 08:23] LABS: BASO % 0.1 % (0-2.0); EOS % 0.1 % (0-4.5); HEMATOCRIT 36.2 % (35.4-49); HEMOGLOBIN 13.1 GM/dL (11.7-16.9); LYMPH % 10.1 % (8-40); MCHC 36.3 g/dl (32.0-35.9); MEAN CELL VOLUME 88.2 fl (80-96); MEAN PLT VOLUME 9.5 fl (7.5-11.1); MONO % 6.5 % (3.8-10.2); NEUT % 83.2 % (42.8-82.8); PLATELET COUNT 115 K/MM3 (134-434); RBC 4.11 M/mm3 (4.00-5.60); RDW 13.6 % (11.9-15.9)
[2020-10-25] MEDS: TAMSULOSIN HCL 0.4 MG CAP PO SCH (08:32)
[2020-10-25 08:38] LABS: POTASSIUM 3.8 mmol/L (3.5-5.1)
[2020-10-25 08:50] LABS: CALCIUM 8.3 mg/dL (8.5-10.1)
[2020-10-25 08:52] LABS: CREATININE 0.6 mg/dL (0.55-1.3)
[2020-10-25] MEDS: ZINC SULFATE 220 MG CAPSULE (FP) PO SCH (09:00)
[2020-10-25] MEDS: PANTOPRAZOLE 40 MG TABLET PO SCH (09:00)
[2020-10-25] MEDS: ASPIRIN COATED 81 MG TABLET.EC PO SCH (09:00)
[2020-10-25] MEDS: ENOXAPARIN NA (PORCINE) 40 MG/0.4 ML DISP.SYRIN SQ SCH (09:00)
[2020-10-25] MEDS: ASCORBIC ACID 500 MG TABLET (FP) PO SCH ×2 (09:00→21:14)
[2020-10-25] MEDS: TIMOLOL 0.5% OPHTHALMIC SOL 5 ML BOTTLE OD SCH (09:01)
[2020-10-25] MEDS: DOCUSATE SODIUM 100 MG CAPSULE (FP) PO SCH (09:01)
[2020-10-25] MEDS: METOPROLOL TARTRATE 50 MG TABLET (FP) PO SCH ×2 (09:01→21:14)
[2020-10-25] MEDS: LISINOPRIL 5 MG TABLET PO SCH (09:01)
[2020-10-25] MEDS: GABAPENTIN 100 MG CAPSULE PO SCH ×2 (09:01→21:14)
[2020-10-25] MEDS: ATORVASTATIN CA 80 MG TABLET (FP) PO SCH (21:14)
[2020-10-25 21:23] VITALS: BP 145/68; PULSE 73; TEMP 98
[2020-10-26] MEDS ORDERED: INSULIN (LEVEMIR) 100 UNITS/ML UNITS SQ SCH (07:00)
== END 2020-10-25 22:00 | disposition home or self-care (01) | DRG 177 ==
LOC: JER 13:07 → JERBED 16:50 → J4S 10-18 17:55 → J6S 10-22 19:04
PROVIDERS: ADMIT Internal Medicine; ATTEND Internal Medicine
DX: U07.1 COVID-19 (principal); J12.82 Pneumonia due to coronavirus disease 2019; I21.A1 Myocardial infarction type 2; J98.11 Atelectasis; I10 Essential (primary) hypertension; E78.5 Hyperlipidemia, unspecified; Z79.4 Long term (current) use of insulin; I44.0 Atrioventricular block, first degree; I27.20 Pulmonary hypertension, unspecified; Z87.891 Personal history of nicotine dependence; N40.0 Benign prostatic hyperplasia without lower urinary tract symptoms; H40.9 Unspecified glaucoma; E11.65 Type 2 diabetes mellitus with hyperglycemia; I36.1 Nonrheumatic tricuspid (valve) insufficiency; D64.9 Anemia, unspecified; I34.0 Nonrheumatic mitral (valve) insufficiency; I35.0 Nonrheumatic aortic (valve) stenosis; I35.1 Nonrheumatic aortic (valve) insufficiency; E11.40 Type 2 diabetes mellitus with diabetic neuropathy, unspecified; I25.10 Atherosclerotic heart disease of native coronary artery without angina pectoris; Z98.61 Coronary angioplasty status; K21.9 Gastro-esophageal reflux disease without esophagitis
CPT/HCPCS: 36415; 71045-TC-FY; 71046-TC-FY; 71250-TC; 80048; 80053; 82550; 82728; 82962; 83615; 83735; 83880; 84100; 84484; 85025; 85027; 85379; 85610; 86140; 86769; 87040; 93005; 93010; 94761; 97116-GP; 97161-GP; 99285-25; C9803; U0003

== ENCOUNTER 2020-11-09 12:03 | Inpatient (IN) | payer OTHER ==
[2020-11-09 12:18] VITALS: BMI 25.6
[2020-11-09 13:27] LABS: VENOUS BASE EXCESS 2.5 mmol/L (-2-2); VENOUS O2 SATURATION 53.1 % (70-80); VENOUS PCO2 47.2 mmHg (38-52); VENOUS PH 7.394 (7.310-7.410)
[2020-11-09 13:34] LABS: BASO % 0.4 % (0-2.0); HEMATOCRIT 40.2 % (35.4-49); HEMOGLOBIN 13.5 GM/dL (11.7-16.9); LYMPH % 7.5 % (8-40); MCH 29.3 pg (25.7-33.7); MCHC 33.5 g/dl (32.0-35.9); MEAN CELL VOLUME 87.5 fl (80-96); MEAN PLT VOLUME 9.8 fl (7.5-11.1); MONO % 8.9 % (3.8-10.2); NEUT % 83.2 % (42.8-82.8); PLATELET COUNT 175 K/MM3 (134-434); RDW 13.7 % (11.9-15.9)
[2020-11-09 13:41] LABS: INR 1.13 (0.83-1.09); PROTHROMBIN TIME (PATIENT) 13.6 SEC (9.7-13.0)
[2020-11-09 14:08] LABS: CHLORIDE 96 mmol/L (98-107); POTASSIUM 4.5 mmol/L (3.5-5.1); SODIUM 134 mmol/L (136-145)
[2020-11-09 14:10] LABS: ANION GAP 7 MMOL/L (8-16); BLOOD UREA NITROGEN 19.2 mg/dL (7-18); CO2 31 mmol/L (21-32); LIPASE 39 U/L (73-393)
[2020-11-09 14:13] LABS: CREATININE 0.9 mg/dL (0.55-1.3); SGOT/AST 23 U/L (15-37); SGPT/ALT 30 U/L (13-61)
[2020-11-09 14:15] LABS: BILIRUBIN,TOTAL 1.1 mg/dL (0.2-1)
[2020-11-09 14:16] LABS: ALK PHOS 97 U/L (45-117)
[2020-11-09 14:17] LABS: TOT PROT 6.5 g/dl (6.4-8.2)
[2020-11-09 14:22] LABS: GLUCOSE,RANDOM 458 mg/dL (74-106)
[2020-11-09] MEDS ORDERED: ASPIRIN 325 MG TABLET PO ONE (14:31)
[2020-11-09] MEDS ORDERED: ASPIRIN 325 MG ENTERIC COATED TABLET (FP) ONE (14:39)
[2020-11-09] MEDS ORDERED: LACTATED RINGERS SOLUTION 1000 ML INFUS.BAG IV ONE (15:00)
[2020-11-09] MEDS ORDERED: INSULIN REGULAR HUMAN 100 UNITS/ML *VIAL SQ ONE (16:39)
[2020-11-09 18:18] LABS: EPI CELLS 7 /uL (0-25.1); HYALINE CASTS 0 /uL (0-3.1); PH,URINE 6.5 (5.0-8.0); URINE APPEARANCE CLEAR; URINE BACTERIA 22 /uL (0-1359); URINE BILIRUBIN NEGATIVE (NEGATIVE); URINE COLOR YELLOW; URINE GLUCOSE (UA) 3+ (NEGATIVE); URINE KETONE TRACE (NEGATIVE); URINE LEUK ESTERASE NEGATIVE (NEGATIVE); URINE NITRITE NEGATIVE (NEGATIVE); URINE PROTEIN 2+ (NEGATIVE); URINE RBC 5 /uL (0-23.9); URINE WBC 11 /uL (0-25.8)
[2020-11-09] MEDS ORDERED: DEXAMETHASONE SOD PHOSPHATE 10 MG/1 ML VIAL IVPUSH ONE (21:23)
[2020-11-09] MEDS ORDERED: DEXAMETHASONE SOD PHOSPHATE 10 MG/1 ML VIAL ONE (22:08)
[2020-11-10] MEDS: INSULIN (LEVEMIR) 100 UNITS/ML UNITS SQ SCH ×2 (06:46→21:41)
[2020-11-10] MEDS: INSULIN SLIDING SCALE (NOVOLOG) 1 VIAL SQ SCH ×3 (06:46→17:30)
[2020-11-10 08:01] LABS: POTASSIUM 4.1 mmol/L (3.5-5.1)
[2020-11-10 08:03] LABS: ALBUMIN 2.6 g/dl (3.4-5.0); CALCIUM 8.4 mg/dL (8.5-10.1)
[2020-11-10 08:04] LABS: BLOOD UREA NITROGEN 18.2 mg/dL (7-18); MAGNESIUM 1.7 mg/dL (1.8-2.4)
[2020-11-10 08:07] LABS: CREATININE 0.6 mg/dL (0.55-1.3); PHOSPHOROUS 3.3 mg/dL (2.5-4.9)
[2020-11-10 08:08] LABS: BILIRUBIN,TOTAL 0.9 mg/dL (0.2-1); TOT PROT 6.1 g/dl (6.4-8.2)
[2020-11-10 08:16] LABS: BASO % 0.3 % (0-2.0); HEMATOCRIT 36.4 % (35.4-49); HEMOGLOBIN 12.5 GM/dL (11.7-16.9); LYMPH % 8.5 % (8-40); MCH 29.9 pg (25.7-33.7); MCHC 34.3 g/dl (32.0-35.9); MEAN CELL VOLUME 87.3 fl (80-96); MEAN PLT VOLUME 9.8 fl (7.5-11.1); MONO % 5.2 % (3.8-10.2); PLATELET COUNT 148 K/MM3 (134-434); RBC 4.17 M/mm3 (4.00-5.60); RDW 14.1 % (11.9-15.9); WHITE BLOOD COUNT 9.6 K/mm3 (4.0-10.0)
[2020-11-10] MEDS ORDERED: PT OWN MED DRAWER 7, Y5N ONE ×2 (09:01→12:10)
[2020-11-10] MEDS: TAMSULOSIN HCL 0.4 MG CAP PO SCH (09:03)
[2020-11-10] MEDS: ASPIRIN COATED 81 MG TABLET.EC PO SCH (09:03)
[2020-11-10] MEDS: METOPROLOL TARTRATE 50 MG TABLET (FP) PO SCH ×2 (09:03→21:32)
[2020-11-10] MEDS: PANTOPRAZOLE 40 MG TABLET PO SCH (09:03)
[2020-11-10] MEDS: ENOXAPARIN NA (PORCINE) 40 MG/0.4 ML DISP.SYRIN SQ SCH (09:03)
[2020-11-10] MEDS: GABAPENTIN 100 MG CAPSULE PO SCH ×2 (09:03→21:32)
[2020-11-10] MEDS: DOCUSATE SODIUM 100 MG CAPSULE (FP) PO SCH (09:03)
[2020-11-10] MEDS: LISINOPRIL 5 MG TABLET PO SCH (09:03)
[2020-11-10] MEDS: TIMOLOL 0.5% OPHTHALMIC SOL 5 ML BOTTLE OD SCH (12:12)
[2020-11-10] MEDS ORDERED: ACETAMINOPHEN 1000 MG/100 ML VIAL (NON FORMULARY) IVPB ONE (20:25)
[2020-11-10] MEDS: ATORVASTATIN CA 80 MG TABLET (FP) PO SCH (21:32)
[2020-11-11] MEDS: INSULIN SLIDING SCALE (NOVOLOG) 1 VIAL SQ SCH ×3 (06:32→17:21)
[2020-11-11] MEDS: INSULIN (LEVEMIR) 100 UNITS/ML UNITS SQ SCH ×2 (06:32→21:13)
[2020-11-11 07:55] LABS: BASO % 0.2 % (0-2.0); EOS % 0.1 % (0-4.5); HEMATOCRIT 35.1 % (35.4-49); HEMOGLOBIN 11.8 GM/dL (11.7-16.9); LYMPH % 9.4 % (8-40); MCH 29.3 pg (25.7-33.7); MCHC 33.7 g/dl (32.0-35.9); MEAN CELL VOLUME 86.9 fl (80-96); NEUT % 80.3 % (42.8-82.8); PLATELET COUNT 145 K/MM3 (134-434); RBC 4.03 M/mm3 (4.00-5.60); RDW 13.9 % (11.9-15.9); WHITE BLOOD COUNT 12.4 K/mm3 (4.0-10.0)
[2020-11-11 08:15] LABS: POTASSIUM 3.6 mmol/L (3.5-5.1)
[2020-11-11 08:23] LABS: CALCIUM 8.7 mg/dL (8.5-10.1)
[2020-11-11 08:24] LABS: ALBUMIN 2.3 g/dl (3.4-5.0); BLOOD UREA NITROGEN 18.5 mg/dL (7-18); MAGNESIUM 1.9 mg/dL (1.8-2.4)
[2020-11-11 08:27] LABS: CREATININE 0.6 mg/dL (0.55-1.3)
[2020-11-11 08:28] LABS: BILIRUBIN,TOTAL 1.3 mg/dL (0.2-1); TOT PROT 5.8 g/dl (6.4-8.2)
[2020-11-11] MEDS: LISINOPRIL 5 MG TABLET PO SCH (09:29)
[2020-11-11] MEDS: DEXAMETHASONE SOD PHOSPHATE 4 MG/1 ML VIAL IVPUSH SCH (09:29)
[2020-11-11] MEDS: GABAPENTIN 100 MG CAPSULE PO SCH ×2 (09:29→21:08)
[2020-11-11] MEDS: METOPROLOL TARTRATE 50 MG TABLET (FP) PO SCH ×2 (09:29→21:07)
[2020-11-11] MEDS: TAMSULOSIN HCL 0.4 MG CAP PO SCH (09:29)
[2020-11-11] MEDS: PANTOPRAZOLE 40 MG TABLET PO SCH (09:29)
[2020-11-11] MEDS: DOCUSATE SODIUM 100 MG CAPSULE (FP) PO SCH (09:30)
[2020-11-11] MEDS: ASPIRIN COATED 81 MG TABLET.EC PO SCH (09:30)
[2020-11-11] MEDS: ENOXAPARIN NA (PORCINE) 40 MG/0.4 ML DISP.SYRIN SQ SCH (09:30)
[2020-11-11] MEDS: TIMOLOL 0.5% OPHTHALMIC SOL 5 ML BOTTLE OD SCH (09:36)
[2020-11-11] MEDS: ATORVASTATIN CA 80 MG TABLET (FP) PO SCH (21:07)
[2020-11-12] MEDS: INSULIN SLIDING SCALE (NOVOLOG) 1 VIAL SQ SCH ×3 (06:15→16:32)
[2020-11-12] MEDS: INSULIN (LEVEMIR) 100 UNITS/ML UNITS SQ SCH ×2 (06:15→22:21)
[2020-11-12 06:40] LABS: BASO % 0.1 % (0-2.0); HEMATOCRIT 34.5 % (35.4-49); HEMOGLOBIN 11.7 GM/dL (11.7-16.9); LYMPH % 8.4 % (8-40); MCH 29.4 pg (25.7-33.7); MEAN CELL VOLUME 86.7 fl (80-96); MEAN PLT VOLUME 9.7 fl (7.5-11.1); MONO % 11.6 % (3.8-10.2); NEUT % 79.9 % (42.8-82.8); PLATELET COUNT 161 K/MM3 (134-434); RBC 3.98 M/mm3 (4.00-5.60); WHITE BLOOD COUNT 13.2 K/mm3 (4.0-10.0)
[2020-11-12 07:03] LABS: POTASSIUM 3.8 mmol/L (3.5-5.1)
[2020-11-12 07:05] LABS: BLOOD UREA NITROGEN 18.2 mg/dL (7-18); CALCIUM 8.7 mg/dL (8.5-10.1)
[2020-11-12 07:06] LABS: MAGNESIUM 1.9 mg/dL (1.8-2.4)
[2020-11-12 07:08] LABS: ALBUMIN 2.3 g/dl (3.4-5.0)
[2020-11-12 07:09] LABS: CREATININE 0.5 mg/dL (0.55-1.3)
[2020-11-12 07:11] LABS: BILIRUBIN,TOTAL 0.7 mg/dL (0.2-1); TOT PROT 5.7 g/dl (6.4-8.2)
[2020-11-12] MEDS ORDERED: POTASSIUM CHLORIDE TABS 20 MEQ TABLET.ER (FP) PO ONE (07:42)
[2020-11-12] MEDS: DEXAMETHASONE SOD PHOSPHATE 4 MG/1 ML VIAL IVPUSH SCH (11:27)
[2020-11-12] MEDS: ENOXAPARIN NA (PORCINE) 40 MG/0.4 ML DISP.SYRIN SQ SCH (11:28)
[2020-11-12] MEDS: ASPIRIN COATED 81 MG TABLET.EC PO SCH (11:29)
[2020-11-12] MEDS: DOCUSATE SODIUM 100 MG CAPSULE (FP) PO SCH (11:29)
[2020-11-12] MEDS: TAMSULOSIN HCL 0.4 MG CAP PO SCH (11:29)
[2020-11-12] MEDS: GABAPENTIN 100 MG CAPSULE PO SCH ×2 (11:29→22:14)
[2020-11-12] MEDS: METOPROLOL TARTRATE 50 MG TABLET (FP) PO SCH ×2 (11:29→22:14)
[2020-11-12] MEDS: LISINOPRIL 5 MG TABLET PO SCH (11:29)
[2020-11-12] MEDS: PANTOPRAZOLE 40 MG TABLET PO SCH (11:29)
[2020-11-12] MEDS: TIMOLOL 0.5% OPHTHALMIC SOL 5 ML BOTTLE OD SCH (11:46)
[2020-11-12] MEDS: ATORVASTATIN CA 80 MG TABLET (FP) PO SCH (22:14)
[2020-11-13 06:06] VITALS: PULSE 64
[2020-11-13] MEDS: INSULIN (LEVEMIR) 100 UNITS/ML UNITS SQ SCH (06:25)
[2020-11-13] MEDS: INSULIN SLIDING SCALE (NOVOLOG) 1 VIAL SQ SCH (06:26)
[2020-11-13 07:23] LABS: BASO % 0.1 % (0-2.0); HEMATOCRIT 32.9 % (35.4-49); HEMOGLOBIN 11.5 GM/dL (11.7-16.9); LYMPH % 8.2 % (8-40); MCH 30.1 pg (25.7-33.7); MEAN CELL VOLUME 86.1 fl (80-96); MEAN PLT VOLUME 9.5 fl (7.5-11.1); MONO % 10.8 % (3.8-10.2); NEUT % 80.9 % (42.8-82.8); PLATELET COUNT 154 K/MM3 (134-434); RBC 3.81 M/mm3 (4.00-5.60); RDW 14.3 % (11.9-15.9); WHITE BLOOD COUNT 9.4 K/mm3 (4.0-10.0)
[2020-11-13 07:44] LABS: POTASSIUM 4.2 mmol/L (3.5-5.1)
[2020-11-13 07:56] LABS: ALBUMIN 2.2 g/dl (3.4-5.0); BLOOD UREA NITROGEN 22.8 mg/dL (7-18); CALCIUM 8.8 mg/dL (8.5-10.1); MAGNESIUM 2.2 mg/dL (1.8-2.4)
[2020-11-13 07:59] LABS: CREATININE 0.7 mg/dL (0.55-1.3)
[2020-11-13 08:01] LABS: BILIRUBIN,TOTAL 0.6 mg/dL (0.2-1); TOT PROT 5.8 g/dl (6.4-8.2)
[2020-11-13] MEDS: TAMSULOSIN HCL 0.4 MG CAP PO SCH (08:14)
[2020-11-13 09:25] VITALS: BP 172/62; TEMP 97.3
[2020-11-13] MEDS: LISINOPRIL 5 MG TABLET PO SCH (09:25)
[2020-11-13] MEDS: ASPIRIN COATED 81 MG TABLET.EC PO SCH (09:25)
[2020-11-13] MEDS: METOPROLOL TARTRATE 50 MG TABLET (FP) PO SCH (09:25)
[2020-11-13] MEDS: GABAPENTIN 100 MG CAPSULE PO SCH (09:25)
[2020-11-13] MEDS: PANTOPRAZOLE 40 MG TABLET PO SCH (09:25)
[2020-11-13] MEDS: DOCUSATE SODIUM 100 MG CAPSULE (FP) PO SCH (09:25)
[2020-11-13] MEDS: TIMOLOL 0.5% OPHTHALMIC SOL 5 ML BOTTLE OD SCH (09:25)
[2020-11-13] MEDS ORDERED: APIXABAN 2.5 MG TABLET PO SCH (10:00)
[2020-11-13] MEDS ORDERED: DEXAMETHASONE 4 MG TABLET (FP) PO SCH (10:00)
[2020-11-13] MEDS ORDERED: CEFUROXIME AXETIL 500 MG TABLET PO SCH (22:00)
== END 2020-11-13 11:30 | disposition home or self-care (01) | DRG 444 ==
LOC: JER 12:03 → JERBED 11-10 → J4S 11-10 03:18
PROVIDERS: ADMIT Internal Medicine; ATTEND Nurse Practitioner Acute Care
DX: K81.0 Acute cholecystitis (principal); U07.1 COVID-19; I21.4 Non-ST elevation (NSTEMI) myocardial infarction; J96.01 Acute respiratory failure with hypoxia; R10.11 Right upper quadrant pain; K81.1 Chronic cholecystitis; E11.65 Type 2 diabetes mellitus with hyperglycemia; I25.10 Atherosclerotic heart disease of native coronary artery without angina pectoris; K76.0 Fatty (change of) liver, not elsewhere classified; I10 Essential (primary) hypertension; Z95.5 Presence of coronary angioplasty implant and graft; I35.0 Nonrheumatic aortic (valve) stenosis; E78.5 Hyperlipidemia, unspecified; E11.42 Type 2 diabetes mellitus with diabetic polyneuropathy; E86.0 Dehydration
CPT/HCPCS: 36415; 71045-TC-FY; 71275-TC; 74177-TC; 76705-TC; 78226-TC; 80053; 81003; 82550; 82728; 82803; 82962; 83036; 83605; 83690; 83735; 84100; 84484; 85025; 85379; 85610; 85730; 86140; 86769; 86850; 86900; 86901; 87086; 87186; 93005; 93010; 93306-TC; 94761; 99285-25; A9537; C9803; J0131; J1100; Q9967; U0003

== ENCOUNTER 2020-11-15 08:01 | Inpatient (IN) | payer OTHER ==
[2020-11-15] MEDS ORDERED: ACETAMINOPHEN 1000 MG/100 ML VIAL (NON FORMULARY) IVPB ONE (09:01)
[2020-11-15] MEDS ORDERED: FAMOTIDINE 20 MG/50 ML IVPB 20 MG/50 ML MG IVPB ONE ×2 (09:18→09:47)
[2020-11-15 09:33] LABS: BASO % 0.4 % (0-2.0); EOS % 0.1 % (0-4.5); HEMATOCRIT 35.5 % (35.4-49); HEMOGLOBIN 11.9 GM/dL (11.7-16.9); LYMPH % 6.3 % (8-40); MCHC 33.4 g/dl (32.0-35.9); MEAN CELL VOLUME 86.7 fl (80-96); MONO % 11.7 % (3.8-10.2); NEUT % 81.5 % (42.8-82.8); PLATELET COUNT 178 K/MM3 (134-434); WHITE BLOOD COUNT 12.2 K/mm3 (4.0-10.0)
[2020-11-15 09:41] LABS: INR 1.13 (0.83-1.09); PROTHROMBIN TIME (PATIENT) 13.6 SEC (9.7-13.0)
[2020-11-15 09:44] LABS: ACTIVATED PTT 35.9 SECONDS (25.2-36.5)
[2020-11-15] MEDS ORDERED: ACETAMINOPHEN INJECTION 100 ML IVPB ONE (09:47)
[2020-11-15 09:56] LABS: POTASSIUM 3.8 mmol/L (3.5-5.1)
[2020-11-15 10:00] LABS: ALBUMIN 2.4 g/dl (3.4-5.0); CALCIUM 8.8 mg/dL (8.5-10.1)
[2020-11-15 10:01] LABS: BLOOD UREA NITROGEN 29.1 mg/dL (7-18)
[2020-11-15 10:03] LABS: CREATININE 0.7 mg/dL (0.55-1.3)
[2020-11-15 10:05] LABS: BILIRUBIN,TOTAL 0.6 mg/dL (0.2-1)
[2020-11-15 13:35] LABS: ANISOCYTOSIS 0; MACROCYTOSIS 0; PLATELET ESTIMATE NORMAL
[2020-11-15] MEDS ORDERED: CEFTRIAXONE 1,000 MG in DEXTROSE 5%-WATER - 50 ML IVPB ONE (15:55)
[2020-11-15] MEDS ORDERED: CEFTRIAXONE 1 GM/50 ML BAG ONE (16:49)
[2020-11-15] MEDS ORDERED: ALBUTEROL SO4 HFA INHALER IH PRN (23:23)
[2020-11-15] MEDS: METOPROLOL TARTRATE 25 MG TABLET (FP) PO SCH (23:35)
[2020-11-15] MEDS: ACETAMINOPHEN 325 MG TABLET (FP) PO PRN (23:35)
[2020-11-15] MEDS: GABAPENTIN 100 MG CAPSULE PO SCH (23:35)
[2020-11-15] MEDS: DOCUSATE SODIUM 100 MG CAPSULE (FP) PO SCH (23:36)
[2020-11-15] MEDS: APIXABAN 2.5 MG TABLET PO SCH (23:36)
[2020-11-15] MEDS: ATORVASTATIN CA 80 MG TABLET (FP) PO SCH (23:36)
[2020-11-16 00:34] VITALS: BMI 20.5
[2020-11-16] MEDS: LACTATED RINGERS SOLUTION 1,000 ML IV SCH ×2 (00:52→23:27)
[2020-11-16] MEDS ORDERED: PIPERACILLIN/TAZOBACTAM 3.375 GM VIAL IVPB ONE ×5 (02:04→21:54)
[2020-11-16] MEDS ORDERED: DEXTROSE 5%-WATER - 50 ML IVPB ONE ×5 (02:04→21:54)
[2020-11-16] MEDS: PIPERACILLIN/TAZOB 3.375 GM 3.375 GM in DEXTROSE 5%-WATER - 50 ML IVPB SCH ×4 (02:06→22:02)
[2020-11-16] MEDS: INSULIN SLIDING SCALE (NOVOLOG) 1 VIAL SQ SCH ×5 (06:23→22:09)
[2020-11-16] MEDS ORDERED: PIPERACILLIN/TAZOB 3.375 GM 3.375 GM in DEXTROSE 5%-WATER - 50 ML IVPB ONE (08:49)
[2020-11-16 09:00] LABS: BASO % 0.2 % (0-2.0); EOS % 1.3 % (0-4.5); LYMPH % 10.7 % (8-40); MCH 29.3 pg (25.7-33.7); MCHC 34.4 g/dl (32.0-35.9); MEAN CELL VOLUME 85.2 fl (80-96); MONO % 9.6 % (3.8-10.2); NEUT % 78.2 % (42.8-82.8); PLATELET COUNT 160 K/MM3 (134-434); RBC 3.75 M/mm3 (4.00-5.60); RDW 14.1 % (11.9-15.9); WHITE BLOOD COUNT 10.1 K/mm3 (4.0-10.0)
[2020-11-16 09:24] LABS: POTASSIUM 3.8 mmol/L (3.5-5.1)
[2020-11-16] MEDS: METOPROLOL TARTRATE 25 MG TABLET (FP) PO SCH ×2 (09:41→22:01)
[2020-11-16] MEDS: DEXAMETHASONE 4 MG TABLET (FP) PO SCH (09:41)
[2020-11-16] MEDS: PANTOPRAZOLE 40 MG TABLET PO SCH (09:45)
[2020-11-16] MEDS: LISINOPRIL 5 MG TABLET PO SCH (09:45)
[2020-11-16] MEDS: APIXABAN 2.5 MG TABLET PO SCH (09:45)
[2020-11-16] MEDS: TAMSULOSIN HCL 0.4 MG CAP PO SCH (09:45)
[2020-11-16] MEDS: GABAPENTIN 100 MG CAPSULE PO SCH ×2 (09:45→22:01)
[2020-11-16] MEDS: DOCUSATE SODIUM 100 MG CAPSULE (FP) PO SCH (09:46)
[2020-11-16] MEDS: ASPIRIN COATED 81 MG TABLET.EC PO SCH (09:46)
[2020-11-16] MEDS ORDERED: PIPERACILLIN/TAZOB 2.25 GM 2.25 GM in DEXTROSE 5%-WATER - 50 ML IVPB ONE (10:00)
[2020-11-16 10:48] LABS: CALCIUM 8.6 mg/dL (8.5-10.1)
[2020-11-16 10:49] LABS: BLOOD UREA NITROGEN 16.1 mg/dL (7-18); MAGNESIUM 1.9 mg/dL (1.8-2.4)
[2020-11-16 10:52] LABS: CREATININE 0.5 mg/dL (0.55-1.3)
[2020-11-16 10:53] LABS: PHOSPHOROUS 3.3 mg/dL (2.5-4.9)
[2020-11-16 10:54] LABS: TOT PROT 5.2 g/dl (6.4-8.2)
[2020-11-16 11:09] LABS: ALBUMIN 1.9 g/dl (3.4-5.0)
[2020-11-16] MEDS: TIMOLOL 0.5% OPHTHALMIC SOL 5 ML BOTTLE OD SCH (11:33)
[2020-11-16] MEDS ORDERED: INSULIN (NOVOLOG) ASPART 100 UNITS/ML 10ML VIAL ONE ×2 (16:31→19:35)
[2020-11-16] MEDS ORDERED: INSULIN (LEVEMIR) 100 UNITS/ML UNITS SQ SCH (22:00)
[2020-11-16] MEDS: ATORVASTATIN CA 80 MG TABLET (FP) PO SCH (22:01)
[2020-11-17] MEDS ORDERED: PIPERACILLIN/TAZOBACTAM 3.375 GM VIAL IVPB ONE ×5 (04:20→21:59)
[2020-11-17] MEDS ORDERED: DEXTROSE 5%-WATER - 50 ML IVPB ONE ×4 (04:20→22:00)
[2020-11-17] MEDS: PIPERACILLIN/TAZOB 3.375 GM 3.375 GM in DEXTROSE 5%-WATER - 50 ML IVPB SCH ×4 (04:34→22:10)
[2020-11-17] MEDS: INSULIN SLIDING SCALE (NOVOLOG) 1 VIAL SQ SCH ×4 (06:47→22:11)
[2020-11-17 07:30] LABS: BASO % 0.2 % (0-2.0); EOS % 0.2 % (0-4.5); HEMOGLOBIN 10.8 GM/dL (11.7-16.9); LYMPH % 11.6 % (8-40); MCH 29.2 pg (25.7-33.7); MCHC 33.8 g/dl (32.0-35.9); MEAN CELL VOLUME 86.3 fl (80-96); MEAN PLT VOLUME 9.5 fl (7.5-11.1); MONO % 6.1 % (3.8-10.2); NEUT % 81.9 % (42.8-82.8); PLATELET COUNT 171 K/MM3 (134-434); RDW 14.1 % (11.9-15.9); WHITE BLOOD COUNT 8.8 K/mm3 (4.0-10.0)
[2020-11-17 07:49] LABS: INR 1.21 (0.83-1.09); PROTHROMBIN TIME (PATIENT) 14.8 SEC (9.7-13.0)
[2020-11-17 07:58] LABS: ALBUMIN 1.8 g/dl (3.4-5.0); BLOOD UREA NITROGEN 17.2 mg/dL (7-18); CALCIUM 8.4 mg/dL (8.5-10.1); MAGNESIUM 1.8 mg/dL (1.8-2.4)
[2020-11-17 08:01] LABS: CREATININE 0.5 mg/dL (0.55-1.3)
[2020-11-17 08:02] LABS: BILIRUBIN,TOTAL 0.5 mg/dL (0.2-1); TOT PROT 5.1 g/dl (6.4-8.2)
[2020-11-17] MEDS: TAMSULOSIN HCL 0.4 MG CAP PO SCH (08:14)
[2020-11-17] MEDS: LISINOPRIL 5 MG TABLET PO SCH ×2 (08:14→10:15)
[2020-11-17] MEDS: METOPROLOL TARTRATE 25 MG TABLET (FP) PO SCH ×3 (08:14→22:11)
[2020-11-17] MEDS: PANTOPRAZOLE 40 MG TABLET PO SCH (10:14)
[2020-11-17] MEDS: DEXAMETHASONE 4 MG TABLET (FP) PO SCH (10:14)
[2020-11-17] MEDS: DOCUSATE SODIUM 100 MG CAPSULE (FP) PO SCH (10:14)
[2020-11-17] MEDS: GABAPENTIN 100 MG CAPSULE PO SCH ×2 (10:14→22:11)
[2020-11-17] MEDS ORDERED: LISINOPRIL 10 MG TABLET PO SCH (10:58)
[2020-11-17] MEDS ORDERED: LISINOPRIL 5 MG TABLET PO ONE (10:58)
[2020-11-17] MEDS: TIMOLOL 0.5% OPHTHALMIC SOL 5 ML BOTTLE OD SCH (11:22)
[2020-11-17] MEDS ORDERED: ENOXAPARIN NA (PORCINE) 40 MG/0.4 ML DISP.SYRIN SQ ONE (11:23)
[2020-11-17] MEDS: ATORVASTATIN CA 80 MG TABLET (FP) PO SCH (22:11)
[2020-11-17] MEDS: INSULIN (LEVEMIR) 100 UNITS/ML UNITS SQ SCH (22:12)
[2020-11-18] MEDS ORDERED: DEXTROSE 5%-WATER - 50 ML IVPB ONE ×4 (02:05→21:37)
[2020-11-18] MEDS ORDERED: PIPERACILLIN/TAZOBACTAM 3.375 GM VIAL IVPB ONE ×4 (02:05→21:36)
[2020-11-18] MEDS: PIPERACILLIN/TAZOB 3.375 GM 3.375 GM in DEXTROSE 5%-WATER - 50 ML IVPB SCH ×4 (02:21→21:59)
[2020-11-18] MEDS ORDERED: METOPROLOL TARTRATE 50 MG TABLET (FP) PO ONE (06:03)
[2020-11-18] MEDS ORDERED: DEXTROSE 50%-WATER - 25 GM/50 ML VIAL IVPUSH ONE (06:15)
[2020-11-18] MEDS ORDERED: DEXTROSE 50%-WATER 25 GM/50 ML DISP.SYRIN ONE (06:26)
[2020-11-18] MEDS ORDERED: DEXTROSE 50%-WATER - 25 GM/50 ML VIAL ONE (06:26)
[2020-11-18] MEDS: INSULIN (LEVEMIR) 100 UNITS/ML UNITS SQ SCH ×2 (06:40→22:01)
[2020-11-18] MEDS: INSULIN SLIDING SCALE (NOVOLOG) 1 VIAL SQ SCH ×4 (06:40→22:02)
[2020-11-18 09:04] LABS: INR 1.01 (0.83-1.09); PROTHROMBIN TIME (PATIENT) 12.4 SEC (9.7-13.0)
[2020-11-18] MEDS: PANTOPRAZOLE 40 MG TABLET PO SCH (09:52)
[2020-11-18] MEDS: TAMSULOSIN HCL 0.4 MG CAP PO SCH (09:52)
[2020-11-18] MEDS: GABAPENTIN 100 MG CAPSULE PO SCH ×2 (09:52→21:59)
[2020-11-18] MEDS: DOCUSATE SODIUM 100 MG CAPSULE (FP) PO SCH (09:52)
[2020-11-18] MEDS: METOPROLOL TARTRATE 25 MG TABLET (FP) PO SCH ×2 (09:52→21:59)
[2020-11-18] MEDS: TIMOLOL 0.5% OPHTHALMIC SOL 5 ML BOTTLE OD SCH (09:53)
[2020-11-18] MEDS: LISINOPRIL 20 MG TABLET PO SCH (09:53)
[2020-11-18] MEDS ORDERED: ENOXAPARIN NA (PORCINE) 40 MG/0.4 ML DISP.SYRIN SQ SCH (10:00)
[2020-11-18 10:47] LABS: BASO % 0.3 % (0-2.0); EOS % 0.6 % (0-4.5); HEMOGLOBIN 11.6 GM/dL (11.7-16.9); LYMPH % 12.4 % (8-40); MCH 29.7 pg (25.7-33.7); MEAN CELL VOLUME 84.7 fl (80-96); MEAN PLT VOLUME 9.5 fl (7.5-11.1); MONO % 7.8 % (3.8-10.2); NEUT % 78.9 % (42.8-82.8); PLATELET COUNT 200 K/MM3 (134-434); RBC 3.89 M/mm3 (4.00-5.60); RDW 14.1 % (11.9-15.9); WHITE BLOOD COUNT 9.3 K/mm3 (4.0-10.0)
[2020-11-18 10:51] LABS: POTASSIUM 3.5 mmol/L (3.5-5.1)
[2020-11-18 10:53] LABS: CALCIUM 8.6 mg/dL (8.5-10.1)
[2020-11-18 10:57] LABS: CREATININE 0.6 mg/dL (0.55-1.3)
[2020-11-18 10:58] LABS: BILIRUBIN,TOTAL 0.5 mg/dL (0.2-1); TOT PROT 5.4 g/dl (6.4-8.2)
[2020-11-18] MEDS ORDERED: ENOXAPARIN NA (PORCINE) 40 MG/0.4 ML DISP.SYRIN SQ ONE (12:26)
[2020-11-18] MEDS: ACETAMINOPHEN 325 MG TABLET (FP) PO PRN (21:59)
[2020-11-18] MEDS: ATORVASTATIN CA 80 MG TABLET (FP) PO SCH (21:59)
[2020-11-19] MEDS ORDERED: DEXTROSE 5%-WATER - 50 ML IVPB ONE ×4 (02:13→20:45)
[2020-11-19] MEDS ORDERED: PIPERACILLIN/TAZOBACTAM 3.375 GM VIAL IVPB ONE ×4 (02:13→20:44)
[2020-11-19] MEDS: PIPERACILLIN/TAZOB 3.375 GM 3.375 GM in DEXTROSE 5%-WATER - 50 ML IVPB SCH ×4 (02:45→20:56)
[2020-11-19] MEDS: INSULIN SLIDING SCALE (NOVOLOG) 1 VIAL SQ SCH ×4 (06:14→21:07)
[2020-11-19] MEDS: INSULIN (LEVEMIR) 100 UNITS/ML UNITS SQ SCH ×3 (06:15→21:06)
[2020-11-19 09:31] LABS: CHLORIDE 103 mmol/L (98-107); POTASSIUM 3.6 mmol/L (3.5-5.1); SODIUM 141 mmol/L (136-145)
[2020-11-19 09:33] LABS: BASO % 0.2 % (0-2.0)
[2020-11-19] MEDS: PANTOPRAZOLE 40 MG TABLET PO SCH (09:33)
[2020-11-19] MEDS: METOPROLOL TARTRATE 25 MG TABLET (FP) PO SCH ×2 (09:33→21:05)
[2020-11-19] MEDS: LISINOPRIL 20 MG TABLET PO SCH (09:33)
[2020-11-19] MEDS: GABAPENTIN 100 MG CAPSULE PO SCH ×2 (09:33→21:05)
[2020-11-19] MEDS: TAMSULOSIN HCL 0.4 MG CAP PO SCH (09:34)
[2020-11-19] MEDS: DOCUSATE SODIUM 100 MG CAPSULE (FP) PO SCH (09:34)
[2020-11-19] MEDS: TIMOLOL 0.5% OPHTHALMIC SOL 5 ML BOTTLE OD SCH (09:34)
[2020-11-19] MEDS: ENOXAPARIN NA (PORCINE) 40 MG/0.4 ML DISP.SYRIN SQ SCH (09:34)
[2020-11-19 09:44] LABS: HEMATOCRIT 33.6 % (35.4-49); HEMOGLOBIN 11.5 GM/dL (11.7-16.9); LYMPH % 10.9 % (8-40); MCH 29.1 pg (25.7-33.7); MCHC 34.3 g/dl (32.0-35.9); MEAN CELL VOLUME 84.8 fl (80-96); MONO % 8.8 % (3.8-10.2); NEUT % 79.1 % (42.8-82.8); PLATELET COUNT 189 K/MM3 (134-434); RBC 3.97 M/mm3 (4.00-5.60); WHITE BLOOD COUNT 7.7 K/mm3 (4.0-10.0)
[2020-11-19 10:08] LABS: ALK PHOS 106 U/L (45-117)
[2020-11-19 10:12] LABS: CALCIUM 8.5 mg/dL (8.5-10.1)
[2020-11-19 10:13] LABS: ALBUMIN 1.9 g/dl (3.4-5.0); ANION GAP 7 MMOL/L (8-16); BLOOD UREA NITROGEN 14.3 mg/dL (7-18); CO2 31 mmol/L (21-32); TOT PROT 5.2 g/dl (6.4-8.2)
[2020-11-19 10:15] LABS: CREATININE 0.6 mg/dL (0.55-1.3); SGOT/AST 20 U/L (15-37); SGPT/ALT 25 U/L (13-61)
[2020-11-19 10:17] LABS: GLUCOSE,RANDOM 35 mg/dL (74-106)
[2020-11-19 10:19] LABS: BILIRUBIN,TOTAL 0.4 mg/dL (0.2-1)
[2020-11-19 10:29] LABS: MAGNESIUM 1.9 mg/dL (1.8-2.4)
[2020-11-19] MEDS: ACETAMINOPHEN 325 MG TABLET (FP) PO PRN ×2 (14:46→20:49)
[2020-11-19] MEDS ORDERED: amLODIPine BESYLATE 2.5 MG TABLET (FP) PO SCH (16:15)
[2020-11-19] MEDS: ATORVASTATIN CA 80 MG TABLET (FP) PO SCH (21:05)
[2020-11-20] MEDS ORDERED: PIPERACILLIN/TAZOBACTAM 3.375 GM VIAL IVPB ONE ×4 (03:54→21:11)
[2020-11-20] MEDS ORDERED: DEXTROSE 5%-WATER - 50 ML IVPB ONE ×4 (03:54→21:11)
[2020-11-20] MEDS: PIPERACILLIN/TAZOB 3.375 GM 3.375 GM in DEXTROSE 5%-WATER - 50 ML IVPB SCH ×4 (03:57→21:14)
[2020-11-20] MEDS: DEXTROSE 5%-0.45% SALINE 1,000 ML IV SCH (03:57)
[2020-11-20] MEDS: INSULIN (LEVEMIR) 100 UNITS/ML UNITS SQ SCH (06:57)
[2020-11-20] MEDS: INSULIN SLIDING SCALE (NOVOLOG) 1 VIAL SQ SCH ×4 (06:58→21:19)
[2020-11-20 09:18] LABS: BASO % 0.6 % (0-2.0); EOS % 0.9 % (0-4.5); HEMATOCRIT 36.5 % (35.4-49); HEMOGLOBIN 12.3 GM/dL (11.7-16.9); LYMPH % 12.3 % (8-40); MCHC 33.7 g/dl (32.0-35.9); MEAN PLT VOLUME 8.4 fl (7.5-11.1); MONO % 9.1 % (3.8-10.2); NEUT % 77.1 % (42.8-82.8); PLATELET COUNT 200 K/MM3 (134-434); RBC 4.25 M/mm3 (4.00-5.60); RDW 14.2 % (11.9-15.9); WHITE BLOOD COUNT 7.4 K/mm3 (4.0-10.0)
[2020-11-20 09:44] LABS: POTASSIUM 3.5 mmol/L (3.5-5.1)
[2020-11-20 09:54] LABS: BILIRUBIN,TOTAL 0.7 mg/dL (0.2-1); TOT PROT 6.2 g/dl (6.4-8.2)
[2020-11-20 09:58] LABS: BLOOD UREA NITROGEN 8.4 mg/dL (7-18)
[2020-11-20 10:01] LABS: CREATININE 0.6 mg/dL (0.55-1.3)
[2020-11-20 10:02] LABS: CALCIUM 8.9 mg/dL (8.5-10.1)
[2020-11-20 10:03] LABS: MAGNESIUM 1.9 mg/dL (1.8-2.4)
[2020-11-20 10:08] LABS: ALBUMIN 2.3 g/dl (3.4-5.0)
[2020-11-20 10:18] LABS: INR 0.96 (0.83-1.09); PROTHROMBIN TIME (PATIENT) 11.8 SEC (9.7-13.0)
[2020-11-20] MEDS: DOCUSATE SODIUM 100 MG CAPSULE (FP) PO SCH (10:23)
[2020-11-20] MEDS: TAMSULOSIN HCL 0.4 MG CAP PO SCH (10:23)
[2020-11-20] MEDS: LISINOPRIL 20 MG TABLET PO SCH (10:43)
[2020-11-20] MEDS: METOPROLOL TARTRATE 25 MG TABLET (FP) PO SCH ×2 (10:43→21:16)
[2020-11-20] MEDS: PANTOPRAZOLE 40 MG TABLET PO SCH (10:54)
[2020-11-20] MEDS: GABAPENTIN 100 MG CAPSULE PO SCH ×2 (10:54→21:15)
[2020-11-20] MEDS ORDERED: ACETAMINOPHEN 1000 MG/100 ML VIAL (NON FORMULARY) IVPB ONE (11:30)
[2020-11-20] MEDS ORDERED: PT OWN MED DRAWER 7, Y5N ONE (16:18)
[2020-11-20] MEDS: TIMOLOL 0.5% OPHTHALMIC SOL 5 ML BOTTLE OD SCH (16:36)
[2020-11-20] MEDS: MORPHINE SULFATE 2 MG/ML VIAL IVPUSH PRN ×2 (16:37→21:21)
[2020-11-20] MEDS: ACETAMINOPHEN 325 MG TABLET (FP) PO PRN (19:06)
[2020-11-20] MEDS: ATORVASTATIN CA 80 MG TABLET (FP) PO SCH (21:15)
[2020-11-21] MEDS: DEXTROSE 5%-0.45% SALINE 1,000 ML IV SCH (00:16)
[2020-11-21] MEDS ORDERED: PIPERACILLIN/TAZOBACTAM 3.375 GM VIAL IVPB ONE ×4 (01:58→20:39)
[2020-11-21] MEDS ORDERED: DEXTROSE 5%-WATER - 50 ML IVPB ONE ×4 (01:58→20:39)
[2020-11-21] MEDS: PIPERACILLIN/TAZOB 3.375 GM 3.375 GM in DEXTROSE 5%-WATER - 50 ML IVPB SCH ×4 (02:05→20:44)
[2020-11-21] MEDS: ACETAMINOPHEN 325 MG TABLET (FP) PO PRN ×2 (03:56→22:18)
[2020-11-21] MEDS: INSULIN SLIDING SCALE (NOVOLOG) 1 VIAL SQ SCH ×4 (06:20→22:20)
[2020-11-21] MEDS: INSULIN (LEVEMIR) 100 UNITS/ML UNITS SQ SCH (06:21)
[2020-11-21 08:47] LABS: BASO % 0.3 % (0-2.0); EOS % 0.2 % (0-4.5); HEMOGLOBIN 9.4 GM/dL (11.7-16.9); LYMPH % 12.6 % (8-40); MCH 28.6 pg (25.7-33.7); MCHC 33.5 g/dl (32.0-35.9); MEAN CELL VOLUME 85.3 fl (80-96); MEAN PLT VOLUME 9.1 fl (7.5-11.1); NEUT % 78.9 % (42.8-82.8); PLATELET COUNT 192 K/MM3 (134-434); RBC 3.28 M/mm3 (4.00-5.60); RDW 14.2 % (11.9-15.9); WHITE BLOOD COUNT 12.5 K/mm3 (4.0-10.0)
[2020-11-21 09:03] LABS: POTASSIUM 3.7 mmol/L (3.5-5.1)
[2020-11-21 09:06] LABS: CALCIUM 8.5 mg/dL (8.5-10.1)
[2020-11-21 09:07] LABS: BLOOD UREA NITROGEN 16.6 mg/dL (7-18); MAGNESIUM 2.2 mg/dL (1.8-2.4)
[2020-11-21 09:10] LABS: ALBUMIN 1.8 g/dl (3.4-5.0); CREATININE 0.9 mg/dL (0.55-1.3)
[2020-11-21 09:11] LABS: BILIRUBIN,TOTAL 0.7 mg/dL (0.2-1)
[2020-11-21] MEDS: PANTOPRAZOLE 40 MG TABLET PO SCH (10:13)
[2020-11-21] MEDS: TAMSULOSIN HCL 0.4 MG CAP PO SCH (10:13)
[2020-11-21] MEDS: DOCUSATE SODIUM 100 MG CAPSULE (FP) PO SCH (10:13)
[2020-11-21] MEDS: GABAPENTIN 100 MG CAPSULE PO SCH ×2 (10:13→22:19)
[2020-11-21] MEDS: TIMOLOL 0.5% OPHTHALMIC SOL 5 ML BOTTLE OD SCH (10:14)
[2020-11-21] MEDS: ENOXAPARIN NA (PORCINE) 40 MG/0.4 ML DISP.SYRIN SQ SCH (10:14)
[2020-11-21] MEDS: METOPROLOL TARTRATE 25 MG TABLET (FP) PO SCH ×2 (10:14→22:20)
[2020-11-21] MEDS: LISINOPRIL 20 MG TABLET PO SCH (10:14)
[2020-11-21] MEDS: MORPHINE SULFATE 2 MG/ML VIAL IVPUSH PRN ×3 (10:23→20:44)
[2020-11-21 16:24] LABS: INR 1.03 (0.83-1.09); PROTHROMBIN TIME (PATIENT) 12.5 SEC (9.7-13.0)
[2020-11-21 16:27] LABS: ACTIVATED PTT 36.4 SECONDS (25.2-36.5)
[2020-11-21] MEDS: ATORVASTATIN CA 80 MG TABLET (FP) PO SCH (22:20)
[2020-11-22] MEDS ORDERED: PIPERACILLIN/TAZOBACTAM 3.375 GM VIAL IVPB ONE ×2 (00:57→09:29)
[2020-11-22] MEDS ORDERED: DEXTROSE 5%-WATER - 50 ML IVPB ONE ×2 (00:57→09:30)
[2020-11-22] MEDS: PIPERACILLIN/TAZOB 3.375 GM 3.375 GM in DEXTROSE 5%-WATER - 50 ML IVPB SCH ×2 (02:05→09:34)
[2020-11-22] MEDS: MORPHINE SULFATE 2 MG/ML VIAL IVPUSH PRN ×3 (02:05→23:31)
[2020-11-22] MEDS: ACETAMINOPHEN 325 MG TABLET (FP) PO PRN (06:18)
[2020-11-22] MEDS: INSULIN SLIDING SCALE (NOVOLOG) 1 VIAL SQ SCH ×4 (06:19→23:33)
[2020-11-22] MEDS: INSULIN (LEVEMIR) 100 UNITS/ML UNITS SQ SCH (06:20)
[2020-11-22 09:19] LABS: BASO % 0.8 % (0-2.0); EOS % 1.5 % (0-4.5); HEMATOCRIT 21.9 % (35.4-49); HEMOGLOBIN 7.6 GM/dL (11.7-16.9); MCH 29.4 pg (25.7-33.7); MCHC 34.5 g/dl (32.0-35.9); MEAN CELL VOLUME 85.2 fl (80-96); MEAN PLT VOLUME 8.7 fl (7.5-11.1); MONO % 12.1 % (3.8-10.2); NEUT % 63.6 % (42.8-82.8); PLATELET COUNT 152 K/MM3 (134-434); RBC 2.57 M/mm3 (4.00-5.60); RDW 14.2 % (11.9-15.9); WHITE BLOOD COUNT 5.5 K/mm3 (4.0-10.0)
[2020-11-22 09:32] LABS: POTASSIUM 3.4 mmol/L (3.5-5.1)
[2020-11-22] MEDS: GABAPENTIN 100 MG CAPSULE PO SCH ×2 (09:34→23:31)
[2020-11-22] MEDS: DOCUSATE SODIUM 100 MG CAPSULE (FP) PO SCH (09:34)
[2020-11-22] MEDS: TAMSULOSIN HCL 0.4 MG CAP PO SCH (09:34)
[2020-11-22] MEDS: PANTOPRAZOLE 40 MG TABLET PO SCH (09:34)
[2020-11-22] MEDS: ENOXAPARIN NA (PORCINE) 40 MG/0.4 ML DISP.SYRIN SQ SCH (09:34)
[2020-11-22 09:35] LABS: ALBUMIN 1.7 g/dl (3.4-5.0); MAGNESIUM 2.2 mg/dL (1.8-2.4)
[2020-11-22] MEDS: LISINOPRIL 20 MG TABLET PO SCH (09:35)
[2020-11-22] MEDS: TIMOLOL 0.5% OPHTHALMIC SOL 5 ML BOTTLE OD SCH (09:35)
[2020-11-22] MEDS: METOPROLOL TARTRATE 25 MG TABLET (FP) PO SCH ×2 (09:35→23:31)
[2020-11-22 09:36] LABS: BLOOD UREA NITROGEN 27.9 mg/dL (7-18)
[2020-11-22 09:38] LABS: CREATININE 1.4 mg/dL (0.55-1.3)
[2020-11-22 09:39] LABS: BILIRUBIN,TOTAL 0.4 mg/dL (0.2-1); TOT PROT 4.8 g/dl (6.4-8.2)
[2020-11-22 20:37] LABS: BASO % 1.8 % (0-2.0); EOS % 1.3 % (0-4.5); HEMATOCRIT 28.8 % (35.4-49); HEMOGLOBIN 9.7 GM/dL (11.7-16.9); LYMPH % 20.4 % (8-40); MCH 28.9 pg (25.7-33.7); MCHC 33.6 g/dl (32.0-35.9); MEAN PLT VOLUME 8.8 fl (7.5-11.1); MONO % 9.7 % (3.8-10.2); NEUT % 66.8 % (42.8-82.8); PLATELET COUNT 211 K/MM3 (134-434); RBC 3.35 M/mm3 (4.00-5.60); RDW 14.4 % (11.9-15.9); WHITE BLOOD COUNT 8.2 K/mm3 (4.0-10.0)
[2020-11-22] MEDS: ATORVASTATIN CA 80 MG TABLET (FP) PO SCH (23:31)
[2020-11-23] MEDS: MORPHINE SULFATE 2 MG/ML VIAL IVPUSH PRN ×2 (06:54→22:33)
[2020-11-23] MEDS: INSULIN (LEVEMIR) 100 UNITS/ML UNITS SQ SCH (06:54)
[2020-11-23] MEDS: INSULIN SLIDING SCALE (NOVOLOG) 1 VIAL SQ SCH ×4 (06:54→22:40)
[2020-11-23] MEDS: LISINOPRIL 20 MG TABLET PO SCH (09:14)
[2020-11-23] MEDS: ENOXAPARIN NA (PORCINE) 40 MG/0.4 ML DISP.SYRIN SQ SCH ×2 (09:14→13:07)
[2020-11-23] MEDS: GABAPENTIN 100 MG CAPSULE PO SCH ×2 (09:14→22:37)
[2020-11-23] MEDS: TIMOLOL 0.5% OPHTHALMIC SOL 5 ML BOTTLE OD SCH (09:14)
[2020-11-23] MEDS: ASPIRIN COATED 81 MG TABLET.EC PO SCH (09:14)
[2020-11-23] MEDS: PANTOPRAZOLE 40 MG TABLET PO SCH (09:14)
[2020-11-23] MEDS: TAMSULOSIN HCL 0.4 MG CAP PO SCH (09:14)
[2020-11-23] MEDS: METOPROLOL TARTRATE 25 MG TABLET (FP) PO SCH ×2 (09:14→22:37)
[2020-11-23] MEDS: DOCUSATE SODIUM 100 MG CAPSULE (FP) PO SCH (09:14)
[2020-11-23 09:27] LABS: BASO % 0.7 % (0-2.0); EOS % 1.3 % (0-4.5); HEMATOCRIT 22.2 % (35.4-49); HEMOGLOBIN 7.5 GM/dL (11.7-16.9); LYMPH % 23.1 % (8-40); MCH 28.8 pg (25.7-33.7); MCHC 33.8 g/dl (32.0-35.9); MEAN CELL VOLUME 85.2 fl (80-96); MEAN PLT VOLUME 8.5 fl (7.5-11.1); MONO % 13.3 % (3.8-10.2); NEUT % 61.6 % (42.8-82.8); PLATELET COUNT 166 K/MM3 (134-434); RBC 2.61 M/mm3 (4.00-5.60); RDW 14.1 % (11.9-15.9); WHITE BLOOD COUNT 4.2 K/mm3 (4.0-10.0)
[2020-11-23 09:31] LABS: POTASSIUM 3.8 mmol/L (3.5-5.1)
[2020-11-23 09:39] LABS: ALBUMIN 1.8 g/dl (3.4-5.0); BLOOD UREA NITROGEN 24.2 mg/dL (7-18); CALCIUM 8.4 mg/dL (8.5-10.1)
[2020-11-23 09:40] LABS: MAGNESIUM 2.1 mg/dL (1.8-2.4)
[2020-11-23 09:41] LABS: CREATININE 0.6 mg/dL (0.55-1.3)
[2020-11-23 09:42] LABS: BILIRUBIN,TOTAL 0.5 mg/dL (0.2-1); TOT PROT 5.1 g/dl (6.4-8.2)
[2020-11-23] MEDS ORDERED: PIPERACILLIN/TAZOBACTAM 3.375 GM VIAL IVPB ONE ×2 (13:02→18:54)
[2020-11-23] MEDS ORDERED: DEXTROSE 5%-WATER - 50 ML IVPB ONE ×2 (13:02→18:54)
[2020-11-23] MEDS: PIPERACILLIN/TAZOB 3.375 GM 3.375 GM in DEXTROSE 5%-WATER - 50 ML IVPB SCH ×2 (13:06→18:59)
[2020-11-23 13:08] LABS: SARS-CoV-2 NAA Not Detected (Not Detected)
[2020-11-23 13:13] LABS: ANISOCYTOSIS 0; MACROCYTOSIS 0; OVALOCYTE 1+; PLATELET ESTIMATE NORMAL
[2020-11-23] MEDS: ATORVASTATIN CA 80 MG TABLET (FP) PO SCH (22:37)
[2020-11-24] MEDS ORDERED: DEXTROSE 5%-WATER - 50 ML IVPB ONE ×3 (01:26→18:02)
[2020-11-24] MEDS ORDERED: PIPERACILLIN/TAZOBACTAM 3.375 GM VIAL IVPB ONE ×3 (01:26→18:01)
[2020-11-24] MEDS: PIPERACILLIN/TAZOB 3.375 GM 3.375 GM in DEXTROSE 5%-WATER - 50 ML IVPB SCH ×3 (01:32→18:03)
[2020-11-24] MEDS: ACETAMINOPHEN 325 MG TABLET (FP) PO PRN (01:33)
[2020-11-24] MEDS: MORPHINE SULFATE 2 MG/ML VIAL IVPUSH PRN ×2 (05:16→23:04)
[2020-11-24] MEDS: INSULIN (LEVEMIR) 100 UNITS/ML UNITS SQ SCH (06:30)
[2020-11-24] MEDS: INSULIN SLIDING SCALE (NOVOLOG) 1 VIAL SQ SCH ×4 (06:31→23:05)
[2020-11-24 08:43] LABS: BASO % 1.1 % (0-2.0); EOS % 1.2 % (0-4.5); HEMATOCRIT 22.2 % (35.4-49); HEMOGLOBIN 7.7 GM/dL (11.7-16.9); LYMPH % 33.8 % (8-40); MCH 29.7 pg (25.7-33.7); MCHC 34.6 g/dl (32.0-35.9); MEAN CELL VOLUME 85.6 fl (80-96); MONO % 16.5 % (3.8-10.2); NEUT % 47.4 % (42.8-82.8); PLATELET COUNT 147 K/MM3 (134-434); RBC 2.59 M/mm3 (4.00-5.60); RDW 14.5 % (11.9-15.9); WHITE BLOOD COUNT 2.9 K/mm3 (4.0-10.0)
[2020-11-24 09:11] LABS: POTASSIUM 3.9 mmol/L (3.5-5.1)
[2020-11-24 09:13] LABS: ALBUMIN 1.8 g/dl (3.4-5.0); CALCIUM 8.4 mg/dL (8.5-10.1)
[2020-11-24 09:14] LABS: BLOOD UREA NITROGEN 17.2 mg/dL (7-18)
[2020-11-24 09:17] LABS: CREATININE 0.7 mg/dL (0.55-1.3)
[2020-11-24 09:19] LABS: BILIRUBIN,TOTAL 0.5 mg/dL (0.2-1)
[2020-11-24] MEDS: ASPIRIN COATED 81 MG TABLET.EC PO SCH (10:41)
[2020-11-24] MEDS: PANTOPRAZOLE 40 MG TABLET PO SCH (10:41)
[2020-11-24] MEDS: METOPROLOL TARTRATE 25 MG TABLET (FP) PO SCH ×2 (10:41→23:05)
[2020-11-24] MEDS: ENOXAPARIN NA (PORCINE) 40 MG/0.4 ML DISP.SYRIN SQ SCH (10:41)
[2020-11-24] MEDS: LISINOPRIL 20 MG TABLET PO SCH (10:41)
[2020-11-24] MEDS: GABAPENTIN 100 MG CAPSULE PO SCH ×2 (10:41→23:05)
[2020-11-24] MEDS: TAMSULOSIN HCL 0.4 MG CAP PO SCH (10:41)
[2020-11-24] MEDS: DOCUSATE SODIUM 100 MG CAPSULE (FP) PO SCH (10:42)
[2020-11-24] MEDS: TIMOLOL 0.5% OPHTHALMIC SOL 5 ML BOTTLE OD SCH (10:42)
[2020-11-24] MEDS: ATORVASTATIN CA 80 MG TABLET (FP) PO SCH (23:05)
[2020-11-25] MEDS ORDERED: DEXTROSE 5%-WATER - 50 ML IVPB ONE ×3 (02:18→17:23)
[2020-11-25] MEDS ORDERED: PIPERACILLIN/TAZOBACTAM 3.375 GM VIAL IVPB ONE ×3 (02:18→17:23)
[2020-11-25] MEDS: PIPERACILLIN/TAZOB 3.375 GM 3.375 GM in DEXTROSE 5%-WATER - 50 ML IVPB SCH ×3 (02:53→17:52)
[2020-11-25] MEDS: INSULIN (LEVEMIR) 100 UNITS/ML UNITS SQ SCH (06:15)
[2020-11-25] MEDS: INSULIN SLIDING SCALE (NOVOLOG) 1 VIAL SQ SCH ×4 (06:15→21:15)
[2020-11-25] MEDS: TAMSULOSIN HCL 0.4 MG CAP PO SCH (08:40)
[2020-11-25 09:14] LABS: BASO % 0.9 % (0-2.0); EOS % 1.1 % (0-4.5); HEMATOCRIT 23.8 % (35.4-49); HEMOGLOBIN 8.2 GM/dL (11.7-16.9); LYMPH % 25.2 % (8-40); MCH 29.5 pg (25.7-33.7); MCHC 34.5 g/dl (32.0-35.9); MEAN CELL VOLUME 85.4 fl (80-96); MEAN PLT VOLUME 8.4 fl (7.5-11.1); MONO % 12.4 % (3.8-10.2); NEUT % 60.4 % (42.8-82.8); PLATELET COUNT 155 K/MM3 (134-434); RBC 2.78 M/mm3 (4.00-5.60); RDW 14.6 % (11.9-15.9); WHITE BLOOD COUNT 3.7 K/mm3 (4.0-10.0)
[2020-11-25 09:31] LABS: CALCIUM 8.4 mg/dL (8.5-10.1)
[2020-11-25 09:32] LABS: BLOOD UREA NITROGEN 12.7 mg/dL (7-18); MAGNESIUM 1.8 mg/dL (1.8-2.4)
[2020-11-25 09:35] LABS: CREATININE 0.6 mg/dL (0.55-1.3)
[2020-11-25 09:36] LABS: BILIRUBIN,TOTAL 0.9 mg/dL (0.2-1); TOT PROT 5.4 g/dl (6.4-8.2)
[2020-11-25] MEDS: GABAPENTIN 100 MG CAPSULE PO SCH ×2 (10:01→21:15)
[2020-11-25] MEDS: LISINOPRIL 20 MG TABLET PO SCH (10:07)
[2020-11-25] MEDS: METOPROLOL TARTRATE 25 MG TABLET (FP) PO SCH ×2 (10:07→21:15)
[2020-11-25] MEDS ORDERED: REGADENOSON 0.4 MG/5 ML PRE-FILLED SYRINGE IVPUSH ONE ×2 (10:08→10:30)
[2020-11-25] MEDS: TIMOLOL 0.5% OPHTHALMIC SOL 5 ML BOTTLE OD SCH (11:41)
[2020-11-25] MEDS: ENOXAPARIN NA (PORCINE) 40 MG/0.4 ML DISP.SYRIN SQ SCH (16:43)
[2020-11-25] MEDS: ASPIRIN COATED 81 MG TABLET.EC PO SCH (16:44)
[2020-11-25] MEDS: DOCUSATE SODIUM 100 MG CAPSULE (FP) PO SCH (16:44)
[2020-11-25] MEDS: PANTOPRAZOLE 40 MG TABLET PO SCH (16:44)
[2020-11-25] MEDS: MORPHINE SULFATE 2 MG/ML VIAL IVPUSH PRN (16:45)
[2020-11-25] MEDS: ACETAMINOPHEN 325 MG TABLET (FP) PO PRN (17:53)
[2020-11-25] MEDS: ATORVASTATIN CA 80 MG TABLET (FP) PO SCH (21:15)
[2020-11-26] MEDS ORDERED: PIPERACILLIN/TAZOBACTAM 3.375 GM VIAL IVPB ONE ×3 (00:44→17:17)
[2020-11-26] MEDS ORDERED: DEXTROSE 5%-WATER - 50 ML IVPB ONE ×3 (00:44→17:17)
[2020-11-26] MEDS: PIPERACILLIN/TAZOB 3.375 GM 3.375 GM in DEXTROSE 5%-WATER - 50 ML IVPB SCH ×3 (01:27→17:20)
[2020-11-26] MEDS: INSULIN (LEVEMIR) 100 UNITS/ML UNITS SQ SCH (06:40)
[2020-11-26] MEDS: INSULIN SLIDING SCALE (NOVOLOG) 1 VIAL SQ SCH ×4 (06:40→22:00)
[2020-11-26 09:28] LABS: BASO % 0.8 % (0-2.0); EOS % 1.2 % (0-4.5); HEMATOCRIT 25.8 % (35.4-49); HEMOGLOBIN 8.9 GM/dL (11.7-16.9); LYMPH % 25.1 % (8-40); MCH 29.8 pg (25.7-33.7); MCHC 34.5 g/dl (32.0-35.9); MEAN CELL VOLUME 86.5 fl (80-96); MEAN PLT VOLUME 8.6 fl (7.5-11.1); MONO % 11.2 % (3.8-10.2); NEUT % 61.7 % (42.8-82.8); PLATELET COUNT 156 K/MM3 (134-434); RBC 2.98 M/mm3 (4.00-5.60); WHITE BLOOD COUNT 4.2 K/mm3 (4.0-10.0)
[2020-11-26 09:32] LABS: POTASSIUM 3.5 mmol/L (3.5-5.1)
[2020-11-26 09:39] LABS: ALBUMIN 2.1 g/dl (3.4-5.0); MAGNESIUM 1.6 mg/dL (1.8-2.4)
[2020-11-26 09:42] LABS: TOT PROT 5.4 g/dl (6.4-8.2)
[2020-11-26 09:43] LABS: BILIRUBIN,TOTAL 1.3 mg/dL (0.2-1); CREATININE 0.5 mg/dL (0.55-1.3)
[2020-11-26] MEDS: TAMSULOSIN HCL 0.4 MG CAP PO SCH (10:57)
[2020-11-26] MEDS: DOCUSATE SODIUM 100 MG CAPSULE (FP) PO SCH (10:57)
[2020-11-26] MEDS: METOPROLOL TARTRATE 25 MG TABLET (FP) PO SCH ×2 (10:57→22:00)
[2020-11-26] MEDS: PANTOPRAZOLE 40 MG TABLET PO SCH (10:57)
[2020-11-26] MEDS: TIMOLOL 0.5% OPHTHALMIC SOL 5 ML BOTTLE OD SCH (10:58)
[2020-11-26] MEDS: GABAPENTIN 100 MG CAPSULE PO SCH ×2 (10:58→22:00)
[2020-11-26] MEDS: ASPIRIN COATED 81 MG TABLET.EC PO SCH (10:58)
[2020-11-26] MEDS: LISINOPRIL 20 MG TABLET PO SCH (10:58)
[2020-11-26] MEDS: ENOXAPARIN NA (PORCINE) 40 MG/0.4 ML DISP.SYRIN SQ SCH (12:34)
[2020-11-26] MEDS ORDERED: METOPROLOL TARTRATE 50 MG TABLET (FP) PO ONE (17:14)
[2020-11-26] MEDS: ACETAMINOPHEN 325 MG TABLET (FP) PO PRN (17:20)
[2020-11-26] MEDS: ATORVASTATIN CA 80 MG TABLET (FP) PO SCH (22:00)
[2020-11-27] MEDS ORDERED: PIPERACILLIN/TAZOBACTAM 3.375 GM VIAL IVPB ONE ×2 (00:53→09:32)
[2020-11-27] MEDS ORDERED: DEXTROSE 5%-WATER - 50 ML IVPB ONE ×2 (00:53→09:32)
[2020-11-27] MEDS: PIPERACILLIN/TAZOB 3.375 GM 3.375 GM in DEXTROSE 5%-WATER - 50 ML IVPB SCH ×2 (01:25→09:40)
[2020-11-27] MEDS: INSULIN SLIDING SCALE (NOVOLOG) 1 VIAL SQ SCH ×2 (06:04→12:21)
[2020-11-27] MEDS: INSULIN (LEVEMIR) 100 UNITS/ML UNITS SQ SCH (06:04)
[2020-11-27 07:07] LABS: SARS-CoV-2 NAA Not Detected (Not Detected)
[2020-11-27] MEDS: LISINOPRIL 20 MG TABLET PO SCH ×2 (08:10→09:37)
[2020-11-27] MEDS: TAMSULOSIN HCL 0.4 MG CAP PO SCH (08:10)
[2020-11-27] MEDS: METOPROLOL TARTRATE 25 MG TABLET (FP) PO SCH ×2 (08:10→09:36)
[2020-11-27 08:29] LABS: BASO % 0.6 % (0-2.0); EOS % 0.9 % (0-4.5); HEMATOCRIT 27.7 % (35.4-49); HEMOGLOBIN 9.5 GM/dL (11.7-16.9); LYMPH % 21.6 % (8-40); MCH 29.4 pg (25.7-33.7); MCHC 34.3 g/dl (32.0-35.9); MEAN CELL VOLUME 85.6 fl (80-96); MEAN PLT VOLUME 8.4 fl (7.5-11.1); MONO % 9.2 % (3.8-10.2); NEUT % 67.7 % (42.8-82.8); PLATELET COUNT 162 K/MM3 (134-434); RBC 3.24 M/mm3 (4.00-5.60); RDW 15.2 % (11.9-15.9); WHITE BLOOD COUNT 6.4 K/mm3 (4.0-10.0)
[2020-11-27 08:41] LABS: POTASSIUM 3.3 mmol/L (3.5-5.1)
[2020-11-27 08:45] LABS: ALBUMIN 2.2 g/dl (3.4-5.0); BLOOD UREA NITROGEN 8.1 mg/dL (7-18); CALCIUM 8.4 mg/dL (8.5-10.1); MAGNESIUM 1.7 mg/dL (1.8-2.4)
[2020-11-27 08:48] LABS: CREATININE 0.5 mg/dL (0.55-1.3)
[2020-11-27 08:50] LABS: BILIRUBIN,TOTAL 1.4 mg/dL (0.2-1); TOT PROT 5.6 g/dl (6.4-8.2)
[2020-11-27] MEDS: ENOXAPARIN NA (PORCINE) 40 MG/0.4 ML DISP.SYRIN SQ SCH (09:39)
[2020-11-27] MEDS: GABAPENTIN 100 MG CAPSULE PO SCH (09:39)
[2020-11-27] MEDS: ASPIRIN COATED 81 MG TABLET.EC PO SCH (09:39)
[2020-11-27] MEDS: DOCUSATE SODIUM 100 MG CAPSULE (FP) PO SCH (09:39)
[2020-11-27] MEDS: PANTOPRAZOLE 40 MG TABLET PO SCH (09:39)
[2020-11-27] MEDS: TIMOLOL 0.5% OPHTHALMIC SOL 5 ML BOTTLE OD SCH (09:40)
[2020-11-27 09:53] VITALS: BP 149/55; PULSE 69; TEMP 98.6
[2020-11-27] MEDS ORDERED: POTASSIUM CHLORIDE TABS 20 MEQ TABLET.ER (FP) PO ONE (10:23)
== END 2020-11-27 11:11 | disposition short-term general hospital (02) | DRG 444 ==
LOC: JER 08:01 → JERBED 16:18 → J7W 23:03 → J5S 11-17 14:36
PROVIDERS: ADMIT Student in an Organized Health Care Education/Training Program; ATTEND Nurse Practitioner Family
PROC: 0F9430Z Drainage of Gallbladder with Drainage Device, Percutaneous Approach (ICD-10-PCS; principal; 2020-11-20)
DX: K81.9 Cholecystitis, unspecified (principal); U07.1 COVID-19; I21.19 ST elevation (STEMI) myocardial infarction involving other coronary artery of inferior wall; I50.42 Chronic combined systolic (congestive) and diastolic (congestive) heart failure; I35.0 Nonrheumatic aortic (valve) stenosis; I25.10 Atherosclerotic heart disease of native coronary artery without angina pectoris; Z95.5 Presence of coronary angioplasty implant and graft; E78.5 Hyperlipidemia, unspecified; I27.20 Pulmonary hypertension, unspecified; E11.42 Type 2 diabetes mellitus with diabetic polyneuropathy; R74.01 Elevation of levels of liver transaminase levels
CPT/HCPCS: 36415; 47490; 70450-TC; 71045-TC-FY; 76705-TC; 78452-TC; 80053; 82550; 82962; 83605; 83690; 83735; 84100; 84484; 85025; 85379; 85610; 85730; 86140; 86850; 86900; 86901; 87040; 87070; 87075; 87102; 87116; 87205; 87206; 87210; 93005; 93010; 93017; 93306-TC; 97116-GP; 97161-GP; 99285-25; A9502; C9803; J0131; J2785; U0003; U0005

== ENCOUNTER 2021-02-05 15:22 | Observation (INO) | payer OTHER ==
[2021-02-05 17:31] LABS: BASO % 0.7 % (0-2.0); EOS % 0.9 % (0-4.5); HEMATOCRIT 33.1 % (35.4-49); HEMOGLOBIN 11.3 GM/dL (11.7-16.9); LYMPH % 40.8 % (8-40); MCH 28.7 pg (25.7-33.7); MEAN CELL VOLUME 84.3 fl (80-96); MEAN PLT VOLUME 7.7 fl (7.5-11.1); MONO % 9.8 % (3.8-10.2); NEUT % 47.8 % (42.8-82.8); PLATELET COUNT 146 10^3/uL (134-434); RBC 3.92 M/mm3 (4.00-5.60); RDW 17.2 % (11.9-15.9)
[2021-02-05 17:49] LABS: CHLORIDE 103 mmol/L (98-107); SODIUM 140 mmol/L (136-145)
[2021-02-05 17:52] LABS: ALBUMIN 3.4 g/dl (3.4-5.0); ANION GAP 3 MMOL/L (8-16); BLOOD UREA NITROGEN 20.1 mg/dL (7-18); CO2 33 mmol/L (21-32); GLUCOSE,RANDOM 168 mg/dL (74-106)
[2021-02-05 17:55] LABS: CREATININE 0.7 mg/dL (0.55-1.3); SGOT/AST 19 U/L (15-37); SGPT/ALT 28 U/L (13-61)
[2021-02-05 17:56] LABS: BILIRUBIN,TOTAL 0.6 mg/dL (0.2-1); TOT PROT 6.6 g/dl (6.4-8.2)
[2021-02-05 17:57] LABS: ALK PHOS 85 U/L (45-117)
[2021-02-05 18:26] LABS: URINE APPEARANCE CLEAR; URINE BILIRUBIN NEGATIVE (NEGATIVE); URINE COLOR YELLOW; URINE GLUCOSE (UA) NEGATIVE (NEGATIVE); URINE KETONE NEGATIVE (NEGATIVE); URINE LEUK ESTERASE NEGATIVE (NEGATIVE); URINE NITRITE NEGATIVE (NEGATIVE); URINE PROTEIN NEGATIVE (NEGATIVE); URINE UROBILINOGEN 0.2 mg/dL (0.2-1.0)
[2021-02-05] MEDS ORDERED: SODIUM CHLORIDE 1,000 ML IV SCH (21:15)
[2021-02-05] MEDS ORDERED: HEPARIN NA (PORCINE) 5,000 UNITS/ML 1ML VIAL ONE (23:56)
[2021-02-06] MEDS: HEPARIN NA (PORCINE) 5,000 UNITS/ML 1ML VIAL SQ SCH ×2 (00:01→09:47)
[2021-02-06] MEDS ORDERED: ALBUTEROL SO4 HFA INHALER IH PRN (01:15)
[2021-02-06 03:09] VITALS: BMI 21.4
[2021-02-06 06:40] LABS: BASO % 0.8 % (0-2.0); EOS % 0.8 % (0-4.5); HEMATOCRIT 35.2 % (35.4-49); HEMOGLOBIN 11.6 GM/dL (11.7-16.9); LYMPH % 44.9 % (8-40); MCH 28.1 pg (25.7-33.7); MEAN CELL VOLUME 85.1 fl (80-96); MEAN PLT VOLUME 7.7 fl (7.5-11.1); MONO % 9.9 % (3.8-10.2); NEUT % 43.6 % (42.8-82.8); PLATELET COUNT 136 10^3/uL (134-434); RBC 4.14 M/mm3 (4.00-5.60); RDW 17.6 % (11.9-15.9); WHITE BLOOD COUNT 3.5 K/mm3 (4.0-10.0)
[2021-02-06] MEDS ORDERED: INSULIN SLIDING SCALE (NOVOLOG) 1 VIAL SQ SCH (07:00)
[2021-02-06 07:01] LABS: CALCIUM 9.3 mg/dL (8.5-10.1); MAGNESIUM 1.9 mg/dL (1.8-2.4)
[2021-02-06 07:03] LABS: BLOOD UREA NITROGEN 14.8 mg/dL (7-18)
[2021-02-06 07:05] LABS: CREATININE 0.5 mg/dL (0.55-1.3)
[2021-02-06] MEDS ORDERED: TAMSULOSIN HCL 0.4 MG CAP PO SCH (08:36)
[2021-02-06] MEDS ORDERED: PANTOPRAZOLE 40 MG TABLET PO SCH (10:00)
[2021-02-06] MEDS ORDERED: METOPROLOL TARTRATE 50 MG TABLET (FP) PO SCH (10:00)
[2021-02-06] MEDS ORDERED: ASPIRIN COATED 81 MG TABLET.EC PO SCH (10:00)
[2021-02-06] MEDS ORDERED: GABAPENTIN 100 MG CAPSULE PO SCH (10:00)
[2021-02-06] MEDS ORDERED: TIMOLOL 0.5% OPHTHALMIC SOL 5 ML BOTTLE OD SCH (10:00)
[2021-02-06] MEDS ORDERED: CLOPIDOGREL BISULFATE 75 MG TABLET (FP) PO SCH (10:00)
[2021-02-06] MEDS ORDERED: DOCUSATE SODIUM 100 MG CAPSULE (FP) PO SCH (10:00)
[2021-02-06] MEDS ORDERED: PT OWN MED DRAWER 7, Y5N ONE (11:54)
[2021-02-06] MEDS: INSULIN SLIDING SCALE (NOVOLOG) 1 VIAL SQ SCH ×2 (12:01→17:07)
[2021-02-06 18:35] VITALS: BP 102/44; PULSE 62; TEMP 98.1
[2021-02-06] MEDS ORDERED: ATORVASTATIN CA 80 MG TABLET (FP) PO SCH (22:00)
== END 2021-02-06 20:45 | disposition home or self-care (01) ==
LOC: JER 15:22 → JERBED 18:44 → J4S 02-06 00:24
PROVIDERS: ADMIT Family Medicine; ATTEND Family Medicine
PROC: 3E013GC Introduction of Other Therapeutic Substance into Subcutaneous Tissue, Percutaneous Approach (ICD-10-PCS; 2021-02-05)
PROC: 3E013VG Introduction of Insulin into Subcutaneous Tissue, Percutaneous Approach (ICD-10-PCS; principal; 2021-02-06)
DX: I95.9 Hypotension, unspecified (principal); I25.10 Atherosclerotic heart disease of native coronary artery without angina pectoris; I11.0 Hypertensive heart disease with heart failure; Z95.5 Presence of coronary angioplasty implant and graft; I50.42 Chronic combined systolic (congestive) and diastolic (congestive) heart failure; I35.0 Nonrheumatic aortic (valve) stenosis; I73.89 Other specified peripheral vascular diseases; E11.9 Type 2 diabetes mellitus without complications; Z79.4 Long term (current) use of insulin; Z86.16 Personal history of COVID-19; Z86.010 Personal history of colon polyps; R29.810 Facial weakness; Z90.49 Acquired absence of other specified parts of digestive tract; Z93.6 Other artificial openings of urinary tract status; Z85.47 Personal history of malignant neoplasm of testis; Z95.828 Presence of other vascular implants and grafts
CPT/HCPCS: 36415; 70450-TC; 71045-TC-FY; 80048; 80053; 81003; 82550; 82607; 82962; 83036; 83735; 84443; 84484; 85025; 87086; 93005; 93010; 97116-GP; 97161-GP; 99285-25; C9803; G0378; J1644; U0003; U0005

== ENCOUNTER 2021-04-18 15:12 | Emergency (ER) | payer OTHER ==
[2021-04-18 15:23] VITALS: TEMP 98.1; BMI 21.2
[2021-04-18 16:52] LABS: BASO % 0.6 % (0-2.0); EOS % 0.9 % (0-4.5); HEMATOCRIT 33.9 % (35.4-49); HEMOGLOBIN 11.8 GM/dL (11.7-16.9); LYMPH % 37.7 % (8-40); MCH 31.3 pg (25.7-33.7); MCHC 34.7 g/dl (32.0-35.9); MEAN PLT VOLUME 8.4 fl (7.5-11.1); MONO % 9.3 % (3.8-10.2); NEUT % 51.5 % (42.8-82.8); PLATELET COUNT 134 10^3/uL (134-434); RBC 3.77 M/mm3 (4.00-5.60); RDW 15.4 % (11.9-15.9); WHITE BLOOD COUNT 3.1 K/mm3 (4.0-10.0)
[2021-04-18 17:00] LABS: INR 0.97 (0.83-1.09)
[2021-04-18 17:03] LABS: ACTIVATED PTT 28.7 SECONDS (25.2-36.5)
[2021-04-18 17:11] LABS: CHLORIDE 104 mmol/L (98-107); SODIUM 141 mmol/L (136-145)
[2021-04-18 17:14] LABS: ALBUMIN 3.5 g/dl (3.4-5.0); ANION GAP 7 MMOL/L (8-16); BLOOD UREA NITROGEN 29.8 mg/dL (7-18); CO2 30 mmol/L (21-32); GLUCOSE,RANDOM 163 mg/dL (74-106); LIPASE 49 U/L (73-393)
[2021-04-18 17:17] LABS: CREATININE 0.7 mg/dL (0.55-1.3); SGOT/AST 43 U/L (15-37); SGPT/ALT 71 U/L (13-61)
[2021-04-18 17:19] LABS: BILIRUBIN,TOTAL 0.4 mg/dL (0.2-1); TOT PROT 6.9 g/dl (6.4-8.2)
[2021-04-18 17:20] LABS: ALK PHOS 148 U/L (45-117)
[2021-04-18 19:36] VITALS: BP 166/64; PULSE 99
== END 2021-04-18 19:28 | disposition home or self-care (01) ==
LOC: JER 15:12
DX: Z43.4 Encounter for attention to other artificial openings of digestive tract (principal)
CPT/HCPCS: 36415; 71045-TC-FY; 74177-TC; 80053; 82550; 83690; 84484; 85025; 85610; 85730; 86850; 86900; 86901; 87040; 93005; 93010; 99285-25; C9803; Q9967; U0003; U0005

== ENCOUNTER 2021-08-04 10:19 | Inpatient (IN) | payer OTHER ==
[2021-08-04] MEDS ORDERED: FUROSEMIDE 40 MG/4 ML INJECTABLE VIAL ONE (10:36)
[2021-08-04] MEDS ORDERED: FUROSEMIDE 40 MG/4 ML INJECTABLE VIAL IVPUSH ONE (10:37)
[2021-08-04] MEDS ORDERED: NITROGLYCERIN 50MG/D5W 250ML 50 MG/250 ML ML IVPB SCH (10:45)
[2021-08-04] MEDS ORDERED: NITROGLYCERIN 25MG/D5W 250ML 25 MG/250 ML ML IVPB ONE (11:02)
[2021-08-04] MEDS: NITROGLYCERIN 25MG/D5W 250ML 25 MG/250 ML ML IVPB SCH (11:10)
[2021-08-04 11:23] LABS: BASO % 0.2 % (0-2.0); EOS % 0.7 % (0-4.5); HEMATOCRIT 42.6 % (35.4-49); HEMOGLOBIN 14.1 GM/dL (11.7-16.9); LYMPH % 40.6 % (8-40); MCH 30.9 pg (25.7-33.7); MEAN CELL VOLUME 93.4 fl (80-96); MEAN PLT VOLUME 8.6 fl (7.5-11.1); MONO % 7.9 % (3.8-10.2); NEUT % 50.6 % (42.8-82.8); PLATELET COUNT 180 10^3/uL (134-434); RBC 4.56 M/mm3 (4.00-5.60); WHITE BLOOD COUNT 13.5 K/mm3 (4.0-10.0)
[2021-08-04 11:46] LABS: CHLORIDE 102 mmol/L (98-107); SODIUM 140 mmol/L (136-145)
[2021-08-04 11:49] LABS: ALBUMIN 4.2 g/dl (3.4-5.0); ANION GAP 8 MMOL/L (8-16); BLOOD UREA NITROGEN 17.4 mg/dL (7-18); CALCIUM 9.4 mg/dL (8.5-10.1); CO2 29 mmol/L (21-32); GLUCOSE,RANDOM 129 mg/dL (74-106); MAGNESIUM 2.3 mg/dL (1.8-2.4)
[2021-08-04 11:51] LABS: ARTERIAL BLD GAS O2 SATURATION 99.4 % (95-98); ARTERIAL BLOOD GAS BASE EXCESS -0.9 mmol/L (-2-2); ARTERIAL BLOOD GAS PO2 250.4 mmHg (80-100); ARTERIAL BLOOD GAS pH 7.252 (7.350-7.450)
[2021-08-04 11:52] LABS: CREATININE 0.6 mg/dL (0.55-1.3); SGOT/AST 39 U/L (15-37); SGPT/ALT 43 U/L (13-61)
[2021-08-04 11:55] LABS: ALK PHOS 109 U/L (45-117); TOT PROT 7.9 g/dl (6.4-8.2)
[2021-08-04 11:57] LABS: N-TERMINAL BNP 656.9 pg/ml (5-450)
[2021-08-04 12:46] LABS: INR 0.95 (0.83-1.09); PROTHROMBIN TIME (PATIENT) 10.6 SEC (9.7-13.0)
[2021-08-04] MEDS ORDERED: AZITHROMYCIN IVPB 500 MG in DEXTROSE 5%-WATER - 250 ML IVPB ONE (13:05)
[2021-08-04] MEDS ORDERED: CEFTRIAXONE 1,000 MG in DEXTROSE 5%-WATER - 50 ML IVPB ONE (13:05)
[2021-08-04] MEDS ORDERED: CEFTRIAXONE 1 GM/50 ML BAG ONE (13:46)
[2021-08-04] MEDS ORDERED: AZITHROMYCIN IVPB 500 MG/250 ML BAG IVPB ONE (14:23)
[2021-08-04 14:29] LABS: CALCIUM 8.9 mg/dL (8.5-10.1)
[2021-08-04 14:30] LABS: ALBUMIN 3.4 g/dl (3.4-5.0); BLOOD UREA NITROGEN 21.2 mg/dL (7-18)
[2021-08-04 14:33] LABS: CREATININE 0.7 mg/dL (0.55-1.3)
[2021-08-04 14:34] LABS: BILIRUBIN,TOTAL 0.8 mg/dL (0.2-1); TOT PROT 6.3 g/dl (6.4-8.2)
[2021-08-04 14:39] LABS: N-TERMINAL BNP 1298.8 pg/ml (5-450)
[2021-08-04 14:56] LABS: EPI CELLS 15 /uL (0-25.1); HYALINE CASTS 0 /uL (0-3.1); URINE APPEARANCE CLEAR; URINE BACTERIA 36 /uL (0-1359); URINE BILIRUBIN NEGATIVE (NEGATIVE); URINE COLOR YELLOW; URINE GLUCOSE (UA) NEGATIVE (NEGATIVE); URINE KETONE NEGATIVE (NEGATIVE); URINE LEUK ESTERASE NEGATIVE (NEGATIVE); URINE NITRITE NEGATIVE (NEGATIVE); URINE PROTEIN 2+ (NEGATIVE); URINE RBC 39 /uL (0-23.9); URINE UROBILINOGEN 0.2 mg/dL (0.2-1.0); URINE WBC 15 /uL (0-25.8)
[2021-08-04 17:50] LABS: ARTERIAL BLOOD GAS BASE EXCESS 1.1 mmol/L (-2-2); ARTERIAL BLOOD GAS PO2 151.7 mmHg (80-100); ARTERIAL BLOOD GAS pH 7.433 (7.350-7.450)
[2021-08-04 17:52] LABS: ALLENS TEST POSITIVE
[2021-08-04 17:53] LABS: VENT MODE S/T; VENT RATE 14
[2021-08-04] MEDS: INSULIN SLIDING SCALE (NOVOLOG) 1 VIAL SQ SCH ×2 (18:31→21:10)
[2021-08-04] MEDS ORDERED: FLU VACC QS2021-22(6MOS UP)/PF 60 MCG/0.5 ML SYRINGE IM ONE (21:00)
[2021-08-04] MEDS: MUPIROCIN 2% TOPICAL OINTMENT FOR DECOLONIZATION NS SCH (21:23)
[2021-08-04] MEDS: CHLORHEXIDINE GLUCONATE 4% CLEANSER FOR DECOLONIZATION TP SCH (21:23)
[2021-08-04] MEDS: ATORVASTATIN CA 80 MG TABLET (FP) PO SCH (21:23)
[2021-08-04] MEDS: LATANOPROST 0.005% OPHTH SOLN 2.5ML BOTTLE OU SCH (21:24)
[2021-08-05] MEDS: INSULIN SLIDING SCALE (NOVOLOG) 1 VIAL SQ SCH ×4 (06:05→21:25)
[2021-08-05] MEDS: INSULIN (LEVEMIR) 100 UNITS/ML UNITS SQ SCH (06:08)
[2021-08-05 07:51] LABS: BASO % 0.1 % (0-2.0); EOS % 0.4 % (0-4.5); HEMOGLOBIN 11.3 GM/dL (11.7-16.9); LYMPH % 21.1 % (8-40); MCH 31.6 pg (25.7-33.7); MCHC 34.3 g/dl (32.0-35.9); MEAN PLT VOLUME 8.5 fl (7.5-11.1); MONO % 11.9 % (3.8-10.2); NEUT % 66.5 % (42.8-82.8); PLATELET COUNT 118 10^3/uL (134-434); RBC 3.59 M/mm3 (4.00-5.60); RDW 15.1 % (11.9-15.9); WHITE BLOOD COUNT 6.7 K/mm3 (4.0-10.0)
[2021-08-05 08:13] LABS: ALBUMIN 3.2 g/dl (3.4-5.0); CALCIUM 8.8 mg/dL (8.5-10.1)
[2021-08-05 08:14] LABS: MAGNESIUM 2.2 mg/dL (1.8-2.4)
[2021-08-05 08:15] LABS: PHOSPHOROUS 3.7 mg/dL (2.5-4.9)
[2021-08-05 08:17] LABS: CREATININE 0.5 mg/dL (0.55-1.3); TOT PROT 5.8 g/dl (6.4-8.2)
[2021-08-05] MEDS: CLOPIDOGREL BISULFATE 75 MG TABLET (FP) PO SCH (09:48)
[2021-08-05] MEDS: TAMSULOSIN HCL 0.4 MG CAP PO SCH (09:48)
[2021-08-05] MEDS: FUROSEMIDE 40 MG/4 ML INJECTABLE VIAL IVPUSH SCH (09:48)
[2021-08-05] MEDS: ENOXAPARIN NA (PORCINE) 40 MG/0.4 ML DISP.SYRIN SQ SCH (09:48)
[2021-08-05] MEDS: PANTOPRAZOLE 40 MG TABLET PO SCH (09:48)
[2021-08-05] MEDS: MUPIROCIN 2% TOPICAL OINTMENT FOR DECOLONIZATION NS SCH ×2 (09:50→21:30)
[2021-08-05] MEDS: NITROGLYCERIN 25MG/D5W 250ML 25 MG/250 ML ML IVPB SCH ×2 (09:53→12:31)
[2021-08-05] MEDS: LOSARTAN POTASSIUM 50 MG TABLET PO SCH (14:45)
[2021-08-05] MEDS: amLODIPine BESYLATE 5 MG TABLET (FP) PO SCH (14:46)
[2021-08-05] MEDS: ATORVASTATIN CA 80 MG TABLET (FP) PO SCH (21:19)
[2021-08-05] MEDS: CHLORHEXIDINE GLUCONATE 4% CLEANSER FOR DECOLONIZATION TP SCH (21:30)
[2021-08-05] MEDS: LATANOPROST 0.005% OPHTH SOLN 2.5ML BOTTLE OU SCH (21:30)
[2021-08-05] MEDS ORDERED: INSULIN (LEVEMIR) 100 UNITS/ML UNITS SQ SCH (22:00)
[2021-08-06] MEDS: INSULIN SLIDING SCALE (NOVOLOG) 1 VIAL SQ SCH ×4 (06:40→22:58)
[2021-08-06] MEDS: INSULIN (LEVEMIR) 100 UNITS/ML UNITS SQ SCH ×2 (06:46→22:58)
[2021-08-06] MEDS: amLODIPine BESYLATE 5 MG TABLET (FP) PO SCH (09:24)
[2021-08-06] MEDS: PANTOPRAZOLE 40 MG TABLET PO SCH (09:24)
[2021-08-06] MEDS: TAMSULOSIN HCL 0.4 MG CAP PO SCH (09:24)
[2021-08-06] MEDS: LOSARTAN POTASSIUM 50 MG TABLET PO SCH (09:24)
[2021-08-06] MEDS: CLOPIDOGREL BISULFATE 75 MG TABLET (FP) PO SCH (09:24)
[2021-08-06] MEDS: ENOXAPARIN NA (PORCINE) 40 MG/0.4 ML DISP.SYRIN SQ SCH (09:24)
[2021-08-06] MEDS: MUPIROCIN 2% TOPICAL OINTMENT FOR DECOLONIZATION NS SCH ×2 (09:25→22:38)
[2021-08-06] MEDS: FUROSEMIDE 40 MG/4 ML INJECTABLE VIAL IVPUSH SCH (09:25)
[2021-08-06 12:17] VITALS: BMI 25.3
[2021-08-06 15:14] LABS: BASO % 0.2 % (0-2.0); HEMATOCRIT 34.7 % (35.4-49); HEMOGLOBIN 11.7 GM/dL (11.7-16.9); LYMPH % 13.8 % (8-40); MCH 31.1 pg (25.7-33.7); MCHC 33.8 g/dl (32.0-35.9); MEAN CELL VOLUME 92.1 fl (80-96); MEAN PLT VOLUME 8.1 fl (7.5-11.1); MONO % 13.6 % (3.8-10.2); NEUT % 71.4 % (42.8-82.8); PLATELET COUNT 111 10^3/uL (134-434); RBC 3.77 M/mm3 (4.00-5.60); RDW 14.3 % (11.9-15.9); WHITE BLOOD COUNT 4.6 K/mm3 (4.0-10.0)
[2021-08-06 15:33] LABS: TOTAL IRON BINDING CAPACITY 289 ug/dL (250-450)
[2021-08-06 15:34] LABS: IRON SERUM 63 ug/dL (50-175)
[2021-08-06] MEDS: CHLORHEXIDINE GLUCONATE 4% CLEANSER FOR DECOLONIZATION TP SCH (22:38)
[2021-08-06] MEDS: LATANOPROST 0.005% OPHTH SOLN 2.5ML BOTTLE OU SCH (22:58)
[2021-08-06] MEDS: ATORVASTATIN CA 80 MG TABLET (FP) PO SCH (22:59)
[2021-08-07] MEDS: INSULIN SLIDING SCALE (NOVOLOG) 1 VIAL SQ SCH ×4 (06:52→23:13)
[2021-08-07] MEDS ORDERED: INSULIN (LEVEMIR) 100 UNITS/ML UNITS SQ SCH ×2 (07:00)
[2021-08-07 07:51] LABS: BLOOD UREA NITROGEN 26.2 mg/dL (7-18)
[2021-08-07 07:54] LABS: CREATININE 0.6 mg/dL (0.55-1.3)
[2021-08-07] MEDS: TAMSULOSIN HCL 0.4 MG CAP PO SCH (09:30)
[2021-08-07] MEDS: PANTOPRAZOLE 40 MG TABLET PO SCH (09:31)
[2021-08-07] MEDS: CLOPIDOGREL BISULFATE 75 MG TABLET (FP) PO SCH (09:31)
[2021-08-07] MEDS: ENOXAPARIN NA (PORCINE) 40 MG/0.4 ML DISP.SYRIN SQ SCH (09:31)
[2021-08-07] MEDS: MUPIROCIN 2% TOPICAL OINTMENT FOR DECOLONIZATION NS SCH ×2 (09:31→22:36)
[2021-08-07] MEDS: amLODIPine BESYLATE 5 MG TABLET (FP) PO SCH (09:31)
[2021-08-07] MEDS: FUROSEMIDE 40 MG TABLET (FP) PO SCH (09:31)
[2021-08-07] MEDS: LOSARTAN POTASSIUM 50 MG TABLET PO SCH (09:31)
[2021-08-07] MEDS ORDERED: FUROSEMIDE 40 MG/4 ML INJECTABLE VIAL IVPUSH SCH (10:00)
[2021-08-07] MEDS: CHLORHEXIDINE GLUCONATE 4% CLEANSER FOR DECOLONIZATION TP SCH (22:30)
[2021-08-07] MEDS: ATORVASTATIN CA 80 MG TABLET (FP) PO SCH (23:12)
[2021-08-07] MEDS: INSULIN (LEVEMIR) 100 UNITS/ML UNITS SQ SCH (23:12)
[2021-08-07] MEDS: LATANOPROST 0.005% OPHTH SOLN 2.5ML BOTTLE OU SCH (23:12)
[2021-08-08] MEDS: INSULIN SLIDING SCALE (NOVOLOG) 1 VIAL SQ SCH ×4 (06:50→22:03)
[2021-08-08] MEDS: INSULIN (LEVEMIR) 100 UNITS/ML UNITS SQ SCH ×2 (06:55→22:02)
[2021-08-08 07:56] LABS: CALCIUM 8.7 mg/dL (8.5-10.1)
[2021-08-08 07:57] LABS: BLOOD UREA NITROGEN 28.6 mg/dL (7-18)
[2021-08-08 08:00] LABS: CREATININE 0.6 mg/dL (0.55-1.3)
[2021-08-08] MEDS: TAMSULOSIN HCL 0.4 MG CAP PO SCH (08:34)
[2021-08-08] MEDS: LOSARTAN POTASSIUM 50 MG TABLET PO SCH (09:47)
[2021-08-08] MEDS: FUROSEMIDE 40 MG TABLET (FP) PO SCH (09:47)
[2021-08-08] MEDS: MUPIROCIN 2% TOPICAL OINTMENT FOR DECOLONIZATION NS SCH ×2 (09:47→22:03)
[2021-08-08] MEDS: amLODIPine BESYLATE 5 MG TABLET (FP) PO SCH (09:48)
[2021-08-08] MEDS: ENOXAPARIN NA (PORCINE) 40 MG/0.4 ML DISP.SYRIN SQ SCH (09:48)
[2021-08-08] MEDS: CLOPIDOGREL BISULFATE 75 MG TABLET (FP) PO SCH (09:48)
[2021-08-08] MEDS: PANTOPRAZOLE 40 MG TABLET PO SCH (09:48)
[2021-08-08] MEDS: CHLORHEXIDINE GLUCONATE 4% CLEANSER FOR DECOLONIZATION TP SCH (22:02)
[2021-08-08] MEDS: LATANOPROST 0.005% OPHTH SOLN 2.5ML BOTTLE OU SCH (22:03)
[2021-08-08] MEDS: ATORVASTATIN CA 80 MG TABLET (FP) PO SCH (22:04)
[2021-08-09] MEDS: INSULIN SLIDING SCALE (NOVOLOG) 1 VIAL SQ SCH ×4 (06:12→21:58)
[2021-08-09] MEDS: INSULIN (LEVEMIR) 100 UNITS/ML UNITS SQ SCH ×2 (06:14→21:56)
[2021-08-09 08:12] LABS: CALCIUM 8.7 mg/dL (8.5-10.1)
[2021-08-09 08:13] LABS: BLOOD UREA NITROGEN 37.3 mg/dL (7-18)
[2021-08-09 08:16] LABS: CREATININE 0.6 mg/dL (0.55-1.3)
[2021-08-09] MEDS: FUROSEMIDE 40 MG TABLET (FP) PO SCH (09:02)
[2021-08-09] MEDS: PANTOPRAZOLE 40 MG TABLET PO SCH (09:02)
[2021-08-09] MEDS: CLOPIDOGREL BISULFATE 75 MG TABLET (FP) PO SCH (09:02)
[2021-08-09] MEDS: amLODIPine BESYLATE 5 MG TABLET (FP) PO SCH (09:02)
[2021-08-09] MEDS: ENOXAPARIN NA (PORCINE) 40 MG/0.4 ML DISP.SYRIN SQ SCH (09:02)
[2021-08-09] MEDS: LOSARTAN POTASSIUM 50 MG TABLET PO SCH (09:02)
[2021-08-09] MEDS ORDERED: PT OWN MED DRAWER 7, Y5N ONE (09:10)
[2021-08-09] MEDS: TAMSULOSIN HCL 0.4 MG CAP PO SCH (09:13)
[2021-08-09] MEDS: MUPIROCIN 2% TOPICAL OINTMENT FOR DECOLONIZATION NS SCH (10:00)
[2021-08-09] MEDS: ATORVASTATIN CA 80 MG TABLET (FP) PO SCH (21:47)
[2021-08-09] MEDS: CHLORHEXIDINE GLUCONATE 4% CLEANSER FOR DECOLONIZATION TP SCH (22:00)
[2021-08-10] MEDS: LATANOPROST 0.005% OPHTH SOLN 2.5ML BOTTLE OU SCH (06:44)
[2021-08-10] MEDS: INSULIN SLIDING SCALE (NOVOLOG) 1 VIAL SQ SCH ×2 (06:45→13:25)
[2021-08-10] MEDS: INSULIN (LEVEMIR) 100 UNITS/ML UNITS SQ SCH (07:00)
[2021-08-10 07:36] LABS: BASO % 0.3 % (0-2.0); EOS % 1.9 % (0-4.5); HEMATOCRIT 32.7 % (35.4-49); HEMOGLOBIN 11.3 GM/dL (11.7-16.9); LYMPH % 27.2 % (8-40); MCH 31.3 pg (25.7-33.7); MCHC 34.5 g/dl (32.0-35.9); MEAN CELL VOLUME 90.9 fl (80-96); MEAN PLT VOLUME 8.2 fl (7.5-11.1); MONO % 11.5 % (3.8-10.2); NEUT % 59.1 % (42.8-82.8); PLATELET COUNT 126 10^3/uL (134-434); RBC 3.59 M/mm3 (4.00-5.60); RDW 14.5 % (11.9-15.9); WHITE BLOOD COUNT 4.1 K/mm3 (4.0-10.0)
[2021-08-10 07:47] LABS: BLOOD UREA NITROGEN 27.4 mg/dL (7-18); CALCIUM 8.9 mg/dL (8.5-10.1)
[2021-08-10 07:48] LABS: ALBUMIN 3.3 g/dl (3.4-5.0)
[2021-08-10 07:51] LABS: CREATININE 0.6 mg/dL (0.55-1.3)
[2021-08-10 07:52] LABS: BILIRUBIN,TOTAL 0.7 mg/dL (0.2-1); TOT PROT 6.2 g/dl (6.4-8.2)
[2021-08-10 08:07] VITALS: BP 145/61; PULSE 72; TEMP 98
[2021-08-10] MEDS: CLOPIDOGREL BISULFATE 75 MG TABLET (FP) PO SCH (09:32)
[2021-08-10] MEDS: LOSARTAN POTASSIUM 50 MG TABLET PO SCH (09:32)
[2021-08-10] MEDS: amLODIPine BESYLATE 5 MG TABLET (FP) PO SCH (09:32)
[2021-08-10] MEDS: TAMSULOSIN HCL 0.4 MG CAP PO SCH (09:32)
[2021-08-10] MEDS: PANTOPRAZOLE 40 MG TABLET PO SCH (09:32)
[2021-08-10] MEDS: FUROSEMIDE 40 MG TABLET (FP) PO SCH (09:32)
[2021-08-10] MEDS: ENOXAPARIN NA (PORCINE) 40 MG/0.4 ML DISP.SYRIN SQ SCH (09:33)
== END 2021-08-10 17:22 | disposition home or self-care (01) | DRG 291 ==
LOC: JER 10:19 → JERBED 12:08 → JICU 16:55 → J2W 08-06 21:27
PROVIDERS: ADMIT Internal Medicine Pulmonary Disease; ATTEND Family Medicine
DX: I11.0 Hypertensive heart disease with heart failure (principal); J81.0 Acute pulmonary edema; J96.01 Acute respiratory failure with hypoxia; I50.33 Acute on chronic diastolic (congestive) heart failure; I16.1 Hypertensive emergency; I24.8 Other forms of acute ischemic heart disease; I27.20 Pulmonary hypertension, unspecified; I25.10 Atherosclerotic heart disease of native coronary artery without angina pectoris; E78.5 Hyperlipidemia, unspecified; Z98.61 Coronary angioplasty status; E11.610 Type 2 diabetes mellitus with diabetic neuropathic arthropathy
CPT/HCPCS: 36415; 36600; 70450-TC; 71045-TC-FY; 74018-TC-FY; 80048; 80053; 81003; 82533; 82550; 82728; 82803; 82962; 83540; 83550; 83605; 83735; 83880; 84100; 84484; 85025; 85610; 85730; 86850; 86900; 86901; 87040; 87086; 87804; 90686; 93005; 93010; 94660; 94761; 97116-GP; 97161-GP; 99291; C9803; G0008; U0003; U0005

== ENCOUNTER 2022-02-03 13:42 | Observation (INO) | payer OTHER ==
[2022-02-03 14:51] LABS: BASO % 0.4 % (0-2.0); EOS % 0.4 % (0-4.5); HEMATOCRIT 34.4 % (35.4-49); HEMOGLOBIN 11.8 GM/dL (11.7-16.9); LYMPH % 27.1 % (8-40); MCH 31.6 pg (25.7-33.7); MCHC 34.4 g/dl (32.0-35.9); MEAN CELL VOLUME 91.6 fl (80-96); MEAN PLT VOLUME 8.5 fl (7.5-11.1); MONO % 11.6 % (3.8-10.2); NEUT % 60.5 % (42.8-82.8); PLATELET COUNT 120 10^3/uL (134-434); RBC 3.75 M/mm3 (4.00-5.60); RDW 13.6 % (11.9-15.9); WHITE BLOOD COUNT 6.9 K/mm3 (4.0-10.0)
[2022-02-03 14:58] LABS: INR 1.04 (0.83-1.09)
[2022-02-03 15:01] LABS: ACTIVATED PTT 28.4 SECONDS (25.2-36.5)
[2022-02-03] MEDS ORDERED: ASPIRIN 81 MG CHEWABLE TABLETS PO ONE (15:09)
[2022-02-03] MEDS ORDERED: ATORVASTATIN CA 80 MG TABLET (FP) PO ONE (15:09)
[2022-02-03 15:13] LABS: ALBUMIN 3.5 g/dl (3.4-5.0)
[2022-02-03 15:15] LABS: BLOOD UREA NITROGEN 33.4 mg/dL (7-18)
[2022-02-03] MEDS ORDERED: ATORVASTATIN CA 80 MG TABLET (FP) ONE (15:15)
[2022-02-03] MEDS ORDERED: ASPIRIN 81 MG CHEWABLE TABLETS ONE (15:15)
[2022-02-03 15:16] LABS: CREATININE 1.1 mg/dL (0.55-1.3)
[2022-02-03 15:18] LABS: TOT PROT 6.2 g/dl (6.4-8.2)
[2022-02-03 15:19] LABS: BILIRUBIN,TOTAL 0.9 mg/dL (0.2-1)
[2022-02-03] MEDS: SODIUM CHLORIDE 1,000 ML IV SCH (15:45)
[2022-02-03 17:37] LABS: PH,URINE 5.5 (5.0-8.0); URINE APPEARANCE CLEAR; URINE BILIRUBIN NEGATIVE (NEGATIVE); URINE COLOR YELLOW; URINE GLUCOSE (UA) TRACE (NEGATIVE); URINE KETONE NEGATIVE (NEGATIVE); URINE LEUK ESTERASE NEGATIVE (NEGATIVE); URINE NITRITE NEGATIVE (NEGATIVE); URINE PROTEIN NEGATIVE (NEGATIVE); URINE UROBILINOGEN 0.2 mg/dL (0.2-1.0)
[2022-02-03] MEDS ORDERED: ACETAMINOPHEN 325 MG TABLET (FP) PO PRN (20:16)
[2022-02-03] MEDS ORDERED: POLYETHYLENE GLYCOL (HEALTHYLAX) 3350 17 GM PACKET PO PRN (20:16)
[2022-02-04] MEDS: INSULIN SLIDING SCALE (NOVOLOG) 1 VIAL SQ SCH ×5 (00:36→21:37)
[2022-02-04 07:27] VITALS: BMI 25.9
[2022-02-04 08:23] LABS: HEMATOCRIT 32.8 % (35.4-49); HEMOGLOBIN 11.2 GM/dL (11.7-16.9); MCHC 34.3 g/dl (32.0-35.9); MEAN CELL VOLUME 90.3 fl (80-96); MEAN PLT VOLUME 8.3 fl (7.5-11.1); PLATELET COUNT 102 10^3/uL (134-434); RBC 3.63 M/mm3 (4.00-5.60); RDW 13.9 % (11.9-15.9); WHITE BLOOD COUNT 3.9 K/mm3 (4.0-10.0)
[2022-02-04 08:50] LABS: BLOOD UREA NITROGEN 22.4 mg/dL (7-18); CALCIUM 8.7 mg/dL (8.5-10.1); MAGNESIUM 1.9 mg/dL (1.8-2.4)
[2022-02-04 08:52] LABS: PHOSPHOROUS 3.5 mg/dL (2.5-4.9)
[2022-02-04 08:53] LABS: CREATININE 0.5 mg/dL (0.55-1.3)
[2022-02-04 09:54] LABS: ANISOCYTOSIS 0; HELMET CELLS 0; HOWELL-JOLLY BODIES 0; MACROCYTOSIS 0; OVALOCYTE 0; ROULEAU 0; SICKELED CELLS 0; TARGET CELLS 0; TEAR DROP CELLS 0; TOXIC GRANULATION 0
[2022-02-04] MEDS ORDERED: PNEUMOC 20-VAL CONJ-DIP CRM/PF 0.5 ML SYRINGE IM ONE (10:00)
[2022-02-04] MEDS: TAMSULOSIN HCL 0.4 MG CAP PO SCH (10:55)
[2022-02-04] MEDS: FUROSEMIDE 40 MG TABLET (FP) PO SCH (10:55)
[2022-02-04] MEDS: CLOPIDOGREL BISULFATE 75 MG TABLET (FP) PO SCH (10:55)
[2022-02-04] MEDS: ASPIRIN 325 MG TABLET PO SCH (10:55)
[2022-02-04] MEDS: METOPROLOL TARTRATE 50 MG TABLET (FP) PO SCH ×2 (10:55→21:34)
[2022-02-04] MEDS: PANTOPRAZOLE 40 MG TABLET PO SCH (10:55)
[2022-02-04] MEDS: TIMOLOL 0.5% OPHTHALMIC SOL 5 ML BOTTLE OU SCH (11:49)
[2022-02-04] MEDS: SODIUM CHLORIDE 1,000 ML IV SCH (14:05)
[2022-02-04] MEDS ORDERED: ATORVASTATIN CA 80 MG TABLET (FP) PO SCH (22:00)
[2022-02-04] MEDS: LATANOPROST 0.005% OPHTH SOLN 2.5ML BOTTLE OU SCH ×2 (23:27→23:30)
[2022-02-05] MEDS: INSULIN SLIDING SCALE (NOVOLOG) 1 VIAL SQ SCH ×3 (05:59→18:46)
[2022-02-05] MEDS: TAMSULOSIN HCL 0.4 MG CAP PO SCH (09:47)
[2022-02-05] MEDS: CLOPIDOGREL BISULFATE 75 MG TABLET (FP) PO SCH (10:03)
[2022-02-05] MEDS: FUROSEMIDE 40 MG TABLET (FP) PO SCH (10:04)
[2022-02-05] MEDS: PANTOPRAZOLE 40 MG TABLET PO SCH (10:04)
[2022-02-05] MEDS: METOPROLOL TARTRATE 50 MG TABLET (FP) PO SCH (10:04)
[2022-02-05] MEDS: ASPIRIN 325 MG TABLET PO SCH (10:04)
[2022-02-05] MEDS: TIMOLOL 0.5% OPHTHALMIC SOL 5 ML BOTTLE OU SCH ×2 (10:05→10:11)
[2022-02-05 15:40] VITALS: TEMP 98.2
[2022-02-05 18:03] VITALS: BP 138/51; PULSE 65
== END 2022-02-05 18:10 | disposition home or self-care (01) ==
LOC: JER 13:42 → JERBED 16:10 → J4W 02-04 00:03
PROVIDERS: ADMIT Hospitalist; ATTEND Family Medicine
PROC: 3E023GC Introduction of Other Therapeutic Substance into Muscle, Percutaneous Approach (ICD-10-PCS; principal; 2022-02-03)
PROC: 3E0337Z Introduction of Electrolytic and Water Balance Substance into Peripheral Vein, Percutaneous Approach (ICD-10-PCS; 2022-02-03)
DX: I25.10 Atherosclerotic heart disease of native coronary artery without angina pectoris (principal); I11.0 Hypertensive heart disease with heart failure; E78.5 Hyperlipidemia, unspecified; I35.0 Nonrheumatic aortic (valve) stenosis; R55 Syncope and collapse; E11.9 Type 2 diabetes mellitus without complications; Z85.47 Personal history of malignant neoplasm of testis; I27.20 Pulmonary hypertension, unspecified; K57.91 Diverticulosis of intestine, part unspecified, without perforation or abscess with bleeding; H91.90 Unspecified hearing loss, unspecified ear; Z90.49 Acquired absence of other specified parts of digestive tract; Z95.5 Presence of coronary angioplasty implant and graft; Z86.16 Personal history of COVID-19; R29.810 Facial weakness; Z86.73 Personal history of transient ischemic attack (TIA), and cerebral infarction without residual deficits; Z95.0 Presence of cardiac pacemaker; N40.0 Benign prostatic hyperplasia without lower urinary tract symptoms; H53.8 Other visual disturbances; Z23 Encounter for immunization
CPT/HCPCS: 36415; 70450-TC; 80048; 80053; 80061; 81003; 82550; 82962; 83036; 83735; 84100; 84484; 85025; 85610; 85730; 86850; 86900; 86901; 90677; 93005; 93010; 93306-TC; 96360; 96372; 97116-GP; 97161-GP; 99285-25; C9803-CS; G0378; U0003; U0005

== ENCOUNTER 2022-05-27 00:22 | Observation (INO) | payer OTHER ==
[2022-05-27 02:07] LABS: BASO % 0.3 % (0-2.0); EOS % 0.4 % (0-4.5); HEMATOCRIT 41.1 % (35.4-49); HEMOGLOBIN 13.4 GM/dL (11.7-16.9); LYMPH % 15.9 % (8-40); MCH 29.7 pg (25.7-33.7); MCHC 32.6 g/dl (32.0-35.9); MEAN PLT VOLUME 8.4 fl (7.5-11.1); MONO % 9.1 % (3.8-10.2); NEUT % 74.3 % (42.8-82.8); PLATELET COUNT 152 10^3/uL (134-434); RBC 4.52 M/mm3 (4.00-5.60); RDW 14.3 % (11.9-15.9); WHITE BLOOD COUNT 6.4 K/mm3 (4.0-10.0)
[2022-05-27 02:10] LABS: VENOUS O2 SATURATION 34.5 % (70-80); VENOUS PCO2 54.7 mmHg (38-52); VENOUS PH 7.354 (7.310-7.410)
[2022-05-27 02:15] LABS: INR 1.01 (0.83-1.09); PROTHROMBIN TIME (PATIENT) 11.6 SEC (9.7-13.0)
[2022-05-27 02:18] LABS: ACTIVATED PTT 28.5 SECONDS (25.2-36.5)
[2022-05-27 02:52] LABS: CALCIUM 9.3 mg/dL (8.5-10.1)
[2022-05-27 02:53] LABS: BLOOD UREA NITROGEN 23.2 mg/dL (7-18)
[2022-05-27 02:56] LABS: CREATININE 0.9 mg/dL (0.55-1.3)
[2022-05-27 02:58] LABS: BILIRUBIN,TOTAL 1.1 mg/dL (0.2-1)
[2022-05-27 03:29] LABS: PH,URINE 6.5 (5.0-8.0); URINE APPEARANCE CLEAR; URINE BILIRUBIN NEGATIVE (NEGATIVE); URINE COLOR YELLOW; URINE GLUCOSE (UA) 2+ (NEGATIVE); URINE KETONE NEGATIVE (NEGATIVE); URINE LEUK ESTERASE NEGATIVE (NEGATIVE); URINE NITRITE NEGATIVE (NEGATIVE); URINE PROTEIN TRACE (NEGATIVE); URINE UROBILINOGEN 0.2 mg/dL (0.2-1.0)
[2022-05-27] MEDS ORDERED: ATORVASTATIN CA 80 MG TABLET (FP) PO ONE (03:37)
[2022-05-27] MEDS ORDERED: ASPIRIN 81 MG CHEWABLE TABLETS PO ONE (03:37)
[2022-05-27] MEDS ORDERED: ATORVASTATIN CA 80 MG TABLET (FP) ONE (03:55)
[2022-05-27] MEDS ORDERED: ASPIRIN 81 MG CHEWABLE TABLETS ONE (03:56)
[2022-05-27] MEDS ORDERED: ACETAMINOPHEN 1000 MG/100 ML BAG IVPB PRN (06:33)
[2022-05-27] MEDS: INSULIN SLIDING SCALE (NOVOLOG) 1 VIAL SQ SCH ×3 (08:19→18:29)
[2022-05-27] MEDS: SODIUM CHLORIDE 1,000 ML IV SCH (08:20)
[2022-05-27] MEDS ORDERED: ENOXAPARIN NA (PORCINE) 40 MG/0.4 ML DISP.SYRIN SQ ONE (09:59)
[2022-05-27] MEDS ORDERED: POLYETHYLENE GLYCOL (HEALTHYLAX) 3350 17 GM PACKET PO PRN (10:03)
[2022-05-27] MEDS: ENOXAPARIN NA (PORCINE) 40 MG/0.4 ML DISP.SYRIN SQ SCH (10:07)
[2022-05-27] MEDS ORDERED: TAMSULOSIN HCL 0.4 MG CAP PO SCH (10:15)
[2022-05-27] MEDS ORDERED: PATIENT'S OWN MEDICATION (NON-FORMULARY) (Olmesartan Medoxomil 20 MG Tablet) PO SCH (10:15)
[2022-05-27] MEDS ORDERED: CLOPIDOGREL BISULFATE 75 MG TABLET (FP) ONE (10:27)
[2022-05-27] MEDS ORDERED: PANTOPRAZOLE 40 MG TABLET PO ONE (10:28)
[2022-05-27] MEDS ORDERED: ASPIRIN COATED 81 MG TABLET.EC ONE (10:29)
[2022-05-27] MEDS: METOPROLOL TARTRATE 50 MG TABLET (FP) PO SCH ×2 (10:38→21:26)
[2022-05-27] MEDS: CLOPIDOGREL BISULFATE 75 MG TABLET (FP) PO SCH (10:39)
[2022-05-27] MEDS: FUROSEMIDE 40 MG TABLET (FP) PO SCH (10:40)
[2022-05-27] MEDS: TIMOLOL 0.5% OPHTHALMIC SOL 5 ML BOTTLE OU SCH ×2 (11:21→21:33)
[2022-05-27 14:32] VITALS: BMI 26.7
[2022-05-27] MEDS: ATORVASTATIN CA 80 MG TABLET (FP) PO SCH (21:26)
[2022-05-28] MEDS: INSULIN SLIDING SCALE (NOVOLOG) 1 VIAL SQ SCH ×5 (01:24→22:01)
[2022-05-28] MEDS: SODIUM CHLORIDE 1,000 ML IV SCH ×2 (01:24→05:53)
[2022-05-28 06:56] LABS: BASO % 0.4 % (0-2.0); EOS % 1.8 % (0-4.5); HEMOGLOBIN 12.2 GM/dL (11.7-16.9); LYMPH % 16.5 % (8-40); MCHC 32.9 g/dl (32.0-35.9); MEAN PLT VOLUME 8.3 fl (7.5-11.1); MONO % 10.7 % (3.8-10.2); NEUT % 70.6 % (42.8-82.8); PLATELET COUNT 127 10^3/uL (134-434); RBC 4.07 M/mm3 (4.00-5.60); RDW 14.3 % (11.9-15.9); WHITE BLOOD COUNT 6.4 K/mm3 (4.0-10.0)
[2022-05-28 07:14] LABS: CALCIUM 8.6 mg/dL (8.5-10.1)
[2022-05-28 07:15] LABS: MAGNESIUM 1.8 mg/dL (1.8-2.4)
[2022-05-28 07:18] LABS: CREATININE 0.6 mg/dL (0.55-1.3); PHOSPHOROUS 3.2 mg/dL (2.5-4.9)
[2022-05-28] MEDS: PANTOPRAZOLE 40 MG TABLET PO SCH (09:14)
[2022-05-28] MEDS: METOPROLOL TARTRATE 50 MG TABLET (FP) PO SCH ×2 (09:14→21:30)
[2022-05-28] MEDS: CLOPIDOGREL BISULFATE 75 MG TABLET (FP) PO SCH (09:15)
[2022-05-28] MEDS: TAMSULOSIN HCL 0.4 MG CAP PO SCH (09:15)
[2022-05-28] MEDS: ENOXAPARIN NA (PORCINE) 40 MG/0.4 ML DISP.SYRIN SQ SCH (09:15)
[2022-05-28] MEDS: FUROSEMIDE 40 MG TABLET (FP) PO SCH (09:15)
[2022-05-28] MEDS: LOSARTAN POTASSIUM 50 MG TABLET PO SCH (09:15)
[2022-05-28] MEDS: ASPIRIN 81 MG CHEWABLE TABLETS PO SCH (09:15)
[2022-05-28] MEDS: TIMOLOL 0.5% OPHTHALMIC SOL 5 ML BOTTLE OU SCH ×2 (09:19→21:30)
[2022-05-28] MEDS: ATORVASTATIN CA 80 MG TABLET (FP) PO SCH (21:30)
[2022-05-29] MEDS ORDERED: FUROSEMIDE 40 MG/4 ML INJECTABLE VIAL IVPUSH ONE (03:49)
[2022-05-29] MEDS ORDERED: ACETAMINOPHEN 1000 MG/100 ML BAG IVPB ONE (04:02)
[2022-05-29] MEDS ORDERED: ACETAMINOPHEN INJECTION 100 ML IVPB ONE (04:07)
[2022-05-29] MEDS: INSULIN SLIDING SCALE (NOVOLOG) 1 VIAL SQ SCH ×4 (06:03→21:28)
[2022-05-29] MEDS: ASPIRIN 81 MG CHEWABLE TABLETS PO SCH (09:41)
[2022-05-29] MEDS: LOSARTAN POTASSIUM 50 MG TABLET PO SCH (09:41)
[2022-05-29] MEDS: TAMSULOSIN HCL 0.4 MG CAP PO SCH (09:41)
[2022-05-29] MEDS: CLOPIDOGREL BISULFATE 75 MG TABLET (FP) PO SCH (09:41)
[2022-05-29] MEDS: METOPROLOL TARTRATE 50 MG TABLET (FP) PO SCH ×2 (09:42→21:28)
[2022-05-29] MEDS: PANTOPRAZOLE 40 MG TABLET PO SCH (09:42)
[2022-05-29] MEDS: ENOXAPARIN NA (PORCINE) 40 MG/0.4 ML DISP.SYRIN SQ SCH (09:42)
[2022-05-29] MEDS: TIMOLOL 0.5% OPHTHALMIC SOL 5 ML BOTTLE OU SCH ×2 (09:44→21:29)
[2022-05-29 11:19] LABS: N-TERMINAL BNP 2028.2 pg/ml (5-450)
[2022-05-29] MEDS: ALBUTEROL SO4 2.5/IPRATROPIUM 0.5 INH SOL 3 ML VIAL.NEB. NEB SCH ×3 (11:20→20:10)
[2022-05-29] MEDS: ATORVASTATIN CA 80 MG TABLET (FP) PO SCH (21:28)
[2022-05-29] MEDS: ACETAMINOPHEN 1000 MG/100 ML BAG IVPB PRN (21:28)
[2022-05-30] MEDS: INSULIN SLIDING SCALE (NOVOLOG) 1 VIAL SQ SCH ×4 (06:36→21:14)
[2022-05-30] MEDS: ALBUTEROL SO4 2.5/IPRATROPIUM 0.5 INH SOL 3 ML VIAL.NEB. NEB SCH ×4 (07:41→20:34)
[2022-05-30] MEDS: CLOPIDOGREL BISULFATE 75 MG TABLET (FP) PO SCH (09:11)
[2022-05-30] MEDS: LOSARTAN POTASSIUM 50 MG TABLET PO SCH (09:11)
[2022-05-30] MEDS: ENOXAPARIN NA (PORCINE) 40 MG/0.4 ML DISP.SYRIN SQ SCH (09:11)
[2022-05-30] MEDS: PANTOPRAZOLE 40 MG TABLET PO SCH (09:11)
[2022-05-30] MEDS: ASPIRIN 81 MG CHEWABLE TABLETS PO SCH (09:11)
[2022-05-30] MEDS: FUROSEMIDE 40 MG TABLET (FP) PO SCH (09:11)
[2022-05-30] MEDS: TAMSULOSIN HCL 0.4 MG CAP PO SCH (09:11)
[2022-05-30] MEDS: METOPROLOL TARTRATE 50 MG TABLET (FP) PO SCH ×2 (09:11→21:09)
[2022-05-30] MEDS: TIMOLOL 0.5% OPHTHALMIC SOL 5 ML BOTTLE OU SCH ×2 (09:12→21:14)
[2022-05-30 12:34] LABS: HEMATOCRIT 35.2 % (35.4-49); HEMOGLOBIN 11.7 GM/dL (11.7-16.9); MCH 29.9 pg (25.7-33.7); MCHC 33.3 g/dl (32.0-35.9); MEAN CELL VOLUME 89.8 fl (80-96); MEAN PLT VOLUME 8.8 fl (7.5-11.1); PLATELET COUNT 131 10^3/uL (134-434); RBC 3.92 M/mm3 (4.00-5.60); RDW 14.3 % (11.9-15.9); WHITE BLOOD COUNT 4.9 K/mm3 (4.0-10.0)
[2022-05-30 12:55] LABS: ALBUMIN 3.2 g/dl (3.4-5.0); BLOOD UREA NITROGEN 19.3 mg/dL (7-18)
[2022-05-30 12:57] LABS: MAGNESIUM 1.8 mg/dL (1.8-2.4)
[2022-05-30 12:59] LABS: CREATININE 0.6 mg/dL (0.55-1.3)
[2022-05-30 13:01] LABS: TOT PROT 6.2 g/dl (6.4-8.2)
[2022-05-30] MEDS: ATORVASTATIN CA 80 MG TABLET (FP) PO SCH (21:09)
[2022-05-30] MEDS: ACETAMINOPHEN 1000 MG/100 ML BAG IVPB PRN (21:18)
[2022-05-31] MEDS: INSULIN (LEVEMIR) 100 UNITS/ML UNITS SQ SCH (06:20)
[2022-05-31] MEDS: INSULIN SLIDING SCALE (NOVOLOG) 1 VIAL SQ SCH ×4 (06:21→21:23)
[2022-05-31] MEDS: ALBUTEROL SO4 2.5/IPRATROPIUM 0.5 INH SOL 3 ML VIAL.NEB. NEB SCH ×4 (07:30→20:00)
[2022-05-31] MEDS: PANTOPRAZOLE 40 MG TABLET PO SCH (09:51)
[2022-05-31] MEDS: TIMOLOL 0.5% OPHTHALMIC SOL 5 ML BOTTLE OU SCH ×2 (09:51→21:24)
[2022-05-31] MEDS: ENOXAPARIN NA (PORCINE) 40 MG/0.4 ML DISP.SYRIN SQ SCH (09:51)
[2022-05-31] MEDS: LOSARTAN POTASSIUM 50 MG TABLET PO SCH (09:51)
[2022-05-31] MEDS: ASPIRIN 81 MG CHEWABLE TABLETS PO SCH (09:51)
[2022-05-31] MEDS: FUROSEMIDE 40 MG TABLET (FP) PO SCH (09:51)
[2022-05-31] MEDS: CLOPIDOGREL BISULFATE 75 MG TABLET (FP) PO SCH (09:51)
[2022-05-31] MEDS: METOPROLOL TARTRATE 50 MG TABLET (FP) PO SCH ×2 (09:51→21:20)
[2022-05-31] MEDS: TAMSULOSIN HCL 0.4 MG CAP PO SCH (09:51)
[2022-05-31] MEDS: ATORVASTATIN CA 80 MG TABLET (FP) PO SCH (21:20)
[2022-06-01] MEDS: INSULIN (LEVEMIR) 100 UNITS/ML UNITS SQ SCH (06:19)
[2022-06-01] MEDS: INSULIN SLIDING SCALE (NOVOLOG) 1 VIAL SQ SCH ×4 (06:19→21:24)
[2022-06-01] MEDS: ALBUTEROL SO4 2.5/IPRATROPIUM 0.5 INH SOL 3 ML VIAL.NEB. NEB SCH ×4 (07:25→20:05)
[2022-06-01] MEDS: METOPROLOL TARTRATE 50 MG TABLET (FP) PO SCH ×3 (08:06→21:24)
[2022-06-01] MEDS: TAMSULOSIN HCL 0.4 MG CAP PO SCH (08:06)
[2022-06-01] MEDS: LOSARTAN POTASSIUM 50 MG TABLET PO SCH ×3 (08:07→21:24)
[2022-06-01] MEDS: FUROSEMIDE 40 MG TABLET (FP) PO SCH ×2 (08:07→09:33)
[2022-06-01 08:57] LABS: HEMATOCRIT 33.5 % (35.4-49); HEMOGLOBIN 11.2 GM/dL (11.7-16.9); MCH 30.1 pg (25.7-33.7); MCHC 33.5 g/dl (32.0-35.9); MEAN CELL VOLUME 90.1 fl (80-96); MEAN PLT VOLUME 8.4 fl (7.5-11.1); PLATELET COUNT 121 10^3/uL (134-434); RBC 3.71 M/mm3 (4.00-5.60); RDW 14.5 % (11.9-15.9); WHITE BLOOD COUNT 4.1 K/mm3 (4.0-10.0)
[2022-06-01 09:25] LABS: ALBUMIN 3.1 g/dl (3.4-5.0); BLOOD UREA NITROGEN 16.4 mg/dL (7-18); CALCIUM 8.9 mg/dL (8.5-10.1); MAGNESIUM 1.9 mg/dL (1.8-2.4)
[2022-06-01 09:28] LABS: CREATININE 0.5 mg/dL (0.55-1.3)
[2022-06-01 09:29] LABS: BILIRUBIN,TOTAL 0.9 mg/dL (0.2-1); TOT PROT 5.7 g/dl (6.4-8.2)
[2022-06-01] MEDS: CLOPIDOGREL BISULFATE 75 MG TABLET (FP) PO SCH (09:33)
[2022-06-01] MEDS: ASPIRIN 81 MG CHEWABLE TABLETS PO SCH (09:33)
[2022-06-01] MEDS: ENOXAPARIN NA (PORCINE) 40 MG/0.4 ML DISP.SYRIN SQ SCH (09:33)
[2022-06-01] MEDS: TIMOLOL 0.5% OPHTHALMIC SOL 5 ML BOTTLE OU SCH ×2 (09:33→21:24)
[2022-06-01] MEDS: PANTOPRAZOLE 40 MG TABLET PO SCH (09:33)
[2022-06-01] MEDS: ATORVASTATIN CA 80 MG TABLET (FP) PO SCH (21:24)
[2022-06-02] MEDS ORDERED: METOPROLOL TARTRATE 50 MG TABLET (FP) PO ONE (05:30)
[2022-06-02] MEDS: INSULIN (LEVEMIR) 100 UNITS/ML UNITS SQ SCH (06:02)
[2022-06-02] MEDS: INSULIN SLIDING SCALE (NOVOLOG) 1 VIAL SQ SCH ×3 (06:02→17:09)
[2022-06-02 06:11] VITALS: RESP 18
[2022-06-02] MEDS: ACETAMINOPHEN 1000 MG/100 ML BAG IVPB PRN (06:33)
[2022-06-02] MEDS: ALBUTEROL SO4 2.5/IPRATROPIUM 0.5 INH SOL 3 ML VIAL.NEB. NEB SCH ×3 (08:20→15:41)
[2022-06-02] MEDS ORDERED: INSULIN (LEVEMIR) 100 UNITS/ML UNITS SQ SCH (08:28)
[2022-06-02] MEDS: TAMSULOSIN HCL 0.4 MG CAP PO SCH (08:30)
[2022-06-02] MEDS: ENOXAPARIN NA (PORCINE) 40 MG/0.4 ML DISP.SYRIN SQ SCH (10:01)
[2022-06-02] MEDS: CLOPIDOGREL BISULFATE 75 MG TABLET (FP) PO SCH (10:01)
[2022-06-02] MEDS: LOSARTAN POTASSIUM 50 MG TABLET PO SCH (10:01)
[2022-06-02] MEDS: ASPIRIN 81 MG CHEWABLE TABLETS PO SCH (10:01)
[2022-06-02] MEDS: FUROSEMIDE 40 MG TABLET (FP) PO SCH (10:01)
[2022-06-02] MEDS: PANTOPRAZOLE 40 MG TABLET PO SCH (10:01)
[2022-06-02] MEDS: METOPROLOL TARTRATE 50 MG TABLET (FP) PO SCH (10:02)
[2022-06-02] MEDS: TIMOLOL 0.5% OPHTHALMIC SOL 5 ML BOTTLE OU SCH (10:33)
[2022-06-02 18:33] VITALS: BP 151/54; PULSE 76; TEMP 97.7
== END 2022-06-02 18:35 | disposition home health service (06) ==
LOC: JER 00:22 → JERBED 04:17 → J4W 12:18 → J4S 21:01
PROVIDERS: ADMIT Internal Medicine; ATTEND Family Medicine
PROC: 3E033NZ Introduction of Analgesics, Hypnotics, Sedatives into Peripheral Vein, Percutaneous Approach (ICD-10-PCS; principal; 2022-05-27)
PROC: 3E0F7GC Introduction of Other Therapeutic Substance into Respiratory Tract, Via Natural or Artificial Opening (ICD-10-PCS; 2022-05-27)
PROC: 3E023GC Introduction of Other Therapeutic Substance into Muscle, Percutaneous Approach (ICD-10-PCS; 2022-05-27)
PROC: 3E013VG Introduction of Insulin into Subcutaneous Tissue, Percutaneous Approach (ICD-10-PCS; 2022-05-27)
DX: G45.9 Transient cerebral ischemic attack, unspecified (principal); I25.10 Atherosclerotic heart disease of native coronary artery without angina pectoris; I11.0 Hypertensive heart disease with heart failure; I44.7 Left bundle-branch block, unspecified; D32.9 Benign neoplasm of meninges, unspecified; E78.5 Hyperlipidemia, unspecified; R55 Syncope and collapse; J96.02 Acute respiratory failure with hypercapnia; Z95.0 Presence of cardiac pacemaker; Z86.73 Personal history of transient ischemic attack (TIA), and cerebral infarction without residual deficits
CPT/HCPCS: 0241U-QW; 36415; 70450-TC; 71045-TC-FY; 80048; 80053; 80061; 81003; 82010; 82550; 82803; 82962; 83036; 83735; 83880; 84100; 84439; 84443; 84484; 85025; 85027; 85610; 85730; 86850; 86900; 86901; 93005; 93010; 93880-TC; 94640; 94761; 96372; 96374; 96375; 96376; 97116-GP; 97161-GP; 99285-25; G0378

== ENCOUNTER 2022-06-30 10:54 | Inpatient (IN) | payer OTHER ==
[2022-06-30] MEDS ORDERED: methylPREDNISolone NA SUCC 125 MG/2 ML VIAL IVPUSH ONE (11:25)
[2022-06-30] MEDS: ALBUTEROL SO4 2.5/IPRATROPIUM 0.5 INH SOL 3 ML VIAL.NEB. NEB SCH ×3 (11:30→12:33)
[2022-06-30] MEDS ORDERED: ALBUTEROL SO4 2.5/IPRATROPIUM 0.5 INH SOL 3 ML VIAL.NEB. NEB ONE ×2 (11:56→12:03)
[2022-06-30] MEDS ORDERED: methylPREDNISolone NA SUCC 125 MG/2 ML VIAL ONE (11:56)
[2022-06-30] MEDS ORDERED: FUROSEMIDE 40 MG/4 ML INJECTABLE VIAL IVPUSH ONE (11:59)
[2022-06-30] MEDS ORDERED: FUROSEMIDE 40 MG/4 ML INJECTABLE VIAL ONE (12:03)
[2022-06-30 12:10] LABS: VENOUS BASE EXCESS 5.7 mmol/L (-2-2); VENOUS O2 SATURATION 28.8 % (70-80); VENOUS PCO2 66.9 mmHg (38-52); VENOUS PH 7.321 (7.310-7.410)
[2022-06-30 12:28] LABS: BASO % 0.4 % (0-2.0); EOS % 0.7 % (0-4.5); HEMATOCRIT 35.4 % (35.4-49); HEMOGLOBIN 11.8 GM/dL (11.7-16.9); LYMPH % 16.7 % (8-40); MCH 30.3 pg (25.7-33.7); MCHC 33.3 g/dl (32.0-35.9); MEAN PLT VOLUME 8.5 fl (7.5-11.1); MONO % 7.7 % (3.8-10.2); NEUT % 74.5 % (42.8-82.8); PLATELET COUNT 107 10^3/uL (134-434); RDW 15.3 % (11.9-15.9); WHITE BLOOD COUNT 5.5 K/mm3 (4.0-10.0)
[2022-06-30 12:33] LABS: PROTHROMBIN TIME (PATIENT) 11.5 SEC (9.7-13.0)
[2022-06-30 12:36] LABS: ACTIVATED PTT 29.5 SECONDS (25.2-36.5)
[2022-06-30 12:57] LABS: CALCIUM 8.5 mg/dL (8.5-10.1)
[2022-06-30 12:58] LABS: ALBUMIN 3.7 g/dl (3.4-5.0); BLOOD UREA NITROGEN 14.2 mg/dL (7-18); MAGNESIUM 1.9 mg/dL (1.8-2.4)
[2022-06-30 13:01] LABS: CREATININE 0.6 mg/dL (0.55-1.3)
[2022-06-30 13:02] LABS: BILIRUBIN,TOTAL 1.4 mg/dL (0.2-1)
[2022-06-30 13:03] LABS: TOT PROT 6.3 g/dl (6.4-8.2)
[2022-06-30 13:06] LABS: N-TERMINAL BNP 1230.5 pg/ml (5-450)
[2022-06-30] MEDS ORDERED: ACETAMINOPHEN 1000 MG/100 ML BAG IVPB ONE (13:51)
[2022-06-30] MEDS ORDERED: LIDOCAINE 5% TOPICAL PATCH TP ONE (14:13)
[2022-06-30] MEDS ORDERED: LIDOCAINE 5% TOPICAL PATCH ONE (14:24)
[2022-06-30] MEDS ORDERED: ACETAMINOPHEN INJECTION 100 ML IVPB ONE (14:24)
[2022-06-30 18:16] VITALS: BMI 26.4
[2022-06-30] MEDS: methylPREDNISolone NA SUCC 40 MG/1 ML VIAL IVPUSH SCH (21:32)
[2022-06-30] MEDS: ATORVASTATIN CA 80 MG TABLET (FP) PO SCH (21:46)
[2022-06-30] MEDS: HEPARIN NA (PORCINE) 5,000 UNITS/ML 1ML VIAL SQ SCH (21:46)
[2022-06-30] MEDS: LOSARTAN POTASSIUM 50 MG TABLET PO SCH (21:46)
[2022-06-30] MEDS: METOPROLOL TARTRATE 50 MG TABLET (FP) PO SCH (21:46)
[2022-06-30] MEDS ORDERED: INSULIN (NOVOLOG) ASPART 100 UNITS/ML 10ML VIAL ONE (22:03)
[2022-06-30] MEDS: INSULIN (LEVEMIR) 100 UNITS/ML UNITS SQ SCH (22:05)
[2022-06-30] MEDS: INSULIN (NOVOLOG) ASPART 100 UNITS/ML 10ML VIAL SQ SCH (22:05)
[2022-06-30] MEDS: LATANOPROST 0.005% OPHTH SOLN 2.5ML BOTTLE OU SCH (22:07)
[2022-06-30] MEDS: LIDOCAINE PATCH REMOVAL MC SCH (22:42)
[2022-07-01] MEDS: methylPREDNISolone NA SUCC 40 MG/1 ML VIAL IVPUSH SCH ×4 (03:10→21:29)
[2022-07-01] MEDS: FUROSEMIDE 40 MG/4 ML INJECTABLE VIAL IVPUSH SCH ×2 (06:38→14:32)
[2022-07-01] MEDS: INSULIN (NOVOLOG) ASPART 100 UNITS/ML 10ML VIAL SQ SCH ×4 (06:39→21:35)
[2022-07-01 08:42] LABS: BASO % 0.1 % (0-2.0); HEMATOCRIT 36.1 % (35.4-49); HEMOGLOBIN 12.4 GM/dL (11.7-16.9); LYMPH % 6.9 % (8-40); MCHC 34.4 g/dl (32.0-35.9); MEAN CELL VOLUME 90.1 fl (80-96); MEAN PLT VOLUME 8.4 fl (7.5-11.1); MONO % 3.4 % (3.8-10.2); NEUT % 89.6 % (42.8-82.8); PLATELET COUNT 119 10^3/uL (134-434); RBC 4.01 M/mm3 (4.00-5.60); RDW 15.1 % (11.9-15.9); WHITE BLOOD COUNT 7.8 K/mm3 (4.0-10.0)
[2022-07-01 08:58] LABS: ALBUMIN 3.9 g/dl (3.4-5.0); CALCIUM 9.1 mg/dL (8.5-10.1)
[2022-07-01 08:59] LABS: BLOOD UREA NITROGEN 17.6 mg/dL (7-18)
[2022-07-01 09:01] LABS: CREATININE 0.7 mg/dL (0.55-1.3); MAGNESIUM 1.8 mg/dL (1.8-2.4)
[2022-07-01 09:02] LABS: TOT PROT 6.6 g/dl (6.4-8.2)
[2022-07-01] MEDS: PANTOPRAZOLE 40 MG TABLET PO SCH (10:43)
[2022-07-01] MEDS: ASPIRIN 81 MG CHEWABLE TABLETS PO SCH (10:43)
[2022-07-01] MEDS: HEPARIN NA (PORCINE) 5,000 UNITS/ML 1ML VIAL SQ SCH ×2 (10:43→21:38)
[2022-07-01] MEDS: LOSARTAN POTASSIUM 50 MG TABLET PO SCH ×2 (10:43→21:30)
[2022-07-01] MEDS: TAMSULOSIN HCL 0.4 MG CAP PO SCH (10:43)
[2022-07-01] MEDS: CLOPIDOGREL BISULFATE 75 MG TABLET (FP) PO SCH (10:43)
[2022-07-01] MEDS: METOPROLOL TARTRATE 50 MG TABLET (FP) PO SCH ×2 (10:43→21:30)
[2022-07-01] MEDS: TIMOLOL 0.5% OPHTHALMIC SOL 5 ML BOTTLE OU SCH (14:00)
[2022-07-01] MEDS: LATANOPROST 0.005% OPHTH SOLN 2.5ML BOTTLE OU SCH (21:30)
[2022-07-01] MEDS: ATORVASTATIN CA 80 MG TABLET (FP) PO SCH (21:30)
[2022-07-01] MEDS: INSULIN (LEVEMIR) 100 UNITS/ML UNITS SQ SCH (21:34)
[2022-07-01] MEDS: LIDOCAINE PATCH REMOVAL MC SCH (21:40)
[2022-07-02] MEDS: methylPREDNISolone NA SUCC 40 MG/1 ML VIAL IVPUSH SCH (03:32)
[2022-07-02] MEDS: FUROSEMIDE 40 MG/4 ML INJECTABLE VIAL IVPUSH SCH (06:40)
[2022-07-02] MEDS: INSULIN (NOVOLOG) ASPART 100 UNITS/ML 10ML VIAL SQ SCH ×4 (06:42→22:00)
[2022-07-02] MEDS: PANTOPRAZOLE 40 MG TABLET PO SCH (10:12)
[2022-07-02] MEDS: CLOPIDOGREL BISULFATE 75 MG TABLET (FP) PO SCH (10:12)
[2022-07-02] MEDS: predniSONE 20 MG TABLET (UD) PO SCH ×2 (10:12→21:50)
[2022-07-02] MEDS: METOPROLOL TARTRATE 50 MG TABLET (FP) PO SCH (10:12)
[2022-07-02] MEDS: TAMSULOSIN HCL 0.4 MG CAP PO SCH (10:13)
[2022-07-02] MEDS: HEPARIN NA (PORCINE) 5,000 UNITS/ML 1ML VIAL SQ SCH (10:13)
[2022-07-02] MEDS: LOSARTAN POTASSIUM 50 MG TABLET PO SCH ×2 (10:13→21:50)
[2022-07-02] MEDS: ASPIRIN 81 MG CHEWABLE TABLETS PO SCH (10:13)
[2022-07-02] MEDS: TIMOLOL 0.5% OPHTHALMIC SOL 5 ML BOTTLE OU SCH (10:13)
[2022-07-02] MEDS: ATORVASTATIN CA 80 MG TABLET (FP) PO SCH (21:50)
[2022-07-02] MEDS: LIDOCAINE PATCH REMOVAL MC SCH (21:51)
[2022-07-02] MEDS: INSULIN (LEVEMIR) 100 UNITS/ML UNITS SQ SCH (22:05)
[2022-07-02] MEDS: LATANOPROST 0.005% OPHTH SOLN 2.5ML BOTTLE OU SCH (22:06)
[2022-07-03] MEDS: INSULIN (NOVOLOG) ASPART 100 UNITS/ML 10ML VIAL SQ SCH ×3 (06:45→16:37)
[2022-07-03] MEDS: FUROSEMIDE 40 MG TABLET (FP) PO SCH (09:46)
[2022-07-03] MEDS: TIMOLOL 0.5% OPHTHALMIC SOL 5 ML BOTTLE OU SCH (09:47)
[2022-07-03] MEDS: CLOPIDOGREL BISULFATE 75 MG TABLET (FP) PO SCH (09:48)
[2022-07-03] MEDS: PANTOPRAZOLE 40 MG TABLET PO SCH (09:48)
[2022-07-03] MEDS: predniSONE 20 MG TABLET (UD) PO SCH ×2 (09:48→21:52)
[2022-07-03] MEDS: ASPIRIN 81 MG CHEWABLE TABLETS PO SCH (09:48)
[2022-07-03] MEDS: TAMSULOSIN HCL 0.4 MG CAP PO SCH (09:48)
[2022-07-03] MEDS: LOSARTAN POTASSIUM 50 MG TABLET PO SCH ×2 (09:48→21:52)
[2022-07-03] MEDS: ATORVASTATIN CA 80 MG TABLET (FP) PO SCH (21:53)
[2022-07-03] MEDS: INSULIN (LEVEMIR) 100 UNITS/ML UNITS SQ SCH (22:08)
[2022-07-03] MEDS: LIDOCAINE PATCH REMOVAL MC SCH (22:09)
[2022-07-03] MEDS: INSULIN SLIDING SCALE (NOVOLOG) 1 VIAL SQ SCH (22:15)
[2022-07-03] MEDS: LATANOPROST 0.005% OPHTH SOLN 2.5ML BOTTLE OU SCH (22:16)
[2022-07-04] MEDS: INSULIN (LEVEMIR) 100 UNITS/ML UNITS SQ SCH ×2 (06:37→22:00)
[2022-07-04] MEDS: INSULIN SLIDING SCALE (NOVOLOG) 1 VIAL SQ SCH ×4 (06:40→22:00)
[2022-07-04] MEDS: PANTOPRAZOLE 40 MG TABLET PO SCH (09:24)
[2022-07-04] MEDS: ASPIRIN 81 MG CHEWABLE TABLETS PO SCH (09:24)
[2022-07-04] MEDS: TAMSULOSIN HCL 0.4 MG CAP PO SCH (09:24)
[2022-07-04] MEDS: predniSONE 20 MG TABLET (UD) PO SCH ×2 (09:24→23:17)
[2022-07-04] MEDS: CLOPIDOGREL BISULFATE 75 MG TABLET (FP) PO SCH (09:25)
[2022-07-04] MEDS: LOSARTAN POTASSIUM 50 MG TABLET PO SCH ×2 (09:25→23:17)
[2022-07-04] MEDS: FUROSEMIDE 40 MG TABLET (FP) PO SCH (09:25)
[2022-07-04] MEDS: TIMOLOL 0.5% OPHTHALMIC SOL 5 ML BOTTLE OU SCH (09:26)
[2022-07-04 17:01] LABS: HEMATOCRIT 39.1 % (35.4-49); HEMOGLOBIN 13.2 GM/dL (11.7-16.9); LYMPH % 10.7 % (8-40); MCH 30.5 pg (25.7-33.7); MCHC 33.7 g/dl (32.0-35.9); MEAN CELL VOLUME 90.5 fl (80-96); MEAN PLT VOLUME 8.7 fl (7.5-11.1); NEUT % 82.3 % (42.8-82.8); PLATELET COUNT 137 10^3/uL (134-434); RBC 4.32 M/mm3 (4.00-5.60); RDW 14.9 % (11.9-15.9); WHITE BLOOD COUNT 7.8 K/mm3 (4.0-10.0)
[2022-07-04 17:17] LABS: CALCIUM 8.7 mg/dL (8.5-10.1)
[2022-07-04 17:18] LABS: ALBUMIN 3.5 g/dl (3.4-5.0)
[2022-07-04 17:21] LABS: CREATININE 0.9 mg/dL (0.55-1.3)
[2022-07-04 17:22] LABS: BILIRUBIN,TOTAL 0.9 mg/dL (0.2-1); TOT PROT 6.1 g/dl (6.4-8.2)
[2022-07-04 17:34] LABS: BLOOD UREA NITROGEN 47.6 mg/dL (7-18)
[2022-07-04] MEDS: ATORVASTATIN CA 80 MG TABLET (FP) PO SCH (23:11)
[2022-07-04] MEDS: LIDOCAINE PATCH REMOVAL MC SCH (23:12)
[2022-07-04] MEDS: BACITRACIN/POLYMYXIN B SULFATE 10 GM BOTTLE TP SCH (23:15)
[2022-07-04] MEDS: LATANOPROST 0.005% OPHTH SOLN 2.5ML BOTTLE OU SCH (23:16)
[2022-07-05] MEDS: INSULIN (LEVEMIR) 100 UNITS/ML UNITS SQ SCH ×2 (06:55→21:45)
[2022-07-05] MEDS: INSULIN SLIDING SCALE (NOVOLOG) 1 VIAL SQ SCH ×4 (06:57→21:49)
[2022-07-05] MEDS: ASPIRIN 81 MG CHEWABLE TABLETS PO SCH (09:10)
[2022-07-05] MEDS: predniSONE 20 MG TABLET (UD) PO SCH ×2 (09:10→21:43)
[2022-07-05] MEDS: LOSARTAN POTASSIUM 50 MG TABLET PO SCH ×2 (09:10→21:43)
[2022-07-05] MEDS: PANTOPRAZOLE 40 MG TABLET PO SCH (09:11)
[2022-07-05] MEDS: BACITRACIN/POLYMYXIN B SULFATE 10 GM BOTTLE TP SCH ×2 (09:11→21:50)
[2022-07-05] MEDS: TAMSULOSIN HCL 0.4 MG CAP PO SCH (09:11)
[2022-07-05] MEDS: CLOPIDOGREL BISULFATE 75 MG TABLET (FP) PO SCH (09:11)
[2022-07-05] MEDS: FUROSEMIDE 20 MG TABLET (FP) PO SCH (09:11)
[2022-07-05] MEDS: TIMOLOL 0.5% OPHTHALMIC SOL 5 ML BOTTLE OU SCH (09:11)
[2022-07-05] MEDS: ATORVASTATIN CA 80 MG TABLET (FP) PO SCH (21:43)
[2022-07-05] MEDS: LIDOCAINE PATCH REMOVAL MC SCH (21:49)
[2022-07-05] MEDS: LATANOPROST 0.005% OPHTH SOLN 2.5ML BOTTLE OU SCH (21:51)
[2022-07-06] MEDS: INSULIN (LEVEMIR) 100 UNITS/ML UNITS SQ SCH (06:51)
[2022-07-06] MEDS: INSULIN SLIDING SCALE (NOVOLOG) 1 VIAL SQ SCH ×2 (06:51→12:14)
[2022-07-06] MEDS: TAMSULOSIN HCL 0.4 MG CAP PO SCH (09:25)
[2022-07-06] MEDS: predniSONE 20 MG TABLET (UD) PO SCH (09:26)
[2022-07-06] MEDS: PANTOPRAZOLE 40 MG TABLET PO SCH (09:26)
[2022-07-06] MEDS: CLOPIDOGREL BISULFATE 75 MG TABLET (FP) PO SCH (09:26)
[2022-07-06] MEDS: ASPIRIN 81 MG CHEWABLE TABLETS PO SCH (09:26)
[2022-07-06] MEDS: LOSARTAN POTASSIUM 50 MG TABLET PO SCH (09:26)
[2022-07-06] MEDS: BACITRACIN/POLYMYXIN B SULFATE 10 GM BOTTLE TP SCH (09:27)
[2022-07-06] MEDS: TIMOLOL 0.5% OPHTHALMIC SOL 5 ML BOTTLE OU SCH (09:28)
[2022-07-06] MEDS: FUROSEMIDE 20 MG TABLET (FP) PO SCH (10:47)
[2022-07-06 14:45] VITALS: BP 130/67; PULSE 66; RESP 18; TEMP 98.3
== END 2022-07-06 16:59 | disposition home or self-care (01) | DRG 291 ==
LOC: JER 10:54 → UNDOADMOB 14:17 → JERBED 14:17 → INTOOBSV 14:17 → JERBED 14:18 → OBSVTOIN 16:52 → J4W 17:46
PROVIDERS: ADMIT Family Medicine; ATTEND Family Medicine
DX: I11.0 Hypertensive heart disease with heart failure (principal); I50.23 Acute on chronic systolic (congestive) heart failure; J96.01 Acute respiratory failure with hypoxia; J96.02 Acute respiratory failure with hypercapnia; I69.351 Hemiplegia and hemiparesis following cerebral infarction affecting right dominant side; E11.51 Type 2 diabetes mellitus with diabetic peripheral angiopathy without gangrene; E11.40 Type 2 diabetes mellitus with diabetic neuropathy, unspecified; E11.65 Type 2 diabetes mellitus with hyperglycemia; E78.5 Hyperlipidemia, unspecified; I25.10 Atherosclerotic heart disease of native coronary artery without angina pectoris; Z95.5 Presence of coronary angioplasty implant and graft; I27.20 Pulmonary hypertension, unspecified; N40.0 Benign prostatic hyperplasia without lower urinary tract symptoms
CPT/HCPCS: 0241U-QW; 36415; 71045-TC-FY; 80053; 80061; 82803; 82962; 83036; 83735; 83880; 84443; 84484; 85025; 85610; 85730; 93005; 93010; 93306-TC; 94761; 99285-25; G0378; J1644

== ENCOUNTER 2022-07-07 15:09 | Observation (INO) | payer OTHER ==
[2022-07-07] MEDS ORDERED: SODIUM CHLORIDE 500 ML IV STA (15:48)
[2022-07-07 17:03] LABS: BASO % 0.1 % (0-2.0); EOS % 0.2 % (0-4.5); HEMATOCRIT 38.3 % (35.4-49); HEMOGLOBIN 12.6 GM/dL (11.7-16.9); LYMPH % 11.1 % (8-40); MCH 29.9 pg (25.7-33.7); MCHC 32.9 g/dl (32.0-35.9); MEAN CELL VOLUME 91.1 fl (80-96); MEAN PLT VOLUME 9.2 fl (7.5-11.1); MONO % 5.6 % (3.8-10.2); PLATELET COUNT 144 10^3/uL (134-434); RBC 4.21 M/mm3 (4.00-5.60); RDW 15.1 % (11.9-15.9); WHITE BLOOD COUNT 8.9 K/mm3 (4.0-10.0)
[2022-07-07 17:10] VITALS: BMI 21.9
[2022-07-07 17:28] LABS: ALBUMIN 2.9 g/dl (3.4-5.0); BLOOD UREA NITROGEN 47.9 mg/dL (7-18); CALCIUM 8.1 mg/dL (8.5-10.1)
[2022-07-07 17:31] LABS: CREATININE 1.1 mg/dL (0.55-1.3)
[2022-07-07 17:33] LABS: BILIRUBIN,TOTAL 1.2 mg/dL (0.2-1); TOT PROT 5.1 g/dl (6.4-8.2)
[2022-07-07] MEDS ORDERED: levETIRAcetam 500 MG/5 ML INJECTION VIAL IVPB ONE ×2 (18:08→18:30)
[2022-07-07] MEDS ORDERED: predniSONE 20 MG TABLET (UD) ONE (21:30)
[2022-07-07] MEDS ORDERED: LOSARTAN POTASSIUM 50 MG TABLET ONE (21:30)
[2022-07-07] MEDS ORDERED: METOPROLOL TARTRATE 50 MG TABLET (FP) ONE (21:30)
[2022-07-07] MEDS ORDERED: ATORVASTATIN CA 80 MG TABLET (FP) ONE (21:31)
[2022-07-07] MEDS: LOSARTAN POTASSIUM 50 MG TABLET PO SCH (21:37)
[2022-07-07] MEDS: ATORVASTATIN CA 80 MG TABLET (FP) PO SCH (21:37)
[2022-07-07] MEDS: predniSONE 20 MG TABLET (UD) PO SCH (21:37)
[2022-07-07] MEDS: METOPROLOL TARTRATE 50 MG TABLET (FP) PO SCH (21:37)
[2022-07-07] MEDS: INSULIN SLIDING SCALE (NOVOLOG) 1 VIAL SQ SCH (21:38)
[2022-07-07] MEDS: LATANOPROST 0.005% OPHTH SOLN 2.5ML BOTTLE OU SCH (21:47)
[2022-07-08 06:26] LABS: EOS % 0.2 % (0-4.5); HEMATOCRIT 39.6 % (35.4-49); HEMOGLOBIN 13.1 GM/dL (11.7-16.9); LYMPH % 8.6 % (8-40); MCH 29.6 pg (25.7-33.7); MEAN CELL VOLUME 89.6 fl (80-96); MEAN PLT VOLUME 8.7 fl (7.5-11.1); MONO % 5.8 % (3.8-10.2); NEUT % 85.4 % (42.8-82.8); PLATELET COUNT 133 10^3/uL (134-434); RBC 4.42 M/mm3 (4.00-5.60); RDW 15.2 % (11.9-15.9); WHITE BLOOD COUNT 10.4 K/mm3 (4.0-10.0)
[2022-07-08 06:40] LABS: INR 1.02 (0.83-1.09); PROTHROMBIN TIME (PATIENT) 11.7 SEC (9.7-13.0)
[2022-07-08 06:41] LABS: CALCIUM 8.6 mg/dL (8.5-10.1)
[2022-07-08 06:42] LABS: ACTIVATED PTT 25.1 SECONDS (25.2-36.5); BLOOD UREA NITROGEN 40.6 mg/dL (7-18)
[2022-07-08 06:45] LABS: CREATININE 0.6 mg/dL (0.55-1.3)
[2022-07-08] MEDS ORDERED: PATIENT'S OWN MEDICATION (NON-FORMULARY) (Timolol Maleate/Pf [Timolol Maleate 0.5% Eye Dro OP SCH (10:00)
[2022-07-08] MEDS ORDERED: LOSARTAN POTASSIUM 50 MG TABLET ONE (12:32)
[2022-07-08] MEDS ORDERED: FUROSEMIDE 40 MG TABLET (FP) ONE (12:32)
[2022-07-08] MEDS ORDERED: PANTOPRAZOLE 40 MG TABLET PO ONE (12:32)
[2022-07-08] MEDS ORDERED: predniSONE 20 MG TABLET (UD) ONE ×2 (12:32→21:41)
[2022-07-08] MEDS ORDERED: METOPROLOL TARTRATE 50 MG TABLET (FP) ONE ×2 (12:33→21:42)
[2022-07-08] MEDS ORDERED: CLOPIDOGREL BISULFATE 75 MG TABLET (FP) ONE (12:33)
[2022-07-08] MEDS ORDERED: levETIRAcetam 500 MG/5 ML INJECTION VIAL IVPB ONE ×2 (12:33→21:42)
[2022-07-08] MEDS ORDERED: ASPIRIN 81 MG CHEWABLE TABLETS ONE (12:33)
[2022-07-08] MEDS: PANTOPRAZOLE 40 MG TABLET PO SCH (12:40)
[2022-07-08] MEDS: LOSARTAN POTASSIUM 50 MG TABLET PO SCH ×2 (12:41→21:59)
[2022-07-08] MEDS: FUROSEMIDE 20 MG TABLET (FP) PO SCH (12:41)
[2022-07-08] MEDS: ASPIRIN 81 MG CHEWABLE TABLETS PO SCH (12:41)
[2022-07-08] MEDS: CLOPIDOGREL BISULFATE 75 MG TABLET (FP) PO SCH (12:41)
[2022-07-08] MEDS ORDERED: TAMSULOSIN HCL 0.4 MG CAP ONE (12:41)
[2022-07-08] MEDS: predniSONE 20 MG TABLET (UD) PO SCH ×2 (12:41→21:59)
[2022-07-08] MEDS: levETIRAcetam 500 MG/5 ML INJECTION VIAL IVPB SCH ×2 (12:49→21:59)
[2022-07-08] MEDS: TAMSULOSIN HCL 0.4 MG CAP PO SCH (12:49)
[2022-07-08] MEDS: METOPROLOL TARTRATE 50 MG TABLET (FP) PO SCH ×2 (12:49→21:59)
[2022-07-08] MEDS: INSULIN SLIDING SCALE (NOVOLOG) 1 VIAL SQ SCH ×5 (12:49→21:59)
[2022-07-08] MEDS ORDERED: ATORVASTATIN CA 80 MG TABLET (FP) ONE (21:42)
[2022-07-08] MEDS ORDERED: LOSARTAN POTASSIUM 25 MG TABLET ONE (21:42)
[2022-07-08] MEDS: LATANOPROST 0.005% OPHTH SOLN 2.5ML BOTTLE OU SCH (21:59)
[2022-07-08] MEDS: ATORVASTATIN CA 80 MG TABLET (FP) PO SCH (21:59)
[2022-07-09 08:00] LABS: BASO % 0.2 % (0-2.0); HEMATOCRIT 42.4 % (35.4-49); HEMOGLOBIN 13.9 GM/dL (11.7-16.9); LYMPH % 11.3 % (8-40); MCH 29.7 pg (25.7-33.7); MCHC 32.8 g/dl (32.0-35.9); MEAN CELL VOLUME 90.5 fl (80-96); MEAN PLT VOLUME 9.2 fl (7.5-11.1); MONO % 5.7 % (3.8-10.2); NEUT % 82.8 % (42.8-82.8); PLATELET COUNT 149 10^3/uL (134-434); RBC 4.68 M/mm3 (4.00-5.60); RDW 15.2 % (11.9-15.9)
[2022-07-09 08:26] LABS: ALBUMIN 3.3 g/dl (3.4-5.0); BLOOD UREA NITROGEN 36.6 mg/dL (7-18)
[2022-07-09 08:29] LABS: CREATININE 0.7 mg/dL (0.55-1.3)
[2022-07-09 08:30] LABS: BILIRUBIN,TOTAL 1.1 mg/dL (0.2-1); TOT PROT 5.7 g/dl (6.4-8.2)
[2022-07-09] MEDS: INSULIN SLIDING SCALE (NOVOLOG) 1 VIAL SQ SCH ×4 (08:30→21:50)
[2022-07-09] MEDS ORDERED: METOPROLOL TARTRATE 50 MG TABLET (FP) ONE (08:42)
[2022-07-09] MEDS ORDERED: CLOPIDOGREL BISULFATE 75 MG TABLET (FP) ONE (08:44)
[2022-07-09] MEDS ORDERED: LOSARTAN POTASSIUM 50 MG TABLET ONE (08:44)
[2022-07-09] MEDS ORDERED: predniSONE 20 MG TABLET (UD) ONE (08:44)
[2022-07-09] MEDS ORDERED: PANTOPRAZOLE 40 MG TABLET PO ONE (08:44)
[2022-07-09] MEDS ORDERED: TAMSULOSIN HCL 0.4 MG CAP ONE (08:45)
[2022-07-09] MEDS ORDERED: ASPIRIN 81 MG CHEWABLE TABLETS ONE (08:45)
[2022-07-09] MEDS ORDERED: FUROSEMIDE 20 MG TABLET (FP) ONE (08:45)
[2022-07-09] MEDS ORDERED: levETIRAcetam 500 MG/5 ML INJECTION VIAL IVPB ONE (08:45)
[2022-07-09] MEDS: predniSONE 20 MG TABLET (UD) PO SCH ×2 (09:06→21:49)
[2022-07-09] MEDS: LOSARTAN POTASSIUM 50 MG TABLET PO SCH ×2 (09:06→21:49)
[2022-07-09] MEDS: METOPROLOL TARTRATE 50 MG TABLET (FP) PO SCH ×2 (09:06→21:49)
[2022-07-09] MEDS: ASPIRIN 81 MG CHEWABLE TABLETS PO SCH (09:07)
[2022-07-09] MEDS: TAMSULOSIN HCL 0.4 MG CAP PO SCH (09:07)
[2022-07-09] MEDS: FUROSEMIDE 20 MG TABLET (FP) PO SCH (09:07)
[2022-07-09] MEDS: CLOPIDOGREL BISULFATE 75 MG TABLET (FP) PO SCH (09:07)
[2022-07-09] MEDS: levETIRAcetam 500 MG/5 ML INJECTION VIAL IVPB SCH ×2 (09:07→21:48)
[2022-07-09] MEDS: PANTOPRAZOLE 40 MG TABLET PO SCH (09:07)
[2022-07-09] MEDS: BACITRACIN/POLYMYXIN B SULFATE 15 GM TUBE TP SCH (21:49)
[2022-07-09] MEDS: ATORVASTATIN CA 80 MG TABLET (FP) PO SCH (21:49)
[2022-07-09] MEDS: LATANOPROST 0.005% OPHTH SOLN 2.5ML BOTTLE OU SCH (23:05)
[2022-07-10] MEDS: INSULIN SLIDING SCALE (NOVOLOG) 1 VIAL SQ SCH ×4 (07:49→22:28)
[2022-07-10] MEDS: predniSONE 10 MG TABLET (UD) PO SCH ×2 (09:50→21:14)
[2022-07-10] MEDS: FUROSEMIDE 20 MG TABLET (FP) PO SCH (09:50)
[2022-07-10] MEDS: CLOPIDOGREL BISULFATE 75 MG TABLET (FP) PO SCH (09:50)
[2022-07-10] MEDS: PANTOPRAZOLE 40 MG TABLET PO SCH (09:50)
[2022-07-10] MEDS: ASPIRIN 81 MG CHEWABLE TABLETS PO SCH (09:50)
[2022-07-10] MEDS: METOPROLOL TARTRATE 50 MG TABLET (FP) PO SCH ×2 (09:50→21:14)
[2022-07-10] MEDS: TAMSULOSIN HCL 0.4 MG CAP PO SCH (09:50)
[2022-07-10] MEDS: LOSARTAN POTASSIUM 50 MG TABLET PO SCH ×2 (09:50→21:14)
[2022-07-10] MEDS: levETIRAcetam 500 MG/5 ML INJECTION VIAL IVPB SCH ×2 (09:51→21:15)
[2022-07-10] MEDS: BACITRACIN/POLYMYXIN B SULFATE 15 GM TUBE TP SCH ×2 (09:51→21:15)
[2022-07-10 12:02] LABS: BASO % 0.1 % (0-2.0); EOS % 0.2 % (0-4.5); HEMATOCRIT 38.8 % (35.4-49); HEMOGLOBIN 13.1 GM/dL (11.7-16.9); LYMPH % 11.7 % (8-40); MCH 30.4 pg (25.7-33.7); MCHC 33.8 g/dl (32.0-35.9); MEAN PLT VOLUME 8.9 fl (7.5-11.1); MONO % 8.5 % (3.8-10.2); NEUT % 79.5 % (42.8-82.8); PLATELET COUNT 131 10^3/uL (134-434); RBC 4.31 M/mm3 (4.00-5.60); RDW 15.2 % (11.9-15.9); WHITE BLOOD COUNT 8.4 K/mm3 (4.0-10.0)
[2022-07-10 12:23] LABS: CALCIUM 8.6 mg/dL (8.5-10.1)
[2022-07-10 12:24] LABS: BLOOD UREA NITROGEN 42.4 mg/dL (7-18)
[2022-07-10 12:27] LABS: CREATININE 0.8 mg/dL (0.55-1.3)
[2022-07-10 12:29] LABS: BILIRUBIN,TOTAL 1.1 mg/dL (0.2-1); TOT PROT 5.4 g/dl (6.4-8.2)
[2022-07-10] MEDS: ATORVASTATIN CA 80 MG TABLET (FP) PO SCH (21:14)
[2022-07-10] MEDS: LATANOPROST 0.005% OPHTH SOLN 2.5ML BOTTLE OU SCH (21:16)
[2022-07-10] MEDS: ACETAMINOPHEN 325 MG TABLET (FP) PO PRN (22:40)
[2022-07-11] MEDS: INSULIN SLIDING SCALE (NOVOLOG) 1 VIAL SQ SCH ×4 (06:00→22:25)
[2022-07-11] MEDS: ASPIRIN 81 MG CHEWABLE TABLETS PO SCH (10:29)
[2022-07-11] MEDS: TAMSULOSIN HCL 0.4 MG CAP PO SCH (10:30)
[2022-07-11] MEDS: FUROSEMIDE 20 MG TABLET (FP) PO SCH (10:31)
[2022-07-11] MEDS: CLOPIDOGREL BISULFATE 75 MG TABLET (FP) PO SCH (10:31)
[2022-07-11] MEDS: LOSARTAN POTASSIUM 50 MG TABLET PO SCH ×2 (10:31→21:57)
[2022-07-11] MEDS: METOPROLOL TARTRATE 50 MG TABLET (FP) PO SCH ×2 (10:31→21:57)
[2022-07-11] MEDS: predniSONE 10 MG TABLET (UD) PO SCH ×2 (10:31→21:57)
[2022-07-11] MEDS: levETIRAcetam 500 MG/5 ML INJECTION VIAL IVPB SCH ×2 (10:31→21:57)
[2022-07-11] MEDS: PANTOPRAZOLE 40 MG TABLET PO SCH (10:31)
[2022-07-11] MEDS: BACITRACIN/POLYMYXIN B SULFATE 15 GM TUBE TP SCH ×2 (10:40→21:57)
[2022-07-11] MEDS: ACETAMINOPHEN 325 MG TABLET (FP) PO PRN (12:57)
[2022-07-11] MEDS: ATORVASTATIN CA 80 MG TABLET (FP) PO SCH (21:57)
[2022-07-11] MEDS: LATANOPROST 0.005% OPHTH SOLN 2.5ML BOTTLE OU SCH (21:57)
[2022-07-11] MEDS: INSULIN (LEVEMIR) 100 UNITS/ML UNITS SQ SCH (21:57)
[2022-07-12] MEDS: INSULIN SLIDING SCALE (NOVOLOG) 1 VIAL SQ SCH ×4 (06:24→22:15)
[2022-07-12] MEDS: INSULIN (LEVEMIR) 100 UNITS/ML UNITS SQ SCH ×2 (06:24→22:14)
[2022-07-12] MEDS: LOSARTAN POTASSIUM 50 MG TABLET PO SCH ×2 (10:07→21:47)
[2022-07-12] MEDS: METOPROLOL TARTRATE 50 MG TABLET (FP) PO SCH ×2 (10:07→21:47)
[2022-07-12] MEDS: FUROSEMIDE 20 MG TABLET (FP) PO SCH (10:07)
[2022-07-12] MEDS: ASPIRIN 81 MG CHEWABLE TABLETS PO SCH (10:07)
[2022-07-12] MEDS: TAMSULOSIN HCL 0.4 MG CAP PO SCH (10:07)
[2022-07-12] MEDS: predniSONE 10 MG TABLET (UD) PO SCH ×2 (10:07→21:48)
[2022-07-12] MEDS: CLOPIDOGREL BISULFATE 75 MG TABLET (FP) PO SCH (10:08)
[2022-07-12] MEDS: levETIRAcetam 500 MG/5 ML INJECTION VIAL IVPB SCH ×2 (10:08→21:48)
[2022-07-12] MEDS: PANTOPRAZOLE 40 MG TABLET PO SCH (10:08)
[2022-07-12] MEDS: BACITRACIN/POLYMYXIN B SULFATE 15 GM TUBE TP SCH ×2 (10:09→22:19)
[2022-07-12] MEDS: ATORVASTATIN CA 80 MG TABLET (FP) PO SCH (21:48)
[2022-07-12] MEDS: LATANOPROST 0.005% OPHTH SOLN 2.5ML BOTTLE OU SCH (22:19)
[2022-07-12] MEDS: NYSTATIN POWDER 100,000 UNITS/GM - 15 GM TOPICAL POWDER TP SCH (22:19)
[2022-07-13] MEDS: INSULIN SLIDING SCALE (NOVOLOG) 1 VIAL SQ SCH ×2 (06:58→12:30)
[2022-07-13] MEDS: INSULIN (LEVEMIR) 100 UNITS/ML UNITS SQ SCH (07:57)
[2022-07-13] MEDS ORDERED: levETIRAcetam 500 MG TABLET (FP) PO SCH (10:00)
[2022-07-13] MEDS: CLOPIDOGREL BISULFATE 75 MG TABLET (FP) PO SCH (10:13)
[2022-07-13] MEDS: METOPROLOL TARTRATE 50 MG TABLET (FP) PO SCH (10:13)
[2022-07-13] MEDS: LOSARTAN POTASSIUM 50 MG TABLET PO SCH (10:13)
[2022-07-13] MEDS: FUROSEMIDE 20 MG TABLET (FP) PO SCH (10:13)
[2022-07-13] MEDS: PANTOPRAZOLE 40 MG TABLET PO SCH (10:13)
[2022-07-13] MEDS: TAMSULOSIN HCL 0.4 MG CAP PO SCH (10:13)
[2022-07-13] MEDS: ASPIRIN 81 MG CHEWABLE TABLETS PO SCH (10:13)
[2022-07-13] MEDS: predniSONE 10 MG TABLET (UD) PO SCH (10:13)
[2022-07-13] MEDS: NYSTATIN POWDER 100,000 UNITS/GM - 15 GM TOPICAL POWDER TP SCH (10:14)
[2022-07-13] MEDS: BACITRACIN/POLYMYXIN B SULFATE 15 GM TUBE TP SCH (10:15)
[2022-07-13 10:23] VITALS: BP 157/65; PULSE 71; RESP 16; TEMP 97.7
[2022-07-13] MEDS: ACETAMINOPHEN 325 MG TABLET (FP) PO PRN (12:28)
== END 2022-07-13 15:23 | disposition home or self-care (01) ==
LOC: JER 15:09 → INTOOBSV 20:37 → JERBED 20:37 → J4W 07-09 10:59
PROVIDERS: ADMIT Internal Medicine; ATTEND Family Medicine
PROC: 3E013VG Introduction of Insulin into Subcutaneous Tissue, Percutaneous Approach (ICD-10-PCS; principal; 2022-07-07)
PROC: 3E033GC Introduction of Other Therapeutic Substance into Peripheral Vein, Percutaneous Approach (ICD-10-PCS; 2022-07-07)
PROC: 3E0337Z Introduction of Electrolytic and Water Balance Substance into Peripheral Vein, Percutaneous Approach (ICD-10-PCS; 2022-07-07)
DX: I25.10 Atherosclerotic heart disease of native coronary artery without angina pectoris (principal); I11.0 Hypertensive heart disease with heart failure; I50.9 Heart failure, unspecified; E78.5 Hyperlipidemia, unspecified; I27.20 Pulmonary hypertension, unspecified; Z95.5 Presence of coronary angioplasty implant and graft; Z85.47 Personal history of malignant neoplasm of testis; Z91.09 Other allergy status, other than to drugs and biological substances; I35.0 Nonrheumatic aortic (valve) stenosis; Z95.0 Presence of cardiac pacemaker; I73.9 Peripheral vascular disease, unspecified; I69.898 Other sequelae of other cerebrovascular disease
CPT/HCPCS: 36415; 70450-TC; 71045-TC-FY; 71101-TC-RT-FY; 80048; 80053; 82962; 83735; 84484; 85025; 85610; 85730; 93005; 93010; 95816; 96361; 96372; 96374; 96376; 97116-GP; 97161-GP; 99285-25; C9803-CS; G0378; U0003; U0005

== ENCOUNTER 2022-08-09 09:57 | Inpatient (IN) | payer OTHER ==
[2022-08-09] MEDS ORDERED: ALBUTEROL SO4 2.5/IPRATROPIUM 0.5 INH SOL 3 ML VIAL.NEB. NEB ONE ×2 (10:27→11:14)
[2022-08-09] MEDS ORDERED: ACETAMINOPHEN 1000 MG/100 ML BAG IVPB ONE (10:45)
[2022-08-09] MEDS ORDERED: VANCOMYCIN 1 GM in D5W (PRE-DOCKED) 1,000 MG/250 ML IVPB ONE (11:13)
[2022-08-09] MEDS ORDERED: ACETAMINOPHEN INJECTION 100 ML IVPB ONE (11:14)
[2022-08-09] MEDS ORDERED: PIPERACILLIN/TAZOB 4.5 GM 4.5 GM in DEXTROSE 5%-WATER 100 ML IVPB ONE (11:14)
[2022-08-09 12:08] LABS: VENOUS BASE EXCESS 6.2 mmol/L (-2-2); VENOUS O2 SATURATION 62.1 % (70-80); VENOUS PH 7.332 (7.310-7.410)
[2022-08-09 12:14] LABS: BASO % 0.4 % (0-2.0); EOS % 0.7 % (0-4.5); HEMATOCRIT 29.2 % (35.4-49); HEMOGLOBIN 9.8 GM/dL (11.7-16.9); LYMPH % 8.1 % (8-40); MCH 30.1 pg (25.7-33.7); MCHC 33.7 g/dl (32.0-35.9); MEAN CELL VOLUME 89.4 fl (80-96); MEAN PLT VOLUME 7.3 fl (7.5-11.1); NEUT % 79.8 % (42.8-82.8); PLATELET COUNT 214 10^3/uL (134-434); RBC 3.27 M/mm3 (4.00-5.60); RDW 15.6 % (11.9-15.9); WHITE BLOOD COUNT 7.5 K/mm3 (4.0-10.0)
[2022-08-09] MEDS ORDERED: PIPERACILLIN/TAZOB 4.5 GM 4.5 GM/100 ML BAG IVPB ONE (12:20)
[2022-08-09] MEDS ORDERED: VANCOMYCIN/WATER FOR INJ (PEG) 1,000 MG/200 ML BAG IVPB ONE (12:21)
[2022-08-09 12:22] LABS: INR 1.11 (0.83-1.09); PROTHROMBIN TIME (PATIENT) 12.8 SEC (9.7-13.0)
[2022-08-09 12:25] LABS: ACTIVATED PTT 30.9 SECONDS (25.2-36.5)
[2022-08-09 12:35] LABS: ALBUMIN 2.8 g/dl (3.4-5.0)
[2022-08-09 12:36] LABS: BLOOD UREA NITROGEN 18.9 mg/dL (7-18)
[2022-08-09 12:38] LABS: CREATININE 0.6 mg/dL (0.55-1.3)
[2022-08-09 12:39] LABS: BILIRUBIN,TOTAL 0.6 mg/dL (0.2-1)
[2022-08-09 12:43] LABS: N-TERMINAL BNP 5276.8 pg/ml (5-450)
[2022-08-09 13:08] LABS: EPI CELLS 22 /uL (0-25.1); HYALINE CASTS 3 /uL (0-3.1); URINE APPEARANCE CLEAR; URINE BACTERIA 14 /uL (0-1359); URINE BILIRUBIN NEGATIVE (NEGATIVE); URINE COLOR YELLOW; URINE GLUCOSE (UA) NEGATIVE (NEGATIVE); URINE KETONE NEGATIVE (NEGATIVE); URINE LEUK ESTERASE NEGATIVE (NEGATIVE); URINE NITRITE NEGATIVE (NEGATIVE); URINE PROTEIN 3+ (NEGATIVE); URINE RBC 8 /uL (0-23.9); URINE WBC 22 /uL (0-25.8)
[2022-08-09] MEDS ORDERED: FUROSEMIDE 40 MG/4 ML INJECTABLE VIAL IVPUSH ONE (13:21)
[2022-08-09] MEDS ORDERED: FUROSEMIDE 40 MG/4 ML INJECTABLE VIAL ONE (13:49)
[2022-08-09] MEDS: INSULIN SLIDING SCALE (NOVOLOG) 1 VIAL SQ SCH (17:50)
[2022-08-10] MEDS ORDERED: DEXTROSE 50%-WATER 25 GM/50 ML DISP.SYRIN ONE (00:14)
[2022-08-10] MEDS ORDERED: DEXTROSE 50%-WATER - 25 GM/50 ML VIAL IVPUSH ONE (00:14)
[2022-08-10] MEDS: PIPERACILLIN/TAZOB 3.375 GM 3.375 GM in DEXTROSE 5%-WATER - 50 ML IVPB SCH ×5 (00:33→21:06)
[2022-08-10] MEDS: INSULIN SLIDING SCALE (NOVOLOG) 1 VIAL SQ SCH ×5 (00:33→23:16)
[2022-08-10] MEDS ORDERED: PIPERACILLIN/TAZOB 3.375 GM 3.375 GM/50 ML BAG IVPB ONE ×2 (00:34→09:53)
[2022-08-10] MEDS ORDERED: NITROGLYCERIN 2% OINTMENT - 1GM PACKET TD ONE ×2 (00:49→00:50)
[2022-08-10 00:54] LABS: ARTERIAL BLD GAS O2 SATURATION 99.5 % (95-98); ARTERIAL BLOOD GAS BASE EXCESS 0.5 mmol/L (-2-2); ARTERIAL BLOOD GAS PO2 273.9 mmHg (80-100); ARTERIAL BLOOD GAS pH 7.253 (7.350-7.450)
[2022-08-10 00:56] LABS: VENT MODE S/T; VENT RATE 19
[2022-08-10] MEDS ORDERED: FUROSEMIDE 40 MG/4 ML INJECTABLE VIAL IVPUSH ONE (01:00)
[2022-08-10] MEDS: ATORVASTATIN CA 80 MG TABLET (FP) PO SCH ×2 (01:24→22:07)
[2022-08-10] MEDS: levETIRAcetam 500 MG TABLET (FP) PO SCH ×3 (01:24→22:06)
[2022-08-10] MEDS: METOPROLOL TARTRATE 50 MG TABLET (FP) PO SCH ×3 (01:25→22:05)
[2022-08-10] MEDS ORDERED: levETIRAcetam 500 MG/5 ML INJECTION VIAL IVPB ONE ×2 (02:09→04:04)
[2022-08-10 02:18] LABS: BASO % 0.3 % (0-2.0); EOS % 0.2 % (0-4.5); HEMATOCRIT 34.3 % (35.4-49); HEMOGLOBIN 11.3 GM/dL (11.7-16.9); MCH 29.8 pg (25.7-33.7); MCHC 32.9 g/dl (32.0-35.9); MEAN CELL VOLUME 90.5 fl (80-96); MEAN PLT VOLUME 7.9 fl (7.5-11.1); MONO % 12.6 % (3.8-10.2); NEUT % 77.9 % (42.8-82.8); PLATELET COUNT 302 10^3/uL (134-434); RDW 15.4 % (11.9-15.9); WHITE BLOOD COUNT 15.3 K/mm3 (4.0-10.0)
[2022-08-10 02:40] LABS: ALBUMIN 2.9 g/dl (3.4-5.0); BLOOD UREA NITROGEN 19.6 mg/dL (7-18); CALCIUM 9.1 mg/dL (8.5-10.1)
[2022-08-10 02:43] LABS: CREATININE 0.7 mg/dL (0.55-1.3)
[2022-08-10 02:45] LABS: BILIRUBIN,TOTAL 1.2 mg/dL (0.2-1); TOT PROT 6.5 g/dl (6.4-8.2)
[2022-08-10 06:18] LABS: ARTERIAL BLD GAS O2 SATURATION 99.5 % (95-98); ARTERIAL BLOOD GAS BASE EXCESS 11.1 mmol/L (-2-2); ARTERIAL BLOOD GAS PO2 221.5 mmHg (80-100); ARTERIAL BLOOD GAS pH 7.419 (7.350-7.450)
[2022-08-10] MEDS ORDERED: ACETAMINOPHEN INJECTION 100 ML IVPB ONE (06:24)
[2022-08-10 06:27] LABS: ALLENS TEST POSITIVE
[2022-08-10 06:28] LABS: VENT MODE S/T; VENT RATE 16
[2022-08-10] MEDS ORDERED: ACETAMINOPHEN 1000 MG/100 ML BAG IVPB ONE (06:39)
[2022-08-10 07:57] LABS: BASO % 0.1 % (0-2.0); HEMATOCRIT 28.6 % (35.4-49); HEMOGLOBIN 9.7 GM/dL (11.7-16.9); LYMPH % 4.8 % (8-40); MCH 30.5 pg (25.7-33.7); MEAN CELL VOLUME 89.6 fl (80-96); MEAN PLT VOLUME 7.8 fl (7.5-11.1); MONO % 10.4 % (3.8-10.2); NEUT % 84.7 % (42.8-82.8); PLATELET COUNT 211 10^3/uL (134-434); RBC 3.19 M/mm3 (4.00-5.60); RDW 15.7 % (11.9-15.9); WHITE BLOOD COUNT 8.6 K/mm3 (4.0-10.0)
[2022-08-10 08:15] LABS: ALBUMIN 2.5 g/dl (3.4-5.0); BLOOD UREA NITROGEN 20.1 mg/dL (7-18); CALCIUM 8.5 mg/dL (8.5-10.1); MAGNESIUM 1.6 mg/dL (1.8-2.4)
[2022-08-10 08:16] LABS: BILIRUBIN,TOTAL 0.9 mg/dL (0.2-1); TOT PROT 5.6 g/dl (6.4-8.2)
[2022-08-10 08:18] LABS: CREATININE 0.7 mg/dL (0.55-1.3); PHOSPHOROUS 3.6 mg/dL (2.5-4.9)
[2022-08-10] MEDS ORDERED: FUROSEMIDE 40 MG/4 ML INJECTABLE VIAL ONE (08:34)
[2022-08-10] MEDS: FUROSEMIDE 40 MG/4 ML INJECTABLE VIAL IVPUSH SCH (09:39)
[2022-08-10] MEDS ORDERED: CLOPIDOGREL BISULFATE 75 MG TABLET (FP) ONE (09:52)
[2022-08-10] MEDS ORDERED: levETIRAcetam 500 MG TABLET (FP) PO ONE (09:52)
[2022-08-10] MEDS ORDERED: PANTOPRAZOLE 40 MG TABLET PO ONE (09:52)
[2022-08-10] MEDS ORDERED: METOPROLOL TARTRATE 50 MG TABLET (FP) ONE (09:52)
[2022-08-10] MEDS ORDERED: TAMSULOSIN HCL 0.4 MG CAP ONE (09:53)
[2022-08-10] MEDS ORDERED: ASPIRIN 81 MG CHEWABLE TABLETS ONE (09:53)
[2022-08-10] MEDS: ASPIRIN 81 MG CHEWABLE TABLETS PO SCH (10:03)
[2022-08-10] MEDS: CLOPIDOGREL BISULFATE 75 MG TABLET (FP) PO SCH (10:04)
[2022-08-10] MEDS: PANTOPRAZOLE 40 MG TABLET PO SCH (10:04)
[2022-08-10] MEDS: TAMSULOSIN HCL 0.4 MG CAP PO SCH (10:04)
[2022-08-10] MEDS ORDERED: MAGNESIUM SULF 50% (8.12 MEQ/2 ML-1 GM VIAL) IVPB ONE (11:25)
[2022-08-10] MEDS ORDERED: MAGNESIUM SULFATE IN WATER 2 GM/50 ML IVPB IVPB ONE (11:33)
[2022-08-11] MEDS: PIPERACILLIN/TAZOB 3.375 GM 3.375 GM in DEXTROSE 5%-WATER - 50 ML IVPB SCH ×3 (04:51→21:30)
[2022-08-11] MEDS: INSULIN SLIDING SCALE (NOVOLOG) 1 VIAL SQ SCH ×4 (06:40→21:53)
[2022-08-11] MEDS: TAMSULOSIN HCL 0.4 MG CAP PO SCH (10:30)
[2022-08-11] MEDS: PANTOPRAZOLE 40 MG TABLET PO SCH (10:30)
[2022-08-11] MEDS: ASPIRIN 81 MG CHEWABLE TABLETS PO SCH (10:31)
[2022-08-11] MEDS: levETIRAcetam 500 MG TABLET (FP) PO SCH ×2 (10:31→21:51)
[2022-08-11] MEDS: CLOPIDOGREL BISULFATE 75 MG TABLET (FP) PO SCH (10:31)
[2022-08-11] MEDS: FUROSEMIDE 40 MG/4 ML INJECTABLE VIAL IVPUSH SCH (10:32)
[2022-08-11] MEDS: METOPROLOL TARTRATE 50 MG TABLET (FP) PO SCH ×2 (10:32→21:52)
[2022-08-11] MEDS: ATORVASTATIN CA 80 MG TABLET (FP) PO SCH (21:51)
[2022-08-12] MEDS: PIPERACILLIN/TAZOB 3.375 GM 3.375 GM in DEXTROSE 5%-WATER - 50 ML IVPB SCH ×3 (05:00→22:31)
[2022-08-12] MEDS: INSULIN SLIDING SCALE (NOVOLOG) 1 VIAL SQ SCH ×4 (06:15→22:36)
[2022-08-12 09:43] LABS: ARTERIAL BLD GAS O2 SATURATION 78.3 % (95-98); ARTERIAL BLOOD GAS BASE EXCESS 10.9 mmol/L (-2-2); ARTERIAL BLOOD GAS PO2 41.1 mmHg (80-100); ARTERIAL BLOOD GAS pH 7.461 (7.350-7.450)
[2022-08-12 09:44] LABS: ALLENS TEST POSITIVE
[2022-08-12] MEDS: levETIRAcetam 500 MG TABLET (FP) PO SCH ×2 (10:09→22:32)
[2022-08-12] MEDS: TAMSULOSIN HCL 0.4 MG CAP PO SCH (10:10)
[2022-08-12] MEDS: METOPROLOL TARTRATE 50 MG TABLET (FP) PO SCH ×2 (10:12→22:32)
[2022-08-12] MEDS: ASPIRIN 81 MG CHEWABLE TABLETS PO SCH (10:12)
[2022-08-12] MEDS: FUROSEMIDE 40 MG TABLET (FP) PO SCH (10:12)
[2022-08-12] MEDS: PANTOPRAZOLE 40 MG TABLET PO SCH (10:12)
[2022-08-12] MEDS: CLOPIDOGREL BISULFATE 75 MG TABLET (FP) PO SCH (10:12)
[2022-08-12 12:43] LABS: BASO % 0.5 % (0-2.0); EOS % 2.7 % (0-4.5); HEMATOCRIT 31.8 % (35.4-49); HEMOGLOBIN 10.4 GM/dL (11.7-16.9); LYMPH % 16.2 % (8-40); MCH 29.1 pg (25.7-33.7); MCHC 32.6 g/dl (32.0-35.9); MEAN CELL VOLUME 89.4 fl (80-96); MEAN PLT VOLUME 7.6 fl (7.5-11.1); NEUT % 68.6 % (42.8-82.8); PLATELET COUNT 206 10^3/uL (134-434); RBC 3.56 M/mm3 (4.00-5.60); RDW 15.1 % (11.9-15.9)
[2022-08-12 13:04] LABS: ALBUMIN 2.6 g/dl (3.4-5.0); BLOOD UREA NITROGEN 30.5 mg/dL (7-18); CALCIUM 9.4 mg/dL (8.5-10.1)
[2022-08-12 13:07] LABS: CREATININE 0.7 mg/dL (0.55-1.3)
[2022-08-12 13:08] LABS: BILIRUBIN,TOTAL 0.9 mg/dL (0.2-1); TOT PROT 6.2 g/dl (6.4-8.2)
[2022-08-12] MEDS ORDERED: POTASSIUM CHLORIDE TABS 20 MEQ TABLET.ER (FP) PO ONE (14:39)
[2022-08-12] MEDS ORDERED: IRON SUCROSE INJECTION 200 MG in SODIUM CHLORIDE 90 ML IVPB ONE (15:30)
[2022-08-12] MEDS: ATORVASTATIN CA 80 MG TABLET (FP) PO SCH (22:32)
[2022-08-13] MEDS: PIPERACILLIN/TAZOB 3.375 GM 3.375 GM in DEXTROSE 5%-WATER - 50 ML IVPB SCH ×3 (05:00→20:31)
[2022-08-13] MEDS: INSULIN SLIDING SCALE (NOVOLOG) 1 VIAL SQ SCH ×4 (06:22→22:31)
[2022-08-13 08:19] LABS: CALCIUM 9.2 mg/dL (8.5-10.1)
[2022-08-13 08:20] LABS: ALBUMIN 2.5 g/dl (3.4-5.0); BLOOD UREA NITROGEN 24.8 mg/dL (7-18); EOS % 3.3 % (0-4.5); HEMATOCRIT 28.9 % (35.4-49); HEMOGLOBIN 9.6 GM/dL (11.7-16.9); LYMPH % 20.2 % (8-40); MCH 29.5 pg (25.7-33.7); MCHC 33.1 g/dl (32.0-35.9); MEAN CELL VOLUME 89.2 fl (80-96); MEAN PLT VOLUME 8.2 fl (7.5-11.1); MONO % 13.7 % (3.8-10.2); NEUT % 61.8 % (42.8-82.8); PLATELET COUNT 197 10^3/uL (134-434); RBC 3.24 M/mm3 (4.00-5.60); RDW 14.7 % (11.9-15.9); WHITE BLOOD COUNT 4.1 K/mm3 (4.0-10.0)
[2022-08-13 08:23] LABS: CREATININE 0.6 mg/dL (0.55-1.3)
[2022-08-13 08:25] LABS: TOT PROT 5.6 g/dl (6.4-8.2)
[2022-08-13] MEDS: ASPIRIN 81 MG CHEWABLE TABLETS PO SCH (09:57)
[2022-08-13] MEDS: PANTOPRAZOLE 40 MG TABLET PO SCH (09:57)
[2022-08-13] MEDS: TAMSULOSIN HCL 0.4 MG CAP PO SCH (09:57)
[2022-08-13] MEDS: FUROSEMIDE 40 MG TABLET (FP) PO SCH (09:57)
[2022-08-13] MEDS: levETIRAcetam 500 MG TABLET (FP) PO SCH ×2 (09:58→22:30)
[2022-08-13] MEDS: METOPROLOL TARTRATE 50 MG TABLET (FP) PO SCH ×2 (09:58→22:30)
[2022-08-13] MEDS: ATORVASTATIN CA 80 MG TABLET (FP) PO SCH (22:30)
[2022-08-14] MEDS: PIPERACILLIN/TAZOB 3.375 GM 3.375 GM in DEXTROSE 5%-WATER - 50 ML IVPB SCH ×3 (03:49→20:56)
[2022-08-14] MEDS: INSULIN SLIDING SCALE (NOVOLOG) 1 VIAL SQ SCH ×4 (06:59→22:00)
[2022-08-14] MEDS: ASPIRIN 81 MG CHEWABLE TABLETS PO SCH (10:38)
[2022-08-14] MEDS: TAMSULOSIN HCL 0.4 MG CAP PO SCH (10:38)
[2022-08-14] MEDS: METOPROLOL TARTRATE 50 MG TABLET (FP) PO SCH ×2 (10:38→21:56)
[2022-08-14] MEDS: levETIRAcetam 500 MG TABLET (FP) PO SCH ×2 (10:38→21:56)
[2022-08-14] MEDS: PANTOPRAZOLE 40 MG TABLET PO SCH (10:39)
[2022-08-14] MEDS: FUROSEMIDE 40 MG TABLET (FP) PO SCH (10:39)
[2022-08-14] MEDS: ATORVASTATIN CA 80 MG TABLET (FP) PO SCH (21:56)
[2022-08-15] MEDS: PIPERACILLIN/TAZOB 3.375 GM 3.375 GM in DEXTROSE 5%-WATER - 50 ML IVPB SCH ×3 (04:06→20:55)
[2022-08-15] MEDS: INSULIN SLIDING SCALE (NOVOLOG) 1 VIAL SQ SCH ×4 (06:30→21:36)
[2022-08-15] MEDS ORDERED: INSULIN (LEVEMIR) 100 UNITS/ML UNITS SQ SCH (07:00)
[2022-08-15] MEDS: FUROSEMIDE 40 MG TABLET (FP) PO SCH (10:07)
[2022-08-15] MEDS: TAMSULOSIN HCL 0.4 MG CAP PO SCH (10:07)
[2022-08-15] MEDS: levETIRAcetam 500 MG TABLET (FP) PO SCH ×2 (10:08→21:28)
[2022-08-15] MEDS: PANTOPRAZOLE 40 MG TABLET PO SCH (10:08)
[2022-08-15] MEDS: METOPROLOL TARTRATE 50 MG TABLET (FP) PO SCH ×2 (10:08→21:28)
[2022-08-15] MEDS: ASPIRIN 81 MG CHEWABLE TABLETS PO SCH (10:08)
[2022-08-15] MEDS: ATORVASTATIN CA 80 MG TABLET (FP) PO SCH (21:28)
[2022-08-16] MEDS: PIPERACILLIN/TAZOB 3.375 GM 3.375 GM in DEXTROSE 5%-WATER - 50 ML IVPB SCH ×2 (04:22→13:25)
[2022-08-16] MEDS: INSULIN SLIDING SCALE (NOVOLOG) 1 VIAL SQ SCH ×4 (06:08→21:42)
[2022-08-16] MEDS: INSULIN (LEVEMIR) 100 UNITS/ML UNITS SQ SCH (06:08)
[2022-08-16] MEDS: ASPIRIN 81 MG CHEWABLE TABLETS PO SCH (10:21)
[2022-08-16] MEDS: levETIRAcetam 500 MG TABLET (FP) PO SCH ×2 (10:21→21:31)
[2022-08-16] MEDS: FUROSEMIDE 40 MG TABLET (FP) PO SCH (10:21)
[2022-08-16] MEDS: METOPROLOL TARTRATE 50 MG TABLET (FP) PO SCH ×2 (10:21→21:32)
[2022-08-16] MEDS: PANTOPRAZOLE 40 MG TABLET PO SCH (10:21)
[2022-08-16] MEDS: TAMSULOSIN HCL 0.4 MG CAP PO SCH (10:21)
[2022-08-16 11:44] VITALS: BMI 21.2
[2022-08-16] MEDS: ATORVASTATIN CA 80 MG TABLET (FP) PO SCH (21:32)
[2022-08-17] MEDS: INSULIN (LEVEMIR) 100 UNITS/ML UNITS SQ SCH (06:09)
[2022-08-17] MEDS: INSULIN SLIDING SCALE (NOVOLOG) 1 VIAL SQ SCH ×4 (06:11→21:50)
[2022-08-17] MEDS: levETIRAcetam 500 MG TABLET (FP) PO SCH ×2 (09:15→21:50)
[2022-08-17] MEDS: METOPROLOL TARTRATE 50 MG TABLET (FP) PO SCH ×2 (09:15→21:50)
[2022-08-17] MEDS: PANTOPRAZOLE 40 MG TABLET PO SCH (09:16)
[2022-08-17] MEDS: FUROSEMIDE 40 MG TABLET (FP) PO SCH (09:16)
[2022-08-17] MEDS: TAMSULOSIN HCL 0.4 MG CAP PO SCH (09:16)
[2022-08-17] MEDS: ASPIRIN 81 MG CHEWABLE TABLETS PO SCH (09:16)
[2022-08-17] MEDS: ATORVASTATIN CA 80 MG TABLET (FP) PO SCH (21:50)
[2022-08-18] MEDS: INSULIN SLIDING SCALE (NOVOLOG) 1 VIAL SQ SCH ×2 (06:37→12:05)
[2022-08-18] MEDS: INSULIN (LEVEMIR) 100 UNITS/ML UNITS SQ SCH (06:37)
[2022-08-18] MEDS: PANTOPRAZOLE 40 MG TABLET PO SCH (09:51)
[2022-08-18] MEDS: FUROSEMIDE 40 MG TABLET (FP) PO SCH (09:51)
[2022-08-18] MEDS: levETIRAcetam 500 MG TABLET (FP) PO SCH (09:51)
[2022-08-18] MEDS: TAMSULOSIN HCL 0.4 MG CAP PO SCH (09:52)
[2022-08-18] MEDS: ASPIRIN 81 MG CHEWABLE TABLETS PO SCH (09:52)
[2022-08-18] MEDS: METOPROLOL TARTRATE 50 MG TABLET (FP) PO SCH (09:52)
[2022-08-18 11:16] VITALS: RESP 18
[2022-08-18 16:57] VITALS: BP 126/74; PULSE 80; TEMP 98.4
== END 2022-08-18 17:00 | DRG 291 ==
LOC: JER 09:57 → JERBED 13:13 → J4W 08-10 20:30
PROVIDERS: ADMIT Internal Medicine; ATTEND Internal Medicine
DX: I11.0 Hypertensive heart disease with heart failure (principal); I50.33 Acute on chronic diastolic (congestive) heart failure; J96.01 Acute respiratory failure with hypoxia; J18.9 Pneumonia, unspecified organism; J96.02 Acute respiratory failure with hypercapnia; I25.10 Atherosclerotic heart disease of native coronary artery without angina pectoris; E78.5 Hyperlipidemia, unspecified; I44.7 Left bundle-branch block, unspecified; N40.0 Benign prostatic hyperplasia without lower urinary tract symptoms; I08.2 Rheumatic disorders of both aortic and tricuspid valves; R29.810 Facial weakness; K57.90 Diverticulosis of intestine, part unspecified, without perforation or abscess without bleeding; R56.9 Unspecified convulsions; I27.20 Pulmonary hypertension, unspecified; D32.9 Benign neoplasm of meninges, unspecified; R41.82 Altered mental status, unspecified; Z85.47 Personal history of malignant neoplasm of testis
CPT/HCPCS: 0241U-QW; 36415; 36600; 70450-TC; 71045-TC-FY; 74018-TC-FY; 80053; 80061; 80177; 81003; 82553; 82728; 82803; 82962; 83036; 83540; 83550; 83605; 83735; 83880; 84100; 84443; 84484; 85025; 85610; 85730; 86850; 86900; 86901; 87040; 87086; 87899; 93005; 93010; 94660; 94761; 95816; 97116-GP; 97162-GP; 99291; C9803-CS; J1756; U0003; U0005

== ENCOUNTER 2022-12-06 15:42 | Inpatient (IN) | payer OTHER ==
[2022-12-06 16:14] VITALS: BMI 27.3
[2022-12-06 17:43] LABS: BASO % 0.2 % (0-2.0); EOS % 0.8 % (0-4.5); HEMATOCRIT 34.8 % (35.4-49); HEMOGLOBIN 12.3 GM/dL (11.7-16.9); MCHC 35.2 g/dl (32.0-35.9); MEAN CELL VOLUME 88.1 fl (80-96); MEAN PLT VOLUME 8.2 fl (7.5-11.1); MONO % 8.9 % (3.8-10.2); NEUT % 55.1 % (42.8-82.8); PLATELET COUNT 120 10^3/uL (134-434); RBC 3.95 M/mm3 (4.00-5.60); RDW 14.9 % (11.9-15.9); WHITE BLOOD COUNT 3.6 K/mm3 (4.0-10.0)
[2022-12-06 17:53] LABS: INR 0.97 (0.83-1.09); PROTHROMBIN TIME (PATIENT) 11.2 SEC (9.7-13.0)
[2022-12-06 17:56] LABS: ACTIVATED PTT 31.1 SECONDS (25.2-36.5)
[2022-12-06 17:58] LABS: CALCIUM 9.3 mg/dL (8.5-10.1)
[2022-12-06 17:59] LABS: ALBUMIN 3.6 g/dl (3.4-5.0); BLOOD UREA NITROGEN 22.7 mg/dL (7-18)
[2022-12-06 18:02] LABS: CREATININE 0.7 mg/dL (0.55-1.3)
[2022-12-06 18:04] LABS: BILIRUBIN,TOTAL 0.5 mg/dL (0.2-1); TOT PROT 6.6 g/dl (6.4-8.2)
[2022-12-06 18:10] LABS: URINE APPEARANCE CLEAR; URINE BILIRUBIN NEGATIVE (NEGATIVE); URINE COLOR YELLOW; URINE GLUCOSE (UA) NEGATIVE (NEGATIVE); URINE KETONE NEGATIVE (NEGATIVE); URINE LEUK ESTERASE NEGATIVE (NEGATIVE); URINE NITRITE NEGATIVE (NEGATIVE); URINE PROTEIN NEGATIVE (NEGATIVE); URINE UROBILINOGEN 0.2 mg/dL (0.2-1.0)
[2022-12-06] MEDS ORDERED: DOCUSATE SODIUM 100 MG CAPSULE (FP) PO PRN (19:57)
[2022-12-06] MEDS ORDERED: ACETAMINOPHEN 325 MG TABLET (FP) PO PRN (19:57)
[2022-12-06] MEDS ORDERED: METOPROLOL TARTRATE 50 MG TABLET (FP) PO ONE (20:46)
[2022-12-06] MEDS ORDERED: METOPROLOL TARTRATE 50 MG TABLET (FP) ONE (20:47)
[2022-12-06] MEDS: INSULIN SLIDING SCALE (NOVOLOG) 1 VIAL SQ SCH (23:05)
[2022-12-07] MEDS: levETIRAcetam 500 MG TABLET (FP) PO SCH ×3 (03:41→22:13)
[2022-12-07] MEDS: LATANOPROST 0.005% OPHTH SOLN 2.5ML BOTTLE OU SCH ×2 (03:41→22:17)
[2022-12-07] MEDS ORDERED: FUROSEMIDE 20 MG TABLET (FP) PO SCH (06:00)
[2022-12-07] MEDS: INSULIN SLIDING SCALE (NOVOLOG) 1 VIAL SQ SCH ×6 (06:15→22:20)
[2022-12-07] MEDS: CLOTRIMAZOLE/BETAMET DIPROP 15 GM TUBE TP SCH ×3 (06:16→22:15)
[2022-12-07] MEDS ORDERED: DEXTROSE 50%-WATER 25 GM/50 ML DISP.SYRIN ONE (06:18)
[2022-12-07] MEDS: DEXTROSE 50%-WATER 25 GM/50 ML DISP.SYRIN IVPUSH ONE ×2 (06:24→06:25)
[2022-12-07 08:50] LABS: BASO % 0.1 % (0-2.0); EOS % 0.1 % (0-4.5); HEMATOCRIT 34.4 % (35.4-49); HEMOGLOBIN 12.4 GM/dL (11.7-16.9); LYMPH % 15.6 % (8-40); MCH 31.4 pg (25.7-33.7); MCHC 36.1 g/dl (32.0-35.9); MEAN PLT VOLUME 8.7 fl (7.5-11.1); MONO % 5.7 % (3.8-10.2); NEUT % 78.5 % (42.8-82.8); PLATELET COUNT 115 10^3/uL (134-434); RBC 3.95 M/mm3 (4.00-5.60); RDW 14.4 % (11.9-15.9); WHITE BLOOD COUNT 5.2 K/mm3 (4.0-10.0)
[2022-12-07] MEDS: TAMSULOSIN HCL 0.4 MG CAP PO SCH ×2 (08:57→22:13)
[2022-12-07] MEDS: CLOPIDOGREL BISULFATE 75 MG TABLET (FP) PO SCH (09:03)
[2022-12-07] MEDS: METOPROLOL TARTRATE 50 MG TABLET (FP) PO SCH ×2 (09:03→22:13)
[2022-12-07] MEDS: LOSARTAN POTASSIUM 50 MG TABLET PO SCH (09:03)
[2022-12-07 09:30] LABS: CALCIUM 9.3 mg/dL (8.5-10.1)
[2022-12-07 09:32] LABS: MAGNESIUM 1.8 mg/dL (1.8-2.4)
[2022-12-07 09:33] LABS: CREATININE 0.5 mg/dL (0.55-1.3); PHOSPHOROUS 4.2 mg/dL (2.5-4.9)
[2022-12-07] MEDS: TIMOLOL MALEATE 0.25% GFS OPHTHALMIC SOLN 5 ML BOTTLE OU SCH (11:37)
[2022-12-07] MEDS: FUROSEMIDE 40 MG TABLET (FP) PO SCH (14:46)
[2022-12-07] MEDS: ATORVASTATIN CA 80 MG TABLET (FP) PO SCH (22:13)
[2022-12-08] MEDS: INSULIN (LEVEMIR) 100 UNITS/ML UNITS SQ SCH (06:09)
[2022-12-08] MEDS: FUROSEMIDE 40 MG TABLET (FP) PO SCH ×2 (06:09→13:47)
[2022-12-08] MEDS: INSULIN SLIDING SCALE (NOVOLOG) 1 VIAL SQ SCH ×4 (06:10→22:01)
[2022-12-08] MEDS: CLOTRIMAZOLE/BETAMET DIPROP 15 GM TUBE TP SCH ×3 (06:12→21:58)
[2022-12-08] MEDS: CLOPIDOGREL BISULFATE 75 MG TABLET (FP) PO SCH (09:29)
[2022-12-08] MEDS: TAMSULOSIN HCL 0.4 MG CAP PO SCH ×2 (09:29→21:57)
[2022-12-08] MEDS: levETIRAcetam 500 MG TABLET (FP) PO SCH ×2 (09:29→21:57)
[2022-12-08] MEDS: METOPROLOL TARTRATE 50 MG TABLET (FP) PO SCH ×2 (09:29→21:57)
[2022-12-08] MEDS: LOSARTAN POTASSIUM 50 MG TABLET PO SCH (09:29)
[2022-12-08] MEDS: TIMOLOL MALEATE 0.25% GFS OPHTHALMIC SOLN 5 ML BOTTLE OU SCH (09:30)
[2022-12-08 18:35] VITALS: RESP 18
[2022-12-08] MEDS: ATORVASTATIN CA 80 MG TABLET (FP) PO SCH (21:57)
[2022-12-08] MEDS: LATANOPROST 0.005% OPHTH SOLN 2.5ML BOTTLE OU SCH (21:58)
[2022-12-09] MEDS: INSULIN SLIDING SCALE (NOVOLOG) 1 VIAL SQ SCH ×4 (06:23→21:53)
[2022-12-09] MEDS: FUROSEMIDE 40 MG TABLET (FP) PO SCH ×2 (06:23→14:45)
[2022-12-09] MEDS: CLOTRIMAZOLE/BETAMET DIPROP 15 GM TUBE TP SCH ×3 (06:24→21:53)
[2022-12-09] MEDS: INSULIN (LEVEMIR) 100 UNITS/ML UNITS SQ SCH (06:24)
[2022-12-09] MEDS: CLOPIDOGREL BISULFATE 75 MG TABLET (FP) PO SCH (09:36)
[2022-12-09] MEDS: TAMSULOSIN HCL 0.4 MG CAP PO SCH ×2 (09:36→21:52)
[2022-12-09] MEDS: METOPROLOL TARTRATE 50 MG TABLET (FP) PO SCH ×2 (09:36→21:52)
[2022-12-09] MEDS: levETIRAcetam 500 MG TABLET (FP) PO SCH ×3 (09:36→21:51)
[2022-12-09] MEDS: LOSARTAN POTASSIUM 50 MG TABLET PO SCH (09:36)
[2022-12-09] MEDS: TIMOLOL MALEATE 0.25% GFS OPHTHALMIC SOLN 5 ML BOTTLE OU SCH (09:42)
[2022-12-09] MEDS: ATORVASTATIN CA 80 MG TABLET (FP) PO SCH (21:53)
[2022-12-09] MEDS: LATANOPROST 0.005% OPHTH SOLN 2.5ML BOTTLE OU SCH (21:54)
[2022-12-09] MEDS ORDERED: INSULIN (LEVEMIR) 100 UNITS/ML UNITS SQ SCH (22:19)
[2022-12-10] MEDS: FUROSEMIDE 40 MG TABLET (FP) PO SCH ×2 (06:22→15:00)
[2022-12-10] MEDS: CLOTRIMAZOLE/BETAMET DIPROP 15 GM TUBE TP SCH ×2 (06:22→15:00)
[2022-12-10] MEDS: INSULIN SLIDING SCALE (NOVOLOG) 1 VIAL SQ SCH ×3 (06:23→17:16)
[2022-12-10] MEDS: TAMSULOSIN HCL 0.4 MG CAP PO SCH (09:19)
[2022-12-10] MEDS: levETIRAcetam 500 MG TABLET (FP) PO SCH (10:18)
[2022-12-10] MEDS: CLOPIDOGREL BISULFATE 75 MG TABLET (FP) PO SCH (10:19)
[2022-12-10] MEDS: METOPROLOL TARTRATE 50 MG TABLET (FP) PO SCH (10:19)
[2022-12-10] MEDS: LOSARTAN POTASSIUM 50 MG TABLET PO SCH (10:19)
[2022-12-10] MEDS: TIMOLOL MALEATE 0.25% GFS OPHTHALMIC SOLN 5 ML BOTTLE OU SCH (10:19)
[2022-12-10 15:00] VITALS: BP 111/52; PULSE 63; TEMP 97.9
== END 2022-12-10 18:31 | disposition home health service (06) | DRG 69 ==
LOC: JER 15:42 → JERBED 19:40 → J4S 12-07 01:23 → OBSVTOIN 12-09 09:56
PROVIDERS: ADMIT Internal Medicine; ATTEND Family Medicine
DX: G45.9 Transient cerebral ischemic attack, unspecified (principal); I50.32 Chronic diastolic (congestive) heart failure; D43.2 Neoplasm of uncertain behavior of brain, unspecified; E11.65 Type 2 diabetes mellitus with hyperglycemia; I25.10 Atherosclerotic heart disease of native coronary artery without angina pectoris; Z95.5 Presence of coronary angioplasty implant and graft; E78.5 Hyperlipidemia, unspecified
CPT/HCPCS: 36415; 70450-TC; 70496-TC; 70498-TC; 71045-TC-FY; 80048; 80053; 80061; 81003; 82550; 82962; 83735; 83880; 84100; 84484; 85025; 85610; 85730; 86850; 86900; 86901; 93005; 93010; 95816; 97116-GP; 97161-GP; 99285-25; C9803-CS; G0378; Q9967; U0003; U0005

== ENCOUNTER 2023-01-04 10:54 | Inpatient (IN) | payer OTHER ==
[2023-01-04 11:08] VITALS: BMI 25.6
[2023-01-04 13:16] LABS: BASO % 0.2 % (0-2.0); EOS % 1.6 % (0-4.5); HEMATOCRIT 35.7 % (35.4-49); HEMOGLOBIN 12.4 GM/dL (11.7-16.9); LYMPH % 20.6 % (8-40); MCH 30.7 pg (25.7-33.7); MCHC 34.7 g/dl (32.0-35.9); MEAN CELL VOLUME 88.3 fl (80-96); MEAN PLT VOLUME 8.3 fl (7.5-11.1); MONO % 7.9 % (3.8-10.2); NEUT % 69.7 % (42.8-82.8); PLATELET COUNT 113 10^3/uL (134-434); RBC 4.05 M/mm3 (4.00-5.60); RDW 14.6 % (11.9-15.9); WHITE BLOOD COUNT 4.8 K/mm3 (4.0-10.0)
[2023-01-04 13:18] LABS: POTASSIUM 3.8 mmol/L (3.5-5.1)
[2023-01-04 13:20] LABS: CALCIUM 9.2 mg/dL (8.5-10.1)
[2023-01-04 13:21] LABS: ALBUMIN 3.5 g/dl (3.4-5.0)
[2023-01-04 13:24] LABS: CREATININE 0.7 mg/dL (0.55-1.3)
[2023-01-04 13:25] LABS: BILIRUBIN,TOTAL 0.9 mg/dL (0.2-1); TOT PROT 6.3 g/dl (6.4-8.2)
[2023-01-04 16:51] LABS: EPI CELLS 2 /uL (0-25.1); HYALINE CASTS 0 /uL (0-3.1); URINE APPEARANCE CLEAR; URINE BACTERIA 4 /uL (0-1359); URINE BILIRUBIN NEGATIVE (NEGATIVE); URINE COLOR YELLOW; URINE GLUCOSE (UA) TRACE (NEGATIVE); URINE KETONE NEGATIVE (NEGATIVE); URINE LEUK ESTERASE NEGATIVE (NEGATIVE); URINE NITRITE NEGATIVE (NEGATIVE); URINE PROTEIN 2+ (NEGATIVE); URINE RBC 23 /uL (0-23.9); URINE UROBILINOGEN 0.2 mg/dL (0.2-1.0); URINE WBC 1 /uL (0-25.8)
[2023-01-04] MEDS ORDERED: DOCUSATE SODIUM 100 MG CAPSULE (FP) PO PRN (17:24)
[2023-01-04] MEDS ORDERED: ACETAMINOPHEN 325 MG TABLET (FP) ONE (20:58)
[2023-01-04] MEDS: ACETAMINOPHEN 325 MG TABLET (FP) PO PRN (21:07)
[2023-01-04] MEDS ORDERED: hydrALAZINE HCL 20 MG/ML VIAL IVPUSH ONE (21:12)
[2023-01-04] MEDS ORDERED: hydrALAZINE HCL 20 MG/ML VIAL ONE (21:15)
[2023-01-04] MEDS: METOPROLOL TARTRATE 50 MG TABLET (FP) PO SCH (22:02)
[2023-01-04] MEDS: HEPARIN NA (PORCINE) 5,000 UNITS/ML 1ML VIAL SQ SCH (22:02)
[2023-01-04] MEDS: levETIRAcetam 500 MG TABLET (FP) PO SCH (22:02)
[2023-01-04] MEDS: ATORVASTATIN CA 80 MG TABLET (FP) PO SCH (22:02)
[2023-01-04] MEDS: TIMOLOL 0.5% OPHTHALMIC SOL 5 ML BOTTLE OU SCH (22:57)
[2023-01-04] MEDS: LATANOPROST 0.005% OPHTH SOLN 2.5ML BOTTLE OU SCH (22:57)
[2023-01-05] MEDS: INSULIN (LEVEMIR) 100 UNITS/ML UNITS SQ SCH (06:08)
[2023-01-05 07:44] LABS: BASO % 0.5 % (0-2.0); EOS % 2.5 % (0-4.5); HEMATOCRIT 38.2 % (35.4-49); HEMOGLOBIN 13.4 GM/dL (11.7-16.9); LYMPH % 24.7 % (8-40); MCH 31.1 pg (25.7-33.7); MEAN CELL VOLUME 88.8 fl (80-96); MEAN PLT VOLUME 8.6 fl (7.5-11.1); MONO % 9.6 % (3.8-10.2); NEUT % 62.7 % (42.8-82.8); PLATELET COUNT 114 10^3/uL (134-434); RDW 14.4 % (11.9-15.9); WHITE BLOOD COUNT 4.7 K/mm3 (4.0-10.0)
[2023-01-05 08:10] LABS: POTASSIUM 3.6 mmol/L (3.5-5.1)
[2023-01-05 08:16] LABS: ALBUMIN 3.7 g/dl (3.4-5.0); CALCIUM 9.1 mg/dL (8.5-10.1); MAGNESIUM 1.9 mg/dL (1.8-2.4)
[2023-01-05 08:19] LABS: CREATININE 0.5 mg/dL (0.55-1.3)
[2023-01-05 08:20] LABS: BILIRUBIN,TOTAL 1.2 mg/dL (0.2-1); TOT PROT 6.8 g/dl (6.4-8.2)
[2023-01-05] MEDS: PANTOPRAZOLE 40 MG TABLET PO SCH (09:17)
[2023-01-05] MEDS: CLOPIDOGREL BISULFATE 75 MG TABLET (FP) PO SCH (09:17)
[2023-01-05] MEDS: LOSARTAN POTASSIUM 50 MG TABLET PO SCH (09:17)
[2023-01-05] MEDS: METOPROLOL TARTRATE 50 MG TABLET (FP) PO SCH ×2 (09:17→21:29)
[2023-01-05] MEDS: TAMSULOSIN HCL 0.4 MG CAP PO SCH (09:17)
[2023-01-05] MEDS: FUROSEMIDE 40 MG TABLET (FP) PO SCH (09:17)
[2023-01-05] MEDS: HEPARIN NA (PORCINE) 5,000 UNITS/ML 1ML VIAL SQ SCH ×2 (09:18→21:28)
[2023-01-05] MEDS: levETIRAcetam 500 MG TABLET (FP) PO SCH ×2 (09:18→21:28)
[2023-01-05] MEDS: LIDOCAINE 5% TOPICAL PATCH TP SCH (09:18)
[2023-01-05] MEDS: ACETAMINOPHEN 325 MG TABLET (FP) PO PRN ×2 (09:18→21:29)
[2023-01-05] MEDS: TIMOLOL 0.5% OPHTHALMIC SOL 5 ML BOTTLE OU SCH ×2 (09:18→21:29)
[2023-01-05] MEDS: LIDOCAINE PATCH REMOVAL MC SCH (21:29)
[2023-01-05] MEDS: ATORVASTATIN CA 80 MG TABLET (FP) PO SCH (21:29)
[2023-01-05] MEDS: LATANOPROST 0.005% OPHTH SOLN 2.5ML BOTTLE OU SCH (21:30)
[2023-01-06] MEDS: INSULIN (LEVEMIR) 100 UNITS/ML UNITS SQ SCH (06:00)
[2023-01-06] MEDS: TAMSULOSIN HCL 0.4 MG CAP PO SCH (09:09)
[2023-01-06] MEDS: CLOPIDOGREL BISULFATE 75 MG TABLET (FP) PO SCH (09:09)
[2023-01-06] MEDS: levETIRAcetam 500 MG TABLET (FP) PO SCH ×2 (09:10→21:41)
[2023-01-06] MEDS: LOSARTAN POTASSIUM 50 MG TABLET PO SCH (09:10)
[2023-01-06] MEDS: TIMOLOL 0.5% OPHTHALMIC SOL 5 ML BOTTLE OU SCH ×2 (09:10→21:42)
[2023-01-06] MEDS: PANTOPRAZOLE 40 MG TABLET PO SCH (09:10)
[2023-01-06] MEDS: HEPARIN NA (PORCINE) 5,000 UNITS/ML 1ML VIAL SQ SCH ×2 (09:10→21:41)
[2023-01-06] MEDS: FUROSEMIDE 40 MG TABLET (FP) PO SCH (09:10)
[2023-01-06] MEDS: LIDOCAINE 5% TOPICAL PATCH TP SCH (09:10)
[2023-01-06] MEDS: METOPROLOL TARTRATE 50 MG TABLET (FP) PO SCH ×2 (09:10→21:41)
[2023-01-06] MEDS: ACETAMINOPHEN 325 MG TABLET (FP) PO PRN ×2 (09:16→21:42)
[2023-01-06] MEDS: ATORVASTATIN CA 80 MG TABLET (FP) PO SCH (21:41)
[2023-01-06] MEDS: LATANOPROST 0.005% OPHTH SOLN 2.5ML BOTTLE OU SCH (21:42)
[2023-01-06] MEDS: LIDOCAINE PATCH REMOVAL MC SCH (21:48)
[2023-01-07] MEDS: INSULIN (LEVEMIR) 100 UNITS/ML UNITS SQ SCH (06:23)
[2023-01-07] MEDS: TAMSULOSIN HCL 0.4 MG CAP PO SCH (08:48)
[2023-01-07] MEDS: HEPARIN NA (PORCINE) 5,000 UNITS/ML 1ML VIAL SQ SCH (09:01)
[2023-01-07] MEDS: ACETAMINOPHEN 325 MG TABLET (FP) PO PRN ×2 (09:01→15:59)
[2023-01-07] MEDS: CLOPIDOGREL BISULFATE 75 MG TABLET (FP) PO SCH (09:01)
[2023-01-07] MEDS: PANTOPRAZOLE 40 MG TABLET PO SCH (09:01)
[2023-01-07] MEDS: FUROSEMIDE 40 MG TABLET (FP) PO SCH (09:02)
[2023-01-07] MEDS: levETIRAcetam 500 MG TABLET (FP) PO SCH (09:02)
[2023-01-07] MEDS: LIDOCAINE 5% TOPICAL PATCH TP SCH (09:03)
[2023-01-07] MEDS: TIMOLOL 0.5% OPHTHALMIC SOL 5 ML BOTTLE OU SCH (09:03)
[2023-01-07] MEDS: METOPROLOL TARTRATE 50 MG TABLET (FP) PO SCH (09:03)
[2023-01-07] MEDS ORDERED: LOSARTAN POTASSIUM 50 MG TABLET PO SCH (10:00)
[2023-01-07 10:46] VITALS: RESP 16
[2023-01-07 15:00] VITALS: BP 132/55; PULSE 72; TEMP 97.5
== END 2023-01-07 16:00 | disposition home or self-care (01) | DRG 543 ==
LOC: JER 10:54 → JERBED 16:13 → J4W 21:36
PROVIDERS: ADMIT Family Medicine; ATTEND Family Medicine
DX: M48.56XA Collapsed vertebra, not elsewhere classified, lumbar region, initial encounter for fracture (principal); I50.32 Chronic diastolic (congestive) heart failure; R29.810 Facial weakness; K57.90 Diverticulosis of intestine, part unspecified, without perforation or abscess without bleeding; E78.00 Pure hypercholesterolemia, unspecified; E11.9 Type 2 diabetes mellitus without complications; I25.10 Atherosclerotic heart disease of native coronary artery without angina pectoris; I08.2 Rheumatic disorders of both aortic and tricuspid valves; N40.0 Benign prostatic hyperplasia without lower urinary tract symptoms; H40.9 Unspecified glaucoma; I11.0 Hypertensive heart disease with heart failure; M54.9 Dorsalgia, unspecified; I44.7 Left bundle-branch block, unspecified; E11.40 Type 2 diabetes mellitus with diabetic neuropathy, unspecified; M51.36 Other intervertebral disc degeneration, lumbar region; I44.0 Atrioventricular block, first degree; M16.11 Unilateral primary osteoarthritis, right hip; E11.65 Type 2 diabetes mellitus with hyperglycemia; I27.20 Pulmonary hypertension, unspecified; M50.33 Other cervical disc degeneration, cervicothoracic region; M48.03 Spinal stenosis, cervicothoracic region; Z95.0 Presence of cardiac pacemaker; Z95.5 Presence of coronary angioplasty implant and graft; Z85.841 Personal history of malignant neoplasm of brain; Z85.47 Personal history of malignant neoplasm of testis; Z86.73 Personal history of transient ischemic attack (TIA), and cerebral infarction without residual deficits
CPT/HCPCS: 36415; 70450-TC; 71045-TC-FY; 72100-TC-FY; 72125-TC; 72128-TC; 73521-TC-FY; 80053; 81003; 82962; 83036; 83735; 84443; 84484; 85025; 87086; 93005; 93010; 97116-GP; 97162-GP; 99285-25; C9803-CS; J1644; U0003; U0005

== ENCOUNTER 2024-02-21 10:26 | Emergency (ER) | payer OTHER ==
[2024-02-21 10:48] VITALS: TEMP 97.6; BMI 27.4
[2024-02-21] MEDS ORDERED: hydrALAZINE HCL 20 MG/ML VIAL ONE (11:05)
[2024-02-21] MEDS ORDERED: INSULIN REGULAR HUMAN 100 UNITS/ML *VIAL ONE (11:05)
[2024-02-21 11:10] LABS: HEMATOCRIT 41.4 % (35.4-49); HEMOGLOBIN 14.3 GM/dL (11.7-16.9); MCH 32.3 pg (25.7-33.7); MCHC 34.5 g/dl (32.0-35.9); MEAN CELL VOLUME 93.5 fl (80-96); MEAN PLT VOLUME 7.7 fl (7.5-11.1); PLATELET COUNT 117 10^3/uL (134-434); RBC 4.42 M/mm3 (4.00-5.60); RDW 13.8 % (11.9-15.9)
[2024-02-21] MEDS: INSULIN REGULAR HUMAN 100 UNITS/ML *VIAL IVPUSH ONE (11:10)
[2024-02-21] MEDS: hydrALAZINE HCL 20 MG/ML VIAL IVPUSH ONE (11:10)
[2024-02-21 11:22] LABS: EPI CELLS 1 /uL (0-25.1); HYALINE CASTS 0 /uL (0-3.1); URINE APPEARANCE CLEAR; URINE BACTERIA 9 /uL (0-1359); URINE BILIRUBIN NEGATIVE (NEGATIVE); URINE COLOR YELLOW; URINE GLUCOSE (UA) 3+ (NEGATIVE); URINE KETONE NEGATIVE (NEGATIVE); URINE LEUK ESTERASE NEGATIVE (NEGATIVE); URINE NITRITE NEGATIVE (NEGATIVE); URINE PROTEIN 2+ (NEGATIVE); URINE RBC 14 /uL (0-23.9); URINE UROBILINOGEN 0.2 mg/dL (0.2-1.0); URINE WBC 1 /uL (0-25.8)
[2024-02-21 11:31] VITALS: RESP 16
[2024-02-21 12:13] LABS: ALBUMIN 4.1 g/dl (3.4-5.0); BILIRUBIN,TOTAL 0.8 mg/dL (0.2-1); BLOOD UREA NITROGEN 18.3 mg/dL (7-18); CALCIUM 9.4 mg/dL (8.5-10.1); CREATININE 0.7 mg/dL (0.55-1.3); POTASSIUM 4.1 mmol/L (3.5-5.1); TOT PROT 6.8 g/dl (6.4-8.2)
[2024-02-21 14:22] VITALS: BP 172/71; PULSE 69
== END 2024-02-21 17:08 | disposition home or self-care (01) ==
LOC: JER 10:26
PROC: 3E033GC Introduction of Other Therapeutic Substance into Peripheral Vein, Percutaneous Approach (ICD-10-PCS; principal; 2024-02-21)
PROC: 3E033VG Introduction of Insulin into Peripheral Vein, Percutaneous Approach (ICD-10-PCS; 2024-02-21)
DX: I10 Essential (primary) hypertension (principal)
CPT/HCPCS: 36415; 80053; 81003; 82962; 85027; 93005; 93010; 96374; 96375; 99284-25